=== PATIENT | female | born 1950 | race African-American/Black ===

== ENCOUNTER 2020-01-20 09:13 | Outpatient (REF) | payer MEDICARE, SELFPAY ==
[2020-01-20 10:24] LABS: MANUAL DIFF FLAG NO
[2020-01-20 10:41] LABS: Basophils Percent Auto 0.5 % (0-2); Eosinophils Absolute Auto 0.1 X10*3/uL (0.0-0.4); Hematocrit 40.4 % (37-47); Hemoglobin 12.8 g/dl (12.0-16.0); Imm Gran Abs Auto 0.01 X10*3/uL (0.00-0.03); Imm Gran Pct Auto 0.2 % (0.0-0.4); Lymphocytes Absolute Auto 1.5 X10*3/uL (1.2-4.9); Lymphocytes Percent Auto 37.3 % (20-40); Mean Corpuscular HGB Conc 31.7 g/dl (31.0-35.0); Mean Corpuscular Hemoglobin 27.2 pg (27.0-33.0); Mean Corpuscular Volume 85.8 fL (80-98); Monocytes Absolute Auto 0.4 X10*3/uL (0.1-1.2); Monocytes Percent Auto 10.7 % (2-11); Neutrophils Percent Auto 49.3 % (45-73); Platelet Count 272 X10*3/uL (160-400); Red Blood Count 4.71 X10*6/uL (4.20-5.50); Red Cell Distribution Width 12.7 % (11.0-16.0); White Blood Count 4.1 X10*3/uL (4.8-10.8)
[2020-01-20 11:10] LABS: Alanine Aminotransferase 21 U/L (0-31); Albumin Level 4.3 g/dL (3.5-5.0); Alkaline Phosphatase 72 U/L (39-117); Anion Gap 15 (12-20); Aspartate Amino Transferase 20 U/L (5-31); Bilirubin Total 0.3 mg/dL (0.0-1.0); Blood Urea Nitrogen 8 mg/dL (9-16); Calcium 9.2 mg/dL (8.4-10.2); Carbon Dioxide 25 mmol/L (22-29); Chloride 105 mmol/L (96-108); Cholesterol 246 mg/dL; Estimated Glomerular Filt Rate > 60; Glucose Fasting 121 mg/dL (60-99); HDL Cholesterol 66 mg/dL; LDL Cholesterol Calculated 160 mg/dl; Potassium 4.5 mmol/l (3.3-5.1); Sodium 140 mmol/L (135-145); Total Protein 7.3 g/dL (6.5-8.0); Triglycerides 101 mg/dL
[2020-01-20 11:14] LABS: Creatinine Urine 158.36 mg/dL; Microalbum/Creatinine Ratio Ur 38.5 ug/mg cr
[2020-01-20 11:34] LABS: Thyroid Stimulating Hormone 0.64 mIU/mL (0.32-4.0); Vitamin D 25-OH Total 60.4 ng/mL (>30)
[2020-01-20 12:09] LABS: Vitamin B12 1650 pg/mL (200-900)
[2020-01-20 17:55] LABS: Estimated Average Glucose 174 mg/dL; Hemoglobin A1c % 7.7 %
[2020-01-20 18:15] LABS: T4 Thyroxine 7.8 ug/dL (4.5-12.0)
== END 2020-01-20 09:14 | disposition home or self-care (01) ==
LOC: HO.LAB 09:13
PROVIDERS: Visit Provider Internal Medicine
DX: E11.65 Type 2 diabetes mellitus with hyperglycemia (principal); E78.00 Pure hypercholesterolemia, unspecified; I10 Essential (primary) hypertension; Z85.3 Personal history of malignant neoplasm of breast
CPT/HCPCS: 36415; 80053; 80061; 82043; 82306; 82607; 82746; 83036; 84436; 84443; 85025

== ENCOUNTER 2020-03-14 10:30 | Inpatient (IN) | payer MEDICARE, SELFPAY ==
[2020-03-14] VITALS (7 sets, daily range): BP systolic 123–149; BP diastolic 51–68; PULSE 86–98; RESP 18–31; TEMP 36.5–37.9; O2SAT 84–96; BMI 36.3
--- NOTE | 2020-03-14 11:09 | ECG_ITS ---
Test Reason : WEAKNESS Blood Pressure : / mmHG Vent. Rate : 097 BPM Atrial Rate : 097 BPM P-R Int : 142 ms QRS Dur : 084 ms QT Int : 338 ms P-R-T Axes : 052 018 024 degrees QTc Int : 429 ms Normal sinus rhythm Possible Left atrial enlargement Possible Inferior infarct , age undetermined Abnormal ECG No previous ECGs available Referred By: Jerrod Stephens Electronically Signed By:LITA MOLINA
--- NOTE | 2020-03-14 11:09 | XR_ITS ---
EXAMINATION: XR CHEST CLINICAL INFORMATION: Shortness of breath COMPARISON: Previous chest x-rays most recent March 2019 TECHNIQUE: Frontal view of the chest was obtained. FINDINGS: The cardiac silhouette does not appear enlarged. There may be pulmonary venous redistribution. Hilar and mediastinal contours are otherwise unremarkable. There are increased markings seen in the perihilar region and lower lungs. Differential would include pulmonary edema and pneumonia. There is no pleural effusion. There are surgical clips in the right axilla. Bony structures are unremarkable. XR/XR chest 1V IMPRESSION: Bilateral increased perihilar and lower lung markings. Differential would include pulmonary edema and pneumonia. Clinical correlation recommended.
[2020-03-14 12:06] LABS: Lactic Acid 1.5 mmol/L (0.5-2.0)
[2020-03-14 12:50] LABS: Influenza A PCR NEGATIVE (Negative); Influenza B PCR NEGATIVE (Negative); Resp Syncy Virus RNA Qual PCR NEGATIVE (Negative); SARS COV2 PCR INHOUSE POSITIVE (Negative)
[2020-03-14 13:01] LABS: Glucose Urine UA NEG (NEG); Leukocyte Esterase Urine NEG (NEG); Nitrite Urine NEG (NEG); Specific Gravity - Urine >= 1.030 (1.005-1.025); Urine Blood 1+ (NEG); Urine Ketones 40 MG/DL (NEG); Urine Protein 3+ MG/DL (NEG-TRACE)
[2020-03-14 13:02] LABS: Appearance Urine HAZY; Color Urine YELLOW
[2020-03-14] MEDS: Acetaminophen 325 MG TABLET 975 MG PO (13:07)
[2020-03-14] MEDS: 0.9 % Sodium Chloride 1,000 ML 999 ML IVCONT (13:08)
[2020-03-14 13:09] LABS: RBC Urine 0-2 /HPF (0); Squamous Epithelial Cell Urine 1+ /LPF; WBC Urine 0-2 /HPF (0-4)
[2020-03-14 13:10] LABS: Mucus Urine 2+ /LPF
--- NOTE | 2020-03-14 13:11 | PC.NURSE ---
ivf started, pt medicated per order, will continue to monitor.
--- NOTE | 2020-03-14 13:45 | PC.NURSE ---
phlebotomy was able to obtain labs
[2020-03-14 13:46] LABS: Hematocrit 25.2 % (37-47); Hemoglobin 8.1 g/dl (12.0-16.0); Imm Gran Abs Auto 0.03 X10*3/uL (0.00-0.03); Imm Gran Pct Auto 0.9 % (0.0-0.4); Lymphocytes Absolute Auto 0.4 X10*3/uL (1.2-4.9); Lymphocytes Percent Auto 13.3 % (20-40); MANUAL DIFF FLAG SCAN; Mean Corpuscular HGB Conc 32.1 g/dl (31.0-35.0); Mean Corpuscular Hemoglobin 27.6 pg (27.0-33.0); Mean Corpuscular Volume 85.7 fL (80-98); Mean Platelet Volume 9.5 fL (9.4-12.3); Monocytes Absolute Auto 0.3 X10*3/uL (0.1-1.2); Monocytes Percent Auto 9.1 % (2-11); Neutrophils Absolute Auto 2.5 X10*3/uL (2.0-8.3); Neutrophils Percent Auto 76.7 % (45-73); Platelet Count 182 X10*3/uL (160-400); Red Blood Count 2.94 X10*6/uL (4.20-5.50); Red Cell Distribution Width 13.2 % (11.0-16.0); SCAN SMEAR FLAG 1; White Blood Count 3.3 X10*3/uL (4.8-10.8)
[2020-03-14 13:57] LABS: D Dimer 601 NG/ML
--- NOTE | 2020-03-14 14:09 | CT_ITS ---
EXAMINATION: CT ANGIOGRAM OF THE CHEST WITH AND WITHOUT CONTRAST (CT PULMONARY ANGIOGRAM FOR PE) CLINICAL INFORMATION: Reason for Exam pt + covid c hypoxia ? pe COMPARISON: Previous chest x-ray from earlier the same day and thyroid ultrasound August 2015 TECHNIQUE: Prior to contrast administration, noncontrast localization images were obtained. Subsequently, multidetector volumetric imaging was performed from the thoracic inlet to below the diaphragms following the administration of 65 mL Omnipaque 350 intravenous contrast. No contrast reaction reported Sagittal, coronal, and MIP oblique sagittal reformatted images were obtained on the CT workstation, uploaded to PACS, and reviewed. This CT examination was performed using dose optimization techniques as appropriate, variously including the following: *Automated exposure control *Adjustment of mA and/or kV according to patient size (this includes techniques or standardized protocols for targeted exams where dose is matched to indication/reason for exam; i.e. extremities or head) *Use of iterative reconstruction technique Total exam dose-length product 397 mGy-cm FINDINGS: QUALITY OF STUDY/CONTRAST BOLUS: Satisfactory. PULMONARY ARTERIES: No central or segmental pulmonary emboli. THORACIC AORTA: No aneurysm or dissection. LUNG: There is bilateral peripheral increased interstitial markings and groundglass attenuation. Appearance is more suggestive of an atypical viral pneumonia or possibly changes from chronic interstitial lung disease. PLEURA: No pleural effusion or pneumothorax. MEDIASTINUM: The heart is slightly enlarged. There is no pericardial effusion. There is mild coronary artery calcification. There is diffuse shotty bilateral hilar and mediastinal lymphadenopathy. There is enlargement of the left lobe of the thyroid gland and displacement of the trachea to the right. There are scattered calcifications in the thyroid gland questionable for calcified nodules. No evidence of septal bowing or right heart strain. CHEST WALL/AXILLA: There are there are surgical clips in the right axilla. The right breast has been removed. No chest wall mass or enlarged axillary lymph nodes are seen. OSSEOUS STRUCTURES: There are degenerative changes of the spine. UPPER ABDOMEN: There are multiple liver cysts.. No reflux of contrast into the hepatic veins to suggest elevated right heart pressures. CT/CT angio chest PE protocol IMPRESSION: No evidence of pulmonary embolism. Peripheral mixed interstitial disease and areas of groundglass attenuation. Appearance is nonspecific but is compatible with an atypical viral pneumonia. Differential would include interstitial lung disease. CHF/pulmonary edema is considered less likely. Diffuse shotty mediastinal and hilar lymphadenopathy. Enlarged heart and mild coronary artery calcification. Enlarged partially calcified left lobe of the thyroid gland and is displacement of the trachea to the right. Follow-up thyroid ultrasound recommended. Multiple liver cysts. VTE: negative
[2020-03-14 14:14] LABS: B Type Natriuretic Peptide 15 pg/mL (<100)
[2020-03-14 14:19] LABS: Lactate Dehydrogenase 303 U/L (122-220)
[2020-03-14 14:23] LABS: INTERNATIONAL NORM RATIO 1.3 (0.9-1.1); Prothrombin Time 15.9 SEC (10.8-13.0)
[2020-03-14 14:26] LABS: Partial Thromboplastin Time 32.4 SEC (24.1-38.0); SLIDE REVIEW VERIFIED
--- NOTE | 2020-03-14 14:35 | P.HPHOSP_ITS ---
History of Present Illness Date of Service: 03/14/20 Chief Complaint: Shortness of breath 69 year femle with history DM, HTN, HLD, grade 3, ER/OK negative, HER-w/armani negative s/p lumpectomy, chemo and chest radiation. She has been followed by Dr. Jose Verdin has been stable. Her last routine oncology visit was 02/17/20 and at that time advised routine colonscopy for screening and she declined. She presents with one week of malaise, cough and fever of up to 101 yesterday and becoming progresively sicker. Work up in ED has revealed covid positive and has been hypoxic with O2 sat of 84 on room air. CXR shows bilateral infiltrate. Of note her Hemoglobin is 8.1 when compare to January 19 it was 12.8. She denies bleeding in stool. She takes aspirin daily. Given Azithro and Ceftriaxone in ED along with Dexamethasone. She normal stays home but has a [employer] who comes 3 times a week Review of Systems Review of Systems: Gen: + fever Resp: + sob, no cough CV: no chest, RICHARDS, no leg edema GI: No n/v, no abd pain Neuro: No confusion Yes all other systems are reviewed and are negative [facility] Medical History B12 deficiency Diabetic nephropathy History of breast cancer Hypercholesterolemia Hypertension Multinodular goiter Obesity (BMI 30-39.9) Type 2 diabetes mellitus with hyperglycemia Family History Father No problems noted. Mother Enlarged heart Paternal Aunt Diabetes Surgical History H/O total mastectomy of right breast History of bunionectomy Social History Household Members: None Housing: Apartment Do you presently have visiting nurse or other home services: No Alcohol intake: never Smoking Status: Never smoker Use of substances other than those prescribed or required for medical reasons: No Currently Displaying Signs/Symptoms of Drug Intoxication Withdrawal: No Have you been hit, kicked, punched, or otherwise hurt by someone within the past year? If so, by whom?: No Do you feel safe in your current relationship?: Yes Is there a partner from a previous relationship who is making you feel unsafe now?: No Are you made to feel afraid or neglected: No Advance Directives: No Advance Directives Information Provided: No Do you have thoughts of harming others: None Do you have a plan to hurt others: No Plan Recently lost weight without trying: No Meds Allergies Allergy/AdvReac Type Severity Reaction Status Date / Time glimepiride Allergy Unknown Unknown Verified 01/21/20 16:22 metformin Allergy Unknown diarrhea Verified 01/21/20 16:22 simvastatin Allergy Unknown Unknown Verified 01/21/20 16:22 Home Medications Medication Instructions Recorded Confirmed Type ascorbate calcium (vitamin C) 500 500 mg PO DAILY 01/21/20 03/14/20 History mg tablet aspirin 81 mg tablet,delayed 81 mg PO DAILY 01/21/20 03/14/20 History release atenolol 25 mg tablet 25 mg PO DAILY 01/21/20 03/14/20 History ezetimibe 10 mg PO DAILY 03/14/20 03/14/20 History sitagliptin [Januvia] 50 mg PO DAILY 03/14/20 03/14/20 History Physical Exam Vital Signs and Narrative: Vital Signs: Last Vital Signs Temp 99 F 03/14/20 14:01 Pulse 94 03/14/20 14:01 Resp 28 H 03/14/20 14:01 BP 128/65 03/14/20 14:01 Pulse Ox 94 03/14/20 14:01 Body Mass Index 36.3 Constitutional Awake and Alert, No apparent distress, tals in full sentences Neck Supple, No lymphadenopathy Cardiovascular RRR, No M/R/G, S1 S2, No S3 S4, No pedal edema Respiratory Lungs clear, No respiratory distress Gastrointestinal Non tender, Non-distended Skin No rash Neurological Alert & oriented x3 Psychological Appropriate affect Results Labs CBC and Chem 7: 03/14/20 13:36 03/14/20 13:36 Labs: Laboratory Results - last 24 hr 03/14/20 03/14/20 03/14/20 11:31 11:44 12:51 MCV MCH MCHC RDW Plt Count MPV Immature Gran % (Auto) Neut % (Auto) Lymph % (Auto) [place] % (Auto) Eos % (Auto) Baso % (Auto) Lymph # (Auto) [place] # (Auto) Eos # (Auto) Baso # (Auto) Abs Immat Gran (auto) Absolute Neuts (auto) Absolute Nucleated RBC Nucleated RBC % (auto) Smear Tech's Comments Hold Purple Top PT INR APTT D-Dimer Hold Blue Top Lactic Acid 1.5 Lactate Dehydrogenase Troponin I High Sens B-Natriuretic Peptide Urine Color YELLOW Urine Appearance HAZY Urine pH 6.0 Ur Specific [place] >= 1.030 H Urine Protein 3+ H Urine Glucose (UA) NEG Urine Ketones 40 Urine Blood 1+ H Urine Nitrite NEG Ur Leukocyte Esterase NEG Urine RBC 0-2 Urine WBC 0-2 Ur Squamous Epith Cells 1+ Urine Bacteria NONE Granular Casts 1-4 Urine Mucus 2+ Coronavirus (PCR) POSITIVE A Influenza Type A (PCR) NEGATIVE Influenza Type B (PCR) NEGATIVE RSV RNA Qual (PCR) NEGATIVE 03/14/20 03/14/20 03/14/20 13:36 13:36 13:36 MCV 85.7 MCH 27.6 MCHC 32.1 RDW 13.2 Plt Count 182 D MPV 9.5 Immature Gran % (Auto) 0.9 H Neut % (Auto) 76.7 H Lymph % (Auto) 13.3 L [place] % (Auto) 9.1 Eos % (Auto) 0.0 Baso % (Auto) 0.0 Lymph # (Auto) 0.4 L [place] # (Auto) 0.3 Eos # (Auto) 0.0 Baso # (Auto) 0.0 Abs Immat Gran (auto) 0.03 Absolute Neuts (auto) 2.5 Absolute Nucleated RBC 0.000 Nucleated RBC % (auto) 0.0 Smear Tech's Comments VERIFIED Hold Purple Top SEE NOTE PT INR APTT D-Dimer Hold Blue Top Lactic Acid Lactate Dehydrogenase Troponin I High Sens B-Natriuretic Peptide 15 Urine Color Urine Appearance Urine pH Ur Specific [place] Urine Protein Urine Glucose (UA) Urine Ketones Urine Blood Urine Nitrite Ur Leukocyte Esterase Urine RBC Urine WBC Ur Squamous Epith Cells Urine Bacteria Granular Casts Urine Mucus Coronavirus (PCR) Influenza Type A (PCR) Influenza Type B (PCR) RSV RNA Qual (PCR) 03/14/20 03/14/20 03/14/20 13:36 13:36 13:36 MCV MCH MCHC RDW Plt Count MPV Immature Gran % (Auto) Neut % (Auto) Lymph % (Auto) [place] % (Auto) Eos % (Auto) Baso % (Auto) Lymph # (Auto) [place] # (Auto) Eos # (Auto) Baso # (Auto) Abs Immat Gran (auto) Absolute Neuts (auto) Absolute Nucleated RBC Nucleated RBC % (auto) Smear Tech's Comments Hold Purple Top PT 15.9 H INR 1.3 H APTT 32.4 D-Dimer 601 Hold Blue Top SEE NOTE Lactic Acid Lactate Dehydrogenase Troponin I High Sens 14.0 B-Natriuretic Peptide Urine Color Urine Appearance Urine pH Ur Specific [place] Urine Protein Urine Glucose (UA) Urine Ketones Urine Blood Urine Nitrite Ur Leukocyte Esterase Urine RBC Urine WBC Ur Squamous Epith Cells Urine Bacteria Granular Casts Urine Mucus Coronavirus (PCR) Influenza Type A (PCR) Influenza Type B (PCR) RSV RNA Qual (PCR) LDH 303 [id number] 03/14/20 13:36 MCV MCH MCHC RDW Plt Count MPV Immature Gran % (Auto) Neut % (Auto) Lymph % (Auto) [place] % (Auto) Eos % (Auto) Baso % (Auto) Lymph # (Auto) [place] # (Auto) Eos # (Auto) Baso # (Auto) Abs Immat Gran (auto) Absolute Neuts (auto) Absolute Nucleated RBC Nucleated RBC % (auto) Smear Tech's Comments Hold Purple Top PT INR APTT D-Dimer Hold Blue Top Lactic Acid Lactate Dehydrogenase 303 H Troponin I High Sens B-Natriuretic Peptide Urine Color Urine Appearance Urine pH Ur Specific [place] Urine Protein Urine Glucose (UA) Urine Ketones Urine Blood Urine Nitrite Ur Leukocyte Esterase Urine RBC Urine WBC Ur Squamous Epith Cells Urine Bacteria Granular Casts Urine Mucus Coronavirus (PCR) Influenza Type A (PCR) Influenza Type B (PCR) RSV RNA Qual (PCR) Imaging Radiologist's Impressions: Impressions Chest X-Ray 03/14/20 11:09 IMPRESSION: Bilateral increased perihilar and lower lung markings. Differential would include pulmonary edema and pneumonia. Clinical correlation recommended. Assessment and Plan (1) Acute respiratory failure due to COVID-19: Status: Acute (2) Pneumonia due to COVID-19 virus: Status: Acute (3) Viral sepsis: Status: Acute (4) Acute blood loss anemia: Status: Acute (5) Hypercholesterolemia: Status: Acute (6) Obesity (BMI 30-39.9): Status: Acute (7) Multinodular goiter: Problem details: Thyroid nodule biopsies February 2017 Dr. Low Status: Acute (8) Hypertension: Qualifiers: Hypertension type: essential hypertension Qualified Code(s): I10 - Essential (primary) hypertension Status: Acute (9) Type 2 diabetes mellitus with hyperglycemia: Qualifiers: Diabetes mellitus fci insulin use: without oil heaterman use Qualified Code(s): E11.65 - Type 2 diabetes mellitus with hyperglycemia Status: Acute (10) B12 deficiency: Status: Acute 69/F with DM, HTN, HLD, obesity, history breast Cancer s/p mastectomy, chemo and XRT and now has acute respiratory failure due to covid-19 with hypoxia. Incidental anemia with source of bleed at this time. 1. Acute respriatory failure with hypoxia due to covid 19 PNA -Oxygen -Dexamethasone -Pulmonology consult -CT for furtrher eval 2. Viral covid sepsis, viral PNA -Empiric Azithro and Rocephin in case there could be underlying bacterial etiology, consider remdesevir if get worse 3. Anemia--likely GI source of blood loss. -Follow H/H -Type and Screen -Avoid heparin or Lovenox 4. HTN--Atenolol 25 home dose 5. HLD--she takes Zetia 6. Diabetes--on Januvia 50 at home continue and add SSI 7. B12 deficiency--oral replacement 8. Advise weight loss as may affect chronic health issues DVT prophylaxis--no heparin or coumadin due to anemia. Compression device
[2020-03-14 14:40] LABS: Procalcitonin 0.06 ng/mL
[2020-03-14 14:43] LABS: Ferritin 367 ng/mL (10-250)
[2020-03-14 14:44] LABS: Anion Gap 10 (12-20); Blood Urea Nitrogen 10 mg/dL (9-16); Calcium 4.9 mg/dL (8.4-10.2); Carbon Dioxide 18 mmol/L (22-29); Chloride 117 mmol/L (96-108); Creatinine Clr Calc Pharmacy 132.8; Estimated Glomerular Filt Rate > 60; Glucose Random 81 mg/dL (60-115); Potassium 2.4 mmol/l (3.3-5.1); Sodium 143 mmol/L (135-145)
--- NOTE | 2020-03-14 14:56 | ED.FEVER ---
HPI - Fever General Chief Complaint: General Medical Stated Complaint: FATIGUE,WEAKNESS,T 101,O2SAT 92%RA Time Seen by Provider: 03/14/20 11:30 Source: patient and EMS Mode of arrival: EMS Limitations: no limitations History of Present Illness HPI Narrative: 69yoF c PMHX DM, HTN, hypercholesteremia, anemia, multinodular goiter, B12 deficiency and obesity presenting to the ED with complaints of generalized weakness, fatigue, chills and fevers up to 101 with a intermittent cough for the past week. Denies recent travel or sick contacts. Denies any other symptoms complaints or concerns at this time. Related Data Home Medications Medication Instructions Recorded Confirmed ascorbate calcium (vitamin C) 500 500 mg PO DAILY 01/21/20 03/14/20 mg tablet aspirin 81 mg tablet,delayed 81 mg PO DAILY 01/21/20 03/14/20 release atenolol 25 mg tablet 25 mg PO DAILY 01/21/20 03/14/20 ezetimibe 10 mg PO DAILY 03/14/20 03/14/20 sitagliptin [Januvia] 50 mg PO DAILY 03/14/20 03/14/20 Allergies Allergy/AdvReac Type Severity Reaction Status Date / Time glimepiride Allergy Unknown Unknown Verified 01/21/20 16:22 metformin Allergy Unknown diarrhea Verified 01/21/20 16:22 simvastatin Allergy Unknown Unknown Verified 01/21/20 16:22 Review of Systems Review of Systems: Constitutional : + Fever, + Chills, + fatigue, + Malaise ENT/Mouth : No sore throat, No runny nose Eyes: No Discharge Cardiovascular : No Chest Pain, No SOB Respiratory : + Cough, No Sputum, No Wheezing, No Smoke Exposure, No Dyspnea Gastrointestinal : No Nausea, No Vomiting, No Diarrhea Genitourinary : No irregular bleeding, No Dysuria, No Urinary Frequency, No Hematuria, No Urinary Incontinence, No Urgency, No Flank Pain, Musculoskeletal : + Myalgia Skin : No rash Neuro : No Headache Yes all other systems are reviewed and are negative [facility] Past Medical History Attestation statement: The following information was validated with the patient. Medical History B12 deficiency Diabetic nephropathy History of breast cancer Hypercholesterolemia Hypertension Multinodular goiter Obesity (BMI 30-39.9) Type 2 diabetes mellitus with hyperglycemia Surgical History H/O total mastectomy of right breast History of bunionectomy Family History Family History Father No problems noted. Mother Enlarged heart Paternal Aunt Diabetes Social History Social History Alcohol intake: never Smoking Status: Never smoker Use of substances other than those prescribed or required for medical reasons: No Advance Directives: No Advance Directives Information Provided: No Physical Exam Vital Signs: Vital Signs: Last Vital Signs Temp 99.4 F 03/14/20 17:18 Pulse 90 03/14/20 17:18 Resp 18 03/14/20 17:18 BP 130/57 L 03/14/20 17:18 Pulse Ox 93 03/14/20 17:18 Body Mass Index 36.3 vital signs have been reviewed as normal and appeared to be correct. Blood pressure normal. Heart rate tachycardic. Respiration rate tachypneic. Temperature febrile. Oxygen saturation hypoxic. Appearance: Alert. Oriented X3. Mild respiratory distress. Head: Normal external exam. Normocephalic. Atraumatic. No Grimaldo signs noted. No raccoon eyes noted Eyes: PERRLA. EOMI. Conjunctiva and sclera normal. Eyelids normal. ENT: EAC normal. TM's Normal. Pharynx normal. Uvula midline. Moist mucous membranes. No trismus noted. No drooling noted. No muffled voice noted. Neck: Normal inspection. Neck supple. FROM. No adenopathy. Thyroid Normal. No meningeal signs. No neck mass noted. CVS: Normal heart rate and rhythm. Heart sound normal. No murmurs noted. Pulses normal throughout. Respiratory: Mild respiratory distress. Painless inspiration. Decreased Breath sounds normal. No wheezes/rales/rhonchi noted. Chest nontender. No accessory muscle usage noted or decreased air movement noted. Abdomen: Soft and nontender. Bowel sounds normal in all 4 quadrants. No distention noted. No organomegaly noted. No visible injury noted. Back: No CVA tenderness. Full range of motion noted. Skin: Skin warm and dry. Normal skin color. Normal skin turgor. No rashes/lesions/lacerations noted. Extremities: No lower extremity edema. No calf tenderness noted. Extremities exhibit normal range of motion. Extremities nontender. Neuro: Oriented X 3. No motor deficit. No sensory deficit. Reflexes normal. Course Course Course Narrative: 11:45am - 69yoF c PMHX DM, HTN, hypercholesteremia, anemia, multinodular goiter, B12 deficiency and obesity presenting to the ED with complaints of generalized weakness, fatigue, chills and fevers up to 101 with a intermittent cough for the past week. - Concern for COVID vs PNA vs Viral syndrtome - Plan: Labs, blood cultures, lactic acid, EKG. Provide IV fluids, 975 mg of Tylenol then re-evaluate. Reevaluation(s) Reevaluation #1: - WBC at 3.3. Patient noted to have anemia and this is new on 01/20/2020 she did not have anemia. D-dimer 601. Potassium 2.4. Creatinine 0.45. Calcium 4.9. Magnesium 1.4. Ferritin 367. LDH 303. All other labs WNL. Patient positive for COVID. Lactic acid 1.5. - CXR revealed bilateral increased lung markings therefore CT scan of chest for PE obtained to evaluate for possible PE versus COVID/pna versus pneumonia - Zosyn ordered at this time for pna although most likely only Viral COVID-19 PNA not bacterial PNA. Will replace the patient's potassium with 40 mEq of IV potassium. Will also give the patient 2 mg of magnesium. - will also do a stool occult. Time: 14:18 Reevaluation #2: - Focus exam at this time. - stool occult negative. - CT of chest negative for PE although revealed ground-glass opacities consistent with COVID pneumonia. Therefore patient will be admitted for COVID pneumonia with hypoxia and sepsis. Not severe sepsis/no organ failure noted.. Patient understands agrees the plan. Time: 16:00 MDM - Fever Medical Records Attestation: I reviewed the patient's medical records. Lab Data Attestation: I reviewed the patient's lab results. Result diagrams: 03/14/20 13:36 03/14/20 13:36 Labs: Lab Results 03/14/20 03/14/20 03/14/20 Range/Units 11:31 11:44 12:51 WBC (4.8-10.8) X10*3/uL RBC (4.20-5.50) X10*6/uL Hgb (12.0-16.0) g/dl Hct (37-47) % MCV (80-98) fL MCH (27.0-33.0) pg MCHC (31.0-35.0) g/dl RDW (11.0-16.0) % Plt Count (160-400) X10*3/uL MPV (9.4-12.3) fL Immature Gran % (Auto) (0.0-0.4) % Neut % (Auto) (45-73) % Lymph % (Auto) (20-40) % [place] % (Auto) (2-11) % Eos % (Auto) (0-4) % Baso % (Auto) (0-2) % Lymph # (Auto) (1.2-4.9) X10*3/uL [place] # (Auto) (0.1-1.2) X10*3/uL Eos # (Auto) (0.0-0.4) X10*3/uL Baso # (Auto) (0.0-0.2) X10*3/uL Abs Immat Gran (auto) (0.00-0.03) X10*3/uL Absolute Neuts (auto) (2.0-8.3) X10*3/uL Absolute Nucleated RBC (0.0-0.012) X10*3/uL Nucleated RBC % (auto) (0.0-0.2) /100WBC Smear Tech's Comments Hold Purple Top PT (10.8-13.0) SEC INR (0.9-1.1) APTT (24.1-38.0) SEC D-Dimer NG/ML Hold Blue Top Sodium (135-145) mmol/L Potassium (3.3-5.1) mmol/l Chloride (96-108) mmol/L Carbon Dioxide (22-29) mmol/L Anion Gap (12-20) BUN (9-16) mg/dL Creatinine (0.5-1.4) mg/dL Estim Creat Clear Calc Estimated GFR Random Glucose (60-115) mg/dL Lactic Acid 1.5 (0.5-2.0) mmol/L Calcium (8.4-10.2) mg/dL Magnesium (1.6-2.6) mg/dL Ferritin (10-250) ng/mL Lactate Dehydrogenase (122-220) U/L Troponin I High Sens (<3.5-17.0) ng/L B-Natriuretic Peptide (<100) pg/mL Procalcitonin ng/mL Urine Color YELLOW Urine Appearance HAZY Urine pH 6.0 (5.0-8.0) Ur Specific [place] >= 1.030 H (1.005-1.025) Urine Protein 3+ H (NEG-TRACE) MG/DL Urine Glucose (UA) NEG (NEG) MG/DL Urine Ketones 40 (NEG) MG/DL Urine Blood 1+ H (NEG) Urine Nitrite NEG (NEG) Ur Leukocyte Esterase NEG (NEG) Urine RBC 0-2 (0) /HPF Urine WBC 0-2 (0-4) /HPF Ur Squamous Epith Cells 1+ /LPF Urine Bacteria NONE /LPF Granular Casts 1-4 /LPF Urine Mucus 2+ /LPF Coronavirus (PCR) POSITIVE A (Negative) Influenza Type A (PCR) NEGATIVE (Negative) Influenza Type B (PCR) NEGATIVE (Negative) RSV RNA Qual (PCR) NEGATIVE (Negative) 03/14/20 03/14/20 03/14/20 Range/Units 13:36 13:36 13:36 WBC 3.3 L (4.8-10.8) X10*3/uL RBC 2.94 L D (4.20-5.50) X10*6/uL Hgb 8.1 L D (12.0-16.0) g/dl Hct 25.2 L D (37-47) % MCV 85.7 (80-98) fL MCH 27.6 (27.0-33.0) pg MCHC 32.1 (31.0-35.0) g/dl RDW 13.2 (11.0-16.0) % Plt Count 182 D (160-400) X10*3/uL MPV 9.5 (9.4-12.3) fL Immature Gran % (Auto) 0.9 H (0.0-0.4) % Neut % (Auto) 76.7 H (45-73) % Lymph % (Auto) 13.3 L (20-40) % [place] % (Auto) 9.1 (2-11) % Eos % (Auto) 0.0 (0-4) % Baso % (Auto) 0.0 (0-2) % Lymph # (Auto) 0.4 L (1.2-4.9) X10*3/uL [place] # (Auto) 0.3 (0.1-1.2) X10*3/uL Eos # (Auto) 0.0 (0.0-0.4) X10*3/uL Baso # (Auto) 0.0 (0.0-0.2) X10*3/uL Abs Immat Gran (auto) 0.03 (0.00-0.03) X10*3/uL Absolute Neuts (auto) 2.5 (2.0-8.3) X10*3/uL Absolute Nucleated RBC 0.000 (0.0-0.012) X10*3/uL Nucleated RBC % (auto) 0.0 (0.0-0.2) /100WBC Smear Tech's Comments VERIFIED Hold Purple Top SEE NOTE PT (10.8-13.0) SEC INR (0.9-1.1) APTT (24.1-38.0) SEC D-Dimer NG/ML Hold Blue Top Sodium (135-145) mmol/L Potassium (3.3-5.1) mmol/l Chloride (96-108) mmol/L Carbon Dioxide (22-29) mmol/L Anion Gap (12-20) BUN (9-16) mg/dL Creatinine (0.5-1.4) mg/dL Estim Creat Clear Calc Estimated GFR Random Glucose (60-115) mg/dL Lactic Acid (0.5-2.0) mmol/L Calcium (8.4-10.2) mg/dL Magnesium (1.6-2.6) mg/dL Ferritin (10-250) ng/mL Lactate Dehydrogenase (122-220) U/L Troponin I High Sens (<3.5-17.0) ng/L B-Natriuretic Peptide 15 (<100) pg/mL Procalcitonin ng/mL Urine Color Urine Appearance Urine pH (5.0-8.0) Ur Specific [place] (1.005-1.025) Urine Protein (NEG-TRACE) MG/DL Urine Glucose (UA) (NEG) MG/DL Urine Ketones (NEG) MG/DL Urine Blood (NEG) Urine Nitrite (NEG) Ur Leukocyte Esterase (NEG) Urine RBC (0) /HPF Urine WBC (0-4) /HPF Ur Squamous Epith Cells /LPF Urine Bacteria /LPF Granular Casts /LPF Urine Mucus /LPF Coronavirus (PCR) (Negative) Influenza Type A (PCR) (Negative) Influenza Type B (PCR) (Negative) RSV RNA Qual (PCR) (Negative) 03/14/20 03/14/20 03/14/20 Range/Units 13:36 13:36 13:36 WBC (4.8-10.8) X10*3/uL RBC (4.20-5.50) X10*6/uL Hgb (12.0-16.0) g/dl Hct (37-47) % MCV (80-98) fL MCH (27.0-33.0) pg MCHC (31.0-35.0) g/dl RDW (11.0-16.0) % Plt Count (160-400) X10*3/uL MPV (9.4-12.3) fL Immature Gran % (Auto) (0.0-0.4) % Neut % (Auto) (45-73) % Lymph % (Auto) (20-40) % [place] % (Auto) (2-11) % Eos % (Auto) (0-4) % Baso % (Auto) (0-2) % Lymph # (Auto) (1.2-4.9) X10*3/uL [place] # (Auto) (0.1-1.2) X10*3/uL Eos # (Auto) (0.0-0.4) X10*3/uL Baso # (Auto) (0.0-0.2) X10*3/uL Abs Immat Gran (auto) (0.00-0.03) X10*3/uL Absolute Neuts (auto) (2.0-8.3) X10*3/uL Absolute Nucleated RBC (0.0-0.012) X10*3/uL Nucleated RBC % (auto) (0.0-0.2) /100WBC Smear Tech's Comments Hold Purple Top PT (10.8-13.0) SEC INR (0.9-1.1) APTT (24.1-38.0) SEC D-Dimer NG/ML Hold Blue Top SEE NOTE Sodium 143 (135-145) mmol/L Potassium 2.4 L* D (3.3-5.1) mmol/l Chloride 117 H (96-108) mmol/L Carbon Dioxide 18 L (22-29) mmol/L Anion Gap 10 L (12-20) BUN 10 (9-16) mg/dL Creatinine 0.45 L (0.5-1.4) mg/dL Estim Creat Clear Calc 132.8 Estimated GFR > 60 Random Glucose 81 (60-115) mg/dL Lactic Acid (0.5-2.0) mmol/L Calcium 4.9 L* D (8.4-10.2) mg/dL Magnesium (1.6-2.6) mg/dL Ferritin (10-250) ng/mL Lactate Dehydrogenase (122-220) U/L Troponin I High Sens 14.0 (<3.5-17.0) ng/L B-Natriuretic Peptide (<100) pg/mL Procalcitonin ng/mL Urine Color Urine Appearance Urine pH (5.0-8.0) Ur Specific [place] (1.005-1.025) Urine Protein (NEG-TRACE) MG/DL Urine Glucose (UA) (NEG) MG/DL Urine Ketones (NEG) MG/DL Urine Blood (NEG) Urine Nitrite (NEG) Ur Leukocyte Esterase (NEG) Urine RBC (0) /HPF Urine WBC (0-4) /HPF Ur Squamous Epith Cells /LPF Urine Bacteria /LPF Granular Casts /LPF Urine Mucus /LPF Coronavirus (PCR) (Negative) Influenza Type A (PCR) (Negative) Influenza Type B (PCR) (Negative) RSV RNA Qual (PCR) (Negative) 03/14/20 03/14/20 03/14/20 Range/Units 13:36 13:36 13:36 WBC (4.8-10.8) X10*3/uL RBC (4.20-5.50) X10*6/uL Hgb (12.0-16.0) g/dl Hct (37-47) % MCV (80-98) fL MCH (27.0-33.0) pg MCHC (31.0-35.0) g/dl RDW (11.0-16.0) % Plt Count (160-400) X10*3/uL MPV (9.4-12.3) fL Immature Gran % (Auto) (0.0-0.4) % Neut % (Auto) (45-73) % Lymph % (Auto) (20-40) % [place] % (Auto) (2-11) % Eos % (Auto) (0-4) % Baso % (Auto) (0-2) % Lymph # (Auto) (1.2-4.9) X10*3/uL [place] # (Auto) (0.1-1.2) X10*3/uL Eos # (Auto) (0.0-0.4) X10*3/uL Baso # (Auto) (0.0-0.2) X10*3/uL Abs Immat Gran (auto) (0.00-0.03) X10*3/uL Absolute Neuts (auto) (2.0-8.3) X10*3/uL Absolute Nucleated RBC (0.0-0.012) X10*3/uL Nucleated RBC % (auto) (0.0-0.2) /100WBC Smear Tech's Comments Hold Purple Top PT 15.9 H (10.8-13.0) SEC INR 1.3 H (0.9-1.1) APTT 32.4 (24.1-38.0) SEC D-Dimer 601 NG/ML Hold Blue Top Sodium (135-145) mmol/L Potassium (3.3-5.1) mmol/l Chloride (96-108) mmol/L Carbon Dioxide (22-29) mmol/L Anion Gap (12-20) BUN (9-16) mg/dL Creatinine (0.5-1.4) mg/dL Estim Creat Clear Calc Estimated GFR Random Glucose (60-115) mg/dL Lactic Acid (0.5-2.0) mmol/L Calcium (8.4-10.2) mg/dL Magnesium 1.4 L* (1.6-2.6) mg/dL Ferritin 367 H (10-250) ng/mL Lactate Dehydrogenase 303 H (122-220) U/L Troponin I High Sens (<3.5-17.0) ng/L B-Natriuretic Peptide (<100) pg/mL Procalcitonin 0.06 ng/mL Urine Color Urine Appearance Urine pH (5.0-8.0) Ur Specific [place] (1.005-1.025) Urine Protein (NEG-TRACE) MG/DL Urine Glucose (UA) (NEG) MG/DL Urine Ketones (NEG) MG/DL Urine Blood (NEG) Urine Nitrite (NEG) Ur Leukocyte Esterase (NEG) Urine RBC (0) /HPF Urine WBC (0-4) /HPF Ur Squamous Epith Cells /LPF Urine Bacteria /LPF Granular Casts /LPF Urine Mucus /LPF Coronavirus (PCR) (Negative) Influenza Type A (PCR) (Negative) Influenza Type B (PCR) (Negative) RSV RNA Qual (PCR) (Negative) Imaging Data Chest x-ray: Attestation: I personally reviewed and interpreted this imaging study as follows: Radiologist's impression: IMPRESSION: Bilateral increased perihilar and lower lung markings. Differential would include pulmonary edema and pneumonia. Clinical correlation recommended. CT scan - chest: Attestation: I personally reviewed and interpreted this imaging study as follows: Radiologist's impression: IMPRESSION: No evidence of pulmonary embolism. Peripheral mixed interstitial disease and areas of groundglass attenuation. Appearance is nonspecific but is compatible with an atypical viral pneumonia. Differential would include interstitial lung disease. CHF/pulmonary edema is considered less likely. Diffuse shotty mediastinal and hilar lymphadenopathy. Enlarged heart and mild coronary artery calcification. Enlarged partially calcified left lobe of the thyroid gland and is displacement of the trachea to the right. Follow-up thyroid ultrasound recommended. Multiple liver cysts. VTE: negative ECG Data ECG #1: Attestation: I personally reviewed and interpreted this ECG as follows: ECG interpretation date: 03/14/20 ECG interpretation time: 10:41 Interpretation: Normal sinus rhythm with left atrial enlargement with normal QT/QTC interval. No acute ischemic changes noted. No prior EKG's to compare to At this time. Critical Care Time Critical Care Time Critical Care Time: Yes Total Critical Care Time: 60 Attestation: I personally attest to this time spent taking care of the patient Discharge Plan Discharge Clinical Impression: Sepsis, viral, COVID-19, Hypoxia, Anemia, Acute hypokalemia, Low blood magnesium Patient Disposition: Admitted As Inpatient
[2020-03-14 15:32] LABS: Magnesium 1.4 mg/dL (1.6-2.6)
[2020-03-14] MEDS: iohexoL 350 MG/ML 100 ML INFUS..BTL IV (15:35)
[2020-03-14] MEDS: cefTRIAXone sodium 2 GM in 0.9 % Sodium Chloride 50 ML IV (15:42)
[2020-03-14] MEDS: Pantoprazole Sodium 40 MG/10 ML VIAL IVPUSH (15:44)
[2020-03-14] MEDS: Potassium Chloride/H20 10 MEQ/100 ML PIGGYBACK 100 MEQ IV ×2 (16:39→22:35)
--- NOTE | 2020-03-14 16:43 | PC.NURSE ---
patient a&ox3, recal exam performed by provider, patient vss, color television console monitor nsr 80s, iv potassium started, patient not tolerating well-provider aware and asked for the first bag to be slowed to be given over 2 hrs vs 1 hr, rate change done per verbal request by provider, will continue to monitor.
[2020-03-14 16:59] LABS: OBS Int Ctl Valid YES; OBS1 NEG (NEG)
--- NOTE | 2020-03-14 17:00 | PC.NURSE ---
called floor to give report, rn will call back
[2020-03-14] MEDS: Potassium Chloride ER 20 MEQ TAB.ER.PRT 40 MEQ PO (17:14)
--- NOTE | 2020-03-14 17:19 | PC.NURSE ---
patient a&ox3, telemetry monitor nsr 80s-90s, vss, medicated patient with po potassium as ordered, will continue to monitor.
[2020-03-14] MEDS: Magnesium Sulfate/H2O 2 GM/50 ML PIGGYBACK IV (18:51)
--- NOTE | 2020-03-14 18:53 | PC.NURSE ---
patient medicated per order
[2020-03-14] MEDS: 0.9 % Sodium Chloride Flush 3 ML SYRINGE IVFLUSH (20:30)
[2020-03-14] MEDS: Azithromycin 500 MG in 0.9 % Sodium Chloride 250 ML 125 MG IV (20:30)
[2020-03-14 20:49] LABS: Glucose, Whole Blood 157 mg/dL (60-115)
[2020-03-15] VITALS (9 sets, daily range): BP systolic 141–162; BP diastolic 66–77; PULSE 88–94; RESP 18–20; TEMP 36.5–36.9; O2SAT 88–99; BMI 36.3
[2020-03-15] MEDS: 0.9 % Sodium Chloride Flush 3 ML SYRINGE IVFLUSH ×3 (00:32→16:39)
[2020-03-15] MEDS: Potassium Chloride/H20 10 MEQ/100 ML PIGGYBACK 100 MEQ IV ×2 (01:18→03:23)
--- NOTE | 2020-03-15 04:30 | MHC.PIE ---
P.O2 SATS 87-88% I.O2 SATS 87-88% ON 4L O2.O2 INCREASED TO 5L.SATS STILL 88%.UNABLE TO INCREASE.PT DENIES SOB.NO RESP DISTRESS NOTED. NOTIFIED. SUGGESTED NONREBREATHER.RESP THERAPY NOTIFIED AND ON FLOOR TO ASSESS PT.PLACED ON O2 AT 14 LITERS VIA OXIMISER.SATS IMPROVED TO 90-91%.PT STILL DENIES SOB. UPDATED. STATES OK WITH OXIMISER FOR O2. E.WILL CONT TO MONITOR.
[2020-03-15] MEDS: Pantoprazole Sodium 40 MG/10 ML VIAL IVPUSH ×2 (05:33→16:39)
[2020-03-15] MEDS: Ezetimibe 10 MG TABLET PO (08:47)
[2020-03-15] MEDS: atenoloL 25 MG TABLET PO (08:47)
[2020-03-15] MEDS: SITagliptin Phosphate 50 MG TABLET PO (08:47)
[2020-03-15] MEDS: Aspirin Enteric Coated 81 MG TABLET.DR PO (08:47)
[2020-03-15] MEDS: Ascorbic Acid 500 MG TABLET PO (08:47)
--- NOTE | 2020-03-15 09:07 | MHC.CDI.CONC ---
CDI Concurrent Query Service Date: 03/15/20 Documentation Clarification: Please clarify if you are treating a probable/suspected/likely or confirmed: Hypokalemia Please specify if known Provider Response: Other Other Diagnosis: Hypokalemia PLEASE DO NOT DELETE/MODIFY EXISTING CONTENT Additional information is needed in order to code to the highest accuracy and appropriate Severity of Illness (SOI). Please clarify the information noted below in your progress notes and discharge summary. Risk Factors/Clinical Indicators/Treatments LABS: potassium 2.4 IV Potassium will replace the patients potassium w 40 mEq of potassium. CDS: Birdie Tucker CCS, CDIS Contact Number: [phone] Please Review the information above and exercise your independent professional judgment in responding to the query. If you concur, pleas document in the PROGRESS NOTES and DISCHARGE SUMMARY. If you do not agree with the query, please document in the query above. THIS QUERY IS PART OF THE PERMANENT MEDICAL RECORD
--- NOTE | 2020-03-15 11:00 | MHC.CM.PN ---
03/15/2020 Female 69 DX Covid+. She lives alone w assist from [employer]. She requires assist ADLs. She uses an AD for distance. Provided HCP, completed with Patient. HCP on file, with copies to Pt. DP home resume [employer] services thru [facility] agency notified, referral made. Transportation will be provided by Patients Brother/HCP. CM will follow.
[2020-03-15 11:37] LABS: Hematocrit 41.8 % (37-47); Hemoglobin 13.5 g/dl (12.0-16.0); Mean Corpuscular HGB Conc 32.3 g/dl (31.0-35.0); Mean Corpuscular Hemoglobin 26.9 pg (27.0-33.0); Mean Corpuscular Volume 83.4 fL (80-98); Mean Platelet Volume 10.1 fL (9.4-12.3); Platelet Count 330 X10*3/uL (160-400); Red Blood Count 5.01 X10*6/uL (4.20-5.50); Red Cell Distribution Width 13.2 % (11.0-16.0); White Blood Count 7.4 X10*3/uL (4.8-10.8)
[2020-03-15 11:46] LABS: Glucose, Whole Blood 173 mg/dL (60-115)
--- NOTE | 2020-03-15 11:54 | HO.PM.IMPN ---
Subjective Subjective Date of Service: 03/15/20 Interval History: Seen in f/u for acute hypoxic respiratory failure due to covid pna. More hypoxic today but physically doesn't feel Review of Systems Gen: + fever Resp: + sob, no cough CV: no chest, RICHARDS, no leg edema GI: No n/v, no abd pain, no blood in stool Neuro: No confusion Physical Exam Vital Signs: Vital Signs: Last Vital Signs Temp 97.7 F 03/15/20 11:41 Pulse 88 03/15/20 11:41 Resp 18 03/15/20 11:41 BP 147/66 H 03/15/20 11:41 Pulse Ox 93 03/15/20 11:41 Body Mass Index 36.3 Constitutional Awake and Alert, No apparent distress Cardiovascular RRR, Respiratory normal effort Gastrointestinal Non tender, Non-distended Skin No rash Neurological Alert & oriented x3 Psychological Appropriate affect Objective Data Current Medications Generic Name Dose Route Start Last Admin Trade Name Freq PRN Reason Stop Dose Admin Acetaminophen 650 mg 03/14/20 15:13 Acetaminophen Supp 650 Mg Supp.Rect HI Q6H PRN Pain, Mild (Pain Scale 1-3) Ascorbic Acid 500 mg 03/15/20 09:00 03/15/20 08:47 Ascorbic Acid 500 Mg Tablet PO 500 mg DAILY DIA Administration Aspirin 81 mg 03/15/20 09:00 03/15/20 08:47 Aspirin Enteric Coated 81 Mg Tablet.Dr PO 81 mg DAILY DIA Administration Atenolol 25 mg 03/15/20 09:00 03/15/20 08:47 Atenolol 25 Mg Tablet PO 25 mg DAILY DIA Administration Protocol Ezetimibe 10 mg 03/15/20 09:00 03/15/20 08:47 Ezetimibe 10 Mg Tablet PO 10 mg DAILY [facility] Administration Insulin Human Lispro 0 unit 03/14/20 16:30 03/15/20 08:48 Insulin Lispro 100 Unit/Ml 3 Ml Vial SUBCUT Not Given QIDACHS [facility] Protocol Pantoprazole Sodium 40 mg 03/14/20 16:30 03/15/20 05:33 Pantoprazole Sodium 40 Mg/10 Ml Vial IVPUSH 40 mg BID@0630,1630 [facility] Administration Pharmacy Consult 1 each 03/14/20 13:57 Consult Rx Perform Med Rec MISCELLANE ONCE PRN Consult order Potassium Chloride 40 meq 03/14/20 15:10 12/29/20 16:38 Potassium Chloride Er 20 Meq Tab.Er.Prt PO Not Given TID DIA Sitagliptin Phosphate 50 mg 03/15/20 09:00 03/15/20 08:47 Sitagliptin Phosphate 50 Mg Tablet PO 50 mg DAILY DIA Administration Sodium Chloride 3 ml 03/14/20 16:00 03/15/20 08:47 0.9 % Sodium Chloride Flush 3 Ml Syringe IVFLUSH 3 ml QSHIFT DIA Administration Labs CBC & Chem 7: 03/15/20 11:06 03/15/20 11:06 Assessment and Plan (1) Acute respiratory failure due to COVID-19: Status: Acute (2) Pneumonia due to COVID-19 virus: Status: Acute (3) Viral sepsis: Status: Acute (4) Acute blood loss anemia: Status: Acute (5) Hypercholesterolemia: Status: Acute (6) Obesity (BMI 30-39.9): Status: Acute (7) Multinodular goiter: Problem details: Thyroid nodule biopsies February 2017 Dr. Low Status: Acute (8) Hypertension: Status: Acute (9) Type 2 diabetes mellitus with hyperglycemia: Status: Acute (10) B12 deficiency: Status: Acute Assessment and Plan: 69/F with DM, HTN, HLD, obesity, history breast Cancer s/p mastectomy, chemo and XRT and now has acute respiratory failure due to covid-19 with hypoxia. Incidental anemia with source of bleed at this time. # Acute respriatory failure with hypoxia due to covid 19 PNA -Oxygen -Dexamethasone -Pulmonology consult -CT for furtrher eval #Viral covid sepsis, viral PNA -Empiric Azithro and Rocephin in case there could be underlying bacterial etiology, consider remdesevir if get worse # Anemia--hemoglboin went from 8 to 13 without transfusion. The initial vaule likely wrong. So there is no anemia and no further w/u at this tiem #Hypokalemia--corrected with IV and oral K #HTN--Atenolol 25 home dose #HLD--she takes Zetia 6. Diabetes--on Januvia 50 at home continue and add SSI 7. B12 deficiency--oral replacement 8. Advise weight loss as may affect chronic health issues DVT prophylaxis-- will dd Lovenox givn no anemia.
[2020-03-15 11:56] LABS: Anion Gap 17 (12-20); Blood Urea Nitrogen 13 mg/dL (9-16); Calcium 8.2 mg/dL (8.4-10.2); Carbon Dioxide 21 mmol/L (22-29); Chloride 104 mmol/L (96-108); Creatinine Clr Calc Pharmacy 85.3; Estimated Glomerular Filt Rate > 60; Glucose Random 186 mg/dL (60-115); Potassium 4.9 mmol/l (3.3-5.1); Sodium 137 mmol/L (135-145)
[2020-03-15] MEDS: Insulin Lispro 100 UNIT/ML 3 ML VIAL SUBCUT ×3 (12:10→21:51)
[2020-03-15 12:43] LABS: Alanine Aminotransferase 73 U/L (0-31); Albumin Level 3.6 g/dL (3.5-5.0); Alkaline Phosphatase 66 U/L (39-117); Aspartate Amino Transferase 126 U/L (5-31); Bilirubin Direct 0.2 mg/dL (0.0-0.5); Bilirubin Total 0.4 mg/dL (0.0-1.0); Total Protein 7.1 g/dL (6.5-8.0)
[2020-03-15] MEDS: Remdesivir 200 MG in 0.9 % Sodium Chloride 210 ML 105 MG IV (14:41)
[2020-03-15 16:37] LABS: Glucose, Whole Blood 169 mg/dL (60-115)
[2020-03-15] MEDS: cefTRIAXone sodium 1 GM in 0.9 % Sodium Chloride 50 ML IV (16:39)
[2020-03-15] MEDS: Azithromycin 500 MG in 0.9 % Sodium Chloride 250 ML 125 MG IV (20:14)
[2020-03-15 21:40] LABS: Glucose, Whole Blood 181 mg/dL (60-115)
[2020-03-16] VITALS (9 sets, daily range): BP systolic 120–148; BP diastolic 66–79; PULSE 78–112; RESP 19–20; TEMP 36.1–37.1; O2SAT 91–97
[2020-03-16] MEDS: 0.9 % Sodium Chloride Flush 3 ML SYRINGE IVFLUSH ×4 (00:19→23:44)
[2020-03-16] MEDS: Pantoprazole Sodium 40 MG/10 ML VIAL IVPUSH ×2 (05:10→15:49)
[2020-03-16 07:55] LABS: Glucose, Whole Blood 150 mg/dL (60-115)
[2020-03-16] MEDS: dexAMETHasone sod phosphate 4 MG/ML VIAL 6 MG IVPUSH (09:41)
[2020-03-16] MEDS: Aspirin Enteric Coated 81 MG TABLET.DR PO (09:41)
[2020-03-16] MEDS: atenoloL 25 MG TABLET PO (09:41)
[2020-03-16] MEDS: SITagliptin Phosphate 50 MG TABLET PO (09:41)
[2020-03-16] MEDS: Ascorbic Acid 500 MG TABLET PO (09:41)
[2020-03-16] MEDS: Ezetimibe 10 MG TABLET PO (09:41)
--- NOTE | 2020-03-16 11:49 | P.PNIM_ITS ---
Subjective Subjective Date of Service: 03/16/20 Interval History: Seen in f/u for acute hypoxic respiratory failure due to covid pna. She was more hypoxic ovenight and was started on NRB, she feels a bit better this morning. O2 sat is 96 on 15 liters and is being transitioned to high flow O2 Review of Systems Gen: + fever Resp: + sob, no cough CV: no chest, RICHARDS, no leg edema GI: No n/v, no abd pain, no blood in stool Neuro: No confusion Physical Exam Vital Signs: Vital Signs: Last Vital Signs Temp 98.8 F 03/16/20 08:00 Pulse 112 H 03/16/20 08:00 Resp 20 03/16/20 08:00 BP 140/70 H 03/16/20 08:00 Pulse Ox 96 03/16/20 08:00 Body Mass Index 36.3 Const: Other: General: AO X 3, no acute distress Resp: normal respiratoy efortl CVS: S1,S2,RRR GI: +BS, NT, no distention Skin: No rash Neuro: motor grossly intact Psych: appropriate affect Objective Data Current Medications Generic Name Dose Route Start Last Admin Trade Name Freq PRN Reason Stop Dose Admin Acetaminophen 650 mg 03/14/20 15:13 Acetaminophen Supp 650 Mg Supp.Rect NE Q6H PRN Pain, Mild (Pain Scale 1-3) Ascorbic Acid 500 mg 03/15/20 09:00 03/16/20 09:41 Ascorbic Acid 500 Mg Tablet PO 500 mg DAILY DIA Administration Aspirin 81 mg 03/15/20 09:00 03/16/20 09:41 Aspirin Enteric Coated 81 Mg Tablet. PO 81 mg DAILY DIA Administration Atenolol 25 mg 03/15/20 09:00 03/16/20 09:41 Atenolol 25 Mg Tablet PO 25 mg DAILY DIA Administration Protocol Dexamethasone Sodium Phosphate 6 mg 03/16/20 09:00 03/16/20 09:41 Dexamethasone Sod Phosphate 4 Mg/Ml Vial IVPUSH 03/25/20 09:01 6 mg DAILY DIA Administration Ezetimibe 10 mg 03/15/20 09:00 03/16/20 09:41 Ezetimibe 10 Mg Tablet PO 10 mg DAILY DIA Administration Ceftriaxone Sodium 1 gm/ 50 mls @ 100 mls/hr 03/15/20 16:00 03/15/20 18:00 Sodium Chloride IV Infused Q24H [facility] Infusion Remdesivir 100 mg/ Sodium 230 mls @ 115 mls/hr 03/16/20 14:00 Chloride IV 03/19/20 15:59 Q24H [facility] Insulin Human Lispro 0 unit 03/14/20 16:30 03/16/20 09:26 Insulin Lispro 100 Unit/Ml 3 Ml Vial SUBCUT Not Given QIDACHS [facility] Protocol Pantoprazole Sodium 40 mg 03/14/20 16:30 03/16/20 05:10 Pantoprazole Sodium 40 Mg/10 Ml Vial IVPUSH 40 mg BID@0630,1630 [facility] Administration Pharmacy Consult 1 each 03/14/20 13:57 Consult Rx Perform Med Rec MISCELLANE ONCE PRN Consult order Potassium Chloride 40 meq 03/14/20 15:10 03/14/20 16:38 Potassium Chloride Er 20 Meq Tab.Er.Prt PO Not Given TID [facility] Sitagliptin Phosphate 50 mg 03/15/20 09:00 03/16/20 09:41 Sitagliptin Phosphate 50 Mg Tablet PO 50 mg DAILY [facility] Administration Sodium Chloride 3 ml 03/14/20 16:00 03/16/20 09:41 0.9 % Sodium Chloride Flush 3 Ml Syringe IVFLUSH 3 ml QSHIFT [facility] Administration Labs CBC & Chem 7: 03/15/20 11:06 03/15/20 11:06 Microbiology Microbiology Results: Microbiology 03/14/20 13:36 Blood - Venous Blood Culture - Preliminary No growth after 24 hours. 03/14/20 11:31 Blood - Venous Blood Culture - Preliminary No growth after 24 hours. Assessment and Plan (1) Acute respiratory failure due to COVID-19: Status: Acute (2) Pneumonia due to COVID-19 virus: Status: Acute (3) Viral sepsis: Status: Acute (4) Acute blood loss anemia: Status: Acute (5) Hypercholesterolemia: Status: Acute (6) Obesity (BMI 30-39.9): Status: Acute (7) Multinodular goiter: Problem details: Thyroid nodule biopsies February 2017 Dr. Low Status: Acute (8) Hypertension: Status: Acute (9) Type 2 diabetes mellitus with hyperglycemia: Status: Acute (10) B12 deficiency: Status: Acute Assessment and Plan: 69/F with DM, HTN, HLD, obesity, history breast Cancer s/p mastectomy, chemo and XRT and now has acute respiratory failure due to covid-19 with hypoxia. Incidental anemia with source of bleed at this time. # Acute respriatory failure with hypoxia due to covid 19 PNA. She is becoming more hypoxic a -Oxygen by nsal cannula -Dexamethasone IV -Pulmonology and ID consult -Remdesevir #Viral covid sepsis, viral PNA -Empiric Azithro and Rocephin in case there could be underlying bacterial etiology, consider remdesevir if get worse # Anemia--hemoglboin went from 8 to 13 without transfusion. The initial vaule likely wrong. So there is no anemia and no further w/u at this tiem #Hypokalemia--corrected #HTN--Atenolol 25 home dose #HLD--she takes Zetia 6. Diabetes--on Januvia 50 at home continue and add SSI 7. B12 deficiency--oral replacement 8. Advise weight loss as may affect chronic health issues DVT prophylaxis-- will dd Lovenox givn no anemia.
[2020-03-16 12:05] LABS: Glucose, Whole Blood 156 mg/dL (60-115)
--- NOTE | 2020-03-16 12:14 | CONS_ITS ---
DATE OF SERVICE: 03/16/2020 INDICATION: Shortness of breath. HISTORY OF PRESENT ILLNESS: Ms. Lowery is a 69-year-old woman with known history of hypertension, diabetes, hyperlipidemia, in addition to breast cancer, who apparently was in usual state of health until about a week ago when she started developing malaise and cough and fevers up to 101. The patient has been getting sicker in the last few days and she decided to come into the [facility] ED for further evaluation. Oxygen was found to be down to 84% on room air. She was placed on non-rebreather and subsequently admitted to the COVID unit after a positive COVID test. She was given antibiotics in addition to dexamethasone. When she made it to the COVID unit, she was started on remdesivir. The patient currently is feeling well. She continues on the oxygen supplementation, continues to have a cough, and has been getting cough medicine throughout. REVIEW OF SYSTEMS: Ten systems reviewed. Complains of the constitutional symptoms as stated above. Complains of the respiratory symptoms as stated above. Denies any cardiac symptoms. Denies any GI or symptoms. Denies any musculoskeletal symptoms. Denies any neuro symptoms. The rest of the 10-organ system is negative. PAST MEDICAL HISTORY: B12 deficiency, diabetes, history of breast cancer followed by Dr. Ho, hypercholesterolemia, hypertension, multinodular goiter, obesity, type 2 diabetes. FAMILY HISTORY: Positive for heart disease and diabetes. ALLERGIES: PLEASE REFER TO THE [facility] INCLUDING ZOCOR, METFORMIN, AND GLIMEPIRIDE, DIABETES MEDICATIONS. CURRENT MEDICATIONS: Please refer to the [facility] for the full list, which includes Tylenol, insulin, Protonix, atenolol, Januvia, ceftriaxone, dexamethasone 6 mg daily, remdesivir. PHYSICAL EXAMINATION: VITAL SIGNS: Stable. Saturating 96% on non-rebreather. The patient is comfortable. No evidence of any respiratory distress at this time. HEENT: Pupils equal and reactive to light. LUNGS: Diminished. EXTREMITIES: No clubbing or cyanosis. CARDIAC: Regular rhythm, regular rate. Tachycardic. LABORATORY DATA: White count is normal, hemoglobin is stable, platelet count is stable. Chemistries have been stable. Coagulation: D-dimer was elevated at 601. IMAGING STUDIES: The patient did undergo a CTA, which was negative for any evidence of pulmonary embolism, although peripheral mixed interstitial ground-glass attenuations consistent with the diagnosis of COVID. She has enlarged partially calcified thyroid gland and does have a history of the multinodular goiter, but that should also be followed up. ASSESSMENT: Ms. Lowery is a 69-year-old woman, with known history of breast cancer, now with COVID-19 infection with acute respiratory failure. 1. Acute hypoxic respiratory failure. 2. Pneumonitis, likely viral etiology with a positive COVID-19 infection, currently on dexamethasone and remdesivir. 3. Breast cancer. RECOMMENDATIONS: 1. Continue with non-rebreather. 2. Awake proning. 3. Consider decreasing down to Oxymizer pendant if she continues to do well. 4. Continue 5 days of remdesivir. 5. Continue with the current dose of dexamethasone and we will continue monitoring her progression. She was still on antibiotics. She could be changed over to doxycycline to treat strep and staph as far as postviral bacterial infections. Further recommendation will be based on forthcoming data. MD DANIEL Solis/MARIA E / [phone]
[2020-03-16 12:31] LABS: Hematocrit 39.7 % (37-47); Hemoglobin 12.8 g/dl (12.0-16.0); Mean Corpuscular HGB Conc 32.2 g/dl (31.0-35.0); Mean Corpuscular Hemoglobin 27.1 pg (27.0-33.0); Mean Corpuscular Volume 83.9 fL (80-98); Mean Platelet Volume 9.8 fL (9.4-12.3); Platelet Count 336 X10*3/uL (160-400); Red Blood Count 4.73 X10*6/uL (4.20-5.50); Red Cell Distribution Width 13.2 % (11.0-16.0); White Blood Count 9.8 X10*3/uL (4.8-10.8)
[2020-03-16 13:11] LABS: Anion Gap 18 (12-20); Blood Urea Nitrogen 13 mg/dL (9-16); Calcium 8.1 mg/dL (8.4-10.2); Carbon Dioxide 21 mmol/L (22-29); Chloride 104 mmol/L (96-108); Creatinine Clr Calc Pharmacy 85.3; Estimated Glomerular Filt Rate > 60; Glucose Random 158 mg/dL (60-115); Potassium 4.8 mmol/l (3.3-5.1); Sodium 138 mmol/L (135-145)
[2020-03-16] MEDS: Remdesivir 100 MG in 0.9 % Sodium Chloride 230 ML 115 MG IV (15:49)
[2020-03-16] MEDS: cefTRIAXone sodium 1 GM in 0.9 % Sodium Chloride 50 ML IV (15:49)
[2020-03-16] MEDS: Enoxaparin Sodium 40 MG/0.4 ML SYRINGE SUBCUT (15:49)
[2020-03-16 16:15] LABS: Glucose, Whole Blood 195 mg/dL (60-115)
[2020-03-16] MEDS: Insulin Lispro 100 UNIT/ML 3 ML VIAL SUBCUT ×2 (16:50→21:10)
[2020-03-16 19:58] LABS: Glucose, Whole Blood 264 mg/dL (60-115)
[2020-03-17] VITALS (12 sets, daily range): BP systolic 140–174; BP diastolic 65–83; PULSE 80–93; RESP 18–22; TEMP 36.4–37; O2SAT 89–95
--- NOTE | 2020-03-17 05:00 | MHC.PIE ---
P. WATER IN HI LIAN HOSE I. PT SATS NOTED TO BE 86-87% ON MONITOR.UPON CHECKING PATIENT,HI LIAN HOSE NOTED TO BE FILLED WITH WATER.WATER THEN BACKING UP TO PATIENT'S NOSE.RESPIRATORY CALLED AND IN ROOM TO REMOVE WATER FROM HOSE.PT INSTRUCTED TO BLOW NOSE AND SHE DID WITHOUT DIFFICULTY.WHEN HI LIAN REPLACED,O2 SATS STAYED 87=88%.RESPIRATORY ADDED 100% NON REBREATHER TO HI LIAN. PT NOT IN RESPIRATORY DISTRESS.NO CHANGE IN LUNG SOUNDS,REMAIN DIM. UPDATED.SUGGESTED PT MAY LIE PRONE.BUT SHE WAS NOT WILLING TO DO SO. STATES TO WATCH HER SHE IS NOT IN DISTRESS.NURSING SINGLE STROKE PREFORMER ALSO MADE AWARE OF INCIDENT. E.O2 SATS INCREASED TO 91-92%.PT RESTING QUIETLY.STATES SHE FEELS OK. REMAINS ON HI-LIAN AND NRB.CONTINUING TO MONITOR
[2020-03-17] MEDS: Pantoprazole Sodium 40 MG/10 ML VIAL IVPUSH (05:22)
[2020-03-17 07:48] LABS: Glucose, Whole Blood 167 mg/dL (60-115)
[2020-03-17] MEDS: Insulin Lispro 100 UNIT/ML 3 ML VIAL SUBCUT ×4 (08:12→20:48)
[2020-03-17] MEDS: 0.9 % Sodium Chloride Flush 3 ML SYRINGE IVFLUSH ×3 (08:12→20:50)
[2020-03-17] MEDS: Ezetimibe 10 MG TABLET PO (08:12)
[2020-03-17] MEDS: SITagliptin Phosphate 50 MG TABLET PO (08:12)
[2020-03-17] MEDS: Ascorbic Acid 500 MG TABLET PO (08:12)
[2020-03-17] MEDS: Aspirin Enteric Coated 81 MG TABLET.DR PO (08:12)
[2020-03-17] MEDS: dexAMETHasone sod phosphate 4 MG/ML VIAL 6 MG IVPUSH (08:13)
[2020-03-17] MEDS: atenoloL 25 MG TABLET PO (08:13)
--- NOTE | 2020-03-17 08:49 | HO.PM.IMPN ---
Subjective Subjective Date of Service: 03/17/20 Interval History: Seen in f/u for acute hypoxic respiratory failure due to covid pna. She was more hypoxic ovenight and is on NRB and high flow O2 sating just 90%. Review of Systems Gen: no fever Resp: + sob, no cough CV: no chest, RICHARDS, no leg edema GI: No n/v, no abd pain, no blood in stool Neuro: No confusion Physical Exam Vital Signs: Vital Signs: Last Vital Signs Temp 97.7 F 03/17/20 08:00 Pulse 93 03/17/20 08:00 Resp 20 03/17/20 08:08 BP 174/78 H 03/17/20 08:00 Pulse Ox 90 L 03/17/20 08:00 Body Mass Index 36.3 Const: Other: General: AO X 3, some resp distress Resp: normal respiratoy efortl CVS: S1,S2,RRR GI: +BS, NT, no distention Skin: No rash Neuro: motor grossly intact Psych: appropriate affect Objective Data Current Medications Generic Name Dose Route Start Last Admin Trade Name Freq PRN Reason Stop Dose Admin Acetaminophen 650 mg 03/14/20 15:13 Acetaminophen Supp 650 Mg Supp.Rect AR Q6H PRN Pain, Mild (Pain Scale 1-3) Ascorbic Acid 500 mg 03/15/20 09:00 03/17/20 08:12 Ascorbic Acid 500 Mg Tablet PO 500 mg DAILY DIA Administration Aspirin 81 mg 03/15/20 09:00 03/17/20 08:12 Aspirin Enteric Coated 81 Mg Tablet. PO 81 mg DAILY DIA Administration Atenolol 25 mg 03/15/20 09:00 03/17/20 08:13 Atenolol 25 Mg Tablet PO 25 mg DAILY DIA Administration Protocol Dexamethasone Sodium Phosphate 6 mg 03/16/20 09:00 03/17/20 08:13 Dexamethasone Sod Phosphate 4 Mg/Ml Vial IVPUSH 03/25/20 09:01 6 mg DAILY DIA Administration Ezetimibe 10 mg 03/15/20 09:00 03/17/20 08:12 Ezetimibe 10 Mg Tablet PO 10 mg DAILY DIA Administration Enoxaparin Sodium 40 mg 03/16/20 14:00 03/16/20 15:49 Enoxaparin Sodium 40 Mg/0.4 Ml Syringe SUBCUT 40 mg Q24H DIA Administration Ceftriaxone Sodium 1 gm/ 50 mls @ 100 mls/hr 03/15/20 16:00 03/16/20 16:32 Sodium Chloride IV Infused Q24H [facility] Infusion Remdesivir 100 mg/ Sodium 230 mls @ 115 mls/hr 03/16/20 14:00 03/16/20 18:35 Chloride IV 03/19/20 15:59 Infused Q24H [facility] Infusion Insulin Human Lispro 0 unit 03/14/20 16:30 03/17/20 08:12 Insulin Lispro 100 Unit/Ml 3 Ml Vial SUBCUT 2 unit QIDACHS [facility] Administration Protocol Pantoprazole Sodium 40 mg 03/14/20 16:30 03/17/20 05:22 Pantoprazole Sodium 40 Mg/10 Ml Vial IVPUSH 40 mg BID@0630,1630 [facility] Administration Pharmacy Consult 1 each 03/14/20 13:57 Consult Rx Perform Med Rec MISCELLANE ONCE PRN Consult order Potassium Chloride 40 meq 03/14/20 15:10 03/14/20 16:38 Potassium Chloride Er 20 Meq Tab.Er.Prt PO Not Given TID [facility] Sitagliptin Phosphate 50 mg 03/15/20 09:00 03/17/20 08:12 Sitagliptin Phosphate 50 Mg Tablet PO 50 mg DAILY [facility] Administration Sodium Chloride 3 ml 03/14/20 16:00 03/17/20 08:12 0.9 % Sodium Chloride Flush 3 Ml Syringe IVFLUSH 3 ml QSHIFT [facility] Administration Labs CBC & Chem 7: 03/16/20 12:03 03/16/20 12:03 Microbiology Microbiology Results: Microbiology 03/14/20 13:36 Blood - Venous Blood Culture - Preliminary No growth after 48 hours. 03/14/20 11:31 Blood - Venous Blood Culture - Preliminary No growth after 48 hours. Assessment and Plan (1) Acute respiratory failure due to COVID-19: Status: Acute (2) Pneumonia due to COVID-19 virus: Status: Acute (3) Viral sepsis: Status: Acute (4) Acute blood loss anemia: Status: Acute (5) Hypercholesterolemia: Status: Acute (6) Obesity (BMI 30-39.9): Status: Acute (7) Multinodular goiter: Problem details: Thyroid nodule biopsies February 2017 Dr. Low Status: Acute (8) Hypertension: Status: Acute (9) Type 2 diabetes mellitus with hyperglycemia: Status: Acute (10) B12 deficiency: Status: Acute Assessment and Plan: 69/F with DM, HTN, HLD, obesity, history breast Cancer s/p mastectomy, chemo and XRT and now has acute respiratory failure due to covid-19 with hypoxia. Incidental anemia with source of bleed at this time. # Acute respriatory failure with hypoxia due to covid 19 PNA. She is becoming more hypoxic a -Oxygen high flow and NRB and continue to closely monitor -Dexamethasone IV for 10 days -Pulmonology and ID following -Remdesevir D3 -check LFTS #Viral covid sepsis, viral PNA -Empiric Azithro and Rocephin in case there could be underlying bacterial etiology, consider remdesevir if get worse # ?Anemia--hemoglboin went from 8 to 13 without transfusion. The initial vaule likely wrong. So there is no anemia and no further w/u at this tiem #Hypokalemia--corrected #HTN--Atenolol 25 home dose #HLD--she takes Zetia 6. Diabetes--on Januvia 50 at home continue and add SSI 7. B12 deficiency--oral replacement 8. Advise weight loss as may affect chronic health issues DVT prophylaxis-- will dd Lovenox givn no anemia.
[2020-03-17 11:43] LABS: Alanine Aminotransferase 88 U/L (0-31); Albumin Level 3.4 g/dL (3.5-5.0); Alkaline Phosphatase 66 U/L (39-117); Aspartate Amino Transferase 73 U/L (5-31); Total Protein 6.9 g/dL (6.5-8.0)
[2020-03-17 12:00] LABS: Bilirubin Direct < 0.2 mg/dL (0.0-0.5); Bilirubin Total 0.3 mg/dL (0.0-1.0)
[2020-03-17 12:10] LABS: Glucose, Whole Blood 171 mg/dL (60-115)
[2020-03-17] MEDS: Enoxaparin Sodium 40 MG/0.4 ML SYRINGE SUBCUT (13:56)
[2020-03-17] MEDS: Remdesivir 100 MG in 0.9 % Sodium Chloride 230 ML 115 MG IV (13:58)
[2020-03-17 16:16] LABS: Glucose, Whole Blood 206 mg/dL (60-115)
[2020-03-17] MEDS: cefTRIAXone sodium 1 GM in 0.9 % Sodium Chloride 50 ML IV (16:46)
[2020-03-17 20:12] LABS: Glucose, Whole Blood 217 mg/dL (60-115)
[2020-03-18] VITALS (10 sets, daily range): BP systolic 144–160; BP diastolic 73–94; PULSE 79–97; RESP 18–22; TEMP 36.6–37; O2SAT 90–96
[2020-03-18] MEDS: Pantoprazole Sodium 40 MG/10 ML VIAL IVPUSH ×2 (05:03→15:55)
[2020-03-18 07:42] LABS: Glucose, Whole Blood 134 mg/dL (60-115)
[2020-03-18] MEDS: 0.9 % Sodium Chloride Flush 3 ML SYRINGE IVFLUSH ×3 (07:53→21:31)
[2020-03-18] MEDS: SITagliptin Phosphate 50 MG TABLET PO (08:01)
[2020-03-18] MEDS: Ezetimibe 10 MG TABLET PO (08:01)
[2020-03-18] MEDS: Ascorbic Acid 500 MG TABLET PO (08:01)
[2020-03-18] MEDS: Aspirin Enteric Coated 81 MG TABLET.DR PO (08:01)
[2020-03-18] MEDS: dexAMETHasone sod phosphate 4 MG/ML VIAL 6 MG IVPUSH (08:02)
[2020-03-18] MEDS: atenoloL 25 MG TABLET PO (08:02)
[2020-03-18 10:12] LABS: Hematocrit 44.4 % (37-47); Hemoglobin 14.3 g/dl (12.0-16.0); Mean Corpuscular HGB Conc 32.2 g/dl (31.0-35.0); Mean Corpuscular Hemoglobin 26.9 pg (27.0-33.0); Mean Corpuscular Volume 83.6 fL (80-98); Mean Platelet Volume 10.1 fL (9.4-12.3); PLT CLUMP 1; Red Blood Count 5.31 X10*6/uL (4.20-5.50); Red Cell Distribution Width 13.2 % (11.0-16.0)
[2020-03-18 10:13] LABS: Platelet Count 322 X10*3/uL (160-400)
[2020-03-18 10:43] LABS: Anion Gap 21 (12-20); Blood Urea Nitrogen 16 mg/dL (9-16); Calcium 8.4 mg/dL (8.4-10.2); Carbon Dioxide 20 mmol/L (22-29); Chloride 104 mmol/L (96-108); Creatinine Clr Calc Pharmacy 81.8; Estimated Glomerular Filt Rate > 60; Glucose Random 176 mg/dL (60-115); Potassium 5.2 mmol/l (3.3-5.1); Sodium 140 mmol/L (135-145)
[2020-03-18 11:19] LABS: Glucose, Whole Blood 211 mg/dL (60-115)
[2020-03-18] MEDS: Insulin Lispro 100 UNIT/ML 3 ML VIAL SUBCUT ×3 (11:30→21:30)
--- NOTE | 2020-03-18 12:51 | P.PNIM_ITS ---
Subjective Subjective Date of Service: 03/18/20 Interval History: Seen in f/u for acute hypoxic respiratory failure due to covid pna. She was more hypoxic ovenight and is on NRB and high flow O2 sating just 90%. Review of Systems Gen: no fever Resp: + sob, no cough CV: no chest, RICHARDS, no leg edema GI: No n/v, no abd pain, no blood in stool Neuro: No confusion Physical Exam Vital Signs: Vital Signs: Last Vital Signs Temp 98.5 F 03/18/20 11:24 Pulse 79 03/18/20 11:24 Resp 22 H 03/18/20 11:24 BP 160/75 H 03/18/20 08:00 Pulse Ox 95 03/18/20 11:24 Body Mass Index 36.3 Const: Other: General: AO X 3, NAD Resp: normal respiratoy efortl CVS: S1,S2,RRR GI: +BS, NT, no distention Skin: No rash Neuro: motor grossly intact Psych: appropriate affect Objective Data Current Medications Generic Name Dose Route Start Last Admin Trade Name Freq PRN Reason Stop Dose Admin Acetaminophen 650 mg 03/14/20 15:13 Acetaminophen Supp 650 Mg Supp.Rect MO Q6H PRN Pain, Mild (Pain Scale 1-3) Ascorbic Acid 500 mg 03/15/20 09:00 03/18/20 08:01 Ascorbic Acid 500 Mg Tablet PO 500 mg DAILY DIA Administration Aspirin 81 mg 03/15/20 09:00 03/18/20 08:01 Aspirin Enteric Coated 81 Mg Tablet. PO 81 mg DAILY DIA Administration Atenolol 25 mg 03/15/20 09:00 03/18/20 08:02 Atenolol 25 Mg Tablet PO 25 mg DAILY [facility]IA Administration Protocol Dexamethasone Sodium Phosphate 6 mg 03/16/20 09:00 03/18/20 08:02 Dexamethasone Sod Phosphate 4 Mg/Ml Vial IVPUSH 03/25/20 09:01 6 mg DAILY DIA Administration Ezetimibe 10 mg 03/15/20 09:00 03/18/20 08:01 Ezetimibe 10 Mg Tablet PO 10 mg DAILY DIA Administration Enoxaparin Sodium 40 mg 03/16/20 14:00 03/17/20 13:56 Enoxaparin Sodium 40 Mg/0.4 Ml Syringe SUBCUT 40 mg Q24H [facility] Administration Ceftriaxone Sodium 1 gm/ 50 mls @ 100 mls/hr 03/15/20 16:00 03/17/20 17:25 Sodium Chloride IV Infused Q24H [facility] Infusion Remdesivir 100 mg/ Sodium 230 mls @ 115 mls/hr 03/16/20 14:00 03/17/20 16:53 Chloride IV 03/19/20 15:59 Infused Q24H [facility] Infusion Insulin Human Lispro 0 unit 03/14/20 16:30 03/18/20 11:30 Insulin Lispro 100 Unit/Ml 3 Ml Vial SUBCUT 4 unit QIDACHS [facility] Administration Protocol Pantoprazole Sodium 40 mg 03/18/20 06:30 03/18/20 05:03 Pantoprazole Sodium 40 Mg/10 Ml Vial IVPUSH 40 mg BID@0630,1630 [facility] Administration Pharmacy Consult 1 each 03/14/20 13:57 Consult Rx Perform Med Rec MISCELLANE ONCE PRN Consult order Potassium Chloride 40 meq 03/14/20 15:10 03/14/20 16:38 Potassium Chloride Er 20 Meq Tab.Er.Prt PO Not Given TID [facility] Sitagliptin Phosphate 50 mg 03/15/20 09:00 03/18/20 08:01 Sitagliptin Phosphate 50 Mg Tablet PO 50 mg DAILY [facility] Administration Sodium Chloride 3 ml 03/14/20 16:00 03/18/20 07:53 0.9 % Sodium Chloride Flush 3 Ml Syringe IVFLUSH 3 ml QSHIFT [facility] Administration Labs CBC & Chem 7: 03/18/20 06:07 03/18/20 06:07 Microbiology Microbiology Results: Microbiology 03/14/20 13:36 Blood - Venous Blood Culture - Preliminary No growth after 48 hours. 03/14/20 11:31 Blood - Venous Blood Culture - Preliminary No growth after 48 hours. Assessment and Plan (1) Acute respiratory failure due to COVID-19: Status: Acute (2) Pneumonia due to COVID-19 virus: Status: Acute (3) Viral sepsis: Status: Acute (4) Acute blood loss anemia: Status: Acute (5) Hypercholesterolemia: Status: Acute (6) Obesity (BMI 30-39.9): Status: Acute (7) Multinodular goiter: Problem details: Thyroid nodule biopsies February 2017 Dr. Low Status: Acute (8) Hypertension: Status: Acute (9) Type 2 diabetes mellitus with hyperglycemia: Status: Acute (10) B12 deficiency: Status: Acute Assessment and Plan: 69/F with DM, HTN, HLD, obesity, history breast Cancer s/p mastectomy, chemo and XRT and now has acute respiratory failure due to covid-19 with hypoxia. Incidental anemia with source of bleed at this time. # Acute respriatory failure with hypoxia due to covid 19 PNA. Oxygenation is improved -Continue present level of oxygen and wean as tolerated -Dexamethasone for 10 days -Pulmonology and ID following -Remdesevir D4/5 -check LFTS tommorrow #Viral covid sepsis, viral PNA -Empiric Ceftriaxone D5, Doxy D1 # ?Anemia--hemoglboin went from 8 to 13 without transfusion. The initial vaule likely wrong. So there is no anemia and no further w/u at this tiem #Hypokalemia--and now slightly high K. DC K #HTN--Atenolol 25 home dose #HLD--she takes Zetia #Leukocytosis--? source. CXR 6. Diabetes--on Januvia 50 at home continue and add SSI 7. B12 deficiency--oral replacement 8. Advise weight loss as may affect chronic health issues DVT prophylaxis-- will dd Lovenox givn no anemia.
[2020-03-18] MEDS: Enoxaparin Sodium 40 MG/0.4 ML SYRINGE SUBCUT (14:15)
[2020-03-18] MEDS: Remdesivir 100 MG in 0.9 % Sodium Chloride 230 ML 115 MG IV (15:48)
[2020-03-18] MEDS: cefTRIAXone sodium 1 GM in 0.9 % Sodium Chloride 50 ML IV (15:55)
[2020-03-18 16:17] LABS: Glucose, Whole Blood 281 mg/dL (60-115)
[2020-03-18 20:32] LABS: Glucose, Whole Blood 259 mg/dL (60-115)
[2020-03-19] VITALS (7 sets, daily range): BP systolic 129–169; BP diastolic 63–84; PULSE 83–109; RESP 18–22; TEMP 36.5–37; O2SAT 92–100
--- NOTE | 2020-03-19 | XR_ITS ---
EXAMINATION: XR CHEST CLINICAL INFORMATION: COVID pneumonia. COMPARISON: Chest done on 03/14/2020. TECHNIQUE: Frontal view of the chest was obtained. FINDINGS: Persistent patchy bilateral lower lobar and perihilar interstitial airspace disease is present, consistent with clinically known COVID 19 pneumonia. No significant change since prior study. No new abnormalities. No evidence of any pleural effusion or pneumothorax. The heart size is within normal limit. XR/XR chest 1V IMPRESSION: Stable radiographic appearance of the chest, unchanged since 03/14/2020.
[2020-03-19] MEDS: Pantoprazole Sodium 40 MG/10 ML VIAL IVPUSH ×2 (06:43→16:34)
[2020-03-19 08:11] LABS: Glucose, Whole Blood 123 mg/dL (60-115)
[2020-03-19] MEDS: 0.9 % Sodium Chloride Flush 3 ML SYRINGE IVFLUSH ×3 (09:48→21:41)
[2020-03-19] MEDS: SITagliptin Phosphate 50 MG TABLET PO (09:48)
[2020-03-19] MEDS: Ascorbic Acid 500 MG TABLET PO (09:48)
[2020-03-19] MEDS: atenoloL 25 MG TABLET PO (09:48)
[2020-03-19] MEDS: Ezetimibe 10 MG TABLET PO (09:48)
[2020-03-19] MEDS: Aspirin Enteric Coated 81 MG TABLET.DR PO (09:49)
[2020-03-19] MEDS: dexAMETHasone sod phosphate 4 MG/ML VIAL 6 MG IVPUSH (09:50)
--- NOTE | 2020-03-19 10:41 | P.PNIM_ITS ---
Subjective Subjective Date of Service: 03/20/20 Interval History: Seen in f/u for acute hypoxic respiratory failure due to covid pna. She remains on NRB with sat just around 95%. She's alert and talk in full sentences and would like to go home as she tired of being here Review of Systems Gen: no fever Resp: + sob, no cough CV: no chest, RICHARDS, no leg edema GI: No n/v, no abd pain, no blood in stool Neuro: No confusion Physical Exam Vital Signs: Vital Signs: Last Vital Signs Temp 98.6 F 03/19/20 03:24 Pulse 93 03/19/20 03:24 Resp 20 03/19/20 03:24 BP 155/64 H 03/19/20 03:24 Pulse Ox 100 03/19/20 03:24 Body Mass Index 36.3 Const: Other: General: AO X 3, NAD Resp: normal respiratoy efortl CVS: S1,S2,RRR GI: +BS, NT, no distention Skin: No rash Neuro: motor grossly intact Psych: appropriate affect Objective Data Current Medications Generic Name Dose Route Start Last Admin Trade Name Freq PRN Reason Stop Dose Admin Acetaminophen 650 mg 03/14/20 15:13 Acetaminophen Supp 650 Mg Supp.Rect IN Q6H PRN Pain, Mild (Pain Scale 1-3) Ascorbic Acid 500 mg 03/15/20 09:00 03/19/20 09:48 Ascorbic Acid 500 Mg Tablet PO 500 mg DAILY DIA Administration Aspirin 81 mg 03/15/20 09:00 03/19/20 09:49 Aspirin Enteric Coated 81 Mg Tablet. PO 81 mg DAILY DIA Administration Atenolol 25 mg 03/15/20 09:00 03/19/20 09:48 Atenolol 25 Mg Tablet PO 25 mg DAILY DIA Administration Protocol Dexamethasone Sodium Phosphate 6 mg 03/16/20 09:00 03/19/20 09:50 Dexamethasone Sod Phosphate 4 Mg/Ml Vial IVPUSH 03/25/20 09:01 6 mg DAILY DIA Administration Doxycycline Hyclate 100 mg 03/18/20 14:00 03/19/20 02:51 Doxycycline Hyclate 100 Mg Tablet PO 100 mg Q12H DIA Administration Ezetimibe 10 mg 03/15/20 09:00 03/19/20 09:48 Ezetimibe 10 Mg Tablet PO 10 mg DAILY DIA Administration Enoxaparin Sodium 40 mg 03/16/20 14:00 03/18/20 14:15 Enoxaparin Sodium 40 Mg/0.4 Ml Syringe SUBCUT 40 mg Q24H DIA Administration Ceftriaxone Sodium 1 gm/ 50 mls @ 100 mls/hr 03/15/20 16:00 03/18/20 16:57 Sodium Chloride IV Infused Q24H DIA Infusion Remdesivir 100 mg/ Sodium 230 mls @ 115 mls/hr 03/16/20 14:00 03/18/20 19:14 Chloride IV 03/19/20 15:59 Infused Q24H DIA Infusion Insulin Human Lispro 0 unit 03/14/20 16:30 03/19/20 09:48 Insulin Lispro 100 Unit/Ml 3 Ml Vial SUBCUT Not Given QIDACHS [facility] Protocol Pantoprazole Sodium 40 mg 03/18/20 06:30 03/19/20 06:43 Pantoprazole Sodium 40 Mg/10 Ml Vial IVPUSH 40 mg BID@0630,1630 [facility] Administration Pharmacy Consult 1 each 03/14/20 13:57 Consult Rx Perform Med Rec MISCELLANE ONCE PRN Consult order Sitagliptin Phosphate 50 mg 03/15/20 09:00 03/19/20 09:48 Sitagliptin Phosphate 50 Mg Tablet PO 50 mg DAILY [facility] Administration Sodium Chloride 3 ml 03/14/20 16:00 03/19/20 09:48 0.9 % Sodium Chloride Flush 3 Ml Syringe IVFLUSH 3 ml QSHIFT [facility] Administration Labs CBC & Chem 7: 03/18/20 06:07 03/18/20 06:07 Microbiology Microbiology Results: Microbiology 03/14/20 13:36 Blood - Venous Blood Culture - Preliminary No growth after 48 hours. 03/14/20 11:31 Blood - Venous Blood Culture - Preliminary No growth after 48 hours. Assessment and Plan (1) Acute respiratory failure due to COVID-19: Status: Acute (2) Pneumonia due to COVID-19 virus: Status: Acute (3) Viral sepsis: Status: Acute (4) Acute blood loss anemia: Status: Acute (5) Hypercholesterolemia: Status: Acute (6) Obesity (BMI 30-39.9): Status: Acute (7) Multinodular goiter: Status: Acute (8) Hypertension: Status: Acute (9) Type 2 diabetes mellitus with hyperglycemia: Status: Acute (10) B12 deficiency: Status: Acute Assessment and Plan: 69/F with DM, HTN, HLD, obesity, history breast Cancer s/p mastectomy, chemo and XRT and now has acute respiratory failure due to covid-19 with hypoxia. Inc idental anemia with source of bleed at this time. # Acute respriatory failure with hypoxia due to covid 19 PNA. Persistent hypoxia on NRB at 95%, will titrate down to Oxymizer. -Has completed Remdesevir -To finish Dexamethasone -Continue present level of oxygen and wean as tolerated -Dexamethasone D ay -Pulmonology and ID following #Viral covid sepsis, viral PNA -Empiric Ceftriaxone D7/7, Doxy D3/7 # ?Anemia--hemoglboin went from 8 to 13 without transfusion. The initial vaule likely wrong. So there is no anemia and no further w/u at this tiem #Hypokalemia--and now slightly high K. Recheck Labs today #HTN--Atenolol 25 home dose #HLD--she takes Zetia #Leukocytosis--likely from steroid, recheck 6. Diabetes--on Januvia 50 at home continue and add SSI 7. B12 deficiency--oral replacement 8. Advise weight loss as may affect chronic health issues DVT prophylaxis-- will dd Lovenox givn no anemia. I discuss with brother VictorM over the phone and updated him.
[2020-03-19 12:22] LABS: Glucose, Whole Blood 165 mg/dL (60-115)
[2020-03-19] MEDS: Remdesivir 100 MG in 0.9 % Sodium Chloride 230 ML 115 MG IV (14:04)
[2020-03-19] MEDS: Enoxaparin Sodium 40 MG/0.4 ML SYRINGE SUBCUT (14:05)
[2020-03-19 16:18] LABS: Glucose, Whole Blood 248 mg/dL (60-115)
[2020-03-19] MEDS: Insulin Lispro 100 UNIT/ML 3 ML VIAL SUBCUT ×2 (16:34→21:41)
[2020-03-19] MEDS: cefTRIAXone sodium 1 GM in 0.9 % Sodium Chloride 50 ML IV (16:35)
[2020-03-19 20:50] LABS: Glucose, Whole Blood 210 mg/dL (60-115)
[2020-03-20] VITALS (8 sets, daily range): BP systolic 114–168; BP diastolic 65–85; PULSE 81–98; RESP 18–24; TEMP 36.4–37; O2SAT 90–94
[2020-03-20] MEDS: Pantoprazole Sodium 40 MG/10 ML VIAL IVPUSH ×2 (05:15→15:56)
--- NOTE | 2020-03-20 06:30 | PC.NURSE ---
Pt maintaining spO2 >92% on nonrebreather. Pt will desat with exertion to mid 80s, but recovers quickly. No complaints at this time, high fall risk measures in place.
[2020-03-20 08:01] LABS: Glucose, Whole Blood 125 mg/dL (60-115)
[2020-03-20] MEDS: dexAMETHasone sod phosphate 4 MG/ML VIAL 6 MG IVPUSH (08:33)
[2020-03-20] MEDS: SITagliptin Phosphate 50 MG TABLET PO (08:34)
[2020-03-20] MEDS: atenoloL 25 MG TABLET PO (08:34)
[2020-03-20] MEDS: Aspirin Enteric Coated 81 MG TABLET.DR PO (08:34)
[2020-03-20] MEDS: Ezetimibe 10 MG TABLET PO (08:35)
[2020-03-20] MEDS: Ascorbic Acid 500 MG TABLET PO (08:35)
[2020-03-20] MEDS: 0.9 % Sodium Chloride Flush 3 ML SYRINGE IVFLUSH ×3 (08:35→21:17)
--- NOTE | 2020-03-20 09:08 | MHC.CM.PN ---
DP resumption of home services already in place. [facility] provides [employer] thru [facility]. [facility] [facility]/HCP/[facility] will provide transportation. CM will follow.
[2020-03-20 11:39] LABS: Glucose, Whole Blood 162 mg/dL (60-115)
[2020-03-20] MEDS: Insulin Lispro 100 UNIT/ML 3 ML VIAL SUBCUT ×3 (12:26→21:17)
[2020-03-20] MEDS: Enoxaparin Sodium 40 MG/0.4 ML SYRINGE SUBCUT (13:16)
[2020-03-20] MEDS: cefTRIAXone sodium 1 GM in 0.9 % Sodium Chloride 50 ML IV (15:56)
[2020-03-20 16:51] LABS: Glucose, Whole Blood 288 mg/dL (60-115)
[2020-03-20 20:49] LABS: Glucose, Whole Blood 235 mg/dL (60-115)
[2020-03-21] VITALS (11 sets, daily range): BP systolic 125–153; BP diastolic 70–81; PULSE 84–110; RESP 18–20; TEMP 36.4–37.1; O2SAT 88–97
[2020-03-21] MEDS: Pantoprazole Sodium 40 MG/10 ML VIAL IVPUSH (03:54)
--- NOTE | 2020-03-21 06:01 | PC.NURSE ---
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 pt placed back on highflow and non rebreather 02 sats 99%, no change in lung sounds at this time. made aware. will continue to monitor
[2020-03-21 07:20] LABS: Glucose, Whole Blood 139 mg/dL (60-115)
[2020-03-21] MEDS: 0.9 % Sodium Chloride Flush 3 ML SYRINGE IVFLUSH ×2 (07:45→16:18)
[2020-03-21] MEDS: atenoloL 25 MG TABLET PO (08:21)
[2020-03-21] MEDS: SITagliptin Phosphate 50 MG TABLET PO (08:22)
[2020-03-21] MEDS: Aspirin Enteric Coated 81 MG TABLET.DR PO (08:22)
[2020-03-21] MEDS: Ezetimibe 10 MG TABLET PO (08:22)
[2020-03-21] MEDS: Ascorbic Acid 500 MG TABLET PO (08:22)
[2020-03-21] MEDS: dexAMETHasone sod phosphate 4 MG/ML VIAL 6 MG IVPUSH (08:22)
--- NOTE | 2020-03-21 09:18 | P.CDIC_ITS ---
CDI Concurrent Query Service Date: 03/21/20 Documentation Clarification: Please clarify if you are treating a proba ble/suspected/likely or confirmed: Consistency and clarity of documentation: Acute blood loss anemia (Txt, rule out, resolved) Please specify if known or other Provider Response: Other Other Diagnosis: There is no arrythmia as documentated . Reported anemia was lab error PLEASE DO NOT DELETE/MODIFY EXISTING CONTENT Additional information is needed in order to code to the highest accuracy and appropriate Severity of Illness (SOI). Please clarify the information noted below in your progress notes and discharge summary. Risk Factors/Clinical Indicators/Treatments H&P: 03/14 - Assessment/plan: Anemia - likely source of blood loss. PN: 03/19 - Assessment/plan: Acute blood loss anemia Progress note 03/19: ? anemia, hemoglobin went from 8 to 13 w/o transfusion, the initial value likely wrong so there is no anemia and no further workup at this time. CDS: Birdie Tucker CCS, CDIS Contact Number: [phone] Please Review the information above and exercise your independent professional judgment in responding to the query. If you concur, pleas document in the PROGRESS NOTES and DISCHARGE SUMMARY. If you do not agree with the query, please document in the query above. THIS QUERY IS PART OF THE PERMANENT MEDICAL RECORD
[2020-03-21 11:20] LABS: Glucose, Whole Blood 246 mg/dL (60-115)
[2020-03-21] MEDS: Insulin Lispro 100 UNIT/ML 3 ML VIAL SUBCUT ×3 (11:41→22:23)
--- NOTE | 2020-03-21 11:46 | HO.PM.IMPN ---
Subjective Subjective Date of Service: 03/21/20 Interval History: Seen in f/u for acute hypoxic respiratory failure due to covid pna. She is on high flow O2 and saturatingweel.. She is alert, speaks in full sentences and in good spirit Review of Systems Gen: no fever Resp: + sob, no cough CV: no chest, RICHARDS, no leg edema GI: No n/v, no abd pain, no blood in stool Neuro: No confusion Physical Exam Vital Signs: Vital Signs: Last Vital Signs Temp 97.7 F 03/21/20 07:18 Pulse 110 H 03/21/20 08:21 Resp 18 03/21/20 07:18 BP 144/70 H 03/21/20 08:21 Pulse Ox 97 03/21/20 07:31 Body Mass Index 36.3 Const: Other: General: AO X 3, NAD Resp: normal respiratoy efortl CVS: S1,S2,RRR GI: +BS, NT, no distention Skin: No rash Neuro: motor grossly intact Psych: appropriate affect Objective Data Current Medications Generic Name Dose Route Start Last Admin Trade Name Freq PRN Reason Stop Dose Admin Acetaminophen 650 mg 03/14/20 15:13 Acetaminophen Supp 650 Mg Supp.Rect [place] Q6H PRN Pain, Mild (Pain Scale 1-3) Ascorbic Acid 500 mg 03/15/20 09:00 03/21/20 08:22 Ascorbic Acid 500 Mg Tablet PO 500 mg DAILY DIA Administration Aspirin 81 mg 03/15/20 09:00 03/21/20 08:22 Aspirin Enteric Coated 81 Mg Tablet. PO 81 mg DAILY DIA Administration Atenolol 25 mg 03/15/20 09:00 03/21/20 08:21 Atenolol 25 Mg Tablet PO 25 mg DAILY DIA Administration Protocol Dexamethasone Sodium Phosphate 6 mg 03/16/20 09:00 03/21/20 08:22 Dexamethasone Sod Phosphate 4 Mg/Ml Vial IVPUSH 03/25/20 09:01 6 mg DAILY DIA Administration Doxycycline Hyclate 100 mg 03/18/20 14:00 03/21/20 03:54 Doxycycline Hyclate 100 Mg Tablet PO 100 mg Q12H DIA Administration Ezetimibe 10 mg 03/15/20 09:00 03/21/20 08:22 Ezetimibe 10 Mg Tablet PO 10 mg DAILY DIA Administration Enoxaparin Sodium 40 mg 03/16/20 14:00 03/20/20 13:16 Enoxaparin Sodium 40 Mg/0.4 Ml Syringe SUBCUT 40 mg Q24H DIA Administration Ceftriaxone Sodium 1 gm/ 50 mls @ 100 mls/hr 03/15/20 16:00 03/20/20 17:03 Sodium Chloride IV Infused Q24H DIA Infusion Insulin Human Lispro 0 unit 03/14/20 16:30 03/21/20 11:41 Insulin Lispro 100 Unit/Ml 3 Ml Vial SUBCUT 4 unit QIDACHS [facility] Administration Protocol Pharmacy Consult 1 each 03/14/20 13:57 Consult Rx Perform Med Rec MISCELLANE ONCE PRN Consult order Sitagliptin Phosphate 50 mg 03/15/20 09:00 03/21/20 08:22 Sitagliptin Phosphate 50 Mg Tablet PO 50 mg DAILY DIA Administration Sodium Chloride 3 ml 03/14/20 16:00 03/21/20 07:45 0.9 % Sodium Chloride Flush 3 Ml Syringe IVFLUSH 3 ml QSHIFT [facility]IA Administration Labs CBC & Chem 7: 03/18/20 06:07 03/18/20 06:07 Microbiology Microbiology Results: Microbiology 03/14/20 13:36 Blood - Venous Blood Culture - Final No growth after 5 days. 03/14/20 11:31 Blood - Venous Blood Culture - Final No growth after 5 days. Assessment and Plan (1) Acute respiratory failure due to COVID-19: Status: Acute (2) Pneumonia due to COVID-19 virus: Status: Acute (3) Viral sepsis: Status: Acute (4) Acute blood loss anemia: Status: Acute (5) Hypercholesterolemia: Status: Acute (6) Obesity (BMI 30-39.9): Status: Acute (7) Multinodular goiter: Status: Acute (8) Hypertension: Status: Acute (9) Type 2 diabetes mellitus with hyperglycemia: Status: Acute (10) B12 deficiency: Status: Acute Assessment and Plan: 69/F with DM, HTN, HLD, obesity, history breast Cancer s/p mastectomy, chemo and XRT and now has acute respiratory failure due to covid-19 with hypoxia. Incidental anemia with source of bleed at this time. # Acute respriatory failure with hypoxia due to covid 19 PNA. Persistent hypoxia on NRB at 95%, will titrate down to Oxymizer. -Has completed Remdesevir -To finish Dexamethasone -Continue present level of oxygen and wean as tolerated -Dexamethasone D ay -Pulmonology and ID following #Viral covid sepsis, viral PNA -Empiric Ceftriaxone D7/, Doxy D3/ # There is no anemia, there reported hemoglobin of 8 on admission, was lab error as was demonstrated on all subsequent CBCs #Hypokalemia--This resolvedd. Last potassium on 03/18 was 5.2. She refused blood drawa on 03/20, will attempt again today #HTN--Atenolol 25 home dose #HLD--she takes Zetia #Leukocytosis--likely from steroid, recheck 6. Diabetes--on Januvia 50 at home continue and add SSI 7. B12 deficiency--oral replacement 8. Advise weight loss as may affect chronic health issues DVT prophylaxis-- will dd Lovenox givn no anemia. I discuss with brother Victor M over the phone and updated him on 03/20, there is no interim change so i will update him again tomorrow
[2020-03-21] MEDS: Enoxaparin Sodium 40 MG/0.4 ML SYRINGE SUBCUT (14:09)
[2020-03-21] MEDS: cefTRIAXone sodium 1 GM in 0.9 % Sodium Chloride 50 ML IV (16:19)
[2020-03-21 16:43] LABS: Glucose, Whole Blood 261 mg/dL (60-115)
--- NOTE | 2020-03-21 17:57 | PC.NURSE ---
This RN attempted to return phone calls to the pt brother, Victor M, three times today with no response. Will continue to try to get in contact with him for an update.
--- NOTE | 2020-03-21 18:42 | PC.NURSE ---
At 1815 pt O2 sat dropped to 82% . This RN put a NRB mask on top of the 100% high-flow O2 in order to maintain O2 sats of 90-93% . Will continue to monitor.
[2020-03-21 20:42] LABS: Glucose, Whole Blood 252 mg/dL (60-115)
[2020-03-22] VITALS (14 sets, daily range): BP systolic 129–158; BP diastolic 66–88; PULSE 84–116; RESP 19–20; TEMP 36–37.2; O2SAT 3–97
[2020-03-22] MEDS: 0.9 % Sodium Chloride Flush 3 ML SYRINGE IVFLUSH ×4 (01:16→23:47)
[2020-03-22 07:28] LABS: Glucose, Whole Blood 105 mg/dL (60-115)
[2020-03-22] MEDS: Ezetimibe 10 MG TABLET PO (08:10)
[2020-03-22] MEDS: dexAMETHasone sod phosphate 4 MG/ML VIAL 6 MG IVPUSH (08:11)
[2020-03-22] MEDS: Ascorbic Acid 500 MG TABLET PO (08:11)
[2020-03-22] MEDS: SITagliptin Phosphate 50 MG TABLET PO (08:11)
[2020-03-22] MEDS: atenoloL 25 MG TABLET PO (08:11)
[2020-03-22] MEDS: Aspirin Enteric Coated 81 MG TABLET.DR PO (08:11)
--- NOTE | 2020-03-22 09:23 | MHC.CM.PN ---
Female 69 DX COVID+ DP home with resumption of home care services with [facility] as well as [facility]. Transportation will be provided by Pts Brother/HCP. CM will follow for change in DC needs.
--- NOTE | 2020-03-22 10:17 | P.PNIM_ITS ---
Subjective Subjective Date of Service: 03/22/20 Interval History: Seen in f/u for acute hypoxic respiratory failure due to covid pna. Clinically she says she feels better although she remain on high-flow O2 as well as non- rebreather. A non-rebreather was discontinued patient was saturating 94-97% with the high-flow only. She has no cough this no fever. Review of Systems Gen: no fever Resp: + sob, no cough CV: no chest, RICHARDS, no leg edema GI: No n/v, no abd pain, no blood in stool Neuro: No confusion Physical Exam Vital Signs: Vital Signs: Last Vital Signs Temp 98.9 F 03/22/20 07:25 Pulse 100 03/22/20 07:25 Resp 20 03/22/20 07:47 BP 146/67 H 03/22/20 07:25 Pulse Ox 94 03/22/20 07:25 Body Mass Index 36.3 Const: Other: General: AO X 3, NAD Resp: normal respiratoy efortl, clear doris CVS: S1,S2,RRR GI: +BS, NT, no distention Skin: No rash Neuro: motor grossly intact Psych: appropriate affect Objective Data Current Medications Generic Name Dose Route Start Last Admin Trade Name Freq PRN Reason Stop Dose Admin Acetaminophen 650 mg 03/14/20 15:13 Acetaminophen Supp 650 Mg Supp.Rect CA Q6H PRN Pain, Mild (Pain Scale 1-3) Ascorbic Acid 500 mg 03/15/20 09:00 03/22/20 08:11 Ascorbic Acid 500 Mg Tablet PO 500 mg DAILY DIA Administration Aspirin 81 mg 03/15/20 09:00 03/22/20 08:11 Aspirin Enteric Coated 81 Mg Tablet.Dr PO 81 mg DAILY DIA Administration Atenolol 25 mg 03/15/20 09:00 03/22/20 08:11 Atenolol 25 Mg Tablet PO 25 mg DAILY DIA Administration Protocol Dexamethasone Sodium Phosphate 6 mg 03/16/20 09:00 03/22/20 08:11 Dexamethasone Sod Phosphate 4 Mg/Ml Vial IVPUSH 03/25/20 09:01 6 mg DAILY DIA Administration Doxycycline Hyclate 100 mg 03/18/20 14:00 03/22/20 02:39 Doxycycline Hyclate 100 Mg Tablet PO 100 mg Q12H DIA Administration Ezetimibe 10 mg 03/15/20 09:00 03/22/20 08:10 Ezetimibe 10 Mg Tablet PO 10 mg DAILY DIA Administration Enoxaparin Sodium 40 mg 03/16/20 14:00 03/21/20 14:09 Enoxaparin Sodium 40 Mg/0.4 Ml Syringe SUBCUT 40 mg Q24H DIA Administration Ceftriaxone Sodium 1 gm/ 50 mls @ 100 mls/hr 03/15/20 16:00 03/21/20 17:49 Sodium Chloride IV Infused Q24H [facility] Infusion Insulin Human Lispro 0 unit 03/14/20 16:30 03/22/20 08:06 Insulin Lispro 100 Unit/Ml 3 Ml Vial SUBCUT Not Given QIDACHS [facility] Protocol Pharmacy Consult 1 each 03/14/20 13:57 Consult Rx Perform Med Rec MISCELLANE ONCE PRN Consult order Sitagliptin Phosphate 50 mg 03/15/20 09:00 03/22/20 08:11 Sitagliptin Phosphate 50 Mg Tablet PO 50 mg DAILY [facility] Administration Sodium Chloride 3 ml 03/14/20 16:00 03/22/20 08:11 0.9 % Sodium Chloride Flush 3 Ml Syringe IVFLUSH 3 ml QSHIFT DIA Administration Labs CBC & Chem 7: 03/18/20 06:07 03/18/20 06:07 Microbiology Microbiology Results: Microbiology 03/14/20 13:36 Blood - Venous Blood Culture - Final No growth after 5 days. 03/14/20 11:31 Blood - Venous Blood Culture - Final No growth after 5 days. Assessment and Plan (1) Acute respiratory failure due to COVID-19: Status: Acute (2) Pneumonia due to COVID-19 virus: Status: Acute (3) Viral sepsis: Status: Acute (4) Acute blood loss anemia: Status: Acute (5) Hypercholesterolemia: Status: Acute (6) Obesity (BMI 30-39.9): Status: Acute (7) Multinodular goiter: Status: Acute (8) Hypertension: Status: Acute (9) Type 2 diabetes mellitus with hyperglycemia: Status: Acute (10) B12 deficiency: Status: Acute Assessment and Plan: 69/F with DM, HTN, HLD, obesity, history breast Cancer s/p mastectomy, chemo and XRT and now has acute respiratory failure due to covid-19 with hypoxia. Incidental anemia with source of bleed at this time. # Acute respriatory failure with hypoxia due to covid 19 PNA. Persistent hypoxia on NRB at 95%, will titrate down to Oxymizer. -Has completed Remdesevir -Continue present level of oxygen and wean as tolerated -Dexamethasone D ay -Pulmonology and ID following #Viral covid sepsis, viral PNA -Empiric Ceftriaxone D7, Doxy D4 # There is no anemia, there reported hemoglobin of 8 on admission, was lab error as was demonstrated on all subsequent CBCs #Hypokalemia--This resolvedd. Last potassium on 03/18 was 5.2. Will get routine labs which she has been refusing #HTN--Atenolol 25 home dose #HLD--she takes Zetia #Leukocytosis--likely from steroid, recheck 6. Diabetes--on Januvia 50 at home continue and add SSI 7. B12 deficiency--oral replacement 8. Advise weight loss as may affect chronic health issues DVT prophylaxis-- Lovenox I discuss with brother Victor M over the phone and updated him Out of bed to chair, ambulate
[2020-03-22 11:24] LABS: Glucose, Whole Blood 171 mg/dL (60-115)
[2020-03-22] MEDS: Insulin Lispro 100 UNIT/ML 3 ML VIAL SUBCUT ×3 (11:55→21:11)
[2020-03-22] MEDS: Enoxaparin Sodium 40 MG/0.4 ML SYRINGE SUBCUT (14:00)
--- NOTE | 2020-03-22 14:04 | MHC.CLN ---
F/U PO INTAKE 50-75% DIET RX: 1800DM-APPROPRIATE WILL START GLUCERNA TO INCREASE KCALS R/T ACUTE ILLNESS FOLLOWING
[2020-03-22 15:52] LABS: Glucose, Whole Blood 265 mg/dL (60-115)
[2020-03-22] MEDS: cefTRIAXone sodium 1 GM in 0.9 % Sodium Chloride 50 ML IV (15:57)
--- NOTE | 2020-03-22 19:36 | PC.NURSE ---
Addendum entered by Kelly Marquez RN 03/22/20 21:50: recovers at rest to 89% Original Note: Pt has low saturations with repositioning and movement of 87-88%. She recovers with rest to *(%. Called respiratory to increase high flow oxygen. Will continue to observe.
[2020-03-22 19:43] LABS: Glucose, Whole Blood 294 mg/dL (60-115)
--- NOTE | 2020-03-22 21:51 | PC.NURSE ---
pt has improved, respiratory turned high flow to 40L 80%, pt oxygen saturation 90-92% while sleeping on right side. Will continue to monitor
[2020-03-23] VITALS (11 sets, daily range): BP systolic 133–159; BP diastolic 66–82; PULSE 85–106; RESP 18–22; TEMP 36.1–37.9; O2SAT 79–97
[2020-03-23 07:38] LABS: Glucose, Whole Blood 112 mg/dL (60-115)
[2020-03-23] MEDS: atenoloL 25 MG TABLET PO (09:00)
[2020-03-23] MEDS: dexAMETHasone sod phosphate 4 MG/ML VIAL 6 MG IVPUSH (09:00)
[2020-03-23] MEDS: SITagliptin Phosphate 50 MG TABLET PO (09:01)
[2020-03-23] MEDS: 0.9 % Sodium Chloride Flush 3 ML SYRINGE IVFLUSH (09:01)
[2020-03-23] MEDS: Ezetimibe 10 MG TABLET PO (09:01)
[2020-03-23] MEDS: Aspirin Enteric Coated 81 MG TABLET.DR PO (09:01)
[2020-03-23] MEDS: Ascorbic Acid 500 MG TABLET PO (09:01)
[2020-03-23 11:16] LABS: Glucose, Whole Blood 140 mg/dL (60-115)
--- NOTE | 2020-03-23 11:54 | P.PNIM_ITS ---
Subjective Subjective Date of Service: 03/23/20 Interval History: Seen in f/u for acute hypoxic respiratory failure due to covid pna. She was put back on both non-rebreather and high flow O2 as of last night--she is sating around 97 percent. Review of Systems Gen: no fever Resp: + sob, no cough CV: no chest, RICHARDS, no leg edema GI: No n/v, no abd pain, no blood in stool Neuro: No confusion Physical Exam Vital Signs: Vital Signs: Last Vital Signs Temp 97.8 F 03/23/20 11:37 Pulse 97 03/23/20 11:37 Resp 22 H 03/23/20 11:37 BP 141/76 H 03/23/20 11:37 Pulse Ox 96 03/23/20 11:37 Body Mass Index 36.3 Const: Other: General: AO X 3, NAD Resp: normal respiratoy efortl CVS: S1,S2,RRR GI: +BS, NT, no distention Skin: No rash Neuro: motor grossly intact Psych: appropriate affect Objective Data Current Medications Generic Name Dose Route Start Last Admin Trade Name Freq PRN Reason Stop Dose Admin Acetaminophen 650 mg 03/14/20 15:13 Acetaminophen Supp 650 Mg Supp.Rect [place] Q6H PRN Pain, Mild (Pain Scale 1-3) Ascorbic Acid 500 mg 03/15/20 09:00 03/23/20 09:01 Ascorbic Acid 500 Mg Tablet PO 500 mg DAILY DIA Administration Aspirin 81 mg 03/15/20 09:00 03/23/20 09:01 Aspirin Enteric Coated 81 Mg Tablet. PO 81 mg DAILY DIA Administration Atenolol 25 mg 03/15/20 09:00 03/23/20 09:00 Atenolol 25 Mg Tablet PO 25 mg DAILY [facility] Administration Protocol Dexamethasone Sodium Phosphate 6 mg 03/16/20 09:00 03/23/20 09:00 Dexamethasone Sod Phosphate 4 Mg/Ml Vial IVPUSH 03/25/20 09:01 6 mg DAILY DIA Administration Doxycycline Hyclate 100 mg 03/18/20 14:00 03/23/20 02:50 Doxycycline Hyclate 100 Mg Tablet PO 100 mg Q12H DIA Administration Ezetimibe 10 mg 03/15/20 09:00 03/23/20 09:01 Ezetimibe 10 Mg Tablet PO 10 mg DAILY DIA Administration Enoxaparin Sodium 40 mg 12/31/20 14:00 03/22/20 14:00 Enoxaparin Sodium 40 Mg/0.4 Ml Syringe SUBCUT 40 mg Q24H DIA Administration Insulin Human Lispro 0 unit 03/14/20 16:30 03/23/20 09:04 Insulin Lispro 100 Unit/Ml 3 Ml Vial SUBCUT Not Given QIDACHS [facility] Protocol Pharmacy Consult 1 each 03/14/20 13:57 Consult Rx Perform Med Rec MISCELLANE ONCE PRN Consult order Sitagliptin Phosphate 50 mg 03/15/20 09:00 03/23/20 09:01 Sitagliptin Phosphate 50 Mg Tablet PO 50 mg DAILY DIA Administration Sodium Chloride 3 ml 03/14/20 16:00 03/23/20 09:01 0.9 % Sodium Chloride Flush 3 Ml Syringe IVFLUSH 3 ml QSHIFT [facility] Administration Labs CBC & Chem 7: 03/18/20 06:07 03/18/20 06:07 Microbiology Microbiology Results: Microbiology 03/14/20 13:36 Blood - Venous Blood Culture - Final No growth after 5 days. 03/14/20 11:31 Blood - Venous Blood Culture - Final No growth after 5 days. Assessment and Plan (1) Acute respiratory failure due to COVID-19: Status: Acute (2) Pneumonia due to COVID-19 virus: Status: Acute (3) Viral sepsis: Status: Acute (4) Acute blood loss anemia: Status: Acute (5) Hypercholesterolemia: Status: Acute (6) Obesity (BMI 30-39.9): Status: Acute (7) Multinodular goiter: Status: Acute (8) Hypertension: Status: Acute (9) Type 2 diabetes mellitus with hyperglycemia: Status: Acute (10) B12 deficiency: Status: Acute Assessment and Plan: 69/F with DM, HTN, HLD, obesity, history breast Cancer s/p mastectomy, chemo and XRT and now has acute respiratory failure due to covid-19 with hypoxia. Incidental anemia with source of bleed at this time. # Acute respriatory failure with hypoxia due to covid 19 PNA. Persistent hypoxia on NRB at 95% and high flow, wean down as much as possible -Has completed Remdesevir -Continue present level of oxygen and wean as tolerated -Dexamethasone D ay 8 -Pulmonology and ID following #Viral covid sepsis, viral PNA -Empiric Ceftriaxone D7/7, Doxy D5/7 # There is no anemia, there reported hemoglobin of 8 on admission, was lab error as was demonstrated on all subsequent CBCs #Hypokalemia--This resolvedd. Last potassium on 03/18 was 5.2. Will get routine labs which she has been refusing #HTN--Atenolol 25 home dose #HLD--she takes Zetia #Leukocytosis--likely from steroid, recheck 6. Diabetes--on Januvia 50 at home continue and add SSI 7. B12 deficiency--oral replacement 8. Advise weight loss as may affect chronic health issues Get routine lab work with [facility], chemistry--she has been refusing blood draws but is agreable today DVT prophylaxis-- Lovenox I discuss with brother Victor M over the phone and updated him Out of bed to chair, ambulate, incentive spirometry
[2020-03-23] MEDS: Enoxaparin Sodium 40 MG/0.4 ML SYRINGE SUBCUT (12:27)
[2020-03-23 16:15] LABS: Glucose, Whole Blood 185 mg/dL (60-115)
[2020-03-23] MEDS: Insulin Lispro 100 UNIT/ML 3 ML VIAL SUBCUT ×2 (17:07→20:46)
--- NOTE | 2020-03-23 19:54 | PC.NURSE ---
Addendum entered by Sandra Pillai RN 03/23/20 23:58: Attempted to wean patient off NRB. However, o2 sat in the low 90s. Patient unable to tolerate weaning off NRB at this time. Patient still on Hi Flow 55lt/100% and NRB. O2 sat 92%. Original Note: Patient up to commode and back to bed from recliner on 55lt and 100% on hi flow. Once back to bed patient o2 79%. Placed patient on NRB in addition to hi flow. Patient sat up to 94%. Patient left on hi flow and NRB for about 15 minutes. Then attempted to wean patient and take off NRB. However patient o2 down to 84% within 2 minutes. NRB placed back on patient. O2 now 96$ on 100% and 55lt on hi flow as well as NRB. Will continue to monitor and wean as tolerated.
[2020-03-23 20:31] LABS: Glucose, Whole Blood 193 mg/dL (60-115)
[2020-03-24] VITALS (14 sets, daily range): BP systolic 132–147; BP diastolic 62–72; PULSE 90–118; RESP 18–20; TEMP 36.5–37.1; O2SAT 88–96
[2020-03-24 09:08] LABS: Glucose, Whole Blood 169 mg/dL (60-115)
[2020-03-24] MEDS: Ezetimibe 10 MG TABLET PO (09:44)
[2020-03-24] MEDS: Aspirin Enteric Coated 81 MG TABLET.DR PO (09:44)
[2020-03-24] MEDS: SITagliptin Phosphate 50 MG TABLET PO (09:44)
[2020-03-24] MEDS: Ascorbic Acid 500 MG TABLET PO (09:44)
[2020-03-24] MEDS: atenoloL 25 MG TABLET PO (09:44)
[2020-03-24] MEDS: Insulin Lispro 100 UNIT/ML 3 ML VIAL SUBCUT ×4 (09:44→19:59)
[2020-03-24] MEDS: 0.9 % Sodium Chloride Flush 3 ML SYRINGE IVFLUSH ×2 (09:45→13:33)
--- NOTE | 2020-03-24 12:02 | P.PNIM_ITS ---
Subjective Subjective Date of Service: 03/24/20 Interval History: Seen in f/u for acute hypoxic respiratory failure due to covid pna. Progress with oxygen weaning has been slow but seem better this morning, we have been able take her off NRB and further decrease high flow Review of Systems Gen: no fever Resp: + sob, no cough CV: no chest, RICHARDS, no leg edema GI: No n/v, no abd pain, no blood in stool Neuro: No confusion Physical Exam Vital Signs: Vital Signs: Last Vital Signs Temp 98.7 F 03/24/20 08:00 Pulse 90 03/24/20 08:00 Resp 20 03/24/20 11:37 BP 132/62 03/24/20 08:00 Pulse Ox 96 03/24/20 08:00 Body Mass Index 36.3 Const: Other: General: AO X 3, NAD Resp: normal respiratoy efortl CVS: S1,S2,RRR GI: +BS, NT, no distention Skin: No rash Neuro: motor grossly intact Psych: appropriate affect Cardio: Other: General: AO X 3, NAD Resp: normal respiratoy efortl, lungs dimished throughout CVS: S1,S2,RRR GI: +BS, NT, no distention Skin: No rash Neuro: motor grossly intact Psych: appropriate affect Objective Data Current Medications Generic Name Dose Route Start Last Admin Trade Name Rahulq PRN Reason Stop Dose Admin Acetaminophen 650 mg 03/14/20 15:13 Acetaminophen Supp 650 Mg Supp.Rect WI Q6H PRN Pain, Mild (Pain Scale 1-3) Ascorbic Acid 500 mg 03/15/20 09:00 03/24/20 09:44 Ascorbic Acid 500 Mg Tablet PO 500 mg DAILY DIA Administration Aspirin 81 mg 03/15/20 09:00 03/24/20 09:44 Aspirin Enteric Coated 81 Mg Tablet.Dr PO 81 mg DAILY DIA Administration Atenolol 25 mg 03/15/20 09:00 03/24/20 09:44 Atenolol 25 Mg Tablet PO 25 mg DAILY DIA Administration Protocol Dexamethasone Sodium Phosphate 6 mg 03/16/20 09:00 03/24/20 09:45 Dexamethasone Sod Phosphate 4 Mg/Ml Vial IVPUSH 03/25/20 09:01 Not Given DAILY DIA Doxycycline Hyclate 100 mg 03/18/20 14:00 03/24/20 05:26 Doxycycline Hyclate 100 Mg Tablet PO 100 mg Q12H DIA Administration Ezetimibe 10 mg 03/15/20 09:00 03/24/20 09:44 Ezetimibe 10 Mg Tablet PO 10 mg DAILY DIA Administration Enoxaparin Sodium 40 mg 03/16/20 14:00 03/23/20 12:27 Enoxaparin Sodium 40 Mg/0.4 Ml Syringe SUBCUT 40 mg Q24H DIA Administration Insulin Human Lispro 0 unit 03/14/20 16:30 03/24/20 09:44 Insulin Lispro 100 Unit/Ml 3 Ml Vial SUBCUT 2 unit QIDACHS [facility] Administration Protocol Pharmacy Consult 1 each 03/14/20 13:57 Consult Rx Perform Med Rec MISCELLANE ONCE PRN Consult order Sitagliptin Phosphate 50 mg 03/15/20 09:00 03/24/20 09:44 Sitagliptin Phosphate 50 Mg Tablet PO 50 mg DAILY DIA Administration Sodium Chloride 3 ml 03/14/20 16:00 03/24/20 09:45 0.9 % Sodium Chloride Flush 3 Ml Syringe IVFLUSH 3 ml QSHIFT DIA Administration Labs CBC & Chem 7: 03/18/20 06:07 03/18/20 06:07 Microbiology Microbiology Results: Microbiology 03/14/20 13:36 Blood - Venous Blood Culture - Final No growth after 5 days. 03/14/20 11:31 Blood - Venous Blood Culture - Final No growth after 5 days. Assessment and Plan (1) Acute respiratory failure due to COVID-19: Status: Acute (2) Pneumonia due to COVID-19 virus: Status: Acute (3) Viral sepsis: Status: Acute (4) Acute blood loss anemia: Status: Acute (5) Hypercholesterolemia: Status: Acute (6) Obesity (BMI 30-39.9): Status: Acute (7) Multinodular goiter: Status: Acute (8) Hypertension: Status: Acute (9) Type 2 diabetes mellitus with hyperglycemia: Status: Acute (10) B12 deficiency: Status: Acute Assessment and Plan: 69/F with DM, HTN, HLD, obesity, history breast Cancer s/p mastectomy, chemo and XRT and now has acute respiratory failure due to covid-19 with hypoxia. Incidental anemia with source of bleed at this time. # Acute respriatory failure with hypoxia due to covid 19 PNA. Some prgress today with NRB off and further decrease in high flow -Has completed Remdesevir -Continue present level of oxygen and wean as tolerated -Dexamethasone D ay -Pulmonology and ID following #Viral covid sepsis, viral PNA -Empiric Ceftriaxone D7/, Doxy D6/ # There is no anemia, there reported hemoglobin of 8 on admission, was lab error as was demonstrated on all subsequent CBCs #Hypokalemia--This resolvedd. Last potassium on 03/18 was 5.2. Will get routine labs which she has been refusing #HTN--Atenolol 25 home dose #HLD--she takes Zetia #Leukocytosis--likely from steroid, recheck 6. Diabetes--on Januvia 50 at home continue and add SSI 7. B12 deficiency--oral replacement 8. Advise weight loss as may affect chronic health issues Get routine lab work with cbc, chemistry--she has been refusing blood draws but is agreable today DVT prophylaxis-- Lovethaisx I discussed with brother Victor M over the phone [phone] and answer all his question, encourage to let patient know tht she's not quite ready to leave the hospital as she wish and should allow periodic lab draw to further gauge treatment progres. Out of bed to chair, ambulate, incentive spirometry
[2020-03-24 12:06] LABS: Glucose, Whole Blood 186 mg/dL (60-115)
[2020-03-24] MEDS: Enoxaparin Sodium 40 MG/0.4 ML SYRINGE SUBCUT (13:32)
[2020-03-24 16:20] LABS: Glucose, Whole Blood 198 mg/dL (60-115)
--- NOTE | 2020-03-24 17:23 | PC.NURSE ---
Patient OOB to recliner, one assist. Mild SOB with activity. Patient on 50L, 65% 02, high flow. 02 sat 89-92%. Lungs diminished throughout. RR 18. Educated on incentive spirometery. Resting comfortably in recliner. Denies any pain.
--- NOTE | 2020-03-24 17:26 | PC.NURSE ---
Patient restless, and mildly anxious. Attempted to wean patient to oximizer, found to be at 78%. Patient now on 55L, 95% 02. 02 sat 90-93%. Lungs diminished. RR 20. Denies any pain. Repositioned q2 Hrs. Attempted to feed patient for meals, patient tolerating spoonfuls of thin liquids, but having consistent difficulty with managing pureed. Small bites of pureed given to patient, pooling noted in patient's mouth, speech following.
[2020-03-24 19:47] LABS: Glucose, Whole Blood 183 mg/dL (60-115)
--- NOTE | 2020-03-24 22:00 | PC.NURSE ---
Pt desating to low 80s
[2020-03-25] VITALS (20 sets, daily range): BP systolic 133–160; BP diastolic 64–100; PULSE 62–109; RESP 18–21; TEMP 36.1–36.8; O2SAT 70–97
--- NOTE | 2020-03-25 01:47 | PC.NURSE ---
At 2200 pt desating to low 80s on 65% high flow. RT to bedside. Placed on 100% high flow at 55 L. Maintaining spO2 >90%.
[2020-03-25 08:05] LABS: Glucose, Whole Blood 121 mg/dL (60-115)
[2020-03-25] MEDS: 0.9 % Sodium Chloride Flush 3 ML SYRINGE IVFLUSH (10:04)
[2020-03-25] MEDS: Aspirin Enteric Coated 81 MG TABLET.DR PO (10:05)
[2020-03-25] MEDS: atenoloL 25 MG TABLET PO (10:05)
[2020-03-25] MEDS: Ascorbic Acid 500 MG TABLET PO (10:05)
[2020-03-25] MEDS: Ezetimibe 10 MG TABLET PO (10:05)
[2020-03-25] MEDS: SITagliptin Phosphate 50 MG TABLET PO (10:05)
--- NOTE | 2020-03-25 11:00 | HO.PM.IMPN ---
Subjective Subjective Date of Service: 03/25/20 Interval History: Seen in f/u for acute hypoxic respiratory failure due to covid pna. She is now off NRB and satting well. She is still insisting on leaving by Friday. Review of Systems Gen: no fever Resp: + sob, no cough CV: no chest, RICHARDS, no leg edema GI: No n/v, no abd pain, no blood in stool Neuro: No confusion Physical Exam Vital Signs: Vital Signs: Last Vital Signs Temp 97.9 F 03/25/20 07:13 Pulse 109 H 03/25/20 09:04 Resp 20 03/25/20 09:04 BP 160/100 H 03/25/20 07:13 Pulse Ox 97 03/25/20 09:04 Body Mass Index 36.3 Const: General: cooperative and healthy appearing Orientation/consciousness: patient oriented x3 Resp: Effort & Inspection: normal respiratory effort Auscultation: diminished lung sounds Cardio: Rhythm: regular rhythm Heart sounds: S1 normal heart sound present and S2 normal heart sound present GI: Other: Non-tender Palpation (GI): Soft to palpation Auscultation: normal bowel sounds Neuro: General: patient oriented x3 Psych: Affect: normal affect Objective Data Current Medications Generic Name Dose Route Start Last Admin Trade Name Freq PRN Reason Stop Dose Admin Acetaminophen 650 mg 03/14/20 15:13 Acetaminophen Supp 650 Mg Supp.Rect [place] Q6H PRN Pain, Mild (Pain Scale 1-3) Ascorbic Acid 500 mg 03/15/20 09:00 03/25/20 10:05 Ascorbic Acid 500 Mg Tablet PO 500 mg DAILY DIA Administration Aspirin 81 mg 03/15/20 09:00 03/25/20 10:05 Aspirin Enteric Coated 81 Mg Tablet.Dr PO 81 mg DAILY DIA Administration Atenolol 25 mg 03/15/20 09:00 03/25/20 10:05 Atenolol 25 Mg Tablet PO 25 mg DAILY DIA Administration Protocol Doxycycline Hyclate 100 mg 03/18/20 14:00 03/25/20 02:48 Doxycycline Hyclate 100 Mg Tablet PO 100 mg Q12H DIA Administration Ezetimibe 10 mg 03/15/20 09:00 03/25/20 10:05 Ezetimibe 10 Mg Tablet PO 10 mg DAILY DIA Administration Enoxaparin Sodium 40 mg 03/16/20 14:00 03/24/20 13:32 Enoxaparin Sodium 40 Mg/0.4 Ml Syringe SUBCUT 40 mg Q24H DIA Administration Insulin Human Lispro 0 unit 03/14/20 16:30 03/25/20 08:00 Insulin Lispro 100 Unit/Ml 3 Ml Vial SUBCUT Not Given QIDACHS [facility] Protocol Pharmacy Consult 1 each 03/14/20 13:57 Consult Rx Perform Med Rec MISCELLANE ONCE PRN Consult order Sitagliptin Phosphate 50 mg 03/15/20 09:00 03/25/20 10:05 Sitagliptin Phosphate 50 Mg Tablet PO 50 mg DAILY DIA Administration Sodium Chloride 3 ml 03/14/20 16:00 03/25/20 10:04 0.9 % Sodium Chloride Flush 3 Ml Syringe IVFLUSH 3 ml QSHIFT DIA Administration Labs CBC & Chem 7: 03/18/20 06:07 03/18/20 06:07 Microbiology Microbiology Results: Microbiology 03/14/20 13:36 Blood - Venous Blood Culture - Final No growth after 5 days. 03/14/20 11:31 Blood - Venous Blood Culture - Final No growth after 5 days. Assessment and Plan (1) Acute respiratory failure due to COVID-19: Status: Acute (2) Pneumonia due to COVID-19 virus: Status: Acute (3) Viral sepsis: Status: Acute (4) Acute blood loss anemia: Status: Acute (5) Hypercholesterolemia: Status: Acute (6) Obesity (BMI 30-39.9): Status: Acute (7) Multinodular goiter: Status: Acute (8) Hypertension: Status: Acute (9) Type 2 diabetes mellitus with hyperglycemia: Status: Acute (10) B12 deficiency: Status: Acute Assessment and Plan: 69/F with DM, HTN, HLD, obesity, history breast Cancer s/p mastectomy, chemo and XRT and now has acute respiratory failure due to covid-19 with hypoxia. Incidental anemia with source of bleed at this time. # Acute respriatory failure with hypoxia due to covid 19 PNA. Some prgress today with NRB off and further decrease in high flow -Has completed Remdesevir -Continue present level of oxygen and wean as tolerated -Dexamethasone D ay 9 -Pulmonology and ID following #Viral covid sepsis, viral PNA -Empiric Ceftriaxone D7/, Doxy D7/7 # There is no anemia, there reported hemoglobin of 8 on admission, was lab error as was demonstrated on all subsequent CBCs #Hypokalemia--This resolvedd. Last potassium on 03/18 was 5.2. Will get routine labs which she has been refusing #HTN--Atenolol 25 home dose #HLD--she takes Zetia #Leukocytosis--likely from steroid, recheck 6. Diabetes--on Januvia 50 at home continue and add SSI 7. B12 deficiency--oral replacement 8. Advise weight loss as may affect chronic health issues Get routine lab work with cbc, chemistry--she continues to decline blood draws DVT prophylaxis-- Nahomy I discussed with brother Victor M over the phone [phone] and answer all his question, encourage to let patient know tht she's not quite ready to leave the hospital as she wish and should allow periodic lab draw to further gauge treatment progres. Out of bed to chair, ambulate, incentive spirometry
[2020-03-25 12:07] LABS: Glucose, Whole Blood 159 mg/dL (60-115)
[2020-03-25] MEDS: Enoxaparin Sodium 40 MG/0.4 ML SYRINGE SUBCUT (12:55)
[2020-03-25] MEDS: Insulin Lispro 100 UNIT/ML 3 ML VIAL SUBCUT ×2 (12:55→21:45)
[2020-03-25 16:35] LABS: Glucose, Whole Blood 127 mg/dL (60-115)
[2020-03-25 21:05] LABS: Glucose, Whole Blood 162 mg/dL (60-115)
[2020-03-26] VITALS (11 sets, daily range): BP systolic 122–162; BP diastolic 64–87; PULSE 92–104; RESP 18–22; TEMP 36.4–37; O2SAT 90–98
[2020-03-26 07:53] LABS: Glucose, Whole Blood 122 mg/dL (60-115)
[2020-03-26] MEDS: SITagliptin Phosphate 50 MG TABLET PO (08:31)
[2020-03-26] MEDS: atenoloL 25 MG TABLET PO (08:31)
[2020-03-26] MEDS: Aspirin Enteric Coated 81 MG TABLET.DR PO (08:31)
[2020-03-26] MEDS: Ezetimibe 10 MG TABLET PO (08:31)
[2020-03-26] MEDS: Ascorbic Acid 500 MG TABLET PO (08:31)
[2020-03-26 11:52] LABS: Glucose, Whole Blood 118 mg/dL (60-115)
--- NOTE | 2020-03-26 12:13 | HO.PM.IMPN ---
Subjective Subjective Date of Service: 03/26/20 Interval History: Seen in f/u for acute hypoxic respiratory failure due to covid pna. She remains in respiratory failure and is still on high flow O2 and at time with NRB Physical Exam Vital Signs: Vital Signs: Last Vital Signs Temp 97.6 F 03/26/20 07:05 Pulse 103 H 03/26/20 07:05 Resp 20 03/26/20 11:27 BP 143/66 H 03/26/20 07:05 Pulse Ox 92 03/26/20 07:05 Body Mass Index 36.3 Const: General: cooperative; No acute distress Orientation/consciousness: patient oriented x3 Neck: Neck: Yes supple Resp: Effort & Inspection: normal respiratory effort and other Auscultation: clear to auscultation bilaterally Cardio: Jugular venous distension: no JVD Rhythm: regular rhythm Heart sounds: S1 normal heart sound present and S2 normal heart sound present GI: Palpation (GI): Soft to palpation and nontender Auscultation: normal bowel sounds Neuro: General: patient oriented x3 Motor exam (neuro): Normal motor muscle tone present throughout Psych: Affect: Labile affect present Judgement: Limited judgement present (Psych) Objective Data Current Medications Generic Name Dose Route Start Last Admin Trade Name Freq PRN Reason Stop Dose Admin Acetaminophen 650 mg 03/14/20 15:13 Acetaminophen Supp 650 Mg Supp.Rect IN Q6H PRN Pain, Mild (Pain Scale 1-3) Ascorbic Acid 500 mg 03/15/20 09:00 03/26/20 08:31 Ascorbic Acid 500 Mg Tablet PO 500 mg DAILY DIA Administration Aspirin 81 mg 03/15/20 09:00 03/26/20 08:31 Aspirin Enteric Coated 81 Mg Tablet.Dr PO 81 mg DAILY DIA Administration Atenolol 25 mg 03/15/20 09:00 03/26/20 08:31 Atenolol 25 Mg Tablet PO 25 mg DAILY DIA Administration Protocol Ezetimibe 10 mg 03/15/20 09:00 03/26/20 08:31 Ezetimibe 10 Mg Tablet PO 10 mg DAILY DIA Administration Enoxaparin Sodium 40 mg 03/16/20 14:00 03/25/20 12:55 Enoxaparin Sodium 40 Mg/0.4 Ml Syringe SUBCUT 40 mg Q24H DIA Administration Insulin Human Lispro 0 unit 03/14/20 16:30 03/26/20 08:29 Insulin Lispro 100 Unit/Ml 3 Ml Vial SUBCUT Not Given QIDACHS [facility] Protocol Pharmacy Consult 1 each 03/14/20 13:57 Consult Rx Perform Med Rec MISCELLANE ONCE PRN Consult order Sitagliptin Phosphate 50 mg 03/15/20 09:00 03/26/20 08:31 Sitagliptin Phosphate 50 Mg Tablet PO 50 mg DAILY DIA Administration Sodium Chloride 3 ml 03/14/20 16:00 03/26/20 08:35 0.9 % Sodium Chloride Flush 3 Ml Syringe IVFLUSH Not Given QSHIFT [facility] Labs CBC & Chem 7: 03/18/20 06:07 03/18/20 06:07 Microbiology Microbiology Results: Microbiology 03/14/20 13:36 Blood - Venous Blood Culture - Final No growth after 5 days. 03/14/20 11:31 Blood - Venous Blood Culture - Final No growth after 5 days. Assessment and Plan (1) Acute respiratory failure due to COVID-19: Status: Acute (2) Pneumonia due to COVID-19 virus: Status: Acute (3) Viral sepsis: Status: Acute (4) Acute blood loss anemia: Status: Acute (5) Hypercholesterolemia: Status: Acute (6) Obesity (BMI 30-39.9): Status: Acute (7) Multinodular goiter: Status: Acute (8) Hypertension: Status: Acute (9) Type 2 diabetes mellitus with hyperglycemia: Status: Acute (10) B12 deficiency: Status: Acute Assessment and Plan: 69/F with DM, HTN, HLD, obesity, history breast Cancer s/p mastectomy, chemo and XRT and now has acute respiratory failure due to covid-19 with hypoxia. Incidental anemia with source of bleed at this time. # Acute respriatory failure with hypoxia due to covid 19 PNA. Very slow to progress remains hypoxic -Has completed Remdesevir -Continue present level of oxygen and wean as tolerated -Dexamethasone D ay 910 of 10 -Pulmonology and ID following #Viral covid sepsis, viral PNA -Empiric Ceftriaxone D7/7, Doxy D7/7--D/C all Abx # There is no anemia, there reported hemoglobin of 8 on admission, was lab error as was demonstrated on all subsequent CBCs #Hypokalemia--This resolvedd. Last potassium on 03/18 was 5.2. Will get routine labs which she has been refusing #HTN--Atenolol 25 home dose #HLD--she takes Zetia #Leukocytosis--likely from steroid, recheck 6. Diabetes--on Januvia 50 at home continue and add SSI 7. B12 deficiency--oral replacement 8. Advise weight loss as may affect chronic health issues Get routine lab work with cbc, chemistry--she continues to decline blood draws but will make another attempt today DVT prophylaxis-- Lovenox I discussed with brother Victor M over the phone today 03/26 and answer all his question, encourage to let patient know tht she's not quite ready to leave the hospital as she wish and should allow periodic lab draw to further gauge treatment progres. Out of bed to chair, , incentive spirometry
[2020-03-26] MEDS: Enoxaparin Sodium 40 MG/0.4 ML SYRINGE SUBCUT (12:59)
[2020-03-26 16:44] LABS: Glucose, Whole Blood 156 mg/dL (60-115)
--- NOTE | 2020-03-26 17:00 | PC.NURSE ---
in room to respond to bed alarm activation. patient very aggitated. This RN attempted to introduce themselves to the patient, pt was very accusatory toward staff, this was my first encounter with this patient. Patient refused to talk with this RN and continually directed this RN to leave her room. Bed alarm active, call ladd inreach, bed locked on lowest setting.
--- NOTE | 2020-03-26 17:09 | PC.NURSE ---
This Rn informed by day shift Rn that patient is refusing lab draws x2 days, aware.
[2020-03-26] MEDS: Insulin Lispro 100 UNIT/ML 3 ML VIAL SUBCUT (17:10)
[2020-03-26 21:16] LABS: Glucose, Whole Blood 126 mg/dL (60-115)
[2020-03-27] VITALS (16 sets, daily range): BP systolic 138–141; BP diastolic 68–75; PULSE 77–117; RESP 17–22; TEMP 36.4–36.7; O2SAT 71–99
[2020-03-27 07:57] LABS: Glucose, Whole Blood 119 mg/dL (60-115)
[2020-03-27] MEDS: Ascorbic Acid 500 MG TABLET PO (10:01)
[2020-03-27] MEDS: atenoloL 25 MG TABLET PO (10:01)
[2020-03-27] MEDS: SITagliptin Phosphate 50 MG TABLET PO (10:02)
[2020-03-27] MEDS: Ezetimibe 10 MG TABLET PO (10:02)
[2020-03-27] MEDS: Aspirin Enteric Coated 81 MG TABLET.DR PO (10:02)
--- NOTE | 2020-03-27 11:22 | P.PNIM_ITS ---
Subjective Subjective Date of Service: 03/27/20 Interval History: Seen in f/u for acute hypoxic respiratory failure due to covid pna. She remains in respiratory failure and is still on high flow O2 but wants to be taken off as she wants to go home. Review of Systems Gen: no fever Resp: + sob, no cough CV: no chest, RICHARDS, no leg edema GI: No n/v, no abd pain, no blood in stool Neuro: No confusion Physical Exam Vital Signs: Vital Signs: Last Vital Signs Temp 97.5 F 03/27/20 08:00 Pulse 117 H 03/27/20 10:26 Resp 20 03/27/20 10:26 BP 141/70 H 03/27/20 08:00 Pulse Ox 71 L 03/27/20 11:08 Body Mass Index 36.3 Const: Orientation/consciousness: patient oriented x3 Neck: Neck: Yes supple Resp: Effort & Inspection: normal respiratory effort and other Auscultation: clear to auscultation bilaterally and diminished lung sounds Cardio: Jugular venous distension: no JVD Rhythm: regular rhythm Heart sounds: S1 normal heart sound present and S2 normal heart sound present GI: Other: Non-tender Palpation (GI): Soft to palpation and nontender Auscultation: normal bowel sounds Neuro: General: patient oriented x3 Motor exam (neuro): Normal motor muscle tone present throughout Psych: Affect: normal affect and Labile affect present Judgement: Limited judgement present (Psych) Objective Data Current Medications Generic Name Dose Route Start Last Admin Trade Name Freq PRN Reason Stop Dose Admin Acetaminophen 650 mg 03/14/20 15:13 Acetaminophen Supp 650 Mg Supp.Rect [place] Q6H PRN Pain, Mild (Pain Scale 1-3) Ascorbic Acid 500 mg 03/15/20 09:00 03/27/20 10:01 Ascorbic Acid 500 Mg Tablet PO 500 mg DAILY DIA Administration Aspirin 81 mg 03/15/20 09:00 03/27/20 10:02 Aspirin Enteric Coated 81 Mg Tablet. PO 81 mg DAILY DIA Administration Atenolol 25 mg 03/15/20 09:00 03/27/20 10:01 Atenolol 25 Mg Tablet PO 25 mg DAILY DIA Administration Protocol Ezetimibe 10 mg 03/15/20 09:00 03/27/20 10:02 Ezetimibe 10 Mg Tablet PO 10 mg DAILY DIA Administration Enoxaparin Sodium 40 mg 03/16/20 14:00 03/26/20 12:59 Enoxaparin Sodium 40 Mg/0.4 Ml Syringe SUBCUT 40 mg Q24H DIA Administration Insulin Human Lispro 0 unit 03/14/20 16:30 03/27/20 09:53 Insulin Lispro 100 Unit/Ml 3 Ml Vial SUBCUT Not Given QIDACHS [facility] Protocol Pharmacy Consult 1 each 03/14/20 13:57 Consult Rx Perform Med Rec MISCELLANE ONCE PRN Consult order Sitagliptin Phosphate 50 mg 03/15/20 09:00 03/27/20 10:02 Sitagliptin Phosphate 50 Mg Tablet PO 50 mg DAILY [facility] Administration Sodium Chloride 3 ml 03/14/20 16:00 03/27/20 10:02 0.9 % Sodium Chloride Flush 3 Ml Syringe IVFLUSH Not Given QSHIFT [facility] Labs CBC & Chem 7: 03/18/20 06:07 03/18/20 06:07 Microbiology Microbiology Results: Microbiology 03/14/20 13:36 Blood - Venous Blood Culture - Final No growth after 5 days. 03/14/20 11:31 Blood - Venous Blood Culture - Final No growth after 5 days. Assessment and Plan (1) Acute respiratory failure due to COVID-19: Status: Acute (2) Pneumonia due to COVID-19 virus: Status: Acute (3) Viral sepsis: Status: Acute (4) Acute blood loss anemia: Status: Acute (5) Hypercholesterolemia: Status: Acute (6) Obesity (BMI 30-39.9): Status: Acute (7) Multinodular goiter: Status: Acute (8) Hypertension: Status: Acute (9) Type 2 diabetes mellitus with hyperglycemia: Status: Acute (10) B12 deficiency: Status: Acute Assessment and Plan: 69/F with DM, HTN, HLD, obesity, history breast Cancer s/p mastectomy, chemo and XRT and now has acute respiratory failure due to covid-19 with hypoxia. Incidental anemia with source of bleed at this time. # Acute respriatory failure with hypoxia due to covid 19 PNA. Very slow to progress remains hypoxic, O2 reported to be 71 on room -Has completed Remdesevir -Continue present level of oxygen and wean as tolerated -Dexamethasone D ay 910 of 10 -Pulmonology and ID following, reconsult pulmonoary #Viral covid sepsis, viral PNA -Empiric Ceftriaxone D7/7, Doxy D7/7--D/C all Abx # There is no anemia, there reported hemoglobin of 8 on admission, was lab error as was demonstrated on all subsequent CBCs #Hypokalemia--This resolvedd. Last potassium on 03/18 was 5.2. Will get routine labs which she has been refusing #HTN--Atenolol 25 home dose #HLD--she takes Zetia #Leukocytosis--likely from steroid, recheck 6. Diabetes--on Januvia 50 at home continue and add SSI 7. B12 deficiency--oral replacement 8. Advise weight loss as may affect chronic health issues Ideally should have repeat routine labs but she has been consistently refusing DVT prophylaxis-- Lovenox I discussed with brother Victor M over the phone today 03/26 and answer all his question, encourage to let patient know tht she's not quite ready to leave the hospital as she wish and should allow periodic lab draw to further gauge treatment progress. Her judgment is questionable. I will discuss with brother. I don't thinks she's ready to leave under any circumstance Out of bed to chair, , incentive spirometry
--- NOTE | 2020-03-27 16:20 | MHC.CM.PN ---
PT IS DISCHARGING HOME TODAY AT 1800 HOURS WITH NEW OXYGEN AND RESUMPTION OF AVEANNA VNA. PTS SON WILL STAY WITH HER ONCE SHE RETURNS HOME. A FOLLOW UP PCP APPT WAS SCHEDULED FOR Friday03/30/21 AT 1045 HOURS VIA TELEPHONE. PT WILL BE TRANSPORTED HOME VIA [facility].
--- NOTE | 2020-03-27 17:08 | P.DS_ITS ---
DS: Providers Provider Date of Service: 04/17/20 Date of admission: 03/14/20 15:13 Primary care physician: James Anna MD Consults: 03/15/20 11:45 Consult to Pulmonology Routine Consulting Provider: Juan Castillo Reason for consultation: coivid with respiratory failure Has provider been notified: No 03/15/20 11:46 Consult to Infectious Diseases Routine Consulting Provider: Wendy Severino Reason for consultation: covid with severe hypoxia Has provider been notified: No 03/27/20 11:49 Consult for Sitter Routine Reason for consultation: Agitation DS: Diagnosis Discharge Diagnosis (1) Acute respiratory failure due to COVID-19: Status: Acute (2) Pneumonia due to COVID-19 virus: Status: Acute (3) Viral sepsis: Status: Acute (4) Acute blood loss anemia: Status: Acute (5) Hypercholesterolemia: Status: Acute (6) Obesity (BMI 30-39.9): Status: Acute (7) Multinodular goiter: Status: Acute (8) Hypertension: Status: Acute (9) Type 2 diabetes mellitus with hyperglycemia: Status: Acute (10) B12 deficiency: Status: Acute DS: Medications Discharge Medications Home Medications: Home Medications Medication Instructions Recorded Confirmed ascorbate calcium (vitamin C) 500 500 mg PO DAILY 01/21/20 03/14/20 mg tablet aspirin 81 mg tablet,delayed 81 mg PO DAILY 01/21/20 03/14/20 release atenolol 25 mg tablet 25 mg PO DAILY 01/21/20 03/14/20 ezetimibe 10 mg PO DAILY 03/14/20 03/14/20 sitagliptin [Januvia] 50 mg PO DAILY 03/14/20 03/14/20 DS: Summary Hospital Course Hospital Course: HPI: Chief Complaint: Shortness of breath 69 year femle with history DM, HTN, HLD, grade 3, ER/DC negative, HER-w/armani negative s/p lumpectomy, chemo and chest radiation. She has been followed by Dr. Jose Verdin has been stable. Her last routine oncology visit was 02/17/20 and at that time advised routine colonscopy for screening and she declined. She presents with one week of malaise, cough and fever of up to 101 yesterday and becoming progresively sicker. Work up in ED has revealed covid positive and has been hypoxic with O2 sat of 84 on room air. CXR shows bilateral infiltrate. Of note her Hemoglobin is 8.1 when compare to January 19 it was 12.8. She denies bleeding in stool. She takes aspirin daily. Given Azithro and Ceftriaxone in ED along with Dexamethasone. She normal stays home but has a [employer] who comes 3 times a week. Hospital course: 69/F with DM, HTN, HLD, obesity, history breast Cancer s/p mastectomy, chemo and XRT and now has acute respiratory failure due to covid-19 with hypoxia. Incidental anemia with source of bleed at this time. Problems: # Acute respriatory failure with hypoxia due to covid 19 PNA. She was treated withe Remdesevir with a 5 day protocol. Dexamethasone for 10. Was seen by ID and Pulmonary. She was very difficult to wean but in the end did well and has been able to transitioned to 4 liters by Nasal canula. She threatened leaving AMA but in the end it was favorable for her to go home with oxygen. His brother Victor M is agreable to stay with home for some time. She will have visiting nurse and recommend follow up with PCP as soon as possible. #Viral covid sepsis, viral PNA -Empiric Ceftriaxone D7/7, Doxy D7/7--D/C all Abx # There is no anemia, there reported hemoglobin of 8 on admission, was lab error as was demonstrated on all subsequent CBCs #Hypokalemia--This resolvedd. Last potassium on 03/18 was 5.2. Will get routine labs which she has been refusing #HTN--Atenolol 25 home dose #HLD--she takes Zetia #Leukocytosis--likely from steroid, she declined recheck 6. Diabetes--on Januvia 50 at home continue and add SSI 7. B12 deficiency--oral replacement I discussed with brother Victor M over the phone today 03/26 and answer all his question, encourage to let patient know tht she's not quite ready to leave the hospital as she wish and should allow periodic lab draw to further gauge treatment progress. Her judgment is questionable. I will discuss with brother. I don't thinks she's ready to leave under any circumstance Time Spent with Patient Time attestation: Total time spent providing and/or coordinating discharge services: Discharge coordination time: Greater than 30 minutes Physical Exam Vital Signs: Vital Signs: Last Vital Signs Temp 97.7 F 03/27/20 15:08 Pulse 99 03/27/20 15:08 Resp 22 H 03/27/20 15:08 BP 140/75 H 03/27/20 15:08 Pulse Ox 99 03/27/20 15:08 Body Mass Index 36.3 Const: Orientation/consciousness: patient oriented x3 Neck: Neck: Yes supple Resp: Effort & Inspection: normal respiratory effort and other Auscultation: clear to auscultation bilaterally and diminished lung sounds GI: Other: Non-tender Palpation (GI): Soft to palpation and nontender Auscultation: normal bowel sounds Neuro: General: patient oriented x3 Motor exam (neuro): Normal motor muscle tone present throughout Psych: Affect: normal affect and Labile affect present Judgement: Fair judgement present (Psych) DS: Data Data Completed and Pending Labs on day of discharge: Laboratory Tests 03/14/20 03/14/20 03/14/20 11:31 11:44 12:51 WBC RBC Hgb Hct MCV MCH MCHC RDW Plt Count MPV Immature Gran % (Auto) Neut % (Auto) Lymph % (Auto) [place] % (Auto) Eos % (Auto) Baso % (Auto) Lymph # (Auto) [place] # (Auto) Eos # (Auto) Baso # (Auto) Abs Immat Gran (auto) Absolute Neuts (auto) Absolute Nucleated RBC Nucleated RBC % (auto) Smear Tech's Comments Hold Purple Top PT INR APTT D-Dimer Hold Blue Top Sodium Potassium Chloride Carbon Dioxide Anion Gap BUN Creatinine Estim Creat Clear Calc Estimated GFR POC Glucose Random Glucose Lactic Acid 1.5 Calcium Magnesium Ferritin Total Bilirubin Direct Bilirubin AST ALT Alkaline Phosphatase Lactate Dehydrogenase Troponin I High Sens B-Natriuretic Peptide Total Protein Albumin Procalcitonin Urine Color YELLOW Urine Appearance HAZY Urine pH 6.0 Ur Specific [place] >= 1.030 H Urine Protein 3+ H Urine Glucose (UA) NEG Urine Ketones 40 Urine Blood 1+ H Urine Nitrite NEG Ur Leukocyte Esterase NEG Urine RBC 0-2 Urine WBC 0-2 Ur Squamous Epith Cells 1+ Urine Bacteria NONE Granular Casts 1-4 Urine Mucus 2+ Stool Occult Blood Coronavirus (PCR) POSITIVE A Influenza Type A (PCR) NEGATIVE Influenza Type B (PCR) NEGATIVE RSV RNA Qual (PCR) NEGATIVE 03/14/20 03/14/20 03/14/20 13:36 13:36 13:36 WBC 3.3 L RBC 2.94 L D Hgb 8.1 L D Hct 25.2 L D MCV 85.7 MCH 27.6 MCHC 32.1 RDW 13.2 Plt Count 182 D MPV 9.5 Immature Gran % (Auto) 0.9 H Neut % (Auto) 76.7 H Lymph % (Auto) 13.3 L [place] % (Auto) 9.1 Eos % (Auto) 0.0 Baso % (Auto) 0.0 Lymph # (Auto) 0.4 L [place] # (Auto) 0.3 Eos # (Auto) 0.0 Baso # (Auto) 0.0 Abs Immat Gran (auto) 0.03 Absolute Neuts (auto) 2.5 Absolute Nucleated RBC 0.000 Nucleated RBC % (auto) 0.0 Smear Tech's Comments VERIFIED Hold Purple Top SEE NOTE PT INR APTT D-Dimer Hold Blue Top Sodium Potassium Chloride Carbon Dioxide Anion Gap BUN Creatinine Estim Creat Clear Calc Estimated GFR POC Glucose Random Glucose Lactic Acid Calcium Magnesium Ferritin Total Bilirubin Direct Bilirubin AST ALT Alkaline Phosphatase Lactate Dehydrogenase Troponin I High Sens B-Natriuretic Peptide 15 Total Protein Albumin Procalcitonin Urine Color Urine Appearance Urine pH Ur Specific [place] Urine Protein Urine Glucose (UA) Urine Ketones Urine Blood Urine Nitrite Ur Leukocyte Esterase Urine RBC Urine WBC Ur Squamous Epith Cells Urine Bacteria Granular Casts Urine Mucus Stool Occult Blood Coronavirus (PCR) Influenza Type A (PCR) Influenza Type B (PCR) RSV RNA Qual (PCR) 03/14/20 03/14/20 03/14/20 13:36 13:36 13:36 WBC RBC Hgb Hct MCV MCH MCHC RDW Plt Count MPV Immature Gran % (Auto) Neut % (Auto) Lymph % (Auto) [place] % (Auto) Eos % (Auto) Baso % (Auto) Lymph # (Auto) [place] # (Auto) Eos # (Auto) Baso # (Auto) Abs Immat Gran (auto) Absolute Neuts (auto) Absolute Nucleated RBC Nucleated RBC % (auto) Smear Tech's Comments Hold Purple Top PT INR APTT D-Dimer Hold Blue Top SEE NOTE Sodium 143 Potassium 2.4 L* D Chloride 117 H Carbon Dioxide 18 L Anion Gap 10 L BUN 10 Creatinine 0.45 L Estim Creat Clear Calc 132.8 Estimated GFR > 60 POC Glucose Random Glucose 81 Lactic Acid Calcium 4.9 L* D Magnesium Ferritin Total Bilirubin Direct Bilirubin AST ALT Alkaline Phosphatase Lactate Dehydrogenase Troponin I High Sens 14.0 B-Natriuretic Peptide Total Protein Albumin Procalcitonin Urine Color Urine Appearance Urine pH Ur Specific [place] Urine Protein Urine Glucose (UA) Urine Ketones Urine Blood Urine Nitrite Ur Leukocyte Esterase Urine RBC Urine WBC Ur Squamous Epith Cells Urine Bacteria Granular Casts Urine Mucus Stool Occult Blood Coronavirus (PCR) Influenza Type A (PCR) Influenza Type B (PCR) RSV RNA Qual (PCR) 03/14/20 03/14/20 03/14/20 13:36 13:36 13:36 WBC RBC Hgb Hct MCV MCH MCHC RDW Plt Count MPV Immature Gran % (Auto) Neut % (Auto) Lymph % (Auto) [place] % (Auto) Eos % (Auto) Baso % (Auto) Lymph # (Auto) [place] # (Auto) Eos # (Auto) Baso # (Auto) Abs Immat Gran (auto) Absolute Neuts (auto) Absolute Nucleated RBC Nucleated RBC % (auto) Smear Tech's Comments Hold Purple Top PT 15.9 H INR 1.3 H APTT 32.4 D-Dimer 601 Hold Blue Top Sodium Potassium Chloride Carbon Dioxide Anion Gap BUN Creatinine Estim Creat Clear Calc Estimated GFR POC Glucose Random Glucose Lactic Acid Calcium Magnesium 1.4 L* Ferritin 367 H Total Bilirubin Direct Bilirubin AST ALT Alkaline Phosphatase Lactate Dehydrogenase 303 H Troponin I High Sens B-Natriuretic Peptide Total Protein Albumin Procalcitonin 0.06 Urine Color Urine Appearance Urine pH Ur Specific [place] Urine Protein Urine Glucose (UA) Urine Ketones Urine Blood Urine Nitrite Ur Leukocyte Esterase Urine RBC Urine WBC Ur Squamous Epith Cells Urine Bacteria Granular Casts Urine Mucus Stool Occult Blood Coronavirus (PCR) Influenza Type A (PCR) Influenza Type B (PCR) RSV RNA Qual (PCR) 03/14/20 03/14/20 03/15/20 16:46 20:27 11:06 WBC 7.4 RBC 5.01 D Hgb 13.5 D Hct 41.8 D MCV 83.4 MCH 26.9 L MCHC 32.3 RDW 13.2 Plt Count 330 D MPV 10.1 Immature Gran % (Auto) Neut % (Auto) Lymph % (Auto) [place] % (Auto) Eos % (Auto) Baso % (Auto) Lymph # (Auto) [place] # (Auto) Eos # (Auto) Baso # (Auto) Abs Immat Gran (auto) Absolute Neuts (auto) Absolute Nucleated RBC 0.000 Nucleated RBC % (auto) 0.0 Smear Tech's Comments Hold Purple Top PT INR APTT D-Dimer Hold Blue Top Sodium Potassium Chloride Carbon Dioxide Anion Gap BUN Creatinine Estim Creat Clear Calc Estimated GFR POC Glucose 157 H Random Glucose Lactic Acid Calcium Magnesium Ferritin Total Bilirubin Direct Bilirubin AST ALT Alkaline Phosphatase Lactate Dehydrogenase Troponin I High Sens B-Natriuretic Peptide Total Protein Albumin Procalcitonin Urine Color Urine Appearance Urine pH Ur Specific [place] Urine Protein Urine Glucose (UA) Urine Ketones Urine Blood Urine Nitrite Ur Leukocyte Esterase Urine RBC Urine WBC Ur Squamous Epith Cells Urine Bacteria Granular Casts Urine Mucus Stool Occult Blood NEG Coronavirus (PCR) Influenza Type A (PCR) Influenza Type B (PCR) RSV RNA Qual (PCR) 03/15/20 03/15/20 03/15/20 11:06 11:40 16:31 WBC RBC Hgb Hct MCV MCH MCHC RDW Plt Count MPV Immature Gran % (Auto) Neut % (Auto) Lymph % (Auto) [place] % (Auto) Eos % (Auto) Baso % (Auto) Lymph # (Auto) [place] # (Auto) Eos # (Auto) Baso # (Auto) Abs Immat Gran (auto) Absolute Neuts (auto) Absolute Nucleated RBC Nucleated RBC % (auto) Smear Tech's Comments Hold Purple Top PT INR APTT D-Dimer Hold Blue Top Sodium 137 Potassium 4.9 D Chloride 104 Carbon Dioxide 21 L Anion Gap 17 BUN 13 Creatinine 0.70 Estim Creat Clear Calc 85.3 Estimated GFR > 60 POC Glucose 173 H 169 H Random Glucose 186 H D Lactic Acid Calcium 8.2 L D Magnesium Ferritin Total Bilirubin 0.4 Direct Bilirubin 0.2 AST 126 H ALT 73 H Alkaline Phosphatase 66 Lactate Dehydrogenase Troponin I High Sens B-Natriuretic Peptide Total Protein 7.1 Albumin 3.6 Procalcitonin Urine Color Urine Appearance Urine pH Ur Specific [place] Urine Protein Urine Glucose (UA) Urine Ketones Urine Blood Urine Nitrite Ur Leukocyte Esterase Urine RBC Urine WBC Ur Squamous Epith Cells Urine Bacteria Granular Casts Urine Mucus Stool Occult Blood Coronavirus (PCR) Influenza Type A (PCR) Influenza Type B (PCR) RSV RNA Qual (PCR) 03/15/20 03/16/20 03/16/20 21:30 07:50 12:01 WBC RBC Hgb Hct MCV MCH MCHC RDW Plt Count MPV Immature Gran % (Auto) Neut % (Auto) Lymph % (Auto) [place] % (Auto) Eos % (Auto) Baso % (Auto) Lymph # (Auto) [place] # (Auto) Eos # (Auto) Baso # (Auto) Abs Immat Gran (auto) Absolute Neuts (auto) Absolute Nucleated RBC Nucleated RBC % (auto) Smear Tech's Comments Hold Purple Top PT INR APTT D-Dimer Hold Blue Top Sodium Potassium Chloride Carbon Dioxide Anion Gap BUN Creatinine Estim Creat Clear Calc Estimated GFR POC Glucose 181 H 150 H 156 H Random Glucose Lactic Acid Calcium Magnesium Ferritin Total Bilirubin Direct Bilirubin AST ALT Alkaline Phosphatase Lactate Dehydrogenase Troponin I High Sens B-Natriuretic Peptide Total Protein Albumin Procalcitonin Urine Color Urine Appearance Urine pH Ur Specific [place] Urine Protein Urine Glucose (UA) Urine Ketones Urine Blood Urine Nitrite Ur Leukocyte Esterase Urine RBC Urine WBC Ur Squamous Epith Cells Urine Bacteria Granular Casts Urine Mucus Stool Occult Blood Coronavirus (PCR) Influenza Type A (PCR) Influenza Type B (PCR) RSV RNA Qual (PCR) 03/16/20 03/16/20 03/16/20 12:03 12:03 16:06 WBC 9.8 RBC 4.73 Hgb 12.8 Hct 39.7 MCV 83.9 MCH 27.1 MCHC 32.2 RDW 13.2 Plt Count 336 MPV 9.8 Immature Gran % (Auto) Neut % (Auto) Lymph % (Auto) [place] % (Auto) Eos % (Auto) Baso % (Auto) Lymph # (Auto) [place] # (Auto) Eos # (Auto) Baso # (Auto) Abs Immat Gran (auto) Absolute Neuts (auto) Absolute Nucleated RBC 0.000 Nucleated RBC % (auto) 0.0 Smear Tech's Comments Hold Purple Top PT INR APTT D-Dimer Hold Blue Top Sodium 138 Potassium 4.8 Chloride 104 Carbon Dioxide 21 L Anion Gap 18 BUN 13 Creatinine 0.70 Estim Creat Clear Calc 85.3 Estimated GFR > 60 POC Glucose 195 H Random Glucose 158 H Lactic Acid Calcium 8.1 L Magnesium Ferritin Total Bilirubin Direct Bilirubin AST ALT Alkaline Phosphatase Lactate Dehydrogenase Troponin I High Sens B-Natriuretic Peptide Total Protein Albumin Procalcitonin Urine Color Urine Appearance Urine pH Ur Specific [place] Urine Protein Urine Glucose (UA) Urine Ketones Urine Blood Urine Nitrite Ur Leukocyte Esterase Urine RBC Urine WBC Ur Squamous Epith Cells Urine Bacteria Granular Casts Urine Mucus Stool Occult Blood Coronavirus (PCR) Influenza Type A (PCR) Influenza Type B (PCR) RSV RNA Qual (PCR) 03/16/20 03/17/20 03/17/20 19:52 07:29 09:44 WBC RBC Hgb Hct MCV MCH MCHC RDW Plt Count MPV Immature Gran % (Auto) Neut % (Auto) Lymph % (Auto) [place] % (Auto) Eos % (Auto) Baso % (Auto) Lymph # (Auto) [place] # (Auto) Eos # (Auto) Baso # (Auto) Abs Immat Gran (auto) Absolute Neuts (auto) Absolute Nucleated RBC Nucleated RBC % (auto) Smear Tech's Comments Hold Purple Top PT INR APTT D-Dimer Hold Blue Top Sodium Potassium Chloride Carbon Dioxide Anion Gap BUN Creatinine Estim Creat Clear Calc Estimated GFR POC Glucose 264 H 167 H Random Glucose Lactic Acid Calcium Magnesium Ferritin Total Bilirubin 0.3 Direct Bilirubin < 0.2 AST 73 H ALT 88 H Alkaline Phosphatase 66 Lactate Dehydrogenase Troponin I High Sens B-Natriuretic Peptide Total Protein 6.9 Albumin 3.4 L Procalcitonin Urine Color Urine Appearance Urine pH Ur Specific [place] Urine Protein Urine Glucose (UA) Urine Ketones Urine Blood Urine Nitrite Ur Leukocyte Esterase Urine RBC Urine WBC Ur Squamous Epith Cells Urine Bacteria Granular Casts Urine Mucus Stool Occult Blood Coronavirus (PCR) Influenza Type A (PCR) Influenza Type B (PCR) RSV RNA Qual (PCR) 03/17/20 03/17/20 03/17/20 11:39 15:27 19:24 WBC RBC Hgb Hct MCV MCH MCHC RDW Plt Count MPV Immature Gran % (Auto) Neut % (Auto) Lymph % (Auto) [place] % (Auto) Eos % (Auto) Baso % (Auto) Lymph # (Auto) [place] # (Auto) Eos # (Auto) Baso # (Auto) Abs Immat Gran (auto) Absolute Neuts (auto) Absolute Nucleated RBC Nucleated RBC % (auto) Smear Tech's Comments Hold Purple Top PT INR APTT D-Dimer Hold Blue Top Sodium Potassium Chloride Carbon Dioxide Anion Gap BUN Creatinine Estim Creat Clear Calc Estimated GFR POC Glucose 171 H 206 H 217 H Random Glucose Lactic Acid Calcium Magnesium Ferritin Total Bilirubin Direct Bilirubin AST ALT Alkaline Phosphatase Lactate Dehydrogenase Troponin I High Sens B-Natriuretic Peptide Total Protein Albumin Procalcitonin Urine Color Urine Appearance Urine pH Ur Specific [place] Urine Protein Urine Glucose (UA) Urine Ketones Urine Blood Urine Nitrite Ur Leukocyte Esterase Urine RBC Urine WBC Ur Squamous Epith Cells Urine Bacteria Granular Casts Urine Mucus Stool Occult Blood Coronavirus (PCR) Influenza Type A (PCR) Influenza Type B (PCR) RSV RNA Qual (PCR) 03/18/20 03/18/20 03/18/20 06:07 06:07 07:27 WBC 14.0 H RBC 5.31 Hgb 14.3 Hct 44.4 MCV 83.6 MCH 26.9 L MCHC 32.2 RDW 13.2 Plt Count 322 MPV 10.1 Immature Gran % (Auto) Neut % (Auto) Lymph % (Auto) [place] % (Auto) Eos % (Auto) Baso % (Auto) Lymph # (Auto) [place] # (Auto) Eos # (Auto) Baso # (Auto) Abs Immat Gran (auto) Absolute Neuts (auto) Absolute Nucleated RBC 0.000 Nucleated RBC % (auto) 0.0 Smear Tech's Comments Hold Purple Top PT INR APTT D-Dimer Hold Blue Top Sodium 140 Potassium 5.2 H Chloride 104 Carbon Dioxide 20 L Anion Gap 21 H BUN 16 Creatinine 0.73 Estim Creat Clear Calc 81.8 Estimated GFR > 60 POC Glucose 134 H Random Glucose 176 H Lactic Acid Calcium 8.4 Magnesium Ferritin Total Bilirubin Direct Bilirubin AST ALT Alkaline Phosphatase Lactate Dehydrogenase Troponin I High Sens B-Natriuretic Peptide Total Protein Albumin Procalcitonin Urine Color Urine Appearance Urine pH Ur Specific [place] Urine Protein Urine Glucose (UA) Urine Ketones Urine Blood Urine Nitrite Ur Leukocyte Esterase Urine RBC Urine WBC Ur Squamous Epith Cells Urine Bacteria Granular Casts Urine Mucus Stool Occult Blood Coronavirus (PCR) Influenza Type A (PCR) Influenza Type B (PCR) RSV RNA Qual (PCR) 03/18/20 03/18/20 03/18/20 11:07 15:44 19:28 WBC RBC Hgb Hct MCV MCH MCHC RDW Plt Count MPV Immature Gran % (Auto) Neut % (Auto) Lymph % (Auto) [place] % (Auto) Eos % (Auto) Baso % (Auto) Lymph # (Auto) [place] # (Auto) Eos # (Auto) Baso # (Auto) Abs Immat Gran (auto) Absolute Neuts (auto) Absolute Nucleated RBC Nucleated RBC % (auto) Smear Tech's Comments Hold Purple Top PT INR APTT D-Dimer Hold Blue Top Sodium Potassium Chloride Carbon Dioxide Anion Gap BUN Creatinine Estim Creat Clear Calc Estimated GFR POC Glucose 211 H 281 H 259 H Random Glucose Lactic Acid Calcium Magnesium Ferritin Total Bilirubin Direct Bilirubin AST ALT Alkaline Phosphatase Lactate Dehydrogenase Troponin I High Sens B-Natriuretic Peptide Total Protein Albumin Procalcitonin Urine Color Urine Appearance Urine pH Ur Specific [place] Urine Protein Urine Glucose (UA) Urine Ketones Urine Blood Urine Nitrite Ur Leukocyte Esterase Urine RBC Urine WBC Ur Squamous Epith Cells Urine Bacteria Granular Casts Urine Mucus Stool Occult Blood Coronavirus (PCR) Influenza Type A (PCR) Influenza Type B (PCR) RSV RNA Qual (PCR) 03/19/20 03/19/20 03/19/20 07:37 12:03 15:17 WBC RBC Hgb Hct MCV MCH MCHC RDW Plt Count MPV Immature Gran % (Auto) Neut % (Auto) Lymph % (Auto) [place] % (Auto) Eos % (Auto) Baso % (Auto) Lymph # (Auto) [place] # (Auto) Eos # (Auto) Baso # (Auto) Abs Immat Gran (auto) Absolute Neuts (auto) Absolute Nucleated RBC Nucleated RBC % (auto) Smear Tech's Comments Hold Purple Top PT INR APTT D-Dimer Hold Blue Top Sodium Potassium Chloride Carbon Dioxide Anion Gap BUN Creatinine Estim Creat Clear Calc Estimated GFR POC Glucose 123 H 165 H 248 H Random Glucose Lactic Acid Calcium Magnesium Ferritin Total Bilirubin Direct Bilirubin AST ALT Alkaline Phosphatase Lactate Dehydrogenase Troponin I High Sens B-Natriuretic Peptide Total Protein Albumin Procalcitonin Urine Color Urine Appearance Urine pH Ur Specific [place] Urine Protein Urine Glucose (UA) Urine Ketones Urine Blood Urine Nitrite Ur Leukocyte Esterase Urine RBC Urine WBC Ur Squamous Epith Cells Urine Bacteria Granular Casts Urine Mucus Stool Occult Blood Coronavirus (PCR) Influenza Type A (PCR) Influenza Type B (PCR) RSV RNA Qual (PCR) 03/19/20 03/20/20 03/20/20 20:45 07:45 11:05 WBC RBC Hgb Hct MCV MCH MCHC RDW Plt Count MPV Immature Gran % (Auto) Neut % (Auto) Lymph % (Auto) [place] % (Auto) Eos % (Auto) Baso % (Auto) Lymph # (Auto) [place] # (Auto) Eos # (Auto) Baso # (Auto) Abs Immat Gran (auto) Absolute Neuts (auto) Absolute Nucleated RBC Nucleated RBC % (auto) Smear Tech's Comments Hold Purple Top PT INR APTT D-Dimer Hold Blue Top Sodium Potassium Chloride Carbon Dioxide Anion Gap BUN Creatinine Estim Creat Clear Calc Estimated GFR POC Glucose 210 H 125 H 162 H Random Glucose Lactic Acid Calcium Magnesium Ferritin Total Bilirubin Direct Bilirubin AST ALT Alkaline Phosphatase Lactate Dehydrogenase Troponin I High Sens B-Natriuretic Peptide Total Protein Albumin Procalcitonin Urine Color Urine Appearance Urine pH Ur Specific [place] Urine Protein Urine Glucose (UA) Urine Ketones Urine Blood Urine Nitrite Ur Leukocyte Esterase Urine RBC Urine WBC Ur Squamous Epith Cells Urine Bacteria Granular Casts Urine Mucus Stool Occult Blood Coronavirus (PCR) Influenza Type A (PCR) Influenza Type B (PCR) RSV RNA Qual (PCR) 03/20/20 03/20/20 03/21/20 16:40 20:44 07:15 WBC RBC Hgb Hct MCV MCH MCHC RDW Plt Count MPV Immature Gran % (Auto) Neut % (Auto) Lymph % (Auto) [place] % (Auto) Eos % (Auto) Baso % (Auto) Lymph # (Auto) [place] # (Auto) Eos # (Auto) Baso # (Auto) Abs Immat Gran (auto) Absolute Neuts (auto) Absolute Nucleated RBC Nucleated RBC % (auto) Smear Tech's Comments Hold Purple Top PT INR APTT D-Dimer Hold Blue Top Sodium Potassium Chloride Carbon Dioxide Anion Gap BUN Creatinine Estim Creat Clear Calc Estimated GFR POC Glucose 288 H 235 H 139 H Random Glucose Lactic Acid Calcium Magnesium Ferritin Total Bilirubin Direct Bilirubin AST ALT Alkaline Phosphatase Lactate Dehydrogenase Troponin I High Sens B-Natriuretic Peptide Total Protein Albumin Procalcitonin Urine Color Urine Appearance Urine pH Ur Specific [place] Urine Protein Urine Glucose (UA) Urine Ketones Urine Blood Urine Nitrite Ur Leukocyte Esterase Urine RBC Urine WBC Ur Squamous Epith Cells Urine Bacteria Granular Casts Urine Mucus Stool Occult Blood Coronavirus (PCR) Influenza Type A (PCR) Influenza Type B (PCR) RSV RNA Qual (PCR) 03/21/20 03/21/20 03/21/20 11:16 16:30 19:58 WBC RBC Hgb Hct MCV MCH MCHC RDW Plt Count MPV Immature Gran % (Auto) Neut % (Auto) Lymph % (Auto) [place] % (Auto) Eos % (Auto) Baso % (Auto) Lymph # (Auto) [place] # (Auto) Eos # (Auto) Baso # (Auto) Abs Immat Gran (auto) Absolute Neuts (auto) Absolute Nucleated RBC Nucleated RBC % (auto) Smear Tech's Comments Hold Purple Top PT INR APTT D-Dimer Hold Blue Top Sodium Potassium Chloride Carbon Dioxide Anion Gap BUN Creatinine Estim Creat Clear Calc Estimated GFR POC Glucose 246 H 261 H 252 H Random Glucose Lactic Acid Calcium Magnesium Ferritin Total Bilirubin Direct Bilirubin AST ALT Alkaline Phosphatase Lactate Dehydrogenase Troponin I High Sens B-Natriuretic Peptide Total Protein Albumin Procalcitonin Urine Color Urine Appearance Urine pH Ur Specific [place] Urine Protein Urine Glucose (UA) Urine Ketones Urine Blood Urine Nitrite Ur Leukocyte Esterase Urine RBC Urine WBC Ur Squamous Epith Cells Urine Bacteria Granular Casts Urine Mucus Stool Occult Blood Coronavirus (PCR) Influenza Type A (PCR) Influenza Type B (PCR) RSV RNA Qual (PCR) 03/22/20 03/22/20 03/22/20 07:18 11:17 15:43 WBC RBC Hgb Hct MCV MCH MCHC RDW Plt Count MPV Immature Gran % (Auto) Neut % (Auto) Lymph % (Auto) [place] % (Auto) Eos % (Auto) Baso % (Auto) Lymph # (Auto) [place] # (Auto) Eos # (Auto) Baso # (Auto) Abs Immat Gran (auto) Absolute Neuts (auto) Absolute Nucleated RBC Nucleated RBC % (auto) Smear Tech's Comments Hold Purple Top PT INR APTT D-Dimer Hold Blue Top Sodium Potassium Chloride Carbon Dioxide Anion Gap BUN Creatinine Estim Creat Clear Calc Estimated GFR POC Glucose 105 171 H 265 H Random Glucose Lactic Acid Calcium Magnesium Ferritin Total Bilirubin Direct Bilirubin AST ALT Alkaline Phosphatase Lactate Dehydrogenase Troponin I High Sens B-Natriuretic Peptide Total Protein Albumin Procalcitonin Urine Color Urine Appearance Urine pH Ur Specific [place] Urine Protein Urine Glucose (UA) Urine Ketones Urine Blood Urine Nitrite Ur Leukocyte Esterase Urine RBC Urine WBC Ur Squamous Epith Cells Urine Bacteria Granular Casts Urine Mucus Stool Occult Blood Coronavirus (PCR) Influenza Type A (PCR) Influenza Type B (PCR) RSV RNA Qual (PCR) 03/22/20 03/23/20 03/23/20 19:31 07:22 10:57 WBC RBC Hgb Hct MCV MCH MCHC RDW Plt Count MPV Immature Gran % (Auto) Neut % (Auto) Lymph % (Auto) [place] % (Auto) Eos % (Auto) Baso % (Auto) Lymph # (Auto) [place] # (Auto) Eos # (Auto) Baso # (Auto) Abs Immat Gran (auto) Absolute Neuts (auto) Absolute Nucleated RBC Nucleated RBC % (auto) Smear Tech's Comments Hold Purple Top PT INR APTT D-Dimer Hold Blue Top Sodium Potassium Chloride Carbon Dioxide Anion Gap BUN Creatinine Estim Creat Clear Calc Estimated GFR POC Glucose 294 H 112 140 H Random Glucose Lactic Acid Calcium Magnesium Ferritin Total Bilirubin Direct Bilirubin AST ALT Alkaline Phosphatase Lactate Dehydrogenase Troponin I High Sens B-Natriuretic Peptide Total Protein Albumin Procalcitonin Urine Color Urine Appearance Urine pH Ur Specific [place] Urine Protein Urine Glucose (UA) Urine Ketones Urine Blood Urine Nitrite Ur Leukocyte Esterase Urine RBC Urine WBC Ur Squamous Epith Cells Urine Bacteria Granular Casts Urine Mucus Stool Occult Blood Coronavirus (PCR) Influenza Type A (PCR) Influenza Type B (PCR) RSV RNA Qual (PCR) 03/23/20 03/23/20 03/24/20 15:32 20:28 09:04 WBC RBC Hgb Hct MCV MCH MCHC RDW Plt Count MPV Immature Gran % (Auto) Neut % (Auto) Lymph % (Auto) [place] % (Auto) Eos % (Auto) Baso % (Auto) Lymph # (Auto) [place] # (Auto) Eos # (Auto) Baso # (Auto) Abs Immat Gran (auto) Absolute Neuts (auto) Absolute Nucleated RBC Nucleated RBC % (auto) Smear Tech's Comments Hold Purple Top PT INR APTT D-Dimer Hold Blue Top Sodium Potassium Chloride Carbon Dioxide Anion Gap BUN Creatinine Estim Creat Clear Calc Estimated GFR POC Glucose 185 H 193 H 169 H Random Glucose Lactic Acid Calcium Magnesium Ferritin Total Bilirubin Direct Bilirubin AST ALT Alkaline Phosphatase Lactate Dehydrogenase Troponin I High Sens B-Natriuretic Peptide Total Protein Albumin Procalcitonin Urine Color Urine Appearance Urine pH Ur Specific [place] Urine Protein Urine Glucose (UA) Urine Ketones Urine Blood Urine Nitrite Ur Leukocyte Esterase Urine RBC Urine WBC Ur Squamous Epith Cells Urine Bacteria Granular Casts Urine Mucus Stool Occult Blood Coronavirus (PCR) Influenza Type A (PCR) Influenza Type B (PCR) RSV RNA Qual (PCR) 03/24/20 03/24/20 03/24/20 12:03 15:32 19:08 WBC RBC Hgb Hct MCV MCH MCHC RDW Plt Count MPV Immature Gran % (Auto) Neut % (Auto) Lymph % (Auto) [place] % (Auto) Eos % (Auto) Baso % (Auto) Lymph # (Auto) [place] # (Auto) Eos # (Auto) Baso # (Auto) Abs Immat Gran (auto) Absolute Neuts (auto) Absolute Nucleated RBC Nucleated RBC % (auto) Smear Tech's Comments Hold Purple Top PT INR APTT D-Dimer Hold Blue Top Sodium Potassium Chloride Carbon Dioxide Anion Gap BUN Creatinine Estim Creat Clear Calc Estimated GFR POC Glucose 186 H 198 H 183 H Random Glucose Lactic Acid Calcium Magnesium Ferritin Total Bilirubin Direct Bilirubin AST ALT Alkaline Phosphatase Lactate Dehydrogenase Troponin I High Sens B-Natriuretic Peptide Total Protein Albumin Procalcitonin Urine Color Urine Appearance Urine pH Ur Specific [place] Urine Protein Urine Glucose (UA) Urine Ketones Urine Blood Urine Nitrite Ur Leukocyte Esterase Urine RBC Urine WBC Ur Squamous Epith Cells Urine Bacteria Granular Casts Urine Mucus Stool Occult Blood Coronavirus (PCR) Influenza Type A (PCR) Influenza Type B (PCR) RSV RNA Qual (PCR) 03/25/20 03/25/20 03/25/20 07:18 12:02 16:19 WBC RBC Hgb Hct MCV MCH MCHC RDW Plt Count MPV Immature Gran % (Auto) Neut % (Auto) Lymph % (Auto) [place] % (Auto) Eos % (Auto) Baso % (Auto) Lymph # (Auto) [place] # (Auto) Eos # (Auto) Baso # (Auto) Abs Immat Gran (auto) Absolute Neuts (auto) Absolute Nucleated RBC Nucleated RBC % (auto) Smear Tech's Comments Hold Purple Top PT INR APTT D-Dimer Hold Blue Top Sodium Potassium Chloride Carbon Dioxide Anion Gap BUN Creatinine Estim Creat Clear Calc Estimated GFR POC Glucose 121 H 159 H 127 H Random Glucose Lactic Acid Calcium Magnesium Ferritin Total Bilirubin Direct Bilirubin AST ALT Alkaline Phosphatase Lactate Dehydrogenase Troponin I High Sens B-Natriuretic Peptide Total Protein Albumin Procalcitonin Urine Color Urine Appearance Urine pH Ur Specific [place] Urine Protein Urine Glucose (UA) Urine Ketones Urine Blood Urine Nitrite Ur Leukocyte Esterase Urine RBC Urine WBC Ur Squamous Epith Cells Urine Bacteria Granular Casts Urine Mucus Stool Occult Blood Coronavirus (PCR) Influenza Type A (PCR) Influenza Type B (PCR) RSV RNA Qual (PCR) 03/25/20 03/26/20 03/26/20 20:49 07:33 11:36 WBC RBC Hgb Hct MCV MCH MCHC RDW Plt Count MPV Immature Gran % (Auto) Neut % (Auto) Lymph % (Auto) [place] % (Auto) Eos % (Auto) Baso % (Auto) Lymph # (Auto) [place] # (Auto) Eos # (Auto) Baso # (Auto) Abs Immat Gran (auto) Absolute Neuts (auto) Absolute Nucleated RBC Nucleated RBC % (auto) Smear Tech's Comments Hold Purple Top PT INR APTT D-Dimer Hold Blue Top Sodium Potassium Chloride Carbon Dioxide Anion Gap BUN Creatinine Estim Creat Clear Calc Estimated GFR POC Glucose 162 H 122 H 118 H Random Glucose Lactic Acid Calcium Magnesium Ferritin Total Bilirubin Direct Bilirubin AST ALT Alkaline Phosphatase Lactate Dehydrogenase Troponin I High Sens B-Natriuretic Peptide Total Protein Albumin Procalcitonin Urine Color Urine Appearance Urine pH Ur Specific [place] Urine Protein Urine Glucose (UA) Urine Ketones Urine Blood Urine Nitrite Ur Leukocyte Esterase Urine RBC Urine WBC Ur Squamous Epith Cells Urine Bacteria Granular Casts Urine Mucus Stool Occult Blood Coronavirus (PCR) Influenza Type A (PCR) Influenza Type B (PCR) RSV RNA Qual (PCR) 03/26/20 03/26/20 03/27/20 16:37 20:37 07:33 WBC RBC Hgb Hct MCV MCH MCHC RDW Plt Count MPV Immature Gran % (Auto) Neut % (Auto) Lymph % (Auto) [place] % (Auto) Eos % (Auto) Baso % (Auto) Lymph # (Auto) [place] # (Auto) Eos # (Auto) Baso # (Auto) Abs Immat Gran (auto) Absolute Neuts (auto) Absolute Nucleated RBC Nucleated RBC % (auto) Smear Tech's Comments Hold Purple Top PT INR APTT D-Dimer Hold Blue Top Sodium Potassium Chloride Carbon Dioxide Anion Gap BUN Creatinine Estim Creat Clear Calc Estimated GFR POC Glucose 156 H 126 H 119 H Random Glucose Lactic Acid Calcium Magnesium Ferritin Total Bilirubin Direct Bilirubin AST ALT Alkaline Phosphatase Lactate Dehydrogenase Troponin I High Sens B-Natriuretic Peptide Total Protein Albumin Procalcitonin Urine Color Urine Appearance Urine pH Ur Specific [place] Urine Protein Urine Glucose (UA) Urine Ketones Urine Blood Urine Nitrite Ur Leukocyte Esterase Urine RBC Urine WBC Ur Squamous Epith Cells Urine Bacteria Granular Casts Urine Mucus Stool Occult Blood Coronavirus (PCR) Influenza Type A (PCR) Influenza Type B (PCR) RSV RNA Qual (PCR) Discharge Plan Discharge Anticipated Discharge Date/Time: 03/27/20 15:54 Patient Disposition: Home Health Service Referrals: [facility] [Outside] James Anna MD [Primary Care Provider] - ( A FOLLOW UP TELE-HEALTH APPT IS SCHEDULED WITH DR ANNA FOR Friday03/30/20 AT 10:45 AM ) Discharge Medications: Continued ezetimibe 10 mg Tablet 10 mg PO DAILY RF: 0 Januvia 50 mg Tablet 50 mg PO DAILY RF: 0 atenolol 25 mg tablet 25 mg PO DAILY RF: 0 ascorbate calcium (vitamin C) 500 mg tablet 500 mg PO DAILY RF: 0 aspirin [Adult Aspirin Regimen] 81 mg tablet,delayed release (/EC) 81 mg PO DAILY RF: 0 Discharge Orders: Discharge Order (Routine); Ordered 03/27/20 Ordered By: Momo Christie Diet: advance to usual diet and diabetic diet Activity on Discharge: As tolerated Visit Report Forms: Patient Portal Discharge page Care Plan Goals: Full recovery from covid Health Concerns: Hypoxic respiratory failure Plan of Treatment: Home with oxygen follow up with PCP Patient Instructions: How To Wash Your Hands (GEN), COVID-19 (Coronavirus Disease 2019)(GEN) Discharge Date/Time: 03/27/20 18:30
== END 2020-03-27 18:30 | disposition home health service (06) | DRG 871 ==
LOC: HO.ED 11:13 → HO.IMC 16:36
PROVIDERS: Internal Medicine; Physician Assistant Medical; Admitting Provider Internal Medicine; Emergency Provider Emergency Medicine Emergency Medical Services; PCP Internal Medicine; Visit Provider Internal Medicine
DX: A41.89 Other specified sepsis (principal); U07.1 COVID-19; J96.01 Acute respiratory failure with hypoxia; E87.6 Hypokalemia; D72.829 Elevated white blood cell count, unspecified; I10 Essential (primary) hypertension; E53.8 Deficiency of other specified B group vitamins; E78.5 Hyperlipidemia, unspecified; E11.65 Type 2 diabetes mellitus with hyperglycemia; Z79.82 Long term (current) use of aspirin; Z79.899 Other long term (current) drug therapy
CPT/HCPCS: 0241U; 36415; 71045; 71275; 80048; 80076; 81001; 81003; 82272; 82728; 82947; 83605; 83615; 83735; 83880; 84145; 84484; 85025; 85027; 85379; 85610; 85730; 87040; 93005; 96361; 96365; 96366; 96367; 96375; 99285; 99291; J0456; J0696; J1100; J1650; J3475; J3490; Q9967

== ENCOUNTER 2020-03-28 11:12 | Emergency (ER) | payer MEDICARE, SELFPAY ==
[2020-03-28] VITALS (8 sets, daily range): BP systolic 122–157; BP diastolic 57–82; PULSE 100–118; RESP 16–26; TEMP 36.8–37; O2SAT 66–100; BMI 36.3
--- NOTE | 2020-03-28 11:33 | XR_ITS ---
EXAMINATION: XR CHEST CLINICAL INFORMATION: Weakness. Recent COVID pneumonia COMPARISON: Chest radiographs 03/19/2020, 03/14/2020, 03/19/2019 TECHNIQUE: Portable upright AP view of the chest was obtained. FINDINGS: There are scattered groundglass opacities left lung and right base and airspace consolidation left retrocardiac region with air bronchograms similar to prior exam 03/19/2020. There is no significant interval change. The heart is normal in size. The vascularity is normal. The hilar and mediastinal contours and bony structures are stable. XR/XR chest 1V IMPRESSION: Airspace opacities similar to recent exam 03/19/2020.
--- NOTE | 2020-03-28 11:33 | ED_ITS ---
HPI - General Adult General Chief complaint: General Medical Stated complaint: covid + Time Seen by Provider: 03/28/20 11:33 Source: EMS Mode of arrival: EMS Limitations: no limitations History of Present Illness HPI narrative: 69-year-old female with past medical history that is significant for diabetes, hypertension, hyperlipidemia as well as other history noted below whom was admitted to this facility 03/15/2020 and discharge yesterday 03/27/2020 for respiratory failure secondary to COVID-19 she was stabilized and sent home on home oxygen as she requested to be discharged yesterday she got home states she did okay felt lack of energy today felt like she had no energy so she called EMS. She denies any pain or discomfort. No chest pain. No shortness of breath. Onset (ago): day(s) Associated symptoms: denies other symptoms Treatments prior to arrival: none Related Data Home Medications Medication Instructions Recorded Confirmed ascorbate calcium (vitamin C) 500 500 mg PO DAILY 01/21/20 03/14/20 mg tablet aspirin 81 mg tablet,delayed 81 mg PO DAILY 01/21/20 03/14/20 release atenolol 25 mg tablet 25 mg PO DAILY 01/21/20 03/14/20 Januvia 50 mg PO DAILY 03/14/20 03/14/20 ezetimibe 10 mg PO DAILY 03/14/20 03/14/20 Allergies Allergy/AdvReac Type Severity Reaction Status Date / Time glimepiride Allergy Unknown Unknown Verified 01/21/20 16:22 metformin Allergy Unknown diarrhea Verified 01/21/20 16:22 simvastatin Allergy Unknown Unknown Verified 01/21/20 16:22 Review of Systems Review of Systems: Constitutional: No Weight loss, No Fever, No Chills, No Night Sweats, No Fatigue, No Malaise ENT/Mouth: No Hearing loss, No Ear Pain, No Nasal Congestion, No Sinus Pain, No Hoarseness, No sore throat, No Rhinorrhea, No Swallowing Difficulty Eyes: No Eye Pain, No Swelling, No Redness, No Foreign Body, No Discharge, No Vision Changes Cardiovascular: No Chest Pain, No SOB, No Dyspnea on Exertion, No Orthopnea, No Edema, No Palpitations Respiratory: No Cough, No Sputum, No Wheezing, No Smoke Exposure, No Dyspnea Gastrointestinal: No Nausea, No Vomiting, No Diarrhea, No Constipation, No abdominal Pain, No Hematochezia, No Melena Genitourinary: no irregular bleeding, No Dysuria, No Urinary Frequency, No Hematuria, No Urinary Incontinence, No Urgency, No Flank Pain Musculoskeletal: No joint pain, No Myalgias, No Joint Swelling Skin: No Skin Lesions, No rash Neuro: + Weakness, No Numbness, No Paresthesias, No Loss of Consciousness, No Dizziness, No Headache Psych: No Social Issues Heme/Lymph: No Bruising, No Bleeding,No Lymphadenopathy Endocrine: No Polyuria, No Polydipsia, No Temperature Intolerance Yes all other systems are reviewed and are negative [facility] Past Medical History Medical History B12 deficiency Diabetic nephropathy History of breast cancer Hypercholesterolemia Hypertension Multinodular goiter Obesity (BMI 30-39.9) Type 2 diabetes mellitus with hyperglycemia Surgical History H/O total mastectomy of right breast History of bunionectomy Family History Family History Father No problems noted. Mother Enlarged heart Paternal Aunt Diabetes Social History Social History Household Members: None Housing: Apartment Alcohol intake: never Smoking Status: Never smoker Advance Directives: No Advance Directives Information Provided: No service: No Current occupational status: retired Physical Exam Vital Signs: Vital Signs: Last Vital Signs Temp 98.5 F 03/28/20 12:00 Pulse 118 H 03/28/20 14:50 Resp 24 H 03/28/20 14:50 BP 149/57 H 03/28/20 14:50 Pulse Ox 91 L 03/28/20 15:01 Body Mass Index 36.3 Reviewed Const: General: cooperative and healthy appearing; No acute distress or intoxicated appearing Nutritional Appearance: average body habitus Orientation/consciousness: patient oriented x3 HENMT: Head: Yes normal to inspection Ears: hearing grossly normal bilaterally Eyes: General: appearance normal, both eyes and all related structures Visu al Barlow: normal visual barlow by confrontation Neck: Neck: Yes normal visual inspection, No positive Brudzinski's sign, No positive Kernig's sign and No tender Thyroid: Thyroid normal Chest: Chest palpation & inspection: normal inspection of the chest Resp: Effort & Inspection: normal respiratory effort Auscultation: clear to auscultation bilaterally Cardio: Jugular venous distension: no JVD Rhythm: regular rhythm Heart sounds: S1 normal heart sound present and S2 normal heart sound present GI: Inspection: Yes normal to inspection Percussion: Yes normal to percussion Auscultation: normal bowel sounds : General: Yes no CVA tenderness Back/Spine/Pelvis: Back: no CVA tenderness Skin: General skin exam: no rashes or lesions noted Neuro: General: patient oriented x3 Extrem: General: Yes normal to inspection Course Course Course Narrative: In review 69-year-old female with above history presenting with complaint of generalized weakness she was discharged from here yesterday status post COVID-19 associated respiratory failure stabilize sent home on oxygen states she felt like she had no energy and thus called the EMS. Upon arrival she states she has no pain or discomfort. States she called as she did not have any injury to anything and when to come back. Additionally she does report to me that she does not want to be admitted. Given her nonspecific complaints will repeat labs and chest x-ray. She is stable hemodynamically at this time. 94% on room air. Is noted in triage that she was documented as tachycardic however she is 88 and normal sinus rhythm at bedside monitor. Reevaluation(s) Reevaluation #1: Reluctant to workup here. Aware that she came bag given her symptoms would prefer to recheck labs and consult case management if needed for possible placement. Reevaluation #2: Slight delay and drawing labs due to the pandemic and significant acute in emergency room with multiple codes and critical patients. Tech at bedside to draw labs patient declined states she does not really want to be here. 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 States she would prefer to go home. Requesting to be discharged home she is stable at this time.. Medical Decision Making MDM Narrative Medical decision making narrative: 69/F with DM, HTN, HLD, obesity, history breast Cancer s/p mastectomy, chemo and XRT and now has acute respiratory failure due to covid-19 with hypoxia who was admitted here from March 15 and discharge yesterday from this facility returning with overall generalized weakness otherwise no complaint of chest pain or shortness of breath. She is on home O2 since being discharged. Given her history workup was initiated though she was reluctant and I did have a extensive conversation with regarding her expectations of care and plan of care she does not want to go to short-term rehab I did offer the [facility] as to ER for COVID to her she declined. She would like to go home. She does have oxygen at home. She understands that my recommendations are to check labs and investigate further given her recent admission here though she is declining with understanding that this is against my advice. She will be discharged home per her request. She understands that her symptoms can get worse and her medical state can deteriorate significantly given her frailty. Discharge Plan Discharge Clinical Impression: COVID-19 Patient Disposition: Home, Self-Care Additional Instructions: Please take medication prescribed Use oxygen as instructed Return if any concerns or worsening symptoms Follow up with her primary care doctor via phone in next 2-3 days Thank you Prescriptions: No [facility] ezetimibe 10 mg Tablet 10 mg PO DAILY RF: 0 Januvia 50 mg Tablet 50 mg PO DAILY RF: 0 atenolol 25 mg tablet 25 mg PO DAILY RF: 0 ascorbate calcium (vitamin C) 500 mg tablet 500 mg PO DAILY RF: 0 aspirin [Adult Aspirin Regimen] 81 mg tablet,delayed release (DR/EC) 81 mg PO DAILY RF: 0 Referrals: Po,James Bardales MD [Primary Care Provider] - 1 week
--- NOTE | 2020-03-28 11:33 | ECG_ITS ---
Test Reason : [id number] Blood Pressure : / mmHG Vent. Rate : 111 BPM Atrial Rate : 111 BPM P-R Int : 134 ms QRS Dur : 084 ms QT Int : 338 ms P-R-T Axes : 050 008 -05 degrees QTc Int : 459 ms Sinus tachycardia Possible Left atrial enlargement Left ventricular hypertrophy ST & T wave abnormality, consider inferior ischemia Abnormal ECG When compared with ECG of 14-MAR-2020 10:41, T wave inversion more evident in Inferior leads Referred By: Kurt Garcia Electronically Signed By:FARHANA MÉNDEZ MD
--- NOTE | 2020-03-28 14:51 | PC.NURSE ---
sob with minimal exertion just from wc to bed after using br. recovery takes some time
--- NOTE | 2020-03-28 16:34 | PC.NURSE ---
Pt refusing labs at this time. It was explained to her by CONTACT CENTER CONSULTANT that we need the results to identify treatment needs. The pt feels that she can safely return home and wishes to do so. She is requiring 4liters of 02 at this time. She has oxygen at home from prior admission.
--- NOTE | 2020-03-28 17:15 | CT_ITS ---
EXAMINATION: CT CHEST WITHOUT CONTRAST CLINICAL INFORMATION: Hypoxia post COVID. COMPARISON: Chest radiograph earlier today along with CT chest 03/14/2020. TECHNIQUE: Multidetector volumetric CT imaging of the chest was done. Axial MIP volume rendering provided. Sagittal and coronal reformatted images were obtained. This CT examination was performed using dose optimization techniques as appropriate, variously including the following: *Automated exposure control. *Adjustment of mA and/or kV according to patient size (this includes techniques or standardized protocols for targeted exams where dose is matched to indication/reason for exam; i.e. extremities or head). *Use of iterative reconstruction technique. DLP: 264 mGy-cm FINDINGS: LUNGS: Compared to the prior study, there has been some interval change. I believe there is a baseline of peripheral septal thickening and honeycomb-type changes which may represent baseline fibrosis/interstitial lung disease. There is a new area of ground-glass opacity seen just above the right hemidiaphragm in the right middle lobe (series 5 image 234). At the left apex, increased ground-glass changes seen as well compared to the prior study (series 5 image 89). MEDIASTINUM: Again seen is marked thyromegaly with a large goiter and left lobe extending down into the mediastinum to the level of the aortic arch with masses including calcification. The trachea is not compressed. Some small mediastinal nodes are unchanged. Heart size within normal limits. No aortic aneurysm. PLEURA: There is no pleural effusion. No pleural mass or thickening. AXILLA: Status post right mastectomy. No axillary lymphadenopathy. UPPER ABDOMEN: Multiple liver cysts are again seen. OSSEOUS STRUCTURES: Mild degenerative changes in the spine without acute fractures or bony destructive lesions. CT/CT chest wo con IMPRESSION: 1. Baseline changes of fibrosis/interstitial lung disease. 2. Two areas of worsening ground-glass change as described above. 3. Unchanged thyromegaly, especially in the left lobe.
--- NOTE | 2020-03-28 19:30 | PC.NURSE ---
TRACE HARJINDER ([facility]) BROTHER: GLORIA SEEKING UPDATE. [phone]
--- NOTE | 2020-03-28 22:04 | PC.NURSE ---
pt took herself off of oxygen to use bedside commode, rn placed pt back on as soon as this was noticed. pt back in bed and dyspneic, room air sat 66%. pt slowly recoved on 4 lpm to 90's.
[2020-03-28 22:26] LABS: Glucose Urine UA NEG (NEG); Leukocyte Esterase Urine NEG (NEG); Nitrite Urine NEG (NEG); PH 5.5 (5.0-8.0); Specific Gravity - Urine >= 1.030 (1.005-1.025); Urine Blood NEG (NEG); Urine Ketones 40 MG/DL (NEG); Urine Protein 1+ MG/DL (NEG-TRACE)
[2020-03-28 22:42] LABS: Appearance Urine CLEAR; Color Urine YELLOW
[2020-03-28 22:50] LABS: RBC Urine 0-2 /HPF (0)
[2020-03-28 22:51] LABS: Mucus Urine 1+ /LPF; Squamous Epithelial Cell Urine TRACE /LPF; WBC Urine 0-2 /HPF (0-4)
--- NOTE | 2020-03-28 23:39 | PC.NURSE ---
pt awake and alert, asked pt if we could draw her labs now that Juany LEVY is here. pt refused, after educating her on what and why we feel labs are important, pt replied i'll think about it. now put the back of this bed down, i want to go to sleep. pt drinking sips of whit sudheer.
[2020-03-29] VITALS (8 sets, daily range): BP systolic 110–137; BP diastolic 62–85; PULSE 82–101; RESP 16–22; TEMP 36.2–36.5; O2SAT 93–98
--- NOTE | 2020-03-29 05:31 | PC.NURSE ---
pt assisted to bedside commode, able to stand and pivot oh her own. pt must remain on 4lpm while at rest and with any activity. pt's spo2 dropped to 73% on 4 lpm following stand and pivot.
[2020-03-29 06:45] LABS: MANUAL DIFF FLAG NO
[2020-03-29 06:47] LABS: Basophils Percent Auto 0.1 % (0-2); Eosinophils Absolute Auto 0.1 X10*3/uL (0.0-0.4); Eosinophils Percent Auto 1.1 % (0-4); Hematocrit 38.7 % (37-47); Imm Gran Abs Auto 0.11 X10*3/uL (0.00-0.03); Imm Gran Pct Auto 1.1 % (0.0-0.4); Lymphocytes Absolute Auto 1.2 X10*3/uL (1.2-4.9); Mean Corpuscular Hemoglobin 26.7 pg (27.0-33.0); Mean Corpuscular Volume 86.2 fL (80-98); Mean Platelet Volume 10.1 fL (9.4-12.3); Monocytes Percent Auto 9.6 % (2-11); Neutrophils Absolute Auto 7.6 X10*3/uL (2.0-8.3); Neutrophils Percent Auto 76.1 % (45-73); Platelet Count 292 X10*3/uL (160-400); Red Blood Count 4.49 X10*6/uL (4.20-5.50); Red Cell Distribution Width 13.8 % (11.0-16.0)
[2020-03-29 06:56] LABS: INTERNATIONAL NORM RATIO 1.4 (0.9-1.1); Prothrombin Time 16.5 SEC (10.8-13.0)
[2020-03-29 07:03] LABS: COVID-19 Test Negative (Negative)
[2020-03-29 07:22] LABS: Alanine Aminotransferase 37 U/L (0-31); Albumin Level 3.2 g/dL (3.5-5.0); Alkaline Phosphatase 59 U/L (39-117); Anion Gap 16 (12-20); Aspartate Amino Transferase 19 U/L (5-31); Bilirubin Total 0.7 mg/dL (0.0-1.0); Blood Urea Nitrogen 10 mg/dL (9-16); Calcium 8.8 mg/dL (8.4-10.2); Carbon Dioxide 28 mmol/L (22-29); Chloride 101 mmol/L (96-108); Creatinine Clr Calc Pharmacy 96.3; Estimated Glomerular Filt Rate > 60; Glucose Random 154 mg/dL (60-115); Potassium 3.8 mmol/l (3.3-5.1); Sodium 141 mmol/L (135-145); Total Protein 6.4 g/dL (6.5-8.0)
[2020-03-29 07:23] LABS: Troponin-I High Sensitivity 13.6 ng/L (<3.5-17.0)
--- NOTE | 2020-03-29 08:47 | MHC.CM.ED ---
[place] [facility] [place] Patient is positive for Covid. Patient returned due to not being able to manage at home. Physical therapy eval completed. Shot term rehab is recommended. Referral has been broadcasted in [employer] to see what +Covid beds are available. Continue to monitor for d/c needs.
[2020-03-29] MEDS: Ezetimibe 10 MG TABLET PO (08:57)
[2020-03-29] MEDS: atenoloL 25 MG TABLET PO (08:57)
[2020-03-29] MEDS: SITagliptin Phosphate 50 MG TABLET PO (08:57)
[2020-03-29] MEDS: Aspirin Enteric Coated 81 MG TABLET.DR PO (08:57)
[2020-03-29] MEDS: Ascorbic Acid 500 MG TABLET PO (08:57)
--- NOTE | 2020-03-29 09:07 | MHC.CM.ED ---
Patient first tested positive for Covid on 03/14. Her repeat Covid is negative today. She is considered Covid recovered . List of facilities contracted with patient's insurance provided to patient. Patient will provide case management with 2 choices. Continue to monitor for d/c needs.
--- NOTE | 2020-03-29 10:17 | MHC.CM.ED ---
Patient choose [facility] as first choice. Referral made in [employer]. Continue to monitor for d/c needs
--- NOTE | 2020-03-29 14:04 | MHC.CM.ED ---
[facility] is able to offer a bed and is in the process of obtaining insurance auth. Continue to monitor for d/c needs.
--- NOTE | 2020-03-29 14:36 | MHC.CM.ED ---
Sabina Kim obtained insurance auth. Patient can leavve at 4pm. [facility] booked. Med nec with chart. Attempted to let patient know. Patient currently sleeping. Kurt RECEIVABLES SPECIALIST and Julio Cesar RN aware. Continue to monitor for d/c needs.
== END 2020-03-29 16:17 | disposition skilled nursing facility (03) ==
PROVIDERS: Nurse Practitioner Primary Care; Emergency Provider Emergency Medicine; PCP Internal Medicine
DX: U07.1 COVID-19 (principal); Z79.899 Other long term (current) drug therapy
CPT/HCPCS: 36415; 71045; 71250; 80053; 81001; 84484; 85025; 85610; 85730; 87635; 93005; 97162; 99284; 99285

== ENCOUNTER 2021-01-17 08:20 | Outpatient (REF) | payer MEDICARE, SELFPAY ==
[2021-01-17 08:33] LABS: MANUAL DIFF FLAG NO
[2021-01-17 08:59] LABS: Basophils Percent Auto 0.6 % (0-2); Eosinophils Absolute Auto 0.1 X10*3/uL (0.0-0.4); Eosinophils Percent Auto 1.5 % (0-4); Hematocrit 41.3 % (37.0-47.0); Hemoglobin 13.2 g/dl (12.0-16.0); Imm Gran Abs Auto 0.02 X10*3/uL (0.00-0.03); Imm Gran Pct Auto 0.4 % (0.0-0.4); Lymphocytes Absolute Auto 1.6 X10*3/uL (1.2-4.9); Lymphocytes Percent Auto 30.4 % (20-40); Mean Corpuscular Hemoglobin 27.2 pg (27.0-33.0); Mean Corpuscular Volume 85.2 fL (80.0-98.0); Mean Platelet Volume 10.3 fL (9.4-12.3); Monocytes Absolute Auto 0.5 X10*3/uL (0.1-1.2); Monocytes Percent Auto 10.1 % (2-11); Neutrophils Absolute Auto 3.07 x10*3/uL (2.0-8.3); Platelet Count 290 X10*3/uL (160-400); Red Blood Count 4.85 X10*6/uL (4.20-5.50); Red Cell Distribution Width 12.7 % (11.0-16.0); White Blood Count 5.4 X10*3/uL (4.8-10.8)
[2021-01-17 09:27] LABS: Alanine Aminotransferase 13 U/L (0-31); Albumin Level 4.6 g/dL (3.5-5.0); Alkaline Phosphatase 88 U/L (39-117); Anion Gap 17 (12-20); Aspartate Amino Transferase 14 U/L (5-31); Bilirubin Total 0.3 mg/dL (0.0-1.0); Blood Urea Nitrogen 10 mg/dL (9-16); Calcium 9.9 mg/dL (8.4-10.2); Carbon Dioxide 23 mmol/L (22-29); Chloride 103 mmol/L (96-108); Cholesterol 285 mg/dL; Estimated Glomerular Filt Rate > 60; Glucose Random 185 mg/dL (60-115); HDL Cholesterol 69 mg/dL; LDL Cholesterol Calculated 189 mg/dl; Potassium 4.3 mmol/L (3.3-5.1); Sodium 139 mmol/L (135-145); Total Protein 7.5 g/dL (6.5-8.0); Triglycerides 138 mg/dL
[2021-01-17 09:50] LABS: Free T4 (Free Thyroxine) 0.99 ng/dL (0.71-1.85); Thyroid Stimulating Hormone 1.01 uIU/mL (0.32-4.0); Vitamin D 25-OH Total 64.4 ng/mL (>30)
[2021-01-17 10:02] LABS: Folate 10.3 ng/mL (> or = 4.0); Vitamin B12 511 pg/mL (200-900)
[2021-01-17 10:53] LABS: Creatinine Urine 174.13 mg/dL
== END 2021-01-17 08:21 | disposition home or self-care (01) ==
LOC: HO.LAB 08:20
PROVIDERS: PCP Internal Medicine; Visit Provider Internal Medicine
DX: E11.65 Type 2 diabetes mellitus with hyperglycemia (principal); E04.2 Nontoxic multinodular goiter; E78.00 Pure hypercholesterolemia, unspecified
CPT/HCPCS: 36415; 80053; 80061; 82043; 82306; 82607; 82746; 84439; 84443; 85025

== ENCOUNTER 2021-06-25 07:51 | Outpatient (REF) | payer OTHER, SELFPAY ==
[2021-06-25 09:32] LABS: Alanine Aminotransferase 18 U/L (0-31); Albumin Level 4.5 g/dL (3.5-5.0); Alkaline Phosphatase 80 U/L (39-117); Anion Gap 15 (12-20); Aspartate Amino Transferase 13 U/L (5-31); Bilirubin Total 0.5 mg/dL (0.0-1.0); Blood Urea Nitrogen 9 mg/dL (9-16); Carbon Dioxide 25 mmol/L (22-29); Chloride 105 mmol/L (96-108); Cholesterol 193 mg/dL; Estimated Glomerular Filt Rate > 60; Glucose Random 182 mg/dL (60-115); HDL Cholesterol 52 mg/dL; LDL Cholesterol Calculated 124 mg/dl; Potassium 4.6 mmol/L (3.3-5.1); Sodium 140 mmol/L (135-145); Total Protein 7.2 g/dL (6.5-8.0); Triglycerides 87 mg/dL
== END 2021-06-25 07:52 | disposition home or self-care (01) ==
LOC: HO.LAB 07:51
PROVIDERS: PCP Internal Medicine; Visit Provider Internal Medicine
DX: E78.00 Pure hypercholesterolemia, unspecified (principal)
CPT/HCPCS: 36415; 80053; 80061

== ENCOUNTER 2021-09-25 09:14 | Outpatient (REF) | payer OTHER, SELFPAY ==
[2021-09-25 10:45] LABS: Creatinine Urine 127.72 mg/dL
== END 2021-09-25 09:15 | disposition home or self-care (01) ==
LOC: HO.LAB 09:14
PROVIDERS: PCP Internal Medicine; Visit Provider Internal Medicine
DX: Z13.89 Encounter for screening for other disorder (principal)

== ENCOUNTER 2022-01-28 08:14 | Outpatient (REF) | payer OTHER, SELFPAY ==
[2022-01-28 08:27] LABS: MANUAL DIFF FLAG NO
[2022-01-28 08:35] LABS: Basophils Percent Auto 0.8 % (0-2); Eosinophils Absolute Auto 0.1 X10*3/uL (0.0-0.4); Eosinophils Percent Auto 1.9 % (0-4); Hematocrit 43.4 % (37.0-47.0); Hemoglobin 13.9 g/dl (12.0-16.0); Imm Gran Abs Auto 0.02 X10*3/uL (0.00-0.03); Imm Gran Pct Auto 0.4 % (0.0-0.4); Lymphocytes Absolute Auto 1.6 X10*3/uL (1.2-4.9); Lymphocytes Percent Auto 32.5 % (20-40); Mean Corpuscular Hemoglobin 26.7 pg (27.0-33.0); Mean Corpuscular Volume 83.3 fL (80.0-98.0); Mean Platelet Volume 10.2 fL (9.4-12.3); Monocytes Absolute Auto 0.4 X10*3/uL (0.1-1.2); Monocytes Percent Auto 8.6 % (2-11); Neutrophils Absolute Auto 2.7 x10*3/uL (2.0-8.3); Neutrophils Percent Auto 55.8 % (45-73); Platelet Count 262 X10*3/uL (160-400); Red Blood Count 5.21 X10*6/uL (4.20-5.50); Red Cell Distribution Width 14.2 % (11.0-16.0); White Blood Count 4.8 X10*3/uL (4.8-10.8)
[2022-01-28 09:22] LABS: Alanine Aminotransferase 21 U/L (0-31); Alkaline Phosphatase 73 U/L (39-117); Anion Gap 20 (12-20); Aspartate Amino Transferase 18 U/L (5-31); Bilirubin Total 0.6 mg/dL (0.0-1.0); Blood Urea Nitrogen 10 mg/dL (9-16); Calcium 10.3 mg/dL (8.4-10.2); Carbon Dioxide 24 mmol/L (22-29); Chloride 104 mmol/L (96-108); Cholesterol 237 mg/dL; Estimated Glomerular Filt Rate > 60; Glucose Random 164 mg/dL (60-115); HDL Cholesterol 77 mg/dL; LDL Cholesterol Calculated 141 mg/dl; Potassium 4.4 mmol/L (3.3-5.1); Sodium 144 mmol/L (135-145); Total Protein 8.1 g/dL (6.5-8.0); Triglycerides 97 mg/dL
[2022-01-28 09:22] LABS: Creatinine Urine 102.31 mg/dL
[2022-01-28 09:32] LABS: Estimated Average Glucose 186 mg/dL; Hemoglobin A1c % 8.1 %
[2022-01-28 09:38] LABS: Folate 13.1 ng/mL (> or = 4.0); Vitamin B12 456 pg/mL (200-900)
[2022-01-28 09:53] LABS: Free T4 (Free Thyroxine) 1.06 ng/dL (0.71-1.85); Thyroid Stimulating Hormone 0.94 uIU/mL (0.32-4.0)
== END 2022-01-28 08:15 | disposition home or self-care (01) ==
LOC: HO.LAB 08:14
PROVIDERS: PCP Internal Medicine; Visit Provider Internal Medicine
DX: E78.00 Pure hypercholesterolemia, unspecified (principal); E11.65 Type 2 diabetes mellitus with hyperglycemia; I10 Essential (primary) hypertension; M85.80 Other specified disorders of bone density and structure, unspecified site
CPT/HCPCS: 36415; 80053; 80061; 82043; 82306; 82607; 82746; 83036; 84439; 84443; 85025

== ENCOUNTER 2022-03-05 11:40 | Outpatient (REF) | payer OTHER, SELFPAY ==
--- NOTE | ~2022-03-05 | XR_ITS ---
EXAMINATION: XR KNEE, RIGHT CLINICAL INFORMATION: Right knee pain. COMPARISON: 06/06/2016 TECHNIQUE: AP and lateral views of the right knee. FINDINGS: Mild medial compartment narrowing with small marginal osteophytes. Small marginal osteophytes in the patellofemoral compartment. There is a moderate joint effusion. Prominent enthesopathy of the patella. No acute abnormality. Degenerative findings have slightly progressed since previous. XR/XR knee RT 2V IMPRESSION: [id number] medial and patellofemoral compartment osteoarthritis with a joint effusion. No acute osseous abnormality. Prominent enthesopathy.
== END 2022-03-05 11:41 | disposition home or self-care (01) ==
LOC: HO.XRAY 11:40
PROVIDERS: PCP Internal Medicine; Visit Provider Nurse Practitioner Family
DX: M25.561 Pain in right knee (principal)
CPT/HCPCS: 73560

== ENCOUNTER 2022-03-21 08:24 | Outpatient (REF) | payer OTHER, SELFPAY ==
--- NOTE | ~2022-03-21 | US_ITS ---
EXAMINATION: US THYROID CLINICAL INFORMATION: Nontoxic multinodular goiter. COMPARISON: Thyroid ultrasound 09/14/2015. TECHNIQUE: Linear transducer grayscale and color Doppler examination with attention to the region of the thyroid. FINDINGS: SIZE: Measurements of the thyroid lobes and nodules are given in sagittal, anteroposterior and transverse dimensions respectively. Right Thyroid Lobe: 5.4 x 1.7 x 1.9 cm, volume 9.1 mL. Previously 5.0 x 1.4 x 1.7 cm, volume 6.2 mL. Parenchyma: The gland echotexture is heterogeneous. Thyroid vascularity is increased. Left Thyroid Lobe: 6.9 x 3.6 x 5.1 cm, volume 66.3 mL. Previously 6.1 x 3.0 x 2.7 cm, volume 25.8 mL. Parenchyma: The gland echotexture is heterogeneous. Thyroid vascularity is normal. Isthmus: 0.5 cm in maximum AP dimension. Previously 0.8 cm. Estimated total number of nodules greater than or equal to 1 cm: 4. Rehabilitation Assistant nodules are described as follows: 1. Location: Right midpole. Size: 1.1 x 0.8 x 0.7 cm, volume 0.3 mL. Previously: 0.5 x 0.6 x 0.5 cm, volume 0.08 mL. Nodule characteristics: Composition: Solid/almost completely solid (2). Echogenicity: Hyperechoic (1). Shape: Taller than wide (3). Margins: Smooth (0). Echogenic Foci: None (0). ACR TI-RADS total points: 6. ACR TI-RADS category: 4. Significant change in size (>/= 20% in 2 dimensions and minimal increase of 2 mm or 50% or greater increase in volume): Not available. Change in features: Mild increase in the size. No change in echotexture. Change in ACR TI-RADS risk category: Not available. 2. Location: Right midpole. Size: 0.8 x 0.7 x 0.9 cm, volume 0.2 mL. Previously: Unable to compare or not seen. Nodule characteristics: Composition: Solid (2). Echogenicity: Isoechoic (1). Shape: Not taller than wide (0). Margins: Ill-defined (0). Echogenic Foci: None (0). ACR TI-RADS total points: 3. ACR TI-RADS category: 3. 3. Location: Left upper/midpole. Size: 1.5 x 1.6 x 1.9 cm, volume 2.3 mL. Previously: Unable to compare or not seen. Nodule characteristics: Composition: Solid/almost completely solid (2). Echogenicity: Cannot be determined (1). Shape: Not taller than wide (0). Margins: Smooth (0). Echogenic Foci: None (0). ACR TI-RADS total points: 3. ACR TI-RADS category: 3. 4. Location: Left upper/midpole. Size: 3.1 x 2.8 x 2.7 cm, volume 12.2 mL. Previously: 1.6 x 1.5 x 1.6 cm, volume 2.0 mL. Nodule characteristics: Composition: Solid (2). Echogenicity: Cannot be determined (1). Shape: Taller than wide (3). Margins: Cannot be determined (0). Echogenic Foci: None (0). ACR TI-RADS total points: 6. ACR TI-RADS category: 4. Significant change in size (>/= 20% in 2 dimensions and minimal increase of 2 mm or 50% or greater increase in volume): Almost double the size. Change in features: None. Change in ACR TI-RADS risk category: Significant increase in total points and TI-RADS category. Recommend biopsy. 5. Location: Left lower pole. Size: 3.3 x 3.9 x 4.0 cm, volume 26.9 mL. Previously: 2.7 x 2.6 x 2.3 cm, volume 8.4 mL. Nodule characteristics: Composition: Solid (2). Echogenicity: Cannot be determined (1). Shape: Not taller than wide (0). Margins: Cannot be determined (0). Echogenic Foci: Macrocalcifications (1). ACR TI-RADS total points: 4. ACR TI-RADS category: 4. Significant change in size (>/= 20% in 2 dimensions and minimal increase of 2 mm or 50% or greater increase in volume): None. Change in features: None. Change in ACR TI-RADS risk category: None. NODES: No lymphadenopathy is seen in the tissue surrounding the thyroid gland. US/US thyroid IMPRESSION: 1. Enlarged thyroid gland with the left lobe significantly increased in size. 2. Increased nodule size left upper/midpole and lower pole with increase in total points and TI-RADS category. Recommend fine-needle aspiration. 3. TR1 (0 point) and TR 2 (2 points): 4. TR4 (4-6 points): FNA if more than or equal to 1.5 cm in maximum dimension, followup ultrasound in 1, 2, 3 and 5 years if 1 to 1.4 cm in maximum dimension. 5. TR5 (more than or equal to 7 points): FNA if more than or equal to 1 cm in maximum dimension, followup ultrasound every year for 5 years if 0.5 to 0.9 cm in maximum dimension.
== END 2022-03-21 08:25 | disposition home or self-care (01) ==
LOC: HO.US 08:24
PROVIDERS: PCP Internal Medicine; Visit Provider Internal Medicine
DX: E04.2 Nontoxic multinodular goiter (principal)
CPT/HCPCS: 76536

== ENCOUNTER → 2022-03-28 10:39 | Outpatient (BNVA) | payer OTHER, SELFPAY | PROVIDERS: PCP Internal Medicine; Visit Provider Orthopaedic Surgery | DX: M17.11 Unilateral primary osteoarthritis, right knee (principal); E11.65 Type 2 diabetes mellitus with hyperglycemia | CPT/HCPCS: 99202 ==

== ENCOUNTER → 2022-04-10 07:31 | Outpatient (BNVA) | payer OTHER, SELFPAY | PROVIDERS: PCP Internal Medicine; Visit Provider Internal Medicine | DX: E04.2 Nontoxic multinodular goiter (principal) | CPT/HCPCS: 99202 ==

== ENCOUNTER 2022-04-29 10:35 | Outpatient (REF) | payer OTHER, SELFPAY ==
--- NOTE | ~2022-04-29 | CT_ITS ---
EXAMINATION: CT SOFT TISSUE NECK WITHOUT CONTRAST CLINICAL INFORMATION: 71-year-old with nontoxic multinodular goiter. COMPARISON: 03/21/2022 thyroid ultrasound TECHNIQUE: CT imaging of the soft tissue neck was performed with 2D multiplanar reformatted reconstructions without IV contrast. The study is limited in this regard. This CT examination was performed using dose optimization techniques as appropriate, variously including the following: *Automated exposure control *Adjustment of mA and/or kV according to patient size (this includes techniques or standardized protocols for targeted exams where dose is matched to indication/reason for exam; i.e. extremities or head) *Use of iterative reconstruction technique DLP: 315 mGy-cm FINDINGS: Skull Base: Very limited assessment of the included intracranial soft tissue structures demonstrates dense atheromatous calcifications of both carotid siphons. No acute process identified. Visualized intraorbital soft tissues are within normal limits. Visualized calvarium is intact. The visualized mastoids and middle ear cavities are unopacified. Small retention cysts left maxillary sinus and posterior right ethmoid sinus. Bony skull base appears grossly intact. Suprahyoid Neck: Nasopharynx, retropharynx, washroom operator and parapharyngeal spaces appear symmetric and unremarkable. The oropharynx is not well distended. There is a 1 cm ovoid hypodense structure arising along the medial aspect of the right palatine tonsil which may reflect a mucosal retention cyst. Correlate with direct visualization. Oral cavity structures appear within normal limits with a normal appearance to the base of the tongue and floor of the mouth structures within the limitations of the study. Epiglottis and vallecula appear normal. A few very small, nonpathologic-appearing bilateral submandibular space and submental lymph nodes are noted with small nonenlarged bilateral IJ chain lymph nodes and a few very small periparotid lymph nodes bilaterally. The parotid glands and submandibular glands appear normal in morphology and attenuation. There are atheromatous calcifications corresponding to both carotids. Correlate for any bruits. Infrahyoid Neck: Limited assessment of the hypopharynx and larynx due to underdistention. No focal lesion identified within the limitations of the exam. Enlarged multinodular goiter noted with marked enlargement of the left thyroid lobe with multiple nodules, some of which are partially calcified. See previous ultrasound report. There is associated tracheal deviation to the right without significant tracheal stenosis. Scattered small, nonenlarged, nonpathologic-appearing level 3 lymph nodes are noted bilaterally, left more than right. Note is made of a single level 5A lymph node on the left, which measures 0.9 x 0.5 cm. Although not pathologically enlarged, no definite fatty hilum is seen and therefore it is difficult to exclude a possible pathologic lymph node at this location. Follow-up as per clinical indications and correlate with thyroid tissue sampling. Upper Chest: Clips are seen in the right axilla with evidence of previous right mastectomy and breast prosthesis. Suspect post RT changes in the right upper lobe. Correlate with the clinical history. Associated with this, there is 1.8 cm spiculated opacity containing an air bronchogram which may be fibrotic but neoplastic disease cannot be excluded and therefore CT of the chest with contrast is recommended at this point, as this appears more prominent than on a previous CT chest of 03/28/2020. Emphysematous changes are also noted bilaterally. There is a 0.7 cm greatest short axis right paratracheal/pretracheal lymph node unchanged in size. A few other smaller lymph nodes in the prevascular space of the anterior mediastinum are stable. Skeletal: Cervicothoracic kyphosis is noted with mild multilevel cervicothoracic DDD and spondylosis. Otherwise skeletal structures appear grossly intact with no focally aggressive osseous lesion. Other Comments: None. CT/CT soft tissue neck wo IV con IMPRESSION: 1. Enlarged multinodular goiter as described above with associated tracheal deviation to the right without significant tracheal stenosis. 2. A 0.9 x 0.5 cm lymph node is noted in the left level 5A region. Cannot exclude a pathologic lymph node at this location as detailed above. Otherwise multiple other nonenlarged, nonpathologic-appearing lymph nodes are seen bilaterally. Follow-up as per clinical indications. 3. Probable 1 cm mucosal retention cyst in the right palatine tonsil. Recommend correlation with direct visualization for this finding. 4. Probable post-treatment changes in the right upper lobe with a 1.8 cm spiculated opacity containing an air bronchogram which may be fibrotic but neoplastic disease cannot be excluded. This appears larger than previous CT of the chest of 03/28/2020. Recommend contrast-enhanced CT of the chest for further assessment at this point. 5. Emphysematous changes in both lungs. 6. Cervical degenerative changes and kyphosis as described above. 7. Atheromatous calcifications of both carotids. Correlate for any bruits. 8. Status post right mastectomy and right axillary node dissection with a right breast prosthesis.
== END 2022-04-29 10:36 | disposition home or self-care (01) ==
LOC: HO.CT 10:35
PROVIDERS: Visit Provider Internal Medicine
DX: E04.2 Nontoxic multinodular goiter (principal)
CPT/HCPCS: 70490

== ENCOUNTER 2022-05-17 08:26 | Outpatient (REF) | payer OTHER, SELFPAY ==
[2022-05-17 10:22] LABS: Blood Urea Nitrogen 14 mg/dL (9-16)
[2022-05-17 10:26] LABS: Estimated Average Glucose 177 mg/dL; Hemoglobin A1c % 7.8 %
[2022-05-17 10:35] LABS: Alanine Aminotransferase 17 U/L (0-31); Albumin Level 4.7 g/dL (3.5-5.0); Alkaline Phosphatase 77 U/L (39-117); Anion Gap 18 (12-20); Aspartate Amino Transferase 16 U/L (5-31); Bilirubin Total 0.6 mg/dL (0.0-1.0); Blood Urea Nitrogen 13 mg/dL (9-16); Calcium 9.7 mg/dL (8.4-10.2); Carbon Dioxide 24 mmol/L (22-29); Chloride 104 mmol/L (96-108); Cholesterol 212 mg/dL; Estimated Glomerular Filt Rate > 60; Glucose Random 132 mg/dL (60-115); HDL Cholesterol 60 mg/dL; LDL Cholesterol Calculated 133 mg/dl; Potassium 4.6 mmol/L (3.3-5.1); Sodium 141 mmol/L (135-145); Total Protein 7.8 g/dL (6.5-8.0); Triglycerides 95 mg/dL
== END 2022-05-17 08:27 | disposition home or self-care (01) ==
LOC: HO.LAB 08:26
PROVIDERS: PCP Internal Medicine; Visit Provider Internal Medicine
DX: R91.1 Solitary pulmonary nodule (principal); E78.00 Pure hypercholesterolemia, unspecified; E11.65 Type 2 diabetes mellitus with hyperglycemia
CPT/HCPCS: 36415; 80053; 80061; 83036; 84520

== ENCOUNTER → 2022-05-23 09:31 | Outpatient (BNVA) | payer OTHER, SELFPAY | PROVIDERS: PCP Internal Medicine; Visit Provider Hospitalist | DX: R91.1 Solitary pulmonary nodule (principal); E04.2 Nontoxic multinodular goiter; Z85.3 Personal history of malignant neoplasm of breast | CPT/HCPCS: 99202 ==

== ENCOUNTER 2022-06-04 13:45 | Outpatient (REF) | payer OTHER, SELFPAY ==
--- NOTE | ~2022-06-04 | PE_ITS ---
EXAMINATION: Fluorine-18 FDG PET/CT Scan CLINICAL INDICATION: Initial treatment management. Solitary pulmonary nodule at right lung apex. History of right-sided mastectomy and right axillary dissection. History of multinodular goiter. PROCEDURE: 65 minutes following the intravenous administration of 22.2 mCi of fluorine 18 FDG, images from the base of the skull to the mid thighs were obtained using a combined PET/CT scanner with CT scan based attenuation correction. No intravenous contrast was administered. Transverse, coronal, sagittal, and volume reconstruction projections were obtained. The patient's blood glucose as determined by a finger stick, was 101 mg/dl immediately prior to injection. The radiotracer was injected intravenously through left antecubital superficial vein, without any complications. Total CT exam dose-length product 779.66 mGy-cm * These CT images were obtained using dose optimization techniques as appropriate, variously including the following: Automated exposure control * Adjustment of mA and/or kV according to patient size (this includes techniques or standardized protocols for targeted exams where dose is matched to indication/reason for exam; i.e. extremities or head) * Use of iterative reconstruction technique COMPARISON: CT of the soft tissue neck done on 04/29/[address] of the chest done on 03/28/2020. FINDINGS: NECK AND VISUALIZED HEAD: No FDG avid focal disease. Abnormal enlarged left lobe of the thyroid gland associated with parenchymal calcifications are noted, similar to most recent prior CT of the soft tissue neck done on 04/29/2022. THORAX: The index spiculated solid 2.1 x 1.0 cm nodule seen at right lung apex shows mild FDG avidity with SUV max of 3.5 (267/213). The mass do not show any significant interval change in size since the most recent prior CT of the soft tissue neck done on 04/29/2022. The mass in fact likely represent a new pathologic process when compared to the available baseline study dated 03/28/2020 given its apical location. Subpleural reticulation associated with linear pleuroparenchymal opacity at anterior aspect of the remainder of the right upper lobe and the right middle lobe without any FDG avidity is most consistent with post treatment changes/post radiation therapy fibrosis. The remainder of the lung hermosillo bilaterally appear unremarkable. Specifically, previously documented bilateral diffuse reticulation as was seen on the study dated 03/28/2020 appear less pronounced. No evidence of FDG avid mediastinal, hilar, internal mammary or axillary lymphadenopathy or pleural or pericardial effusion. Multiple shotty non-FDG avid left axillary lymph nodes are present. ABDOMEN AND PELVIS: Multiple circumscribed hypodense lesions are seen scattered throughout both lobes of the liver without any FDG avidity, most consistent with multifocal hepatic cysts, appear similar to the visualized part of the liver as well as included within the CT of the chest done on 03/28/2020. There are no prior CT of the abdomen and pelvis available for comparison. No FDG avid liver, adrenal or splenic disease. Mild nodular thickening of both adrenal glands is noted. The gallbladder, pancreas appear unremarkable. Small sliding hiatal hernia is noted. Significant fecal residual is noted throughout the entire large bowel. There is a right adnexal partially calcific solid-appearing mass present, measures approximately 3.2 x 2.5 cm without any FDG avidity (180/267), for which a follow-up pelvic ultrasound may be considered for further clarification. MUSCULOSKELETAL: No FDG avid disease. No suspicious focal osseous lesion. VASCULAR: Diffuse atherosclerotic disease of the aorta and its branches including coronary artery calcifications. No evidence of aneurysm. SUV max OF MEDIASTINAL BLOOD POOL: 3.0 SUV max OF LIVER: 3.9 PET/PET CT fusion skull to thigh IMPRESSION: 1. Suspicious spiculated solid 2.1 x 1.0 cm right apical lung nodule is mildly FDG avid with SUV max of 3.5 (background mediastinal blood pool SUV of 3.0). The finding is suspicious for low-grade malignancy. Image guided biopsy and/or excisional biopsy as appropriate is recommended for definitive tissue diagnosis. No other additional suspicious lung nodule and/or mass on either side. 2. No FDG avid mediastinal and/or hilar lymphadenopathy or evidence of extrathoracic disease to suspect metastasis. 3. Posttreatment/postsurgical changes involving the right breast, right axilla and the anterior part of the right upper lobe and adjacent right middle lobe. 4. Incidental note is made of 3.2 x 2.5 cm solid right adnexal mass, without any FDG avidity up. A follow-up dedicated pelvic ultrasound is recommended for further full detail evaluation.
== END 2022-06-04 13:46 | disposition home or self-care (01) ==
LOC: HO.PET 13:45
PROVIDERS: PCP Internal Medicine; Visit Provider Hospitalist
DX: Z13.89 Encounter for screening for other disorder (principal)

== ENCOUNTER 2022-06-06 13:22 | Outpatient (REF) | payer OTHER, SELFPAY ==
--- NOTE | 2022-06-06 15:26 | PFT_ITS ---
INDICATION: Dyspnea and also pulmonary nodule. SPIROMETRY: FEV1 to FVC of 89% with an FEV1 of 1.68 L, which is 109% predicted and an FVC of 1.89 L, which is 95% predicted. There was a significant response to bronchodilators noted. Maximum voluntary ventilation 77% predicted. LUNG VOLUMES: Total lung capacity 73% predicted with an expiratory residual volume of 55% predicted. DIFFUSION CAPACITY: DLCO 57% of predicted. COMPARISON: None. INTERPRETATION: No obstructive ventilatory defects. The patient did have a significant response to bronchodilators noted. The patient does have a mild effusion, mild decrease in maximum voluntary ventilation secondary to likely deconditioning. Lung volumes, the patient does have a restrictive ventilatory defect, consistent with mild restrictive lung disease. She also has a decreased expiratory reserve volume secondary to an elevated BMI. The patient does have a moderate diffusion impairment that does correct to normal when correcting for the alveolar volume. Clinical correlation warranted. MD DANIEL Solis/MARIA E / [id number]
== END 2022-06-06 13:23 | disposition home or self-care (01) ==
LOC: HO.RESP 13:22
PROVIDERS: PCP Internal Medicine; Visit Provider Hospitalist
DX: R91.1 Solitary pulmonary nodule (principal)
CPT/HCPCS: 94060; 94727; 94729

== ENCOUNTER 2022-06-12 08:20 | Outpatient (REF) | payer OTHER, SELFPAY ==
--- NOTE | ~2022-06-12 | CT_ITS ---
EXAMINATION: CT CHEST WITH CONTRAST CLINICAL INFORMATION: Solitary pulmonary nodule. COMPARISON: PET/CT fusion 06/04/2022. CT soft tissue neck 04/29/2022. TECHNIQUE: Multidetector volumetric CT imaging of the chest was obtained after the administration of 65 mL of Omnipaque 350 intravenous contrast without immediate adverse reactions. Axial MIP volume rendering provided. Sagittal and coronal reformatted images were obtained. This CT examination was performed using dose optimization techniques as appropriate, variously including the following: *Automated exposure control *Adjustment of mA and/or kV according to patient size (this includes techniques or standardized protocols for targeted exams where dose is matched to indication/reason for exam; i.e. extremities or head) *Use of iterative reconstruction technique DLP: 156 mGy-cm FINDINGS: OPTOMETRIC COORDINATOR: Well-inflated lungs. LUNGS: There is 2.2 cm right apical lesion with air bronchogram on axial image 05/12. It is unchanged to previous exam. There is mild stranding seen extending to the right lung apex and anterior pleura, stable. No additional pulmonary nodules, mass or consolidation seen. There is minimal anterior subpleural thickening in right upper lobe. MEDIASTINUM: The left thyroid lobe is enlarged and hypertrophied with central calcification, likely goiter. There is moderate deviation of trachea secondary to enlarged thyroid lobe with mild narrowing. The isthmus is enlarged as well. The right thyroid lobe appears normal. There is substernal extension of enlarged left thyroid lobe. Heart size and the great vessels are normal caliber. No abnormal-size mediastinal or hilar lymph nodes seen. No pericardial effusion. No coronary artery calcifications. PLEURA: There is no pleural effusion. No pleural mass or thickening. AXILLA: There is a right axillary lymph node dissection and right mastectomy changes. No abnormal-size axillary lymph nodes seen. The chest wall is unremarkable. UPPER ABDOMEN: There are multiple hepatic cysts, largest in the left hepatic lobe measures 4.7 x 4.4 cm and 7 Hounsfield units. No intrahepatic ductal dilatation seen. The gallbladder, pancreas, spleen and adrenal glands are unremarkable. OSSEOUS STRUCTURES: No aggressive lytic or sclerotic process seen. CT/CT chest w IV con IMPRESSION: Stable size right apical lesion measuring 2.2 cm. On the previous PET study, it had mild FDG uptake with an SUV max of 3.5. Patient is status post right axillary lymph node dissection and right mastectomy. Multiple hepatic cysts. Fleischner guidelines were followed.
[2022-06-12] MEDS: iohexoL 350 MG/ML 100 ML INFUS..BTL IV (08:58)
== END 2022-06-12 08:21 | disposition home or self-care (01) ==
LOC: HO.CT 08:20
PROVIDERS: PCP Internal Medicine; Visit Provider Internal Medicine
DX: R91.1 Solitary pulmonary nodule (principal)
CPT/HCPCS: 71260; Q9967

== ENCOUNTER → 2022-06-21 10:35 | Outpatient (BNVA) | payer OTHER, SELFPAY | PROVIDERS: PCP Internal Medicine; Visit Provider Surgery | DX: R91.1 Solitary pulmonary nodule (principal); Z85.3 Personal history of malignant neoplasm of breast; Z90.11 Acquired absence of right breast and nipple; Z92.3 Personal history of irradiation; Z87.891 Personal history of nicotine dependence | CPT/HCPCS: 99202 ==

== ENCOUNTER → 2022-07-16 12:08 | Outpatient (BNVA) | payer OTHER, SELFPAY | PROVIDERS: PCP Internal Medicine; Visit Provider Internal Medicine | DX: Z01.810 Encounter for preprocedural cardiovascular examination (principal); R91.1 Solitary pulmonary nodule; E11.65 Type 2 diabetes mellitus with hyperglycemia; E78.00 Pure hypercholesterolemia, unspecified; I10 Essential (primary) hypertension | CPT/HCPCS: 93005; 99202 ==

== ENCOUNTER 2022-07-18 11:04 | Outpatient (REF) | payer OTHER, SELFPAY ==
--- NOTE | 2022-07-18 11:31 | PM.OP ---
Brief Operative Note Date of Service: 07/18/22 Pre-op diagnosis: Multinodular Thyroid Procedure: This is doctor Awa Caraballo. This is an ultrasound-guided fine-needle aspiration report. Indication: Multinodular Thyroid Porcedure: Procedure was explained to the patient. Alternatives, the risk and benefits were discussed. Written consent was obtained. A time-out was also obtained. After sterile preparation, 1 ml of 1% lidocaine solution was applied subcutaneously for anesthetic effect. Then Fine-needle aspiration of a left mid pole 3.1 cm thyroid nodule was performed using direct ultrasound guidance to confirm accurate needle placement. Four aspirations were made using 27 gauge needles. Samples were submitted for cytology. 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 The patient tolerated the procedure well. Aftercare instructions were provided. Impression: Uncomplicated fine needle aspiration biopsy of a left mid pole 3.1 cm thyroid nodule under ultrasound guidance. Surgeon: Awa Caraballo, DO Was an Relay Associate used for this Procedure?: No Estimated blood loss (mL): 0
[2022-07-18] MEDS: Lidocaine HCl 1 % MPF 5 ML VIAL SUBCUT (11:54)
== END 2022-07-18 11:05 | disposition home or self-care (01) ==
LOC: HO.US 11:04
PROVIDERS: PCP Internal Medicine; Visit Provider Internal Medicine
DX: E04.2 Nontoxic multinodular goiter (principal)
CPT/HCPCS: 10005; 88172; 88173; 88177

== ENCOUNTER 2022-07-19 10:42 | Outpatient (REF) | payer OTHER, SELFPAY ==
--- NOTE | ~2022-07-19 | US_ITS ---
EXAMINATION: US PELVIS CLINICAL INFORMATION: Follow-up right adnexal mass on PET/CT. COMPARISON: None available. TECHNIQUE: Ultrasound of the pelvis is performed using both transabdominal and transvaginal transducers along with Doppler. Transvaginal imaging is performed due to inadequate visualization transabdominally. FINDINGS: Uterus: The uterus is anteverted and measures 7.3 x 2.3 x 4.2 cm. Uterine volume 37.0 mL. Nabothian cysts in the cervix. The double wall endometrial thickness is 6 mm. The uterus is smooth in contour and has normal myometrial echogenicity. 2.5 x 2.9 x 3.1 cm intramural fibroid in the posterior body. 0.6 x 0.7 x 0.7 cm intramural fibroid in the anterior body. Adnexa: Neither ovary is seen. US/US pelvic and transvaginal IMPRESSION: Nonvisualization of the ovaries. MRI of the pelvis without and with contrast is recommended to evaluate the right adnexal lesion seen on PET/CT. Fibroid uterus.
== END 2022-07-19 10:43 | disposition home or self-care (01) ==
LOC: HO.US 10:42
PROVIDERS: Visit Provider Internal Medicine
DX: N94.89 Other specified conditions associated with female genital organs and menstrual cycle (principal)
CPT/HCPCS: 76830; 76856

== ENCOUNTER → 2022-07-30 08:36 | Outpatient (REF) | payer OTHER, SELFPAY ==
--- NOTE | ~2022-07-30 | NM_ITS ---
EXERCISE MYOCARDIAL PERFUSION STUDY INDICATION: Preoperative cardiovascular evaluation TECHNIQUE: The patient was brought in for an exercise perfusion study on 07/30/2022. Patient performed exercise as per [facility] protocol and was injected 30 mCi of sestamibi once target heart rate was achieved. Images were obtained using the SPECT gamma camera interlaced with the gating device. Images were obtained in supine position. Resting perfusion study was performed on 08/01/2022. Patient was administered 30 mCi of sestamibi intravenously at rest. Images were then obtained in supine position. Images were processed with the software and compared side to side in short axis, horizontal long axis and vertical long axis views. Total DLP 76mGy-cm. FINDINGS: Raw images were reviewed. The stress perfusion study showed no significant perfusion abnormality. Both uncorrected as well as CT attenuation corrected images were reviewed. The gated study shows normal LV systolic function with calculated LVEF of 69%. LV cavity is normal in size. The gated study shows normal wall thickening and contraction of segments. Resting study shows no significant perfusion abnormality. Gating at rest reveals normal wall motion with ejection fraction at 60%. The findings are consistent with no reversible or fixed perfusion abnormality. NM/NM cardiolite stress test IMPRESSION: 1. Myocardial perfusion imaging study shows normal myocardial perfusion. 2. Gated LVEF is 69% during stress and 60% during rest. 3. Transient ischemic dilatation not present. EKG component of the test reported separately.
--- NOTE | 2022-07-30 08:41 | CA_ITS ---
Acquisition Time: 2022-07-30 09:15:08 Total Exercise Time: 00:05:30 Test Indications: CAD, PREOP Medications: SEE H Protocol: GUERO Max HR: 130 BPM 87% of Pred: 149 BPM Max BP: 148/078 mmHG Max Work Load: 5.6 METS Exercise stress test with exercise 5 min 30 sec of Guero protocol ( stage 1 initially held then incline increased to 12%, speed increased to 1.9 MPH), with moderate shortness of breath, no chest discomfort, with isolated PVCs, with normotensive response to exercise, without EKG changes meeting criteria for ischemia. In recovery her breathing quickly improved. Nuclear images pending. Test reviewed with Dr Trujillo Referred By: Matias Juarez Overread By: ABDON MONTANEZ
== END ==
LOC: HO.CARD 08:36
PROVIDERS: PCP Internal Medicine; Visit Provider Internal Medicine
DX: Z01.810 Encounter for preprocedural cardiovascular examination (principal)
CPT/HCPCS: 78452; 93017; A9500

== ENCOUNTER → 2022-08-01 12:25 | Outpatient (BNVA) | payer OTHER, SELFPAY | PROVIDERS: PCP Internal Medicine; Visit Provider Internal Medicine | DX: E04.2 Nontoxic multinodular goiter (principal); E55.9 Vitamin D deficiency, unspecified | CPT/HCPCS: 99212 ==

== ENCOUNTER 2022-08-23 13:56 | Outpatient (REF) | payer OTHER, SELFPAY ==
--- NOTE | ~2022-08-23 | XR_ITS ---
EXAMINATION: XR CHEST CLINICAL INFORMATION: Malignant neoplasm of right upper lobe COMPARISON: Previous chest x-ray most recent March 2020, and chest CT May 2022 TECHNIQUE: 2 views of the chest were obtained. FINDINGS: The cardiac silhouette is upper normal in size. The thoracic aorta is calcified and tortuous. There is increased soft tissue seen in the left superior mediastinum and deviation of the trachea to the right. Compared with previous CT this is likely related to an enlarged thyroid gland. New postsurgical changes to the right upper lung and hilum. New elevation of the right hemidiaphragm and tenting. The lungs are clear. No pleural effusion or pneumothorax. Surgical clips in the right axilla. Degenerative changes of spine and scoliosis. XR/XR chest 2V IMPRESSION: New postsurgical changes to the right lung. Deviation of the trachea to the right from an enlarged thyroid gland.
== END 2022-08-23 13:57 | disposition home or self-care (01) ==
LOC: HO.XRAY 13:56
PROVIDERS: PCP Internal Medicine; Visit Provider Surgery
DX: C34.11 Malignant neoplasm of upper lobe, right bronchus or lung (principal)
CPT/HCPCS: 71046

== ENCOUNTER 2022-09-09 08:19 | Outpatient (REF) | payer OTHER, SELFPAY ==
[2022-09-09 10:05] LABS: Blood Urea Nitrogen 10 mg/dL (9-16); Estimated Glomerular Filt Rate > 60
== END 2022-09-09 08:20 | disposition home or self-care (01) ==
LOC: HO.LAB 08:19
PROVIDERS: PCP Internal Medicine; Visit Provider Internal Medicine
DX: N94.89 Other specified conditions associated with female genital organs and menstrual cycle (principal)
CPT/HCPCS: 36415; 82565; 84520

== ENCOUNTER 2022-11-15 07:59 | Outpatient (REF) | payer OTHER, SELFPAY ==
[2022-11-15 10:30] LABS: Albumin Level 4.4 g/dL (3.5-5.0); Estimated Glomerular Filt Rate > 60; Phosphorus 3.1 mg/dL (2.7-4.5)
[2022-11-15 10:40] LABS: Free T4 (Free Thyroxine) 0.91 ng/dL (0.71-1.85); Thyroid Stimulating Hormone 0.88 uIU/mL (0.32-4.0); Vitamin D 25-OH Total 43.1 ng/mL (>30)
[2022-11-15 10:46] LABS: Creatinine Urine 112.69 mg/dL
[2022-11-17 14:59] LABS: Calcium (PTHI) 9.8 mg/dL (8.6-10.4); PTHI 61 pg/mL (16-77)
== END 2022-11-15 08:00 | disposition home or self-care (01) ==
LOC: HO.LAB 07:59
PROVIDERS: Internal Medicine; PCP Internal Medicine; Visit Provider Internal Medicine
DX: E04.2 Nontoxic multinodular goiter (principal); E55.9 Vitamin D deficiency, unspecified; E11.65 Type 2 diabetes mellitus with hyperglycemia; R91.1 Solitary pulmonary nodule
CPT/HCPCS: 36415; 82040; 82306; 82565; 82570; 83970; 84100; 84439; 84443

== ENCOUNTER 2022-11-22 12:35 | Outpatient (AMB) | payer OTHER, SELFPAY ==
[2022-11-22 12:38] VITALS: BP 128/66; PULSE 111; O2SAT 99; BMI 33.3
--- NOTE | 2022-11-22 12:38 | MHC.PC.OV ---
Vital Signs 11/22/22 12:38 Height 5 ft 4 in Weight 194 lb BMI 33.3 BP 128/66 Blood Pressure Location Lt brachial Position Sitting Pulse 111 H Pulse Source Pulse Oximeter Temp Source Skin Pulse Oximetry (%) 99 Oxygen Delivery Method Room Air Intake Visit Reasons: HTN, Allergies glimepiride Allergy (Unknown, Verified 09/12/22 08:43) Unknown metformin Allergy (Unknown, Verified 09/12/22 08:43) diarrhea simvastatin Allergy (Unknown, Verified 09/12/22 08:43) Unknown Medication List - Last Reconciled 11/22/22 by James Lopez MD ascorbic acid (vitamin C) 1 g PO DAILY benzonatate 200 mg PO BID-TID PRN blood sugar diagnostic (FreeStyle Lite Strips) As directed check the BS QD cholecalciferol (vitamin D3) 25 mcg PO DAILY dapagliflozin propanediol 10 mg PO DAILY 90 days disposable gloves (Biobrane Gloves Medium) As directed fexofenadine (Kalli Allergy) 180 mg PO DAILY lancets (FreeStyle Lancets) As directed check BS QD lidocaine 5% 1 patch topical DAILY 30 days losartan 50 mg PO DAILY 90 days [MAstectomy BRA Breast RIGHT As directed] miscellaneous medical supply 2 pairs of post mastectomy compression sleeves as directed ; RIGHT; custom class one right upper extremity due to lymphedema, code to be used is I97.2; [prosthetic breast RIGHT As directed] rosuvastatin 10 mg PO DAILY 30 days sitagliptin phosphate 100 mg PO DAILY Tobacco use date assessed: 11/22/22 Fall risk assessment: No Falls in past year Last assessed Fall Risk: 11/22/22 Dental Screening Dental Screen Date: 11/22/22 Did you have a dental visit in the last 12 months?: Yes Did you have a dental problem in the last 6 months where you did not have access to dental care?: No Was dental information given to patient?: Patient has dentist HPI HTN, HPI Details 72-year-old obese female diabetes mellitus hypercholesterolemia hypertension history of breast cancer multinodular thyroid and history of the lung cancer coming in for follow-up. Last seen in August 2022. 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 July 2022 concern about visceral pleural invasion and requires active surveillance with every [address] scan for up to 3 years followed by annual CT [facility] Medical History (Updated 11/22/22 @ 13:07 by James Lopez MD) Cough Lung nodule Hypertensive retinopathy of both eyes History of COVID-19 Vitamin D deficiency History of breast cancer (~2009) Pulmonary nodule Multinodular thyroid Osteoarthritis of right knee Right knee pain B12 deficiency Acute blood loss anemia Hypercholesterolemia Obesity (BMI 30-39.9) Diabetic nephropathy Hypertension Type 2 diabetes mellitus with hyperglycemia Surgical History S/P thyroid biopsy History of total mastectomy of right breast (~2009) History of bunionectomy Family History Father No problems noted. Mother Enlarged heart Paternal Aunt Diabetes Social History Household Members: None Housing: Apartment Do you presently have visiting nurse or other home services: No Alcohol intake: current Alcohol intake frequency: 0-2 drinks per day Patient Tobacco Use Status: Former Tobacco user Tobacco use type: Cigarette Years Smoked: quit 1999 e-Cigarette/Vaping Use: Never Used Second Hand Smoke Exposure: No service: No Current occupational status: retired Cognitive needs: No Hearing needs: No Vision needs: Yes Questionnaire Thrive Questionnaire Date Thrive assessed: 08/09/22 NATALIA-7 AMB Questionnaire NATALIA-7 Date NATALIA - 7 assessed: 08/09/22 Source: Developed by Drs. Dexter Vásquez, Judi Bell, Omari Leach and colleagues, with an educational pricila from [employer]. Physical exam (Primary Care) Vital Signs: Last Vital Signs Pulse 111 H 11/22/22 12:38 BP 128/66 11/22/22 12:38 Pulse Ox 99 11/22/22 12:38 Oxygen Delivery Method Room Air 11/22/22 12:38 BMI result Body Mass Index 33.3 Tobacco/Smoking Status: Tobacco use Status Tobacco use date assessed 11/22/22 11/22/22 12:49 Patient Tobacco Use Status Former Tobacco user 11/22/22 12:39 Tobacco use type Cigarette 11/22/22 12:39 e-Cigarette/Vaping Use Never Used 11/22/22 12:39 Thrive Assessment: Date of Thrive Assessment Date Thrive assessed 08/09/22 11/22/22 12:39 Const General: alert; No acute distress Eyes Conjunctivae: conjunctivae normal Resp Auscultation: clear to auscultation bilaterally Cardio Rate: regular rate Rhythm: regular rhythm GI Inspection: Yes normal to inspection Extrem General: Yes normal to inspection and No edema Results AMB Hemoglobin A1c AMB Hemoglobin A1c 7.9 % Last Edit by JUANY Hoff on 11/22/22 12:50 Results Reviewed Results Reviewed: Laboratory Last Values Hgb A1c (Clinic) 7.9 % (4.0-6.0) H 11/22/22 12:49 Assessment and Plan Assessment & Plan (1) Cancer of upper lobe of right lung: Comment: July 2022 right upper wedge resection with completion lobectomy and lymph node showing adeno carcinoma Code(s): C34.11 - Malignant neoplasm of upper lobe, right bronchus or lung Plan: Patient has followed up with Hematology-Oncology and advised active surveillance CT scan of the chest every 6 months for 3 years and then annually (2) History of breast cancer: Onset Date: ~2009 Comment: (s/p right mastectomy, chemo & radiation Dr. Ho - 2009) Code(s): Z85.3 - Personal history of malignant neoplasm of breast Plan: Reminded about mammogram every year left and has a schedule (3) Type 2 diabetes mellitus with hyperglycemia: Comment: Dr. 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 Hemoglobin A1c goal of less than 7.0 patient is on Farxiga 5 mg once a day Januvia 100 mg once a day A1c still high adjustment of Farxiga (4) Hypertension: Code(s): I10 - Essential (primary) hypertension Qualifiers: Hypertension type: essential hypertension Qualified Code(s): I10 - Essential (primary) hypertension Plan: Continue with blood pressure medication. Decrease salt intake and exercise patient takes losartan 50 mg once a day (5) Hypercholesterolemia: Code(s): E78.00 - Pure hypercholesterolemia, unspecified Plan: Avoid fried foods, chicken skin, eggs, butter margarine, pastries and meat. Be it pork or beef they have a lot of cholesterol May 2022 last blood work on rosuvastatin 10 mg once a day advised retesting (6) Obesity (BMI 30-39.9): Code(s): E66.9 - Obesity, unspecified Plan: Diet and exercise Orders: Orders Lipid Panel 3 Months E78.00 - Pure hypercholesterolemia, unspecified AMB Hemoglobin A1c Today E11.65 - Type 2 diabetes mellitus with hyperglycemia Hemoglobin A1c 3 Months E78.00 - Pure hypercholesterolemia, unspecified Comprehensive Met. 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
== END 2022-11-22 13:14 | disposition home or self-care (01) ==
PROVIDERS: PCP Internal Medicine; Visit Provider Internal Medicine
DX: C34.11 Malignant neoplasm of upper lobe, right bronchus or lung (principal); Z85.3 Personal history of malignant neoplasm of breast; E11.65 Type 2 diabetes mellitus with hyperglycemia; I10 Essential (primary) hypertension; E78.00 Pure hypercholesterolemia, unspecified
CPT/HCPCS: 83036; 99214

== ENCOUNTER 2023-02-24 08:33 | Outpatient (REF) | payer OTHER, SELFPAY ==
--- NOTE | ~2023-02-24 | CT_ITS ---
EXAMINATION: CT CHEST WITHOUT CONTRAST CLINICAL INFORMATION: Restaging right upper lobe cancer. COMPARISON: CT chest dated 06/12/2022. TECHNIQUE: Multidetector volumetric CT imaging of the chest was done. Axial MIP volume rendering provided. Sagittal and coronal reformatted images were obtained. This CT examination was performed using dose optimization techniques as appropriate, variously including the following: *Automated exposure control *Adjustment of mA and/or kV according to patient size (this includes techniques or standardized protocols for targeted exams where dose is matched to indication/reason for exam; i.e. extremities or head) *Use of iterative reconstruction technique DLP: 147 mGy-cm FINDINGS: GRAPE CRUSHER: The lungs are grossly clear. LUNGS: The right upper lobe is surgically absent. No residual or recurrent mass is noted. There is right middle lobe pleural and parenchymal fibrosis and associated traction bronchiectasis, likely representing post-therapy change. There is no nodule, mass, infiltrate or groundglass opacity. No generalized increase is seen in peripheral interlobular septal markings. There is no bleb or bullous formation. There is no generalized small airway thickening. The central airways are patent. MEDIASTINUM: The left thyroid lobe contains a large, 4.9 x 4.4 cm nodule with coarse central calcifications (3:6). This was most recently imaged on the CT soft tissues neck dated 05/08/2022 and the thyroid ultrasound dated 03/21/2022 (please see reports). There are moderate atherosclerotic calcifications of the great vessel origins and thoracic aorta. No thoracic aortic aneurysm is seen. There is no sizable mediastinal or hilar lymphadenopathy. CORONARY ARTERY CALCIFICATION: Mild. PLEURA: There is no pleural effusion. No pleural mass or thickening. AXILLA: The right breast is surgically absent, and there has been a prior right axillary dissection. There are shotty, nonpathologically enlarged left axillary lymph nodes. No internal mammary lymphadenopathy is seen. UPPER ABDOMEN: Multiple low-attenuation hepatic cysts are seen, some too small to fully characterize with CT. The included portions of the adrenal glands are unremarkable. OSSEOUS STRUCTURES: Unremarkable. CT/CT chest wo IV con IMPRESSION: There has been a prior right upper lobectomy. There is post therapy change in the right middle lobe. No residual or recurrent neoplasm is seen. There is no new nodule, mass, infiltrate or groundglass opacity. No thoracic lymphadenopathy or pleural effusion is seen. There is no aggressive osseous lesion. Fleischner guidelines were followed.
== END 2023-02-24 08:34 | disposition home or self-care (01) ==
LOC: HO.CT 08:33
PROVIDERS: PCP Internal Medicine; Visit Provider Surgery
DX: C34.11 Malignant neoplasm of upper lobe, right bronchus or lung (principal)
CPT/HCPCS: 71250

== ENCOUNTER 2023-03-03 08:09 | Outpatient (REF) | payer OTHER, SELFPAY ==
[2023-03-03 09:43] LABS: Estimated Average Glucose 166 mg/dL; Hemoglobin A1c % 7.4 % (<6.0)
[2023-03-03 10:10] LABS: Alanine Aminotransferase 17 U/L (0-31); Albumin Level 4.6 g/dL (3.5-5.0); Alkaline Phosphatase 68 U/L (39-117); Anion Gap 14 (12-20); Aspartate Amino Transferase 15 U/L (5-31); Bilirubin Total 0.5 mg/dL (0.0-1.0); Blood Urea Nitrogen 9 mg/dL (9-16); Calcium 10.1 mg/dL (8.4-10.2); Carbon Dioxide 27 mmol/L (22-29); Chloride 107 mmol/L (96-108); Cholesterol 221 mg/dL (<200); Estimated Glomerular Filt Rate > 60; Glucose Random 131 mg/dL (60-115); HDL Cholesterol 72 mg/dL (>40); LDL Cholesterol Calculated 129 mg/dL (<100); Potassium 4.2 mmol/L (3.3-5.1); Sodium 144 mmol/L (135-145); Total Protein 7.9 g/dL (6.5-8.0); Triglycerides 104 mg/dL (<150)
== END 2023-03-03 08:10 | disposition home or self-care (01) ==
LOC: HO.LAB 08:09
PROVIDERS: PCP Internal Medicine; Visit Provider Internal Medicine
DX: E78.00 Pure hypercholesterolemia, unspecified (principal)
CPT/HCPCS: 36415; 80053; 80061; 83036

== ENCOUNTER 2023-03-07 08:41 | Outpatient (AMB) | payer OTHER, SELFPAY ==
[2023-03-07 08:44] VITALS: BP 134/80; PULSE 68; O2SAT 100; BMI 33.5
--- NOTE | 2023-03-07 08:44 | A.OFFPC_ITS ---
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 Required: No Allergies glimepiride Allergy (Unknown, Verified 03/07/23 09:21) Unknown metformin Allergy (Unknown, Verified 03/07/23 09:21) diarrhea simvastatin Allergy (Unknown, Verified 03/07/23 09:21) Unknown Tobacco use date assessed: 03/07/23 Fall risk assessment: No Falls in past year Last assessed Fall Risk: 03/07/23 HPI DM HPI Details 72-year-old obese female with history of uncontrolled diabetes mellitus hypertension hypercholesterolemia history of breast cancer (stage IV breast cancer treated with right mastectomy radiotherapy and chemotherapy 2009) and right upper lobe lung cancer(right upper lobectomy August 2022) coming in for follow-up. Last seen in November 2022. Patient has Cologuard is up-to-date bone density is up-to-date mammogram due this month. Review of the notes follows up with endocrinology for thyroidectomy evaluation patient has large retrosternal but asymptomatic left unilateral nontoxic goiter status post benign fine needle aspiration cytology 3 cm dominant nodule in the cervical part of the goiter- planned 2023. [facility] Medical History (Updated 11/22/22 @ 13:07 by James Lopez MD) Cough Lung nodule Hypertensive retinopathy of both eyes History of COVID-19 Vitamin D deficiency History of breast cancer (~2009) Pulmonary nodule Multinodular thyroid Osteoarthritis of right knee Right knee pain B12 deficiency Acute blood loss anemia Hypercholesterolemia Obesity (BMI 30-39.9) Diabetic nephropathy Hypertension Type 2 diabetes mellitus with hyperglycemia Surgical History S/P thyroid biopsy History of total mastectomy of right breast (~2009) History of bunionectomy Family History Father No problems noted. Mother Enlarged heart Paternal Aunt Diabetes Social History Household Members: None Housing: Apartment Do you presently have visiting nurse or other home services: No Alcohol intake: current Alcohol intake frequency: 0-2 drinks per day Comment: rings appropriately Patient Tobacco Use Status: Former Tobacco user Tobacco use type: Cigarette Years Smoked: quit 1999 e-Cigarette/Vaping Use: Never Used Second Hand Smoke Exposure: No service: No Current occupational status: retired Cognitive needs: No Hearing needs: No Vision needs: Yes Questionnaire Thrive Questionnaire Date Thrive assessed: 08/09/22 AUDIT C Alcohol Use Questionnaire (AUDIT-C) 1. How often do you have a drink containing alcohol?: 2-3 times a week 2. How many drinks containing alcohol do you have on a typical day when you are drinking?: 1 or 2 3. How often do you have six or more drinks on one occasion?: Never Total Score: 3 Score Reviewed/Action Taken: Yes NATALIA-7 AMB Questionnaire NATALIA-7 Date NATALIA - 7 assessed: 08/09/22 Source: Developed by Drs. Dexter Vásquez, Judi Bell, Omari Leach and colleagues, with an educational pricila from [employer]. Physical exam (Primary Care) Vital Signs: Last Vital Signs Pulse 68 03/07/23 08:44 BP 134/80 03/07/23 08:44 Pulse Ox 100 03/07/23 08:44 Oxygen Delivery Method Room Air 03/07/23 08:44 BMI result Body Mass Index 33.5 Tobacco/Smoking Status: Tobacco use Status Tobacco use date assessed 03/07/23 03/07/23 08:45 Patient Tobacco Use Status Former Tobacco user 03/07/23 08:45 Tobacco use type Cigarette 03/07/23 08:45 e-Cigarette/Vaping Use Never Used 03/07/23 08:45 Thrive Assessment: Date of Thrive Assessment Date Thrive assessed 08/09/22 03/07/23 08:45 Const General: alert; No acute distress Eyes Conjunctivae: conjunctivae normal Resp Auscultation: clear to auscultation bilaterally Cardio Rate: regular rate Rhythm: regular rhythm GI Inspection: Yes normal to inspection Extrem General: Yes normal to inspection and No edema Assessment and Plan Assessment & Plan (1) Type 2 diabetes mellitus with hyperglycemia: Comment: Dr. Leon Code(s): E11.65 - Type 2 diabetes mellitus with hyperglycemia Qualifiers: Diabetes mellitus long term care social worker insulin use: without long term care social worker use Qualified Code(s): E11.65 - Type 2 diabetes mellitus with hyperglycemia Plan: Decrease the amount of carbohydrate intake, pasta, bread, rice and potatoes are all sugar and that is aside from all the sweet stuff, remember that fruits are good but they are Sweet also. Hemoglobin A1c goal of less than 7.0 presently on AbrahamgaRayshawnuvia decline new med (2) Hypertension: Code(s): I10 - Essential (primary) hypertension Qualifiers: Hypertension type: essential hypertension Qualified Code(s): I10 - Essential (primary) hypertension Plan: Continue with blood pressure medication. Decrease salt intake and exercise on losartan 50 mg once a day Increasing losartan (3) Hypercholesterolemia: Code(s): E78.00 - Pure hypercholesterolemia, unspecified Plan: Avoid fried foods, chicken skin, eggs, butter margarine, pastries and meat. Be it pork or beef they have a lot of cholesterol LDL goal of less than 100 and triglyceride of less than 150 patient on rosuvastatin 10 mg once a day. decline new med but 02/2023 LDL is high (4) Obesity (BMI 30-39.9): Code(s): E66.9 - Obesity, unspecified Plan: Diet and exercise (5) History of breast cancer: Onset Date: ~2009 Comment: (s/p right mastectomy, chemo & radiation Dr. Ho - 2009) Code(s): Z85.3 - Personal history of malignant neoplasm of breast Plan: Patient is due for mammogram this month (6) Cancer of upper lobe of right lung: Comment: July 2022 right upper wedge resection with completion lobectomy and lymph node showing adeno carcinoma Code(s): C34.11 - Malignant neoplasm of upper lobe, right bronchus or lung Plan: Patient is being monitored (7) Multinodular thyroid: Comment: (with mass effect on the trachea - refered to Dr. Cuenca for a thyroidectomy) Code(s): E04.2 - Nontoxic multinodular goiter Plan: Patient has met with the surgeon for thyroidectomy Medications: Changed From losartan 50 mg PO DAILY 90 days 90 tabs 3RF I10 - Essential (primary) hypertension To losartan 100 mg PO DAILY 90 days 90 tabs 3RF I10 - Essential (primary) hypertension Coding Level of Care Code Est Pt Level 4 (42555) Diagnoses Type 2 diabetes mellitus with hyperglycemia, without long-term current use of insulin E11.65 Diabetes mellitus long term care social worker insulin use: without long-term use Essential hypertension I10 Hypertension type: essential hypertension Hypercholesterolemia E78.00 Obesity (BMI 30-39.9) E66.9 History of breast cancer Z85.3 Cancer of upper lobe of right lung C34.11 Multinodular thyroid E04.2
== END 2023-03-07 10:02 | disposition home or self-care (01) ==
PROVIDERS: PCP Internal Medicine; Visit Provider Internal Medicine
DX: E11.65 Type 2 diabetes mellitus with hyperglycemia (principal); C34.11 Malignant neoplasm of upper lobe, right bronchus or lung; I10 Essential (primary) hypertension; E78.00 Pure hypercholesterolemia, unspecified; E66.9 Obesity, unspecified; Z85.3 Personal history of malignant neoplasm of breast; E04.2 Nontoxic multinodular goiter
CPT/HCPCS: 99214

== ENCOUNTER 2023-05-15 08:15 | Outpatient (REF) | payer OTHER, SELFPAY ==
[2023-05-15 08:40] LABS: MANUAL DIFF FLAG NO
[2023-05-15 09:18] LABS: Basophils Percent Auto 0.6 % (0-2); Eosinophils Absolute Auto 0.1 X10*3/uL (0.0-0.4); Hematocrit 39.9 % (37.0-47.0); Hemoglobin 12.9 g/dl (12.0-16.0); Imm Gran Abs Auto 0.02 X10*3/uL (0.00-0.03); Imm Gran Pct Auto 0.4 % (0.0-0.4); Lymphocytes Absolute Auto 1.4 X10*3/uL (1.2-4.9); Mean Corpuscular HGB Conc 32.3 g/dl (31.0-35.0); Mean Corpuscular Hemoglobin 26.9 pg (27.0-33.0); Mean Corpuscular Volume 83.1 fL (80.0-98.0); Mean Platelet Volume 9.9 fL (9.4-12.3); Monocytes Absolute Auto 0.4 X10*3/uL (0.1-1.2); Monocytes Percent Auto 8.3 % (2-11); Neutrophils Absolute Auto 3.1 x10*3/uL (2.0-8.3); Neutrophils Percent Auto 61.7 % (45-73); Platelet Count 276 X10*3/uL (160-400); Red Cell Distribution Width 13.2 % (11.0-16.0)
[2023-05-15 09:22] LABS: Estimated Average Glucose 166 mg/dL; Hemoglobin A1c % 7.4 % (<6.0)
[2023-05-15 09:56] LABS: Alanine Aminotransferase 18 U/L (0-31); Albumin Level 4.5 g/dL (3.5-5.0); Alkaline Phosphatase 66 U/L (39-117); Anion Gap 15 (12-20); Aspartate Amino Transferase 15 U/L (5-31); Bilirubin Total 0.4 mg/dL (0.0-1.0); Blood Urea Nitrogen 11 mg/dL (9-16); Calcium 10.2 mg/dL (8.4-10.2); Carbon Dioxide 25 mmol/L (22-29); Chloride 105 mmol/L (96-108); Cholesterol 188 mg/dL (<200); Estimated Glomerular Filt Rate > 60; Glucose Random 131 mg/dL (60-115); HDL Cholesterol 63 mg/dL (>40); LDL Cholesterol Calculated 111 mg/dL (<100); Potassium 4.4 mmol/L (3.3-5.1); Sodium 141 mmol/L (135-145); Total Protein 7.7 g/dL (6.5-8.0); Triglycerides 70 mg/dL (<150)
[2023-05-15 10:12] LABS: Creatinine Urine 82.34 mg/dL; Microalbum/Creatinine Ratio Ur 146.9 ug/mg cr (<30)
[2023-05-15 10:13] LABS: Free T4 (Free Thyroxine) 0.86 ng/dL (0.71-1.85); Thyroid Stimulating Hormone 1.07 uIU/mL (0.32-4.0); Vitamin D 25-OH Total 42.6 ng/mL (>30)
[2023-05-15 10:18] LABS: Folate 11.3 ng/mL (> or = 4.0); Vitamin B12 371 pg/mL (200-900)
== END 2023-05-15 08:16 | disposition home or self-care (01) ==
LOC: HO.LAB 08:15
PROVIDERS: PCP Internal Medicine; Visit Provider Internal Medicine
DX: E11.65 Type 2 diabetes mellitus with hyperglycemia (principal); E78.00 Pure hypercholesterolemia, unspecified
CPT/HCPCS: 36415; 80053; 80061; 82043; 82306; 82570; 82607; 82746; 83036; 84439; 84443; 85025

== ENCOUNTER 2023-05-21 08:35 | Outpatient (AMB) | payer OTHER, SELFPAY ==
[2023-05-21 09:13] VITALS: BP 152/82; PULSE 78; O2SAT 97; BMI 33.1
--- NOTE | 2023-05-21 09:13 | A.OFFPC_ITS ---
Vital Signs 05/21/23 09:13 Height 5 ft 4 in Weight 193 lb BMI 33.1 BP 152/82 H Blood Pressure Location Lt brachial Position Sitting Pulse 78 Pulse Source Pulse Oximeter Pulse Oximetry (%) 97 Oxygen Delivery Method Room Air Intake Visit Reasons: Hypertension Allergies glimepiride Allergy (Unknown, Verified 05/21/23 09:13) Unknown metformin Allergy (Unknown, Verified 05/21/23 09:13) diarrhea simvastatin Allergy (Unknown, Verified 05/21/23 09:13) Unknown Tobacco use date assessed: 05/21/23 Fall risk assessment: No Falls in past year Last assessed Fall Risk: 05/21/23 Dental Screening Dental Screen Date: 05/21/23 Did you have a dental visit in the last 12 months?: Yes Did you have a dental problem in the last 6 months where you did not have access to dental care?: No Was dental information given to patient?: Patient has dentist HPI Hypertension HPI Details 72-year-old obese female with uncontroll ed diabetes mellitus hypertension hypercholesterolemia and multinodular thyroid. patient has a history of breast cancer and right lung cancer. Patient is here for follow-up patient's Cologuard is up-to-date February 2022 bone density declined patient also has met with the lung cancer retail beauty specialist Dr. Agustin enlarging nodule in the right upper lobe June 2022 history of right-sided breast cancer with mastectomy followed by chemoradiation July 2022 underwent the Katie right upper lobe wedge resection with completion right upper lobectomy mediastinal lymphadenectomy CT scan February 2023 no evidence of recurrence surveillance CT scan is every 6 months for the 1st 2 years followed by yearly by [address] scan is August 2022. BP at home . With he breast cancer history - having right arm swelling and was asking for the compression arm band which she has not able to acquire. Gave a call to Hematology Oncology and our nurse navigator. . BP at home is good and she insists she has been checking it 3 times a day. Discussed about the blood work . Form filled for handicap jennifer [facility] Medical History (Updated 05/21/23 @ 10:08 by James Lopez MD) Cough Lung nodule Hypertensive retinopathy of both eyes History of COVID-19 Vitamin D deficiency History of breast cancer (~2009) Pulmonary nodule Multinodular thyroid Osteoarthritis of right knee Right knee pain B12 deficiency Acute blood loss anemia Hypercholesterolemia Obesity (BMI 30-39.9) Diabetic nephropathy Hypertension Type 2 diabetes mellitus with hyperglycemia Surgical History S/P thyroid biopsy History of total mastectomy of right breast (~2009) History of bunionectomy Family History Father No problems noted. Mother Enlarged heart Paternal Aunt Diabetes Social History Household Members: None Housing: Apartment Do you presently have visiting nurse or other home services: No Alcohol intake: current Alcohol intake frequency: 0-2 drinks per day Comment: rings appropriately Patient Tobacco Use Status: Former Tobacco user Tobacco use type: Cigarette Years Smoked: quit 1999 e-Cigarette/Vaping Use: Never Used Second Hand Smoke Exposure: No service: No Current occupational status: retired Cognitive needs: No Hearing needs: No Vision needs: Yes Questionnaire PHQ-9 Over the last 2 weeks, how often have you been bothered by any of the following problems? 1. Little interest or pleasure in doing things: not at all 2. Feeling down, depressed, or hopeless: not at all 3. Trouble falling or staying asleep, or sleeping too much: not at all 4. Feeling tired or having little energy: not at all 5. Poor appetite or overeating: not at all 6. Feeling bad about yourself - or that you are a failure or have let yourself or your family down: not at all 7. Trouble concentrating on things, such as reading the newspaper or watching television: not at all 8. Moving or speaking so slowly that other people could have noticed. Or the opposite - being so fidgety or restless that you have been moving around a lot more than usual: not at all 9. Thoughts that you would be better off or of hurting yourself in some way: not at all Total score: 0 Depression Screening Interpretation: Negative Depression Screening Done: Yes 34778 - PHQ-9 Billing: Yes Source: Developed by Drs. Dexter Vásquez, Judi Bell, Omari Leach and colleagues, with an educational pricila from [employer]. Thrive Questionnaire Date Thrive assessed: 05/21/23 I am a: Patient What is your living situation today?: I have a steady place to live Within the past 12 months, did the food you bought not last and you didn't have the money to get more?: Never true Within the past 12 months, did you worry whether your food would run out before you got money to buy more?: Never true Do you have trouble paying for medicines?: No Do you have trouble getting transportation to medical appointments?: No Do you have trouble paying your heating and electricity bill?: No Do you have trouble taking care of your child, family member or friend?: No Do you have trouble with day-to-day activities such as bathing, preparing meals, shopping, managing finances, etc.?: No Are you currently unemployed and looking for a job?: No Are you interested in more education?: No Currently or been in a relationship where the following occur: no concerns reported THRIVE Score: 0 AUDIT C Alcohol Use Questionnaire (AUDIT-C) 1. How often do you have a drink containing alcohol?: 2-3 times a week 2. How many drinks containing alcohol do you have on a typical day when you are drinking?: 1 or 2 3. How often do you have six or more drinks on one occasion?: Never Total Score: 3 Score Reviewed/Action Taken: Yes NATALIA-7 AMB Questionnaire NATALIA-7 Date NATALIA - 7 assessed: 05/21/23 Feeling nervous, anxious, or on edge: 0 = Not at all Not being able to stop or control worryin = Not at all Worrying too much about different things: 0 = Not at all Trouble relaxin = Not at all Being so restless that it is hard to sit still: 0 = Not at all Becoming easily annoyed or irritable: 0 = Not at all Feeling afraid as if something awful might happen: 0 = Not at all Total NATALIA-7 score (0-4 normal; 5-9 mild; 10-14 moderate; 15-21 severe): 0 Source: Developed by Drs. Dexter Vásquez, Judi Bell, Omari Leach and colleagues, with an educational pricila from [employer]. Physical exam (Primary Care) Vital Signs: Oxygen Delivery Method Room Air 05/21/23 09:13 Tobacco/Smoking Status: Tobacco use Status Tobacco use date assessed 03/07/23 03/07/23 08:45 Patient Tobacco Use Status Former Tobacco user 03/07/23 08:45 Tobacco use type Cigarette 03/07/23 08:45 e-Cigarette/Vaping Use Never Used 03/07/23 08:45 Depression Screening Interpretation: Negative Thrive Assessment: Date of Thrive Assessment Date Thrive assessed 08/09/22 03/07/23 08:45 Currently or been in a relationship where the following occur: no concerns reported Const General: alert; No acute distress Eyes Conjunctivae: conjunctivae normal Resp Auscultation: clear to auscultation bilaterally Cardio Rate: regular rate Rhythm: regular rhythm GI Inspection: Yes normal to inspection Extrem General: Yes normal to inspection and No edema Assessment and Plan Assessment & Plan (1) Cancer of upper lobe of right lung: Comment: July 2022 right upper wedge resection with completion lobectomy and lymph node showing adeno carcinoma Code(s): C34.11 - Malignant neoplasm of upper lobe, right bronchus or lung Plan: Patient has met with lung cancer specialist and August [address] scan(every 6 months for the next 2 years starting from February 2023) (2) History of breast cancer: Onset Date: ~2009 Comment: (s/p right mastectomy, chemo & radiation Dr. Ho - 2009) mammogram February 2023 Code(s): Z85.3 - Personal history of malignant neoplasm of breast Plan: Up-to-date with mammogram February 2023 (3) Type 2 diabetes mellitus with hyperglycemia: Comment: Dr. Leon Code(s): E11.65 - Type 2 diabetes mellitus with hyperglycemia Qualifiers: Diabetes mellitus terminal gauger insulin use: without intermediate use Qualified Code(s): E11.65 - Type 2 diabetes mellitus with hyperglycemia Plan: Decrease the amount of carbohydrate intake, pasta, bread, rice and potatoes are all sugar and that is aside from all the sweet stuff, remember that fruits are good but they are Sweet also. Hemoglobin A1c goal of less than 7.0. Patient on Farxiga(has reactions to glimepiride metformin) and Januvia 100 mg once a day. Discussed with the patient that the hemoglobin A1c is elevated but declined any new medication and would like to eat better. (4) Hypertension: Code(s): I10 - Essential (primary) hypertension Qualifiers: Hypertension type: essential hypertension Qualified Code(s): I10 - Essential (primary) hypertension Plan: Continue with blood pressure medication. Decrease salt intake and exercise on losartan 100 mg once a day patient gets blood pressure check at home which is controlled (5) Hypercholesterolemia: Code(s): E78.00 - Pure hypercholesterolemia, unspecified Plan: Avoid fried foods, chicken skin, eggs, butter margarine, pastries and meat. Be it pork or beef they have a lot of cholesterol LDL goal of less than 100 and triglyceride of less than 150. Patient is on rosuvastatin 10 mg once a day. With the LDL still elevated advised increase in rosuvastatin to 20 mg once a day. Advised to retest blood work in 3 months (6) Obesity (BMI 30-39.9): Code(s): E66.9 - Obesity, unspecified Plan: Diet and exercise (7) Swelling of right upper extremity: Code(s): M79.89 - Other specified soft tissue disorders Orders: Orders Hemoglobin A1c 3 Months E11.65 - Type 2 diabetes mellitus with hyperglycemia Lipid Panel 3 Months E78.00 - Pure hypercholesterolemia, unspecified Comprehensive Met. Panel 3 Months E11.65 - Type 2 diabetes mellitus with hyperglycemia Medications: New [Lymphediva Arm Sleeve with Gauntlet] As directed 1 ea 0RF R arm M79.89 - Other specified soft tissue disorders, Z85.3 - Personal history of malignant neoplasm of breast Changed From rosuvastatin 10 mg PO DAILY 30 days 90 tabs 3RF E78.00 - Pure hype rcholesterolemia, unspecified To rosuvastatin 20 mg PO DAILY 30 days 30 tabs 3RF E78.00 - Pure hypercholesterolemia, unspecified Coding Level of Care Code Est Pt Level 4 (82457) Diagnoses Cancer of upper lobe of right lung C34.11 History of breast cancer Z85.3 Type 2 diabetes mellitus with hyperglycemia, without long-term current use of insulin E11.65 Diabetes mellitus intermediate insulin use: without intermediate use Essential hypertension I10 Hypertension type: essential hypertension Hypercholesterolemia E78.00 Obesity (BMI 30-39.9) E66.9 Swelling of right upper extremity M79.89
== END 2023-05-21 09:44 | disposition home or self-care (01) ==
PROVIDERS: PCP Internal Medicine; Visit Provider Internal Medicine
DX: E11.65 Type 2 diabetes mellitus with hyperglycemia (principal); C34.11 Malignant neoplasm of upper lobe, right bronchus or lung; E66.9 Obesity, unspecified; Z68.33 Body mass index [BMI] 33.0-33.9, adult; Z85.3 Personal history of malignant neoplasm of breast; I10 Essential (primary) hypertension; E78.00 Pure hypercholesterolemia, unspecified; M79.89 Other specified soft tissue disorders
CPT/HCPCS: 99214

== ENCOUNTER 2023-07-14 17:32 | Emergency (ER) | payer OTHER, SELFPAY ==
[2023-07-14 17:52] VITALS: BP 165/79; PULSE 74; RESP 16; TEMP 36.2; O2SAT 98; BMI 33.6
--- NOTE | 2023-07-14 17:58 | ED.GENADULT ---
HPI - General Adult General Chief complaint: General Medical Stated complaint: High Blood Pressure Related Data Home Medications ?Medication ?Instructions ?Recorded ?Confirmed cholecalciferol (vitamin D3) 25 25 mcg PO DAILY 07/16/22 08/27/23 mcg (1,000 unit) capsule Previous Rx's ?Medication ?Instructions ?Recorded ascorbic acid (vitamin C) 1,000 mg 1 g PO DAILY #90 tabs 05/25/20 tablet lidocaine 5 % topical patch 1 patch topical DAILY 30 days #30 01/25/21 ea disposable gloves (Biobrane Gloves #1,000 ea 05/24/21 Medium) MAstectomy BRA Breast RIGHT #2 ea 07/17/21 prosthetic breast RIGHT #1 ea 07/17/21 miscellaneous medical supply See Rx Instructions miscellaneous 09/11/21 .COMPLEX moderate compression: 20-30 mm HG, common startin #2 ea fexofenadine 180 mg tablet 180 mg PO DAILY #30 tabs 09/12/22 (Kalli Allergy) benzonatate 200 mg capsule 200 mg PO BID-TID PRN cough #20 09/16/22 caps blood sugar diagnostic (FreeStyle #100 ea 01/30/23 Lite Strips) lancets 28 gauge (FreeStyle #100 ea 01/30/23 Lancets) Lymphediva Arm Sleeve with Gauntlet #1 ea 05/21/23 dapagliflozin propanediol 10 mg 10 mg PO DAILY 90 days #90 tabs 08/27/23 tablet losartan 100 mg tablet 100 mg PO DAILY 90 days #90 tabs 08/27/23 rosuvastatin 20 mg tablet 20 mg PO DAILY 90 days #90 tabs 08/27/23 sitagliptin phosphate 100 mg tablet 100 mg PO DAILY #90 tabs 08/27/23 Allergies Allergy/AdvReac Type Severity Reaction Status Date / Time glimepiride Allergy Unknown Unknown Verified 08/27/23 08:36 metformin Allergy Unknown diarrhea Verified 08/27/23 08:36 simvastatin Allergy Unknown Unknown Verified 08/27/23 08:36 [facility] Past Medical History Medical History (Updated 09/18/23 @ 14:13 by ETHAN Crum) Cough Lung nodule Hypertensive retinopathy of both eyes History of COVID-19 Vitamin D deficiency History of breast cancer (~2009) Pulmonary nodule Multinodular thyroid Osteoarthritis of right knee Right knee pain B12 deficiency Acute blood loss anemia Hypercholesterolemia Obesity (BMI 30-39.9) Diabetic nephropathy Hypertension Type 2 diabetes mellitus with hyperglycemia Surgical History S/P thyroid biopsy History of total mastectomy of right breast (~2009) History of bunionectomy Family History Family History Father No problems noted. Mother Enlarged heart Paternal Aunt Diabetes Social History Social History Household Members: None Housing: Apartment Do you presently have visiting nurse or other home services: No Alcohol intake: current Alcohol intake frequency: 0-2 drinks per day Comment: rings appropriately Patient Tobacco Use Status: Former Tobacco user Tobacco use type: Cigarette Years Smoked: quit 1999 e-Cigarette/Vaping Use: Never Used Second Hand Smoke Exposure: No service: No Current occupational status: retired Cognitive needs: No Hearing needs: No Vision needs: Yes Physical Exam ED Vital Signs: BMI result Body Mass Index 33.6 Course Course Course Narrative: This is an RME: Additional HPI, ROS, PE not included below will be deferred to primary provider. 72 yo f presents with pmhx of HTN, DM, hypercholesterolemia presents with high blood pressure X 5 days. Unsure of last time home machine has been calibrated, or if cuff size is correct. Denies cp, sob, vision changes, fevers, chills. Medical Decision Making Lab Data 07/14/23 18:15 07/14/23 18:15 Labs: Lab Results 07/14/23 Range/Units 18:15 WBC 7.1 (4.8-10.8) X10*3/uL RBC 5.23 (4.20-5.50) X10*6/uL Hgb 14.0 (12.0-16.0) g/dl Hct 43.3 (37.0-47.0) % MCV 82.8 (80.0-98.0) fL MCH 26.8 L (27.0-33.0) pg MCHC 32.3 (31.0-35.0) g/dl RDW 14.0 (11.0-16.0) % Plt Count 275 (160-400) X10*3/uL MPV 10.6 (9.4-12.3) fL Immature Gran % (Auto) 0.6 H (0.0-0.4) % Neut % (Auto) 73.3 H (45-73) % Lymph % (Auto) 18.0 L (20-40) % Hickman % (Auto) 6.8 (2-11) % Eos % (Auto) 0.7 (0-4) % Baso % (Auto) 0.6 (0-2) % Lymph # (Auto) 1.3 (1.2-4.9) X10*3/uL Hickman # (Auto) 0.5 (0.1-1.2) X10*3/uL Eos # (Auto) 0.1 (0.0-0.4) X10*3/uL Baso # (Auto) 0.0 (0.0-0.2) X10*3/uL Abs Immat Gran (auto) 0.04 H (0.00-0.03) X10*3/uL Absolute Neuts (auto) 5.2 (2.0-8.3) x10*3/uL Absolute Nucleated RBC 0.000 (0.0-0.012) X10*3/uL Nucleated RBC % (auto) 0.0 (0.0-0.2) /100WBC Smear Tech's Comments VERIFIED Sodium 140 (135-145) mmol/L Potassium 4.1 (3.3-5.1) mmol/L Chloride 103 (96-108) mmol/L Carbon Dioxide 24 (22-29) mmol/L Anion Gap 17 (12-20) BUN 12 (9-16) mg/dL Creatinine 0.81 (0.5-1.4) mg/dL Estim Creat Clear Calc 67.7 Estimated GFR > 60 Random Glucose 155 H (60-115) mg/dL Calcium 10.5 H (8.4-10.2) mg/dL Magnesium 2.1 (1.6-2.6) mg/dL Total Bilirubin 0.5 (0.0-1.0) mg/dL AST 18 (5-31) U/L ALT 21 (0-31) U/L Alkaline Phosphatase 66 (39-117) U/L Troponin I High Sens < 2.7 (<3.5-17.0) ng/L Total Protein 8.4 H (6.5-8.0) g/dL Albumin 4.8 (3.5-5.0) g/dL Discharge Plan Discharge Clinical Impression: Eloped from emergency department Patient Disposition: Left W/O Completing Treatment Prescriptions: No Action ascorbic acid (vitamin C) 1,000 mg tablet 1 g PO DAILY Qty: 90 1RF (DME) disposable gloves [Biobrane Gloves Medium] [facility] See Rx Instructions .ROUTE .MEDSUPPLY Qty: 1000 0RF Rx Instructions: As directed (DME) MAstectomy BRA Breast RIGHT See Rx Instructions .Route .MEDSUPPLY Qty: 2 0RF Rx Instructions: As directed (DME) prosthetic breast RIGHT See Rx Instructions .Route .MEDSUPPLY Qty: 1 0RF Rx Instructions: As directed miscellaneous medical supply [facility] See Rx Instructions miscellaneous .COMPLEX Qty: 2 3RF Rx Instructions: 2 pairs of post mastectomy compression sleeves as directed ; RIGHT; custom class one right upper extremity due to lymphedema, code to be used is I97.2; benzonatate 200 mg capsule 200 mg PO BID-TID PRN (Reason: cough) Qty: 20 0RF (DME) FreeStyle Lite Strips Strip See Rx Instructions .ROUTE .MEDSUPPLY Qty: 100 4RF Rx Instructions: As directed check the BS QD (DME) lancets [FreeStyle Lancets] 28 gauge [facility] [place] See Rx Instructions .ROUTE .MEDSUPPLY Qty: 100 4RF Rx Instructions: As directed check BS QD lidocaine 5 % adhesive patch,medicated 1 patch topical DAILY 30 Days Qty: 30 5RF Rx Instructions: leave on most painful area for up to 12 hrs fexofenadine [Kalli Allergy] 180 mg tablet 180 mg PO DAILY Qty: 30 1RF (DME) Lymphediva Arm Sleeve with Gauntlet See Rx Instructions .Route .MEDSUPPLY Qty: 1 0RF Rx Instructions: As directed rosuvastatin 20 mg tablet 20 mg PO DAILY 90 Days Qty: 90 1RF losartan 100 mg tablet 100 mg PO DAILY 90 Days Qty: 90 3RF sitagliptin phosphate 100 mg tablet 100 mg PO DAILY Qty: 90 0RF dapagliflozin propanediol 10 mg tablet 10 mg PO DAILY 90 Days Qty: 90 3RF cholecalciferol (vitamin D3) 25 mcg (1,000 unit) capsule 25 mcg PO DAILY Discharge Date/Time: 07/14/23 22:11
--- NOTE | 2023-07-14 18:04 | ECG_ITS ---
Test Reason : hypertension Blood Pressure : / mmHG Vent. Rate : 099 BPM Atrial Rate : 099 BPM P-R Int : 166 ms QRS Dur : 072 ms QT Int : 326 ms P-R-T Axes : 054 015 027 degrees QTc Int : 418 ms Normal sinus rhythm Possible Left atrial enlargement Cannot rule out Anterior infarct , age undetermined Abnormal ECG When compared with ECG of 28-MAR-2020 12:29, Nonspecific T wave abnormality, improved in Inferior leads Referred By: Mynor Chow Electronically Signed By:LITA MOLINA
[2023-07-14 18:36] LABS: Alanine Aminotransferase 21 U/L (0-31); Albumin Level 4.8 g/dL (3.5-5.0); Alkaline Phosphatase 66 U/L (39-117); Anion Gap 17 (12-20); Aspartate Amino Transferase 18 U/L (5-31); Bilirubin Total 0.5 mg/dL (0.0-1.0); Blood Urea Nitrogen 12 mg/dL (9-16); Calcium 10.5 mg/dL (8.4-10.2); Carbon Dioxide 24 mmol/L (22-29); Chloride 103 mmol/L (96-108); Creatinine Clr Calc Pharmacy 67.7; Estimated Glomerular Filt Rate > 60; Glucose Random 155 mg/dL (60-115); Magnesium 2.1 mg/dL (1.6-2.6); Potassium 4.1 mmol/L (3.3-5.1); Sodium 140 mmol/L (135-145); Total Protein 8.4 g/dL (6.5-8.0)
[2023-07-14 18:39] LABS: Hematocrit 43.3 % (37.0-47.0); Lymphocytes Absolute Auto 1.3 X10*3/uL (1.2-4.9); MANUAL DIFF FLAG SCAN; Mean Corpuscular HGB Conc 32.3 g/dl (31.0-35.0); Mean Corpuscular Hemoglobin 26.8 pg (27.0-33.0); Mean Corpuscular Volume 82.8 fL (80.0-98.0); Monocytes Absolute Auto 0.5 X10*3/uL (0.1-1.2); Neutrophils Absolute Auto 5.2 x10*3/uL (2.0-8.3); PLT CLUMP 1; Red Blood Count 5.23 X10*6/uL (4.20-5.50); SCAN SMEAR FLAG 1
[2023-07-14 18:46] LABS: Troponin-I High Sensitivity < 2.7 ng/L (<3.5-17.0)
[2023-07-14 19:00] LABS: Basophils Percent Auto 0.6 % (0-2); Eosinophils Absolute Auto 0.1 X10*3/uL (0.0-0.4); Eosinophils Percent Auto 0.7 % (0-4); Imm Gran Abs Auto 0.04 X10*3/uL (0.00-0.03); Imm Gran Pct Auto 0.6 % (0.0-0.4); Mean Platelet Volume 10.6 fL (9.4-12.3); Monocytes Percent Auto 6.8 % (2-11); Neutrophils Percent Auto 73.3 % (45-73); Platelet Count 275 X10*3/uL (160-400); White Blood Count 7.1 X10*3/uL (4.8-10.8)
[2023-07-14 19:02] LABS: SLIDE REVIEW VERIFIED
== END 2023-07-14 22:11 | disposition left against medical advice (07) ==
LOC: HO.ED 22:11
PROVIDERS: Physician Assistant; Emergency Provider Emergency Medicine; PCP Internal Medicine
DX: R94.31 Abnormal electrocardiogram [ECG] [EKG] (principal); I10 Essential (primary) hypertension; Z79.899 Other long term (current) drug therapy
CPT/HCPCS: 36415; 80053; 83735; 84484; 85025; 93005; 99283

== ENCOUNTER → 2023-07-14 18:04 | Outpatient (BNV) | payer OTHER, SELFPAY | PROVIDERS: Emergency Provider Emergency Medicine; PCP Internal Medicine; Visit Provider Internal Medicine | DX: I10 Essential (primary) hypertension (principal); R94.31 Abnormal electrocardiogram [ECG] [EKG] | CPT/HCPCS: 93010 ==

== ENCOUNTER 2023-08-27 08:30 | Outpatient (AMB) | payer OTHER, SELFPAY ==
--- NOTE | 2023-08-27 08:34 | A.OFFPC_ITS ---
Vital Signs 08/27/23 08:36 Height 5 ft 4 in Weight 191 lb BMI 32.8 BP 138/76 Blood Pressure Location Lt brachial Position Sitting Pulse 88 Pulse Source Pulse Oximeter Pulse Oximetry (%) 98 Oxygen Delivery Method Room Air Intake Visit Reasons: 3mth f/u Allergies glimepiride Allergy (Unknown, Verified 08/27/23 08:36) Unknown metformin Allergy (Unknown, Verified 08/27/23 08:36) diarrhea simvastatin Allergy (Unknown, Verified 08/27/23 08:36) Unknown Medication List - Last Reconciled 08/27/23 by James Lopez MD ascorbic acid (vitamin C) 1 g PO DAILY benzonatate 200 mg PO BID-TID PRN blood sugar diagnostic (FreeStyle Lite Strips) As directed check the BS QD cholecalciferol (vitamin D3) 25 mcg PO DAILY dapagliflozin propanediol 10 mg PO DAILY 90 days disposable gloves (Biobrane Gloves Medium) As directed fexofenadine (Kalli Allergy) 180 mg PO DAILY lancets (FreeStyle Lancets) As directed check BS QD lidocaine 5% 1 patch topical DAILY 30 days losartan 100 mg PO DAILY 90 days [Lymphediva Arm Sleeve with Gauntlet As directed] [MAstectomy BRA Breast RIGHT As directed] miscellaneous medical supply 2 pairs of post mastectomy compression sleeves as directed ; RIGHT; custom class one right upper extremity due to lymphedema, code to be used is I97.2; [prosthetic breast RIGHT As directed] rosuvastatin 20 mg PO DAILY 30 days sitagliptin phosphate 100 mg PO DAILY Tobacco use date assessed: 05/21/23 Fall risk assessment: No Falls in past year Last assessed Fall Risk: 08/27/23 Dental Screening Dental Screen Date: 05/21/23 HPI 3mth f/u HPI Details 72-year-old obese female with lung cance r and a history of breast cancer, diabetes mellitus uncontrolled hypertension hypercholesterolemia coming in for follow-up. Last seen in 06/04/2023. Noted ER visit for elevated blood pressure patient has seen Nephrology in July 08 continuing on ARB an SGLT2 target of 130/80 or less. decline pneumonia shot [facility] Medical History (Updated 05/21/23 @ 10:08 by James Lopez MD) Cough Lung nodule Hypertensive retinopathy of both eyes History of COVID-19 Vitamin D deficiency History of breast cancer (~2009) Pulmonary nodule Multinodular thyroid Osteoarthritis of right knee Right knee pain B12 deficiency Acute blood loss anemia Hypercholesterolemia Obesity (BMI 30-39.9) Diabetic nephropathy Hypertension Type 2 diabetes mellitus with hyperglycemia Surgical History S/P thyroid biopsy History of total mastectomy of right breast (~2009) History of bunionectomy Family History Father No problems noted. Mother Enlarged heart Paternal Aunt Diabetes Social History Household Members: None Housing: Apartment Do you presently have visiting nurse or other home services: No Alcohol intake: current Alcohol intake frequency: 0-2 drinks per day Comment: rings appropriately Patient Tobacco Use Status: Former Tobacco user Tobacco use type: Cigarette Years Smoked: quit 1999 e-Cigarette/Vaping Use: Never Used Second Hand Smoke Exposure: No service: No Current occupational status: retired Cognitive needs: No Hearing needs: No Vision needs: Yes Questionnaire PHQ-9 Over the last 2 weeks, how often have you been bothered by any of the following problems? 1. Little interest or pleasure in doing things: not at all 2. Feeling down, depressed, or hopeless: not at all 3. Trouble falling or staying asleep, or sleeping too much: not at all 4. Feeling tired or having little energy: not at all 5. Poor appetite or overeating: not at all 6. Feeling bad about yourself - or that you are a failure or have let yourself or your family down: not at all 7. Trouble concentrating on things, such as reading the newspaper or watching television: not at all 8. Moving or speaking so slowly that other people could have noticed. Or the opposite - being so fidgety or restless that you have been moving around a lot more than usual: not at all 9. Thoughts that you would be better off or of hurting yourself in some way: not at all Total score: 0 Depression Screening Interpretation: Negative Depression Screening Done: Yes 67422 - PHQ-9 Billing: Yes Source: Developed by Drs. Dexter Vásquez, Judi BellOmari and colleagues, with an educational pricila from [employer]. Thrive Questionnaire Date Thrive assessed: 05/21/23 AUDIT C Alcohol Use Questionnaire (AUDIT-C) 1. How often do you have a drink containing alcohol?: 2-3 times a week 2. How many drinks containing alcohol do you have on a typical day when you are drinking?: 1 or 2 3. How often do you have six or more drinks on one occasion?: Never Total Score: 3 Score Reviewed/Action Taken: Yes NATALIA-7 AMB Questionnaire NATALIA-7 Date NATALIA - 7 assessed: 05/21/23 Source: Developed by Drs. Dexter Vásquez, Judi Bell, Omari Leach and colleagues, with an educational pricila from [employer]. Physical exam (Primary Care) Vital Signs: Last Vital Signs Pulse 88 08/27/23 08:36 BP 138/76 08/27/23 08:36 Pulse Ox 98 08/27/23 08:36 Oxygen Delivery Method Room Air 08/27/23 08:36 BMI result Body Mass Index 32.8 Tobacco/Smoking Status: Tobacco use Status Tobacco use date assessed 05/21/23 08/27/23 08:37 Patient Tobacco Use Status Former Tobacco user 08/27/23 08:37 Tobacco use type Cigarette 08/27/23 08:37 e-Cigarette/Vaping Use Never Used 08/27/23 08:37 PHQ-9: PHQ-9 Score PHQ-9: Total score 0 08/27/23 08:45 Depression Screening Interpretation: Negative Thrive Assessment: Date of Thrive Assessment Date Thrive assessed 05/21/23 08/27/23 08:37 Const General: alert; No acute distress Eyes Conjunctivae: conjunctivae normal Resp Auscultation: clear to auscultation bilaterally Cardio Rate: regular rate Rhythm: regular rhythm GI Inspection: Yes normal to inspection Extrem General: Yes normal to inspection and No edema Results AMB Hemoglobin A1c AMB Hemoglobin A1c 7.0 % Last Edit by Mary Jo Love CMA on 08/27/23 08 :53 Assessment and Plan Assessment & Plan (1) Type 2 diabetes mellitus with hyperglycemia: Comment: Dr. Leon Code(s): E11.65 - Type 2 diabetes mellitus with hyperglycemia Qualifiers: Diabetes mellitus halfway insulin use: without terminal make up operator use Qualified Code(s): E11.65 - Type 2 diabetes mellitus with hyperglycemia Plan: Decrease the amount of carbohydrate intake, pasta, bread, rice and potatoes are all sugar and that is aside from all the sweet stuff, remember that fruits are good but they are Sweet also. Hemoglobin A1c goal of less than 7.0 patient on Farxiga 10 mg once a day Januvia 100 mg once a day patient does not able to take metformin and glimepiride. (2) Hypertension: Code(s): I10 - Essential (primary) hypertension Qualifiers: Hypertension type: essential hypertension Qualified Code(s): I10 - Essential (primary) hypertension Plan: Continue with blood pressure medication. Decrease salt intake and exercise t akes losartan 100 mg once a day only (3) Hypercholesterolemia: Code(s): E78.00 - Pure hypercholesterolemia, unspecified Plan: Avoid fried foods, chicken skin, eggs, butter margarine, pastries and meat. Be it pork or beef they have a lot of cholesterol LDL goal of less than 100 and triglyceride of less than 150. Last LDL 04/2023 111 patient is on rosuvastatin 20 mg once a day awaiting blood work done in [place] (4) Obesity (BMI 30-39.9): Code(s): E66.9 - Obesity, unspecified Plan: Diet and exercise (5) History of breast cancer: Onset Date: ~2009 Comment: (s/p right mastectomy, chemo & radiation Dr. Ho - 2009) mammogram February 2023 Code(s): Z85.3 - Personal history of malignant neoplasm of breast Plan: Up-to-date with mammogram continue to follow-up (6) Cancer of upper lobe of right lung: Comment: July 2022 right upper wedge resection with completion lobectomy and lymph node showing adeno carcinoma Code(s): C34.11 - Malignant neoplasm of upper lobe, right bronchus or lung Plan: Continue to follow-up Orders: Orders AMB Hemoglobin A1c Today Z13.9 - Encounter for screening, unspecified Medications: Changed From rosuvastatin 20 mg PO DAILY 30 days 30 tabs 3RF E78.00 - Pure hypercholesterolemia, unspecified To rosuvastatin 20 mg PO DAILY 90 days 90 tabs 1RF E78.00 - Pure hypercholesterolemia, unspecified Refilled losartan 100 mg PO DAILY 90 days 90 tabs 3RF I10 - Essential (primary) hypertension sitagliptin phosphate 100 mg PO DAILY 90 tabs 0RF E11.65 - Type 2 diabetes mellitus with hyperglycemia dapagliflozin propanediol 10 mg PO DAILY 90 days 90 tabs 3RF E11.65 - Type 2 diabetes mellitus with hyperglycemia Coding Level of Care Code Est Pt Level 4 (01585) Complex EM visit Add On G2211 Diagnoses Type 2 diabetes mellitus with hyperglycemia, without long-term current use of insulin E11.65 Diabetes mellitus terminal make up operator insulin use: without terminal make up operator use Essential hypertension I10 Hypertension type: essential hypertension Hypercholesterolemia E78.00 Obesity (BMI 30-39.9) E66.9 History of breast cancer Z85.3 Cancer of upper lobe of right lung C34.11
[2023-08-27 08:36] VITALS: BP 138/76; PULSE 88; O2SAT 98; BMI 32.8
== END 2023-08-27 09:03 | disposition home or self-care (01) ==
PROVIDERS: PCP Internal Medicine; Visit Provider Internal Medicine
DX: I10 Essential (primary) hypertension (principal); E11.65 Type 2 diabetes mellitus with hyperglycemia; C34.11 Malignant neoplasm of upper lobe, right bronchus or lung; Z68.32 Body mass index [BMI] 32.0-32.9, adult; E66.9 Obesity, unspecified; E78.00 Pure hypercholesterolemia, unspecified; Z85.3 Personal history of malignant neoplasm of breast
CPT/HCPCS: 83036; 99214; G2211

== ENCOUNTER 2024-01-12 13:43 | Outpatient (AMB) | payer OTHER, SELFPAY ==
[2024-01-12 13:45] VITALS: BP 138/72; PULSE 94; O2SAT 100; BMI 34.0
--- NOTE | 2024-01-12 13:45 | MHC.PC.OV ---
Vital Signs 01/12/24 13:45 Height 5 ft 4 in Weight 198 lb BMI 34.0 BP 138/72 Blood Pressure Location Lt brachial Position Sitting Pulse 94 Pulse Source Pulse Oximeter Pulse Oximetry (%) 100 Oxygen Delivery Method Room Air Intake Visit Reasons: DM Follow Up Allergies glimepiride Allergy (Unknown, Verified 01/12/24 13:45) Unknown metformin Allergy (Unknown, Verified 01/12/24 13:45) diarrhea simvastatin Allergy (Unknown, Verified 01/12/24 13:45) Unknown Tobacco use date assessed: 05/21/23 Fall risk assessment: No Falls in past year Last assessed Fall Risk: 01/12/24 Dental Screening Dental Screen Date: 05/21/23 HPI DM Follow Up HPI Details 48-year-old morbidly obese male with uncontrolled diabetes mellitus hypertension hypercholesterolemia asthma GERD coming in for follow-up last seen having some balanitis and was given clotrimazole cream. Patient is here for follow-up. [facility], [facility] Medical History (Updated 09/19/23 @ 00:01 by Brandon Shepard) Cough Lung nodule Hypertensive retinopathy of both eyes History of COVID-19 Vitamin D deficiency History of breast cancer (~2009) Pulmonary nodule Multinodular thyroid Osteoarthritis of right knee Right knee pain B12 deficiency Acute blood loss anemia Hypercholesterolemia Obesity (BMI 30-39.9) Diabetic nephropathy Hypertension Type 2 diabetes mellitus with hyperglycemia Surgical History S/P thyroid biopsy History of total mastectomy of right breast (~2009) History of bunionectomy Family History Father No problems noted. Mother Enlarged heart Paternal Aunt Diabetes Social History Household Members: None Housing: Apartment Do you presently have visiting nurse or other home services: No Alcohol intake: current Alcohol intake frequency: 0-2 drinks per day Comment: rings appropriately Patient Tobacco Use Status: Former Tobacco user Tobacco use type: Cigarette Years Smoked: quit 1999 e-Cigarette/Vaping Use: Never Used Second Hand Smoke Exposure: No service: No Current occupational status: retired Cognitive needs: No Hearing needs: No Vision needs: Yes Questionnaire Thrive Questionnaire Date Thrive assessed: 05/21/23 AUDIT C Alcohol Use Questionnaire (AUDIT-C) 1. How often do you have a drink containing alcohol?: 2-3 times a week 2. How many drinks containing alcohol do you have on a typical day when you are drinking?: 1 or 2 3. How often do you have six or more drinks on one occasion?: Never Total Score: 3 Score Reviewed/Action Taken: Yes NATALIA-7 AMB Questionnaire NATALIA-7 Date NATALIA - 7 assessed: 05/21/23 Source: Developed by Drs. Dexter áVsquez, Judi Bell, Omari Leach and colleagues, with an educational pricila from [employer]. Physical exam (Primary Care) Vital Signs: Last Vital Signs Pulse 94 01/12/24 13:45 BP 138/72 01/12/24 13:45 Pulse Ox 100 01/12/24 13:45 Oxygen Delivery Method Room Air 01/12/24 13:45 BMI result Body Mass Index 34.0 Tobacco/Smoking Status: Tobacco use Status Tobacco use date assessed 05/21/23 01/12/24 13:46 Patient Tobacco Use Status Former Tobacco user 01/12/24 13:46 Tobacco use type Cigarette 01/12/24 13:46 e-Cigarette/Vaping Use Never Used 01/12/24 13:46 Thrive Assessment: Date of Thrive Assessment Date Thrive assessed 05/21/23 01/12/24 13:46 Const General: alert; No acute distress Eyes Conjunctivae: conjunctivae normal Resp Auscultation: clear to auscultation bilaterally Cardio Rate: regular rate Rhythm: regular rhythm GI Inspection: Yes normal to inspection Extrem General: Yes normal to inspection and No edema Results AMB Hemoglobin A1c AMB Hemoglobin A1c 7.7 % Last Edit by JUANY Hoff on 01/12/24 14:12 Results Reviewed Results Reviewed: Laboratory Last Values Hgb A1c (Clinic) 7.7 % (4.0-6.0) H 01/12/24 14:05 Coding Level of Care Code Est Pt Level 4 (27872) Diagnoses Cancer of upper lobe of right lung C34.11 History of breast cancer Z85.3 Type 2 diabetes mellitus with hyperglycemia, without long-term current use of insulin E11.65 Diabetes mellitus fpc insulin use: without fpc use Essential hypertension I10 Hypertension type: essential hypertension Hypercholesterolemia E78.00 Obesity (BMI 30-39.9) E66.9 Assessment & Plan Assessment & Plan (1) Cancer of upper lobe of right lung: Comment: July 2022 right upper wedge resection with completion lobectomy and lymph node showing adeno carcinoma Code(s): C34.11 - Malignant neoplasm of upper lobe, right bronchus or lung Category: Medical Plan: CT scan of the chest done right lobectomy negative recurrence (2) History of breast cancer: Onset Date: ~2009 Comment: (s/p right mastectomy, chemo & radiation Dr. Ho - 2009) mammogram February 2023 Code(s): Z85.3 - Personal history of malignant neoplasm of breast Category: Medical Plan: February 2023 mammogram (3) Type 2 diabetes mellitus with hyperglycemia: Comment: Dr. Leon Code(s): E11.65 - Type 2 diabetes mellitus with hyperglycemia Category: Medical Qualifiers: Diabetes mellitus salvage determiner insulin use: without fpc use Qualified Code(s): E11.65 - Type 2 diabetes mellitus with hyperglycemia Plan: Decrease the amount of carbohydrate intake, pasta, bread, rice and potatoes are all sugar and that is aside from all the sweet stuff, remember that fruits are good but they are Sweet also. Hemoglobin A1c goal of less than 7.0 on Farxiga 10 mg once a day Januvia 100 mg once a day (4) Hypertension: Code(s): I10 - Essential (primary) hypertension Category: Medical Qualifiers: Hypertension type: essential hypertension Qualified Code(s): I10 - Essential (primary) hypertension Plan: Continue with blood pressure medication. Decrease salt intake and exercise presently on losartan 100 mg once a day (5) Hypercholesterolemia: Code(s): E78.00 - Pure hypercholesterolemia, unspecified Category: Medical Plan: Avoid fried foods, chicken skin, eggs, butter margarine, pastries and meat. Be it pork or beef they have a lot of cholesterol LDL goal of less than 100 and triglyceride of less than 150 on rosuvastatin 20 mg once a day (6) Obesity (BMI 30-39.9): Code(s): E66.9 - Obesity, unspecified Category: Medical Plan: Diet and exercise Orders: Orders AMB Hemoglobin A1c Today E11.65 - Type 2 diabetes mellitus with hyperglycemia Referrals Podiatry Referral E11.65 - Type 2 diabetes mellitus with hyperglycemia
== END 2024-01-12 14:55 | disposition home or self-care (01) ==
LOC: HO.HMCH 13:43
PROVIDERS: PCP Internal Medicine; Visit Provider Internal Medicine
DX: E11.65 Type 2 diabetes mellitus with hyperglycemia (principal); C34.11 Malignant neoplasm of upper lobe, right bronchus or lung; E66.9 Obesity, unspecified; Z68.34 Body mass index [BMI] 34.0-34.9, adult; Z85.3 Personal history of malignant neoplasm of breast; I10 Essential (primary) hypertension; E78.00 Pure hypercholesterolemia, unspecified

== ENCOUNTER → 2024-01-12 13:43 | Outpatient (BNVA) | payer OTHER, SELFPAY | PROVIDERS: PCP Internal Medicine; Visit Provider Internal Medicine | DX: C34.11 Malignant neoplasm of upper lobe, right bronchus or lung (principal); I10 Essential (primary) hypertension; E11.65 Type 2 diabetes mellitus with hyperglycemia; E78.00 Pure hypercholesterolemia, unspecified; E66.9 Obesity, unspecified; Z85.3 Personal history of malignant neoplasm of breast | CPT/HCPCS: 83036; 99212 ==

== ENCOUNTER 2024-04-20 14:08 | Outpatient (AMB) | payer OTHER, SELFPAY ==
[2024-04-20 14:11] VITALS: BP 142/72; PULSE 110; O2SAT 95; BMI 34.5
--- NOTE | 2024-04-20 14:11 | MHC.PC.OV ---
Vital Signs 04/20/24 14:11 Height 5 ft 4 in Weight 201 lb BMI 34.5 BP 142/72 H Blood Pressure Location Lt brachial Position Sitting Pulse 110 H Pulse Source Pulse Oximeter Pulse Oximetry (%) 95 Oxygen Delivery Method Room Air Intake Visit Reasons: DM Allergies glimepiride Allergy (Unknown, Verified 04/20/24 14:11) Unknown metformin Allergy (Unknown, Verified 04/20/24 14:11) diarrhea simvastatin Allergy (Unknown, Verified 04/20/24 14:11) Unknown Tobacco use date assessed: 04/20/24 Fall risk assessment: No Falls in past year Last assessed Fall Risk: 04/20/24 Dental Screening Dental Screen Date: 04/20/24 Did you have a dental visit in the last 12 months?: Yes Did you have a dental problem in the last 6 months where you did not have access to dental care?: No Was dental information given to patient?: Patient has dentist HPI DM HPI Details The patient is a 73-year-old female presenting for follow-up of multiple chronic conditions and surveillance for previously treated lung cancer. She has a history of obesity, hypertension, hypercholesterolemia, and type 2 diabetes mellitus. She was diagnosed with breast cancer in 2009, which has been addressed, and is currently under surveillance for lung cancer following a right lobectomy. The patient was last seen in December, and a recent surveillance CT in March 2024 has shown stable 4 mm nodules in the right lower lobe and left upper lobe, with ongoing monitoring scheduled every six months. Regarding her diabetes management, the patient reported elevated Hemoglobin A1c levels for June 2023 (7.7) and December 2023 (8.3), and continues on Farxiga and Januvia. Despite these medications, her glucose levels remain high, with a notable increase in hemoglobin A1c to 8.1. Dietary factors, influenced by family gatherings during the holiday season, were mentioned as contributing to the difficulty in maintaining target glucose levels. Her LDL cholesterol was noted to be above goal with a level of 118 mg/dL, despite being on rosuvastatin 20 mg daily. The patient is on losartan 100 mg daily for controlling hypertension but experienced an acute episode of elevated blood pressure recently, possibly linked to a stressor from a bereavement. Her overall health maintenance includes periodic mammograms, bone density tests, and Cologuard screenings. She reported that she adheres to routine eye exams and looks forward to consulting a new optician. The patient continues to implement preventive measures against respiratory infections prevalent during the season by using face masks and practicing hand hygiene. [facility] Medical History (Updated 04/05/24 @ 18:11 by James Lopez MD) Cough Lung nodule Hypertensive retinopathy of both eyes History of COVID-19 Vitamin D deficiency History of breast cancer (~2009) Pulmonary nodule Multinodular thyroid Osteoarthritis of right knee Right knee pain B12 deficiency Acute blood loss anemia Hypercholesterolemia Obesity (BMI 30-39.9) Diabetic nephropathy Hypertension Type 2 diabetes mellitus with hyperglycemia Surgical History S/P thyroid biopsy History of total mastectomy of right breast (~2009) History of bunionectomy Family History Father No problems noted. Mother Enlarged heart Paternal Aunt Diabetes Social History Household Members: None Housing: Apartment Do you presently have visiting nurse or other home services: No Alcohol intake: current Alcohol intake frequency: 0-2 drinks per day Comment: rings appropriately Patient Tobacco Use Status: Former Tobacco user Tobacco use type: Cigarette Years Smoked: quit 1999 e-Cigarette/Vaping Use: Never Used Second Hand Smoke Exposure: No service: No Current occupational status: retired Cognitive needs: No Hearing needs: No Vision needs: Yes Questionnaire PHQ-9 Over the last 2 weeks, how often have you been bothered by any of the following problems? 1. Little interest or pleasure in doing things: not at all 2. Feeling down, depressed, or hopeless: not at all 3. Trouble falling or staying asleep, or sleeping too much: not at all 4. Feeling tired or having little energy: not at all 5. Poor appetite or overeating: not at all 6. Feeling bad about yourself - or that you are a failure or have let yourself or your family down: not at all 7. Trouble concentrating on things, such as reading the newspaper or watching television: not at all 8. Moving or speaking so slowly that other people could have noticed. Or the opposite - being so fidgety or restless that you have been moving around a lot more than usual: not at all 9. Thoughts that you would be better off or of hurting yourself in some way: not at all Total score: 0 Depression Screening Interpretation: Negative Depression Screening Done: Yes 71603 - PHQ-9 Billing: Yes Source: Developed by Drs. Dexter Vásquez, Judi Bell, Omari Leach and colleagues, with an educational pricila from [employer]. Thrive Questionnaire Date Thrive assessed: 04/20/24 I am a: Patient What is your living situation today?: I have a steady place to live Within the past 12 months, did the food you bought not last and you didn't have the money to get more?: Never true Within the past 12 months, did you worry whether your food would run out before you got money to buy more?: Never true Do you have trouble paying for medicines?: No Do you have trouble getting transportation to medical appointments?: No Do you have trouble paying your heating and electricity bill?: No Do you have trouble taking care of your child, family member or friend?: No Do you have trouble with day-to-day activities such as bathing, preparing meals, shopping, managing finances, etc.?: No Are you currently unemployed and looking for a job?: No Are you interested in more education?: No Currently or been in a relationship where the following occur: No concerns reported THRIVE Score: 0 AUDIT C Alcohol Use Questionnaire (AUDIT-C) 1. How often do you have a drink containing alcohol?: 2-3 times a week 2. How many drinks containing alcohol do you have on a typical day when you are drinking?: 1 or 2 3. How often do you have six or more drinks on one occasion?: Never Total Score: 3 Score Reviewed/Action Taken: Yes NATALIA-7 AMB Questionnaire NATALIA-7 Date NATALIA - 7 assessed: 04/20/24 Feeling nervous, anxious, or on edge: 0 = Not at all Not being able to stop or control worryin = Not at all Worrying too much about different things: 0 = Not at all Trouble relaxin = Not at all Being so restless that it is hard to sit still: 0 = Not at all Becoming easily annoyed or irritable: 0 = Not at all Feeling afraid as if something awful might happen: 0 = Not at all Total NATALIA-7 score (0-4 normal; 5-9 mild; 10-14 moderate; 15-21 severe): 0 Source: Developed by Drs. Dexter Vásquez, Judi Bell, Omari Leach and colleagues, with an educational pricila from [employer]. Physical exam (Primary Care) Vital Signs: Last Vital Signs Pulse 110 H 04/20/24 14:11 BP 142/72 H 04/20/24 14:11 Pulse Ox 95 04/20/24 14:11 Oxygen Delivery Method Room Air 04/20/24 14:11 BMI result Body Mass Index 34.5 Tobacco/Smoking Status: Tobacco use Status Tobacco use date assessed 04/20/24 04/20/24 14:14 Patient Tobacco Use Status Former Tobacco user 04/20/24 14:12 Tobacco use type Cigarette 04/20/24 14:12 e-Cigarette/Vaping Use Never Used 04/20/24 14:12 PHQ-9: PHQ-9 Score PHQ-9: Total score 0 04/20/24 14:54 Depression Screening Interpretation: Negative Thrive Assessment: Date of Thrive Assessment Date Thrive assessed 04/20/24 04/20/24 14:17 Currently or been in a relationship where the following occur: No concerns reported Const General: alert; No acute distress Eyes Conjunctivae: conjunctivae normal Resp Auscultation: clear to auscultation bilaterally Cardio Rate: regular rate Rhythm: regular rhythm GI Inspection: Yes normal to inspection Extrem General: Yes normal to inspection and No edema Results AMB Hemoglobin A1c AMB Hemoglobin A1c 8.2 % Last Edit by Mary Jo Love CMA on 04/20/24 15:01 Coding Level of Care Code Est Pt Level 4 (53816) Complex EM visit Add On G2211 Diagnoses Cancer of upper lobe of right lung C34.11 History of breast cancer Z85.3 Type 2 diabetes mellitus with hyperglycemia, without long-term current use of insulin E11.65 Diabetes mellitus [employer] insulin use: without mcfp use Hypercholesterolemia E78.00 Essential hypertension I10 Hypertension type: essential hypertension Obesity (BMI 30-39.9) E66.9 Additional Codes PHQ-9 - 31461 - PHQ-9 Billing: Yes ([id number]) Assessment & Plan Assessment & Plan (1) Cancer of upper lobe of right lung: Comment: July 2022 right upper wedge resection with completion lobectomy and lymph node showing adeno carcinoma Code(s): C34.11 - Malignant neoplasm of upper lobe, right bronchus or lung Category: Medical Plan: CT scan 03/2024 (2) History of breast cancer: Onset Date: ~2009 Comment: (s/p right mastectomy, chemo & radiation Dr. Ho - 2009) mammogram February 2023 Code(s): Z85.3 - Personal history of malignant neoplasm of breast Category: Medical Plan: reminded about mammo (3) Type 2 diabetes mellitus with hyperglycemia: Comment: Dr. Leon Code(s): E11.65 - Type 2 diabetes mellitus with hyperglycemia Category: Medical Qualifiers: Diabetes mellitus mcfp insulin use: without mcfp use Qualified Code(s): E11.65 - Type 2 diabetes mellitus with hyperglycemia Plan: decline additional med (4) Hypercholesterolemia: Code(s): E78.00 - Pure hypercholesterolemia, unspecified Category: Medical Plan: declined addiitonal med, await blood work results (5) Hypertension: Code(s): I10 - Essential (primary) hypertension Category: Medical Qualifiers: Hypertension type: essential hypertension Qualified Code(s): I10 - Essential (primary) hypertension Plan: declined additional med (6) Obesity (BMI 30-39.9): Code(s): E66.9 - Obesity, unspecified Category: Medical Plan 1. - Manage type 2 diabetes with current medications: - Continue management of hypertension with losartan 100 mg daily; monitor blood pressure regularly. - Address hypercholesterolemia with ongoing rosuvastatin 20 mg daily to aim for LDL goal under 100 mg/dL; consider further discussion on lifestyle modifications. - Reinforce adherence to appointments for regular mammograms, bone density testing, and eye exams. - Encourage continued use of preventive measures against respiratory infections. - Schedule follow-up appointment in three months to reassess blood glucose, cholesterol levels, and blood pressure control. Orders: Orders Complete Blood Count Auto Diff 3 Months E11.65 - Type 2 diabetes mellitus with hyperglycemia Free T4 (Free Thyroxine) 3 Months E11.65 - Type 2 diabetes mellitus with hyperglycemia Microalbumin, Random (w Creat) 3 Months E11.65 - Type 2 diabetes mellitus with hyperglycemia Thyroid Stimulating Hormone 3 Months E11.65 - Type 2 diabetes mellitus with hyperglycemia Vitamin B12 and Folate 3 Months E11.65 - Type 2 diabetes mellitus with hyperglycemia Hemoglobin A1c 3 Months E11.65 - Type 2 diabetes mellitus with hyperglycemia Vitamin D 25-OH Total 3 Months E11.65 - Type 2 diabetes mellitus with hyperglycemia Creatinine Urine 3 Months E11.65 - Type 2 diabetes mellitus with hyperglycemia AMB Hemoglobin A1c Today Z13.9 - Encounter for screening, unspecified Comprehensive Met. Panel 3 Months E11.65 - Type 2 diabetes mellitus with hyperglycemia Lipid Panel 3 Months E11.65 - Type 2 diabetes mellitus with hyperglycemia, E78.00 - Pure hypercholesterolemia, unspecified
--- OUTSIDE RECORDS SUMMARY | 2024-04-20 14:15 | XMS_ITS | Encounter Summary ---
Author Organization [facility] Address [address] [place] [address] Care Team Providers Care Vehicle Refinisher Name Role Phone James Lopez MD Primary Care Provider [phone] Reason for Referral * Imaging (Routine) - Pending Review Specialty Diagnoses / Procedures Referred By Contac t Referred To Contact Radiology Diagnoses History of lung cancer Multiple pulmonary nodules Procedures CT Chest wo Contrast Hiral Diop [place] [address] [facility], [address] [address] [facility] Referral ID Status Reason Start Date Expiration Date V isits Requested Visits Authorized [id number] Pending Review 04/03/2024 04/03/2025 1 1 Reason for Visit * Reason Comments Follow-up Chest ct 03/23/24 Encounter Details Date Type Department Care Team ([facility] Contact Info) Description 04/01/2024 2:30 PM EST Office Visit Thoracic Surgery - [place] [address] [facility] [address] [place] [id number] Hiral Diop [place] [address] [facility], [address] [address] History of lung cancer (Primary Dx); Multiple pulmonary nodules Social History Tobacco Use Types Packs/Day Years Used Date Smoking Tobacco: Former Cigarettes Q uit: 03/17/1999 Smokeless Tobacco: Never Tobacco Cessation:Counseling Given: Not Answered Alcohol Use Standard Drinks/Week Comments Yes 3 (1 standard drink = 0.6 oz pur e alcohol) Sex and Gender Information Value Date Recorded Sex Assigned at Female 03/23/2024 1:14 PM EST Gender Identity Female 03/23/2024 1:14 PM EST Sexual Orientation Straight 03/23/2024 1: 14 PM EST Job Start Date Occupation Industry Not on file Not on file Not on file documented as of this encounter Last Filed Vital Signs Vital Sign Reading Time Taken Comments Blood Pressure 150/72 04/01/2024 2:14 PM EST Pulse 91 04/01/2024 2:14 PM EST Temperature 36.7 ??C (98.1 ??F) 04/01/2024 2:14 PM ES T Respiratory Rate 16 04/01/2024 2:14 PM EST Oxygen Saturation 100% 04/01/2024 2:14 PM EST Inhaled Oxygen Concentration - - Weight 92.1 kg (203 lb) 04/01/2024 2:14 PM EST Height 162.6 cm (5' 4 ) 04/01/2024 2:14 PM EST Body Mass Index 34.84 04/01/2024 2:14 PM EST documented in this encounter Progress Notes * ETHAN Kumar - 04/01/2024 2:30 PM EST Images from the original note were not included. Thoracic Surgery Follow Up Visit Patient name: Juany Lowery : 1950 Date of Visit: April 01, 2024 Care Team PCP: James Lopez MD Reason for Visit Chief Complaint Patient presents with Follow-up Chest ct 03/23/24 History of Present Illness Ms. Lowery is a 73 y.o. female, former smoker, who had a right upper lobectomy in July 2022 for a stage I adenocarcinoma. The patient presents today for a follow- up visit after her most recent surveillance chest CT scan. Patient states that overall she has been doing well over the past 6 months. Denies any significant change in her medical status over that time. Denies any increasing shortness of breath, hemoptysis, unintentional weight loss, or new lumps or bumps concerning for lymphadenopathy. Of note, patient does have a thyroid nodule seen on imaging which she states she follows with endocrinology in regards to. Past Medical History: Diagnosis Date Acute blood loss anemia DX:Acute blood loss anemia B12 deficiency DX:B12 deficiency Diabetic nephropathy (CMS/HCC) DX:Diabetic nephropathy (HCC) History of breast cancer DX:History of breast cancer History of COPD DX:History of COPD HTN (hypertension) DX:HTN (hypertension) Liver cyst DX:Liver cyst Mixed hyperlipidemia DX:Mixed hyperlipidemia Multinodular goiter DX:Multinodular goiter Multinodular thyroid DX:Multinodular thyroid Obesity DX:Obesity Osteoarthritis of right knee DX:Osteoarthritis of right knee Pulmonary nodule DX:Pulmonary nodule Right knee pain DX:Right knee pain Type 2 diabetes mellitus with hyperglycemia (CMS/HCC) DX:Type 2 diabetes mellitus with hyperglycemia (HCC) Patient Active Problem List Diagnosis Hypertension Proteinuria Type 2 diabetes mellitus without complication (CMS/HCC) Vitamin B12 deficiency Anemia History of lung cancer Multiple pulmonary nodules Past Surgical History: Procedure Laterality Date BUNIONECTOMY PROCEDURE: BUNION SURGERY, SIMPLE REMOVAL OTHER SURGICAL HISTORY Right PROCEDURE: HISTORICAL COMPLETE UNILATERAL MASTECTOMY Allergies Allergen Reactions Diclofenac Other reaction(s): celia Glimepiride Unknown Simvastatin Unknown Metformin Diarrhea Current Outpatient Medications on File Prior to Visit Medication Sig Dispense Refill acetaminophen (TYLENOL) 325 mg tablet Take 3 tablets (975 mg total) by mouth. ascorbic acid (VITAMIN C) 1,000 mg tablet Take 1 tablet (1,000 mg total) by mouth 1 (one) time eachday. cholecalciferol (VITAMIN D-3) 25 mcg (1,000 unit) capsule Take by mouth. dapagliflozin propanediol (FARXIGA) 10 mg tablet Take 1 tablet (10 mg total) by mouth 1 (one) time each day. docusate sodium (COLACE) 100 mg capsule Take 1 capsule (100 mg total) by mouth. famotidine (PEPCID) 20 mg tablet Take 1 tablet (20 mg total) by mouth. lidocaine (LIDODERM) 5 % patch Place 1 patch on the skin. losartan (COZAAR) 50 mg tablet Take 2 tablets (100 mg total) by mouth 1 (one) time each day. OXYCODONE HCL ER PO Take 5 mg by mouth. rosuvastatin (CRESTOR) 10 mg tablet Take 1 tablet (10 mg total) by mouth. senna (SENOKOT) 8.6 mg tablet Take 2 tablets (17.2 mg total) by mouth. SITagliptin phosphate (Januvia) 100 mg tablet Take 1 tablet (100 mg total) by mouth 1 (one) time each day. No current facility-administered medications on file prior to visit. Social History Tobacco Use Smoking status: Former Current packs/day: 0.00 Types: Cigarettes Quit date: 03/17/1999 Years since quittin.0 Smokeless tobacco: Never Substance Use Topics Alcohol use: Yes Alcohol/week: 3.0 standard drinks of alcohol Drug use: Never Social History Social History Narrative Not on file Review of Systems Review of Systems Constitutional: Negative for decreased appetite, fever, night sweats and weight loss. HENT: Negative for congestion and hoarse voice. Cardiovascular: Negative for chest pain and palpitations. Respiratory: Negative for cough, hemoptysis, shortness of breath and sputum production. Hematologic/Lymphatic: Negative for adenopathy. Skin: Negative for rash. Gastrointestinal: Negative for abdominal pain and nausea. Genitourinary: Negative for dysuria. Neurological: Negative for light-headedness. Physical Exam Vitals: 04/01/24 1414 BP: (!) 150/72 BP Location: Left arm Patient Position: Sitting BP Cuff Size: Adult long Pulse: 91 Resp: 16 Temp: 36.7 ??C (98.1 ??F) TempSrc: Temporal SpO2: 100% Weight: 92.1 kg (203 lb) Height: 1.626 m (64 ) Physical Exam Vitals reviewed. Constitutional: General: She is not in acute distress. Appearance: She is well-developed. She is not ill-appearing. HENT: Head: Normocephalic and atraumatic. Mouth/Throat: Mouth: Mucous membranes are moist. Eyes: General: Lids are normal. No scleral icterus. Cardiovascular: Rate and Rhythm: Normal rate and regular rhythm. Heart sounds: No murmur heard. Pulmonary: Effort: Pulmonary effort is normal. No accessory muscle usage or respiratory distress. Breath sounds: No wheezing, rhonchi or rales. Comments: CTA B Chest: Comments: Multiple right sided chest incisions are well healed without nodularity. Lymphadenopathy: Cervical: No cervical adenopathy. Upper Body: Right upper body: No supraclavicular adenopathy. Left upper body: No supraclavicular adenopathy. Skin: General: Skin is warm and dry. Neurological: Mental Status: She is alert and oriented to person, place, and time. Psychiatric: Attention and Perception: Attention normal. Mood and Affect: Mood normal. Behavior: Behavior is cooperative. Radiology I personally viewed the patient's current and past imaging studies, in addition to reviewing the dictated report from the reading radiologist. CT Chest wo Contrast Narrative: History: Non-small cell lung carcinoma. Surveillance. Status post right upper lobectomy 08/06/22. Personal history of right breast carcinoma treated with mastectomy and radiation. Comparison: 09/08/23, 06/12/22 Technique: Helical volumetric imaging of the thorax was performed without IV contrast. DLP: 250.56 mGy/cm [place] Iterative reconstruction technique Findings: Right upper lobectomy sequelae are again noted. The trachea and remaining central bronchial tree are patent. There is coarse reticular opacity in the subpleural lung in the anterior right middle lobe, with traction bronchiectasis, stable dating back to the preop exam, most likely representing radiation treatment fibrosis in this setting. A 4 mm solid, noncalcified juxtapleural nodule in the left lung apex is unchanged (image 40 series 3). A new 4 mm juxtapleural nodule is seen in the posterior right lower lobe (image 148). No pleuralor pericardial effusions are seen. The heart remains normal in size. Three-vessel coronary artery calcification is again seen. No thoracic lymphadenopathy is identified. The left thyroid lobe remains enlarged, with coarse calcifications, suggesting multinodular goiter.The trachea is displaced to the right at the thoracic inlet, without significant narrowing of the tracheal diameter. This is unchanged. A small portion of the upper abdomen included on the lowest images through the thorax is remarkablefor scattered hepatic cysts, partially imaged, unchanged. The regional skeleton is intact. Impression: Impression: 1. New 4 mm juxtapleural right lower lobe nodule, for which a follow-up CT is recommended in 6 months. 2. No developing thoracic lymphadenopathy. 3. Stable right upper lobectomy sequelae. Echo360 ETHAN ([id number]) -------- FINAL REPORT -------- Dictated By: Elida Zhang Dictated Date: 03/30/2024 08:36 ET Assigned Physician: Elida Zhang Reviewed and Electronically Signed By: Elida Zhang Signed Date: 03/30/2024 08:52 ET Workstation ID: [id number] Transcribed By: Self Edit Transcribed Date: 03/30/2024 08:36 ET Assessment and Plan Problem List Items Addressed This Visit History of lung cancer - Primary Ms. Lowery is a 73-year-old female who had a right upper lobectomy in July 2022 for stage I pulmonaryadenocarcinoma. The patient's most recent surveillance chest CT scan performed in March 2024 shows a new 4 mm nodule in the right lower lobe. She has no other concerning pulmonary nodules or thoracic adenopathy. The patient also has a stable 4 mm nodule in the left upper lobe. We will continue with routine chest CT surveillance the next of which will be in 6 months, September 2024. The patient will have a follow-up visit after that scan. Relevant Orders CT Chest wo Contrast Multiple pulmonary nodules Relevant Orders CT Chest wo Contrast ETHAN Kumar [facility] Thoracic Surgery [address] [place] [address], [address] [place] [id number] * ETHAN Kumar - 04/01/2024 1:05 PM ESTAssociated Problem(s): History of lung cancer Ms. Lowery is a 73-year-old female who had a right upper lobectomy in July 2022 for stage I pulmonaryadenocarcinoma. The patient's most recent surveillance chest CT scan performed in March 2024 shows a new 4 mm nodule in the right lower lobe. She has no other concerning pulmonary nodules or thoracic adenopathy. The patient also has a stable 4 mm nodule in the left upper lobe. We will continue with routine chest CT surveillance the next of which will be in 6 , September 2024. The patient will have a follow-up visit after that scan. documented in this encounter Plan of Treatment Scheduled Orders Name Type Priority Associated Diagnoses Orde r Schedule CT Chest wo Contrast Imaging Routine History of lung cancer Multiple pulmonary nodules Expected: 09/29/2024, Expires: 04/01/2025 documented as of this encounter Visit Diagnoses Diagnosis History of lung cancer- Primary Personal history of malignant neoplasm of bronchus and lung Multiple pulmonary nodules Other diseases of lung, not elsewhere classified documented in this encounter Care Teams Vehicle Refinisher Relationship Specialty Start Date End Date James Lopez MD [address] [facility] [address] [facility] [place] [address] PCP - General 06/19/22 documented as of this encounter
--- OUTSIDE RECORDS SUMMARY | 2024-04-20 14:16 | XMS_ITS | Clinical Summary ---
Author Organization [facility] Address [address] [place] [address] Phone Care Team Providers Care Vp Data Name Role Phone James Anna MD Primary Care Provider [phone] Allergies Active Allergy Reactions Criticality Noted Date Comments Diclofenac 05/02/2021 Other reaction(s): celia Glimepiride Unknown 07/04/2022 Metformin Diarrhea Low 07/04/2022 Simvastatin Unknown 07/04/2022 Medications Medication Sig Dispensed Refills Start Date End Date Status OXYCODONE HCL ER PO Take 5 mg by mouth. 08/08/2022 Active acetaminophen (TYLENOL) 325 mg tablet Take 3 tablets (975 mg total) by mouth. 08/08/2022 Active ascorbic acid (VITAMIN C) 1,000 mg tablet Take 1 tablet (1,000 mg total) by mouth 1 (one) time each day. Active cholecalciferol (VITAMIN D-3) 25 mcg (1,000 unit) capsule Take by mouth. Active dapagliflozin propanediol (FARXIGA) 10 mg tablet Take 1 tablet (10 mg total) by mouth 1 (one) time each day. 07/05/2021 Active docusate sodium (COLACE) 100 mg capsule Take 1 capsule (100 mg total) by mouth. 08/08/2022 Active famotidine (PEPCID) 20 mg tablet Take 1 tablet (20 mg total) by mouth. 08/08/2022 Active lidocaine (LIDODERM) 5 % patch Place 1 patch on the skin. Active losartan (COZAAR) 50 mg tablet Take 2 tablets (100 mg total) by mouth 1 (one) time each day. Active rosuvastatin (CRESTOR) 10 mg tablet Take 1 tablet (10 mg total) by mouth. 02/15/2021 Active senna (SENOKOT) 8.6 mg tablet Take 2 tablets (17.2 mg total) by mouth. 08/08/2022 Active SITagliptin phosphate (Januvia) 100 mg tablet Take 1 tablet (100 mg total) by mouth 1 (one) time each day. Active Active Problems Problem Noted Date Diagnosed Date History of lung cancer 04/01/2024 Assessment & Plan (04/01/2024 1:05 PM EST): Ms. Lowery is a 73-year-old female who had a right upper lobectomy in July 2022 for stage I pulmonary adenocarcinoma. The patient's most recent surveillance chest CT [...] have a follow-up visit after that scan. Multiple pulmonary nodules 04/01/2024 Anemia 01/07/2024 Proteinuria 07/08/2021 Type 2 diabetes mellitus without complication Vitamin B12 deficiency 05/07/2021 Hypertension 05/02/2021 Encounters Date Type Department Care Team Description 04/01/2024 2:30 PM EST Office Visit Thoracic Surgery - [facility] [address] [place] [id number] Hiral Diop PA History of lung cancer (Primary Dx); Multiple pulmonary nodules 03/23/2024 1:16 PM EST - 03/23/2024 11:59 PM EST Hospital Encounter [facility] CT Scan [address] [place] [id number] H/O malignant neoplasm of lung Discharge Disposition: Home or Self Care from Last 3 Months Surgical History Surgery Date Site/Laterality Comments BUNIONECTOMY PROCEDURE: BUNION SURGERY, SIMPLE REMOVAL OTHER SURGICAL HISTORY Right PROCEDURE: HISTORICAL COMPLETE UNILATERAL MASTECTOMY Medical History Medical History Date Comments Acute blood loss anemia DX:Acute blood loss anemia B12 deficiency DX:B12 deficienc y Diabetic nephropathy (CMS/HCC) D X:Diabetic nephropathy (HCC) History of breast cancer DX:Hist ory of breast cancer Mixed hyperlipidemia DX:Mixed hy perlipidemia HTN (hypertension) DX:HTN (hyper tension) Multinodular goiter DX:Multinodu lar goiter Multinodular thyroid DX:Multinod ular thyroid Obesity DX:Obesity Osteoarthritis of right knee DX: Osteoarthritis of right knee Pulmonary nodule DX:Pulmonary no dule Right knee pain DX:Right knee pa in Type 2 diabetes mellitus wit h hyperglycemia (CMS/HCC) DX:Type 2 diabetes mellitus with hyperglycemia (HCC) History of COPD DX:History of CO PD Liver cyst DX:Liver cyst Family History Medical History Relation Name Comments No Known Problems Father Other: Other Mother Relation Name Status Comments Father Mother Social History Tobacco Use Types Packs/Day Years [...] file Not on file Not on file Obstetrics History Last Filed Vital Signs Vital Sign Reading [...] Mass Index 34.84 04/01/2024 2:14 PM EST Plan of Treatment Health Maintenance Due Date Last Done Comments Breast Cancer Screening 1950 COVID-19 Vaccine (#1) 11/17/1955 Pneumococcal Vaccine: 65+ Years (1 of 2 - PCV) 1956 Diabetes: Annual Foot Exam 1960 Diabetes: Annual Retina Eye Exam 1960 Zoster Vaccines (1 of 2) 1969 RSV Immunization Patients 60 + Years Old (1 - Risk 60-74 years 1-dose series) 2010 Cholesterol Screening (Lipid Panel) 02/16/2022 Depression Screening 02/16/2022 Falls Risk Assessment 02/16/2022 Hepatitis C Screening 02/16/2022 Medicare Annual Wellness Visit 02/16/2022 Osteoporosis Screening (Bone Density Screening) 02/16/2022 Social Influencers of Health Screening 02/16/2022 Influenza Vaccine (#1) 2023 12/12/2009 Diabetes: Annual Urine Albumin-Creatinine Ratio (uACR) 01/07/2024 Diabetes: Blood Sugar Contro l Test (HGBA1C) 01/07/2024 DTaP,Tdap,and Td Vaccines (2 - Td or Tdap) 04/28/2024 04/28/2014 Diabetes: Annual GFR (Glomerular Filtration Rate) 07/02/2024 07/03/2023, 07/03/2023 Hypertension/CHF/CAD Annual BMP Blood Test 07/02/2024 07/03/2023, 07/03/2023 Colorectal Cancer Screening: FIT-DNA (Cologuard) 02/18/2025 02/18/2022, 02/18/2022 HIB Vaccines Aged Out No longer eligi ble based on patient's age to complete this topic HPV Vaccines Aged Out No longer eligi ble based on patient's age to complete this topic Hepatitis A Vaccines Aged Out No long er eligible based on patient's age to complete this topic Hepatitis B Vaccines Aged Out No long er eligible based on patient's age to complete this topic IPV Vaccines Aged Out No longer eligi ble based on patient's age to complete this topic MMR Vaccines Aged Out No longer eligi ble based on patient's age to complete this topic Meningococcal ACWY Vaccine Aged Out N o longer eligible based on patient's age to complete this topic RSV Immunization Patients Under 20 months Aged Out No longer eligible b ased on patient's age to complete this topic Varicella Vaccines Aged Out No longer eligible based on patient's age to complete this topic Procedures Procedure Name Priority Date/Time Associated Diagnosis Comments CT CHEST WO CONTRAST Routine 03/23/2024 1:47 PM EST H/O malignant neoplasm of lung from Last 3 Months Results * CT Chest wo Contrast (03/23/2024 1:47 PM EST) Anatomical Region Laterality Modality Body Computed Tomogra phy 03/30/2024 8:36 AM EST Impressions 03/30/2024 8:52 AM EST Impression: 1. New 4 mm juxtapleural right lower lobe nodule, for which a follow-up CT is recommended in 6 months. 2. No developing thoracic lymphadenopathy. 3. Stable right upper lobectomy sequelae. [employer] [place] ([id number]) -------- FINAL REPORT -------- Dictated By: Elida Zhang Dictated Date: 03/30/2024 08:36 ET Assigned Physician: Elida Zhang Reviewed and Electronically Signed By: Elida Zhang Signed Date: 03/30/2024 08:52 ET Workstation ID: [id number] Transcribed By: Self Edit Transcribed Date: 03/30/2024 08:36 ET Narrative 03/30/2024 8:52 AM EST History: Non-small cell lung carcinoma. Surveillance. Status post right upper lobectomy 08/06/22. Personal history of right breast carcinoma treated with mastectomy and radiation. Comparison: 09/08/23, 06/12/22 Technique: Helical volumetric imaging of the thorax was performed without IV contrast. DLP: 250.56 mGy/cm [employer] [employer] Iterative reconstruction technique Findings: Right upper lobectomy [...] posterior right lower lobe (image 148). No pleural or pericardial effusions are seen. The heart remains normal in size. Three-vessel coronary artery calcification is again seen. No thoracic lymphadenopathy is identified. The left thyroid lobe remains enlarged, with coarse calcifications, suggesting multinodular goiter. The trachea is displaced to the right at the thoracic inlet, without significant narrowing of the tracheal diameter. This is unchanged. A small portion of the upper abdomen included on the lowest images through the thorax is remarkable for scattered hepatic cysts, partially imaged, unchanged. The regional skeleton is intact. Procedure Note Elida Zhang MD - 03/30/2024 History: Non-small cell lung carcinoma. Surveillance. Status post rightupper lobectomy 08/06/22. Personal history of right breast carcinomatreated with mastectomy and radiation. Comparison: 09/08/23, 06/12/22 Technique: Helical volumetric imaging of the thorax was performed withoutIV contrast. DLP: 250.56 mGy/cm [employer]pulse Iterative reconstruction technique Findings: Right upper lobectomy sequelae are again noted. The trachea and remainingcentral bronchial tree are patent. There is coarse reticular opacity inthe subpleural lung in the anterior right middle lobe, with tractionbronchiectasis, stable dating back to the preop exam, most likelyrepresenting radiation treatment fibrosis in this setting. A 4 mm solid, noncalcified juxtapleural nodule in the left lung apex isunchanged (image 40 series 3). A new 4 mm juxtapleural nodule is seen inthe posterior right lower lobe (image 148). No pleural or pericardialeffusions are seen. The heart remains normal in size. Three-vessel coronary arterycalcification is again seen. No thoracic lymphadenopathy is identified. The left thyroid lobe remains enlarged, with coarse calcifications,suggesting multinodular goiter. The trachea is displaced to the right atthe thoracic inlet, without significant narrowing of the trachealdiameter. This is unchanged. A small portion of the upper abdomen included on the lowest images throughthe thorax is remarkable for scattered hepatic cysts, partially imaged,unchanged. The regional skeleton is intact. IMPRESSION: Impression: 1. New 4 mm juxtapleural right lower lobe nodule, for which a follow-up CTis recommended in 6 months. 2. No developing thoracic lymphadenopathy. 3. Stable right upper lobectomy sequelae. Luisa LONG ([id number]) -------- FINAL REPORT -------- Dictated By: Elida Zhang Dictated Date: 03/30/2024 08:36 ET Assigned Physician: Elida Zhang Reviewed and Electronically Signed By: Elida Zhang Signed Date: 03/30/2024 08:52 ET Workstation ID: [id number] Transcribed By: Self Edit Transcribed Date: 03/30/2024 08:36 ET Jose Michele MD IMG CT PROCEDURES from Last 3 Months Care Teams Vp Data Relationship Specialty Start Date End Date James Anna MD [address] [place] [address] [address] [facility] [place] [address] PCP - General 06/19/22
--- OUTSIDE RECORDS SUMMARY | 2024-04-20 14:16 | XMS_ITS | Encounter Summary ---
Author Organization [facility] Address [address] [place] [address] Care Team Providers Care Mechanical Manufacturing Technician Name Role Phone James Lopez MD Primary Care Provider [phone] Reason for Referral * Imaging (Routine) - Closed Specialty Diagnoses / Procedures Referred By Makenzie de jesus Referred To Contact Radiology Diagnoses H/O malignant neoplasm of lung Procedures CT Chest wo Contrast Jose Michele MD [address] [address] [facility] [address] [place] [address] Referral ID Status Reason Start Date Expiration Date Visits Re quested Visits Authorized [id number] Closed 02/10/2024 02/09/2025 1 1 Reason for Visit * Auth/Cert (Routine) Specialty Diagnoses / Procedures Referred By Makenzie de jesus Referred To Contact Diagnoses Personal history of other malignant neoplasm of bronchus and lung Procedures [place] CT THORAX LOW DOSE FOR LUNG CANCER SCREENING W/O CONTRAST MATERIAL sp Ct Scan [address] [place] [address] Referral ID Status Reason Start Date Expiration Date Visits Re quested Visits Authorized [id number] 1 1 Encounter Details Date Type Department Care Team (Latest Contact Info) Description 03/23/2024 1:16 PM EST - 03/23/2024 11:59 PM EST Hospital Encounter [facility] CT Scan [address] [place] [address] H/O malignant neoplasm of lung Discharge Disposition: Home or Self Care Social History Tobacco Use Types Packs/Day Years Used Date Smoking Tobacco: Former Cigarettes Q uit: 03/17/1999 Smokeless Tobacco: Never Alcohol Use Standard Drinks/Week Comments Yes 3 [...] on file documented as of this encounter Medications at Time of Discharge Medication Sig Dispensed Refills Start Date End Date acetaminophen (TYLENOL) 325 mg tablet Take 3 tablets (975 mg total) by mouth. 08/08/2022 ascorbic acid (VITAMIN C) 1,000 mg tablet Take 1 tablet (1,000 mg total) by mouth 1 (one) time each day. cholecalciferol (VITAMIN D-3) 25 mcg (1,000 unit) capsule Take by mouth. dapagliflozin propanediol (FARXIGA) 10 mg tablet Take 1 tablet (10 mg total) by mouth 1 (one) time each day. 07/05/2021 docusate sodium (COLACE) 100 mg capsule Take 1 capsule (100 mg total) by mouth. 08/08/2022 famotidine (PEPCID) 20 mg tablet Take 1 tablet (20 mg total) by mouth. 08/08/2022 lidocaine (LIDODERM) 5 % patch Place 1 patch on the skin. losartan (COZAAR) 50 mg tablet Take 2 tablets (100 mg total) by mouth 1 (one) time each day. OXYCODONE HCL ER PO Take 5 mg by mouth. 08/08/2022 rosuvastatin (CRESTOR) 10 mg tablet Take 1 tablet (10 mg total) by mouth. 02/15/2021 senna (SENOKOT) 8.6 mg tablet Take 2 tablets (17.2 mg total) by mouth. 08/08/2022 SITagliptin phosphate (Januvia) 100 mg tablet Take 1 tablet (100 mg total) by mouth 1 (one) time each day. documented as of this encounter Discharge Disposition Disposition Code Departure Means Destination Home or Self Care documented in this encounter Plan of Treatment Not on file documented as of this encounter Procedures Procedure Name Priority Date/Time Associated Diagnosis Comments CT CHEST WO CONTRAST Routine 03/23/2024 1:47 PM EST H/O malignant neoplasm of lung documented in this encounter Results * CT Chest wo Contrast (03/23/2024 1:47 PM EST) Anatomical Region Laterality Modality Body Computed Tomogra phy 03/30/2024 8:36 AM EST Impressions 03/30/2024 8:52 AM EST Impression: 1. New 4 mm juxtapleural right lower lobe nodule, for which a follow-up CT is recommended in 6 months. 2. No developing thoracic lymphadenopathy. 3. Stable right upper lobectomy sequelae. [employer] ETHAN ([id number]) -------- FINAL REPORT -------- Dictated By: Elida Zhang Dictated Date: 03/30/2024 08:36 ET Assigned Physician: Elida Zhang Reviewed and Electronically Signed By: Elida Zhang Signed Date: 03/30/2024 08:52 ET Workstation ID: [id number] Transcribed By: Self Edit Transcribed Date: 03/30/2024 08:36 ET Narrative 03/30/2024 8:52 AM EST History: Non-small cell lung carcinoma. Surveillance. Status post right upper lobectomy 08/06/22. Personal history of right breast carcinoma treated with mastectomy and radiation. Comparison: 09/08/23, 06/12/22 Technique: Helical volumetric imaging of the thorax was performed without IV contrast. DLP: 250.56 mGy/cm [employer] Iterative reconstruction technique Findings: Right upper lobectomy [...] was performed withoutIV contrast. DLP: 250.56 mGy/cm [employer] Iterative reconstruction technique Findings: Right upper lobectomy [...] lymphadenopathy. 3. Stable right upper lobectomy sequelae. [facility] ([id number]) -------- FINAL REPORT -------- Dictated By: Elida Zhang Dictated Date: 03/30/2024 08:36 ET Assigned Physician: Elida Zhang Reviewed and Electronically Signed By: Elida Zhang Signed Date: 03/30/2024 08:52 ET Workstation ID: [id number] Transcribed By: Self Edit Transcribed Date: 03/30/2024 08:36 ET Jose Michele MD IMG CT PROCEDURES documented in this encounter Visit Diagnoses Diagnosis H/O malignant neoplasm of lung documented in this encounter Care Teams Mechanical Manufacturing Technician Relationship Specialty Start Date End Date James Lopez MD [address] [place] [address] [address] [facility] [place] [address] PCP - General 06/19/22 documented as of this encounter
== END 2024-04-20 15:06 | disposition home or self-care (01) ==
PROVIDERS: PCP Internal Medicine; Visit Provider Internal Medicine
DX: E11.65 Type 2 diabetes mellitus with hyperglycemia (principal); C34.11 Malignant neoplasm of upper lobe, right bronchus or lung; E66.9 Obesity, unspecified; Z68.34 Body mass index [BMI] 34.0-34.9, adult; Z85.3 Personal history of malignant neoplasm of breast; E78.00 Pure hypercholesterolemia, unspecified; I10 Essential (primary) hypertension

== ENCOUNTER → 2024-04-20 14:08 | Outpatient (BNVA) | payer OTHER, SELFPAY | PROVIDERS: PCP Internal Medicine; Visit Provider Internal Medicine | DX: C34.11 Malignant neoplasm of upper lobe, right bronchus or lung (principal); E11.65 Type 2 diabetes mellitus with hyperglycemia; E78.00 Pure hypercholesterolemia, unspecified; I10 Essential (primary) hypertension; E66.9 Obesity, unspecified | CPT/HCPCS: 83036; 96127; 99212 ==

== ENCOUNTER 2024-07-20 14:32 | Outpatient (AMB) | payer OTHER, SELFPAY ==
[2024-07-20 14:49] VITALS: BP 136/70; PULSE 83; O2SAT 96; BMI 34.2
--- NOTE | 2024-07-20 14:49 | MHC.PC.OV ---
Vital Signs 07/20/24 14:49 Height 5 ft 4 in Weight 199 lb BMI 34.2 BP 136/70 Blood Pressure Location Lt brachial Position Sitting Pulse 83 Pulse Source Pulse Oximeter Pulse Oximetry (%) 96 Oxygen Delivery Method Room Air Intake Visit Reasons: DM Allergies glimepiride Allergy (Unknown, Verified 07/20/24 14:49) Unknown metformin Allergy (Unknown, Verified 07/20/24 14:49) diarrhea simvastatin Allergy (Unknown, Verified 07/20/24 14:49) Unknown Medication List - Last Reconciled 07/20/24 by James Lopez MD ascorbic acid (vitamin C) 1 g PO DAILY blood sugar diagnostic (FreeStyle Lite Strips) As directed check the BS QD cholecalciferol (vitamin D3) 25 mcg PO DAILY dapagliflozin propanediol 10 mg PO DAILY 90 days disposable gloves (Biobrane Gloves Medium) As directed fexofenadine (Kalli Allergy) 180 mg PO DAILY lancets (FreeStyle Lancets) As directed check BS QD lidocaine 5% 1 patch topical DAILY 30 days losartan 100 mg PO DAILY 90 days [Lymphediva Arm Sleeve with Gauntlet As directed] [MAstectomy BRA Breast RIGHT As directed] miscellaneous medical supply 2 pairs of post mastectomy compression sleeves as directed ; RIGHT; custom class one right upper extremity due to lymphedema, code to be used is I97.2; [prosthetic breast RIGHT As directed] rosuvastatin 20 mg PO DAILY 90 days sitagliptin phosphate 100 mg PO DAILY Tobacco use date assessed: 04/20/24 Fall risk assessment: No Falls in past year Last assessed Fall Risk: 07/20/24 Dental Screening Dental Screen Date: 04/20/24 [facility] Medical History (Updated 04/05/24 @ 18:11 by James Lopez MD) Cough Lung nodule Hypertensive retinopathy of both eyes History of COVID-19 Vitamin D deficiency History of breast cancer (~2009) Pulmonary nodule Multinodular thyroid Osteoarthritis of right knee Right knee pain B12 deficiency Acute blood loss anemia Hypercholesterolemia Obesity (BMI 30-39.9) Diabetic nephropathy Hypertension Type 2 diabetes mellitus with hyperglycemia Surgical History S/P thyroid biopsy History of total mastectomy of right breast (~2009) History of bunionectomy Family History Father No problems noted. Mother Enlarged heart Paternal Aunt Diabetes Social History Household Members: None Housing: Apartment Do you presently have visiting nurse or other home services: No Alcohol intake: current Alcohol intake frequency: 0-2 drinks per day Comment: rings appropriately Patient Tobacco Use Status: Former Tobacco user Tobacco use type: Cigarette Years Smoked: quit 1999 e-Cigarette/Vaping Use: Never Used Second Hand Smoke Exposure: No service: No Current occupational status: retired Cognitive needs: No Hearing needs: No Vision needs: Yes Questionnaire PHQ-9 Over the last 2 weeks, how often have you been bothered by any of the following problems? 1. Little interest or pleasure in doing things: not at all 2. Feeling down, depressed, or hopeless: not at all 3. Trouble falling or staying asleep, or sleeping too much: not at all 4. Feeling tired or having little energy: not at all 5. Poor appetite or overeating: not at all 6. Feeling bad about yourself - or that you are a failure or have let yourself or your family down: not at all 7. Trouble concentrating on things, such as reading the newspaper or watching television: not at all 8. Moving or speaking so slowly that other people could have noticed. Or the opposite - being so fidgety or restless that you have been moving around a lot more than usual: not at all 9. Thoughts that you would be better off or of hurting yourself in some way: not at all Total score: 0 Depression Screening Interpretation: Negative Depression Screening Done: Yes 76491 - PHQ-9 Billing: Yes Source: Developed by Drs. Dexter Vásquez, Judi Bell, Omari Leach and colleagues, with an educational pricila from [employer]. Thrive Questionnaire Date Thrive assessed: 04/20/24 NATALIA-7 AMB Questionnaire NATALIA-7 Date NATALIA - 7 assessed: 04/20/24 Source: Developed by Drs. Dexter Vásquez, Omari Randolph and colleagues, with an educational pricila from [employer]. Physical exam (Primary Care) Vital Signs: Last Vital Signs Pulse 83 07/20/24 14:49 BP 136/70 07/20/24 14:49 Pulse Ox 96 07/20/24 14:49 Oxygen Delivery Method Room Air 07/20/24 14:49 BMI result Body Mass Index 34.2 Tobacco/Smoking Status: Tobacco use Status Tobacco use date assessed 04/20/24 07/20/24 14:50 Patient Tobacco Use Status Former Tobacco user 07/20/24 14:50 Tobacco use type Cigarette 07/20/24 14:50 e-Cigarette/Vaping Use Never Used 07/20/24 14:50 PHQ-9: PHQ-9 Score PHQ-9: Total score 0 07/20/24 15:10 Depression Screening Interpretation: Negative Thrive Assessment: Date of Thrive Assessment Date Thrive assessed 04/20/24 07/20/24 14:50 Const General: alert; No acute distress Eyes Conjunctivae: conjunctivae normal Resp Auscultation: clear to auscultation bilaterally Cardio Rate: regular rate Rhythm: regular rhythm GI Inspection: Yes normal to inspection Extrem General: Yes normal to inspection and No edema Results AMB Hemoglobin A1c AMB Hemoglobin A1c 7.0 % Last Edit by Mary Jo Love CMA on 07/20/24 15:06 Results Reviewed Results Reviewed: Laboratory Last Values Hgb A1c (Clinic) 7.0 % (4.0-6.0) H 07/20/24 14:50 Coding Level of Care Code Est Pt Level 4 (60562) Complex EM visit Add On G2211 Diagnoses Type 2 diabetes mellitus with hyperglycemia, without long-term current use of insulin E11.65 Diabetes mellitus care home insulin use: without long term care administrator use Essential hypertension I10 Hypertension type: essential hypertension Hypercholesterolemia E78.00 Obesity (BMI 30-39.9) E66.9 Cancer of upper lobe of right lung C34.11 Additional Codes PHQ-9 - 29077 - PHQ-9 Billing: Yes ([id number]) Assessment & Plan Assessment & Plan (1) Type 2 diabetes mellitus with hyperglycemia: Comment: Dr. Leon Code(s): E11.65 - Type 2 diabetes mellitus with hyperglycemia Category: Medical Qualifiers: Diabetes mellitus long term care administrator insulin use: without long term care administrator use Qualified Code(s): E11.65 - Type 2 diabetes mellitus with hyperglycemia Plan: Decrease the amount of carbohydrate intake, pasta, bread, rice and potatoes are all sugar and that is aside from all the sweet stuff, remember that fruits are good but they are Sweet also. Hemoglobin A1c goal of less than 7.0. Patient on Farxiga and Januvia. (2) Hypertension: Code(s): I10 - Essential (primary) hypertension Category: Medical Qualifiers: Hypertension type: essential hypertension Qualified Code(s): I10 - Essential (primary) hypertension Plan: Continue with blood pressure medication. Decrease salt intake and exercise patient on losartan 100 mg once a day (3) Hypercholesterolemia: Code(s): E78.00 - Pure hypercholesterolemia, unspecified Category: Medical Plan: Avoid fried foods, chicken skin, eggs, butter margarine, pastries and meat. Be it pork or beef they have a lot of cholesterol LDL goal of less than 100 and triglyceride of less than 150. Patient on rosuvastatin 20 mg once a day (4) Obesity (BMI 30-39.9): Code(s): E66.9 - Obesity, unspecified Category: Medical Plan: Diet and exercise (5) Cancer of upper lobe of right lung: Comment: July 2022 right upper wedge resection with completion lobectomy and lymph node showing adeno carcinoma Code(s): C34.11 - Malignant neoplasm of upper lobe, right bronchus or lung Category: Medical Plan: Continue to follow-up with oncology Plan History of Present Illness The patient is a 73-year-old female presenting with chronic conditions, including type 2 diabetes mellitus, hypertension, hypercholesterolemia, and a history of both breast and lung cancers. Recently, her management has focused on these areas, with improvements noted in her diabetes control, as evidenced by a decrease in hemoglobin A1c from 8.3% in March 2024 to 7.0% at this visit. Her glucose is managed with Farxiga and Januvia. Hypercholesterolemia management efforts continue with rosuvastatin, although her LDL remains at 116 mg/dL, above the target of 100 mg/dL. Hypertension is controlled with losartan. Her recent CT scan was scheduled for a six-month follow-up after being conducted in March for lung cancer follow-up. She also experiences chronic back pain and is considering medications, including Tramadol, for pain relief after declining stronger narcotics. Health Maintenance - Mammogram completed in February 2024. - Bone density test performed in February 2023. - Cologuard test conducted in February 2022. - CT scan of the lung in March 2024, with a scheduled follow-up in mid. - Discussion of pneumococcal vaccination, with a booster due three months post follow-up. - Shingles vaccination discussed; contraindication noted due to past chemotherapy. - Lifestyle modifications for diet and exercise for weight and cholesterol management initiated. Social History - Substance use: No explicit mention. - Family status: No explicit mention. - Exercise and activity level: Encouragement of routine exercise discussed. - Nutritional intake: Consider dietary measures for cholesterol control. Review of Systems - Cardiovascular: Denies new symptoms. - Respiratory: Reports history of lung cancer in right upper lobe. - Endocrine: Reports diabetes mellitus with recent improvement in glucose control. - Neurological: Reports chronic back pain. - Musculoskeletal: Reports chronic back pain, considering Tramadol for management. Physical Exam Results - CT of the lung: Conducted in March 2024. - Lab results March 2024: Blood sugar 146 mg/dL, hemoglobin A1c 8.3%, creatinine 0.72 mg/dL, LDL 116 mg/dL, normal electrolytes and liver function tests. Plan 1. Shingles vaccine contraindication is noted due to past chemotherapy. Additional lab tests for cholesterol levels are scheduled for three months ahead to guide further decision-making.: Patient was informed and verbally consented to the use of an ambient scribe for clinic note documentation during this visit. Discussion Notes During this visit, the patient and I reviewed her overall management plan, highlighting ongoing treatment successes, such as improvement in glycemic control. I detailed the rationale for her diabetes and hypercholesterolemia management and discussed the significance of adhering to medication and lifestyle modifications. I addressed the potential use of Tramadol for her back pain, emphasizing the intention to offer relief without introducing stronger narcotics. Future plans for lung cancer surveillance include a follow-up CT scan. We also discussed the importance of maintaining up-to-date vaccinations, particularly the pneumococcal booster, and the constraints around receiving the shingles vaccine due to past chemotherapy. A new blood work request has been made for three months hence to reassess cholesterol levels and guide future dosing adjustments. The patient concurs with these plans. Patient Instructions - Continue taking Farxiga and Januvia as prescribed for blood sugar control. - Take losartan daily for blood pressure management. - Exercise regularly and maintain a cholesterol-conscious diet. - Use Tramadol for back pain relief if needed. - Schedule follow-up CT scan for lung cancer in August 2024. - Get a blood test in three months to monitor cholesterol. - Plan for a pneumococcal vaccine booster in three months. - Return in three months for follow-up visit. - Contact the clinic if new concerns or worsening symptoms arise. - Confirm future immunization plan considering past chemotherapy. Orders: Orders AMB Hemoglobin A1c Today Z13.9 - Encounter for screening, unspecified
--- OUTSIDE RECORDS SUMMARY | 2024-07-20 15:52 | XMS_ITS ---
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 Name Role Phone James Lopez Primary Care Provider Demar Beach Unavailable [phone] Allergies Allergen (clinical drug ingredient) Drug/Non Drug Allergy documented on EMR Reaction Allergy Type Onset Date Status metformin Metformin diarrhea Drug Allergy Active REASON FOR VISIT At Risk Footcare, Painful Nail(s) aggravated by shoes and causing difficulty standing/walking., ToeIrritation Medications Medication SIG (Take, Route, Frequency, Duration) Notes Start Date End Date Status Rosuvastatin Calcium 20 MG 1 tablet Orally Once a day Active Losartan Potassium 100 MG 1 tablet Orally Once a day Active Januvia 100 MG 1 tablet Orally Once a day Active Vitamin C 1000 MG 1 tablet Orally Once a day Active Farxiga 10 MG 1 tablet Orally Once a day Active Extra Depth Orthopedic Shoes, (1) Pair With (3) Pair Custom Heat Molded Multidensity Innersoles Dx: NIDDM/PVD(E11.51), Hammertoe Foot Deformity(M20.41,M20.42), Preulcerative Skin Lesion(s)(L85.1) Wear Daily for 365 days 04/27/2024 Active Vitamin D3 1000 UNIT 1 capsule Orally On ce a day Active Social History Tobacco Use: Social History Observation Description Date Details (start date - stop date) Never Smoker NA - NA Tobacco use other than smoking: Question Answer Notes Are you an other tobacco user? No Tobacco Control (Standard) Question Answer Notes Tobacco use: Nonsmoker Additional Findings: Tobacco non-user Current no nsmoker Problems Problem Type SNOMED Code ICD Code Onset Dates Problem Status W/U Status Risk Notes Problem Type 2 diabetes mellitus with peripheral angiopathy (071241008) Type 2 diabetes mellitus with diabetic peripheral angiopathy without gangrene (E11.51) Active confirmed Q7(A), Q8(2B), Q9(1B,2C) Problem Acquired hammer toe of right foot (8399851237919 105) Other hammer toe(s) (acquired), right foot (M20.41) Active confirmed Problem Acquired hammer toe of left foot (6598450067580 103) Other hammer toe(s) (acquired), left foot (M20.42) Active confirmed Vital Signs Height 5ft 3inch in 04/27/2024 Weight 208 lbs 04/27/2024 BMI 36.84 kg/m2 04/27/2024 Blood pressure systolic 120 mm Hg 04/27/19 25 Blood pressure diastolic 80 mm Hg 025 Procedures Procedure Date Ordered Date Performed Result Body Sit e 75769-BPFOPQL NAIL, 1-5 04/27/2024 N/A 61923-PFYX SKIN LESIONS, OVER 4 04/27/2024 N/A [id number] DYSTROPHIC NAILS ANY # 04/27/2024 N/A Encounters Encounter Location Date Provider Diagnosis [facility] [address] [address] 04/27/2024 Demarshirlene EricksonAyla Type 2 diabetes mellitus with diabetic peripheral angiopathy without gangrene E11.51 ; Tinea unguium B35.1 ; Pain in right toe(s) M79.674 ; Pain in left toe(s) M79.675 ; Other hammer toe(s) (acquired), left foot M20.42 and Other hammer toe(s) (acquired), right foot M20.41 Assessments Encounter Date Diagnosis (ICD Code) Assessment Notes Treatment Notes Treatment Clinical Notes Section Notes 04/27/2024 Type 2 diabetes mellitus with diabetic peripheral angiopathy without gangrene (ICD-10 - E11.51) Q7(A), Q8(2B), Q9(1B,2C) 04/27/2024 Tinea unguium (ICD-10 - B35.1) 04/27/2024 Pain in right toe(s) (ICD-10 - M79.674) 04/27/2024 Pain in left toe(s) (ICD-10 - M79.675) 04/27/2024 Other hammer toe(s) (acquired), left foot (ICD-10 - M20.42) 04/27/2024 Other hammer toe(s) (acquired), right foot (ICD-10 - M20.41) Patient Educated with: DIABETIC FOOT CARE INSTRUCTIONS.p df (DIABETIC FOOT CARE INSTRUCTIONS.p df) Plan Of Treatment Medication Medication Name Sig Start Date Stop Date Notes Extra Depth Orthopedic Shoes , (1) Pair With (3) Pair Custom Heat Molded Multidensity Innersoles Dx: NIDDM/PVD(E11.51), Hammertoe Foot Deformity(M20.41,M20.42), Preulcerative Skin Lesion(s)(L85.1) Wear Daily for 365 days 04/27/2024 Treatment Notes Assessment Notes Other hammer toe(s) (acquired), right fo ot Patient Educated with: DIABETIC FOOT CARE INSTRUCTIONS.pdf (DIABETIC FOOT CARE INSTRUCTIONS.pdf) Pending Test Test Name Order Date [id number] NAIL, 1-5 04/27/2024 58071-KCJQ SKIN LESIONS, OVER 4 04/27/19 25 [id number] DYSTROPHIC NAILS ANY # Next Appt Details Follow Up: 3 Months, Reason: Provider Name:Demar Aguila , 08/06/2024 01:15:00 PM, [address] [place] [address], [phone], Procedure Notes * Category Sub-Category Detail Notes Keratoma Treatment Parring or Cutting o f Benign Hyperkeratotic Lesion(s) (-57) More than 4 Lesions - Due to the at risk nature of the patients medical condition as documented in the exam findings, performance of this keratoderma treatment is medically necessary as its management by an unskilled/untrained nonprofessional would put this patients foot and overall health at risk. Therefore, the benign hyperkeratotic lesions, ( 6 ) in total, locations as stated and described in the exam ( SUB MTH (s), 1, B/L, SUB MTH (s), 5, B/L, Plantar Heel(s), B/L ), were pared, and/or cut utilizing a sterile 15 blade, tissue nippers, and/or power dremel instrumentation by the physician of record - 46352, Q8 Debride Nails 1-5 Procedure: Due to the cli nical pathology outlined in the exam findings, performance of this nail treatment is medically necessary as its management by an unskilled/untrained nonprofessional would put this patients foot and overall health at risk. Therefore, debridement to affected nail(s), as described in exam ( TA, T5, T9 ), was performed exclusively by the physician of record to reduce/remove overall nail length, girth, thickness, subungual debris, and necrotic tissue, by manual and/or electrical means through the use of a nail nipper and/or dremel stylegrinder, to a more viable healthy nail plate or bed tissue 5 nails or fewer in number. Silver nitrate was used for any petechial bleeding as necessary. Definitive antifungal treatment options, both pharmaceutical and surgical, have been reviewed and discussed with the patient. The patient solely prefers the use of intermittent/as needed professional debridement services for their nail condition and understands that additional periodic treatments may be required as necessary to maintain effective symptomatic relief - 29171 Nail Reduction Nail Reduction (-27) Trimming o f all dystrophic nails - Due to the at risk nature of the patients medical condition as documented in the exam findings, performance of this nail treatment is medically necessary as its management by an unskilled/untrained nonprofessional would put this patients foot and overall health at risk. Therefore, the dystrophic nails, in locations as stated and described in the exam ( T1, T2, T3, T4, T6, T7, T8 ), were debrided by the phisician of record to reduce/remove overall nail length and girth, by manual and electrical means with use of a nail nipper and/or dremel, to more viable healthy nail plate or bed tissue - G0127, Q8 Progress Notes * Brandi LOWERYArchanaOB:1950 (73 yo F)Acc No.[id number]:04/27/2024 Progress Notes Patient:?Juany LOWERY Provider:?Demar Aguila DPM :1950???Age:73 Y???Sex:Female D ate:04/27/2024 Address:[address] [place] [address] [address], [facility] Pcp:James Lopez Subjective: * Chief Complaints: * ???At Risk FootcarePainful N ail(s) aggravated by shoes and causing difficulty standing/walking.Toe Irritation * HPI: ???At Risk footcare:?Pt States Last PCP Visit:?Date?04/20/2024 ???Toe pain:?Location:?B/L feet.?Duration:?several years.?Course:?worse.?Aggravated by:?shoes, any pressure.?Treatments:?change in shoes.? * ROS:?General/Constitutional:?Nausea?denies.?Vomiting?denies.?Hunger Thirst?admits.?Loss appetite?denies.?Chills?denies.?Fatigue?denies.?Fever?denies.?Night Sweats?denies.?Unexplained weight loss?denies.?Unexplained weight gain?denies.?HEENTM:?Dentures?admits.?Dizziness?denies.?Glasses/contacts?denies.?Retinopathy?den ies.?Blurred/double vision?denies.?TMJ?denies.?Discharge/drainage?denies.?Implants?denies.?Sore throat?denies.?Dental implants?denies.?Hard of hearing ?denies.?Difficulty chewing/swallowing/speaking?denies.?Nose bleeds?denies.?Sore mouth?denies.?Respiratory:?On O xygen?denies.?Pneumonia/pleurisy?denies.?Bronchitis?denies.?Emphysema?denies.?Co ughing?admits.?Cough blood?denies.?Shortness of breath?denies.?Wheezing?denies.?Cardiovascular:?Pacemaker?denies.?MVP?denies.?WPW?denies.?CHF?denies.?Heart attack?denies.?Septal defect?denies.?Rapid beat?denies.?Chest pain ?denies.?Atrial Fib.?denies.?Murmur/Palpitations?denies.?Gastrointestinal:?Hemorrhoids?denies.?Stomach/Abdominal pain?denies.?Dark blood stool?denies.?Irritable bowel ?denies.?Constipation?denies.?Diarrhea?denies.?Hematology:?Swelling?denies.?Clots?denies.?Varicose Veins?denies.?Bruising?denies.?Bleeding problem?denies.?Genitourinary:?Blood urine?denies.?Frequent/Painfu/urination/bladder control?admits.?Kidney stones?denies.?Infection (UTI)?denies.?Nephropathy?denies.?sex trans dis (STD)?denies.?Prostate?denies.?Musculoskeletal:?Hammertoes?admits.?Bunions?denies.?Back Pain?admits.?Muscle Cramps/ Resting?denies.?Muscle cramps / walking?denies.?Generalized aches and pains?denies.?Weakness?denies.?Integ.:?[place]?denies.?Scars?denies.?Corns/calluses?admits.?Ingrown nails?admits.?Painful nails?admits.?Open Sores?denies.?Rashes?denies.?Neurologic:?Difficulty sleeping?denies.?Brain disorder?denies.?Numbness?denies.?Balance trouble?denies.?Confusion?denies.?Fainting/blackouts?denies.?Tingling?admits, bilateral lower extremities, in the toes, that is moderate, which is intermittent.?Tremors?denies.? * Medical History:? * Surgical History:?bunionecto my 1970mastectomy 11/24lung cancer 2022 * Hospitalization/Major Diagno stic Procedure:?Denies Past Hospitalization * Family History:?Mother: dece ased, Heart attack, diagnosed with Unspecified heart disease.?Father: .? * Social History:?Tobacco Use:?Tobacco use other than smoking?Are you an other tobacco user??No ?Tobacco Control (Standard)?Tobacco use:?Nonsmoker ?Additional Findings: Tobacco non-user?Current nonsmoker ???Drugs/Alcohol:?Drugs?Have you used drugs other than those for medical reasons in the past 12 months??No ???Miscellaneous:?Caffeine: yes, 2 times a week. ?Children: yes, 1. ?Exercise: yes, water therapy. ?Marital status: Single, single. ?Occupation: Retired. * Medications:?TakingVitamin D 3 1000 UNIT Capsule 1 capsule Orally Once a day Vitamin C 1000 MG Tablet 1 tablet Orally Once a day Farxiga 10 MG Tablet 1 tablet Orally Once a day Rosuvastatin Calcium 20 MG Tablet 1 tablet Orally Once a day Losartan Potassium 100 MG Tablet 1 tablet Orally Once a day Januvia 100 MG Tablet 1 tablet Orally Once a day Medication List reviewed and reconciled with the patientTaking Vitamin D3 1000 UNIT Capsule 1 capsule Orally Once a day Taking Vitamin C 1000 MG Tablet 1 tablet Orally Once a day Taking Farxiga 10 MG Tablet 1 tablet Orally Once a day Taking Rosuvastatin Calcium 20 MG Tablet 1 tablet Orally Once a day Taking Losartan Potassium 100 MG Tablet 1 tablet Orally Once a day Taking Januvia 100 MG Tablet 1 tablet Orally Once a day Medication List reviewed and reconciled with the patient * Allergies:?Metformin: sarah garcía[Allergies Verified] Objective: * Vitals:?Ht:5ft 3inch, Wt:208 , BMI:36.84, Shoe size:6, BP:120/80mm Hg, BS:143, Ht-cm: 160.02 cm, Wt-k.35 kg. * ???Past Orders: ???Lab:HEMOGLOBIN A1C (GLYCO HEMOGLOBIN) (Order Date - 03/17/2024) (Collection Date & Time - 04/27/2024 02:31 PM) ? Value Reference Range ?HEMOGLOBIN A1C % (HH) 7.2 * Examination: ???Ophthalmology Referral: ?DIABETES EYE EXAM?Procedure Performed:?Yes ?Date of Exam Performed?12/17/2023 ?Diabetic Retinopathy Screening:?Yes ?Retinal Screening Performed:?Yes ?Findings of Diabetic Eye Exam:?no retinopathy?Vascular: ?DP PULSES (B):? 0-1/4, B/L.?PT PULSES (B):? 0/4, B/L.?CAPILLARY FILL TIME:? delayed, all digits, B/L.?TROPHIC CONDITION-TEXTURE/ELASTICITY/TURGOR/HAIR GROWTH (B):? decreased, fragile, thin, shiny skin, with sparse to absent hair growth, B/L.?TEMPERTURE GRADIENT (C):? decreased, cool to cool, proximal to distal, B/L.?PIGMENTATION:?mottled, B/L.?EDEMA (C):?absent, B/L.?CLAUDICATION (C):?denies, B/L.?REST PAIN:?denies, B/L.?PARESTHESIA (C):?absent, B/L.?BURNING (C):?absent, B/L.?Nails: ?NAILS are:?Elongated, overgrown, dystrophic, lytic, greater than 3mm thick, discolored and friable with crumbly malodorous subungual debris, with pain on palpation ( TA, T5, T9 ), all other nails not described with characteristics as possessing mycosis are elongated, overgrown, and dystrophic (?T1, T2, T3, T4, T6, T7, T8?).?Dermatologic: ?SKIN FINDINGS:?Skin exam reveals Keratotic lesion(s) located at, SUB MTH (s), 1, B/L, SUB MTH (s), 5, B/L, Plantar Heel(s), B/L.?Neurological: ?SENSORY:?Neurological exam reveals intact sensorium, pain sensation normal, vibration sensation intact, pinprick sensation is normal in the lower extremities, 5.07 monofilament test performed at plantar aspects of 5 varied sites per foot shows sensation, normal, B/L, Pt denies, anesthesia, burning, paresthesia, tingling, B/L.?Orthopedic: ?MUSCLE STRENGTH:?5/5 all groups in a symmetrical fashion, B/L.?DIGITAL DEFORMITIES:?Digital contracture, PIPJ, 2-5 B/L, incompl-reducible to push-up test, no over, nor underlapping,?there is?evidence of shoe producing skin irritation.?FOOTWEAR:?worn, non-supportive, shoe gear properties exacerbate patient's foot/toe deformity.?General Examination: ?GENERAL APPEARANCE:?Reveals a pleasant, alert, well nourished, well- developed, well hydrated individual, who demonstrates proper attention to hygiene/body habitus, and is in no acute distress, Pt serves as own historian for office visit today.?ORIENTED:?person, place, and time.?FOOT EXAM:?Lower Extremity Neurological Exam performed:?Yes Date ?Visual exam of foot performed:?Yes ?Date?04/27/2024 ?Footwear Evaluation?Footwear Evaluation performed:?Yes??? Assessment: * Assessment: 1.?Type 2 diabetes mellitus with diabetic peripheral angiopathy without gangrene - E11.51???Notes :Q7(A), Q8(2B), Q9(1B,2C)???2.?Tinea unguium - B35.1???3.?Pain in right toe(s) - M79.674???4.?Pain in left toe(s) - M79.675???5.?Other hammer toe(s) (acquired), left foot - M20.42???Specify :Chronic problem, Worse (4),Rx Management (4)???6.?Other hammer toe(s) (acquired), right foot - M20.41 (Primary)???Specify :Chronic problem, Worse (4),Rx Management (4)??? Plan: * Treatment: 2.?Type 2 diabetes mellitus with diabetic peripheral angiopathy without gangrene?Procedure: 51840-JXVH SKIN LESIONS, OVER 4 ?Procedure: K8269-[id number] DYSTROPHIC NAILS ANY # 3.?Tinea unguium?Procedure: 52452-NIEURIH NAIL, 1-5 * Procedures:?Debride Nails 1-5:?Procedure:?Due to the clinical pathology outlined in the exam findings, performance of this nail treatment is medically necessary as its management by an unskilled/untrained nonprofessional would put this patients foot and overall health at risk. Therefore, debridement to affected nail(s), as described in exam ( TA, T5, T9 ), was performed exclusively by the physician of record to reduce/remove overall nail length, girth, thickness, subungual debris, and necrotic tissue, by manual and/or electrical means through the use of a nail nipper and/or dremel stylegrinder, to a more viable healthy nail plate or bed tissue 5 nails or fewer in number. Silver nitrate was used for any petechial bleeding as necessary. Definitive antifungal treatment options, both pharmaceutical and surgical, have been reviewed and discussed with the patient. The patient solely prefers the use of intermittent/as needed professional debridement services for their nail condition and understands that additional periodic treatments may be required as necessary to maintain effective symptomatic relief - 11759.?Keratoma Treatment:?Parring or Cutting of Benign Hyperkeratotic Lesion(s)?(-57) More than 4 Lesions - Due to the at risk nature of the patients medical condition as documented in the exam findings, performance of this keratoderma treatment is medically necessary as its management by an unskilled/untrained nonprofessional would put this patients foot and overall health at risk. Therefore, the benign hyperkeratotic lesions, ( 6 ) in total, locations as stated and described in the exam (?SUB MTH (s),?1,?B/L,?SUB MTH (s),?5,?B/L,?Plantar Heel(s),?B/L?), were pared, and/or cut utilizing a sterile 15 blade, tissue nippers, and/or power dremel instrumentation by the physician of record - 85145, Q8.?Nail Reduction:?Nail Reduction?(-27) Trimming of all dystrophic nails - Due to the at risk nature of the patients medical condition as documented in the exam findings, performance of this nail treatment is medically necessary as its management by an unskilled/untrained nonprofessional would put this patients foot and overall health at risk. Therefore, the dystrophic nails, in locations as stated and described in the exam ( ?T1, T2, T3, T4, T6, T7, T8 ), were debrided by the phisician of record to reduce/remove overall nail length and girth, by manual and electrical means with use of a nail nipper and/or dremel, to more viable healthy nail plate or bed tissue - G0127, Q8.? * Procedure Codes:?G0127 PAUL ING DYSTROPHIC NAILS ANY #, Modifiers: XS , [id number] DEBRIDE NAIL, 1-5, Modifiers: XS 13649 TRIM SKIN LESIONS, OVER 4, Modifiers: XS , Q8 * Preventive Medicine:? ??Counseling:?Discussion:?-04: Office or other outpatient visit for the evaluation and management of a new patient, which required a medically appropriate history and/or examination and MODERATE level of DECISION MAKING for: 1 OR MORE CHRONIC PROBLEM(S) THATS WORSENING, 2 STABLE CHRONIC PROBLEMS, A NEWLY DIAGNOSED PROBLEM WITH UNCERTAIN PROGNOSIS, AN ACUTE COMPLICATED INJURY WITH MULTIPLE TREATMENT OPTIONS, OR AN ACUTE PROBLEM WITH ACCOMPANYING SYSTEMIC SYMPTOMS, THAT POSE(S) A MODERATE RISK OF MORBIDITY. THIS CONDITION MAY ALSO INCLUDE RX DRUG MANAGEMENT, OR A DECISON FOR MINOR SURGERY. The visit on the day of the encounter encompassed interpreting the data and educating the patient as to the nature of their condition, treatment options available according to their individual PMH, meds, allergies, and overall health/living conditions, as well as any potential risks or complications that may occur from a failure to adhere to, and participate in, the recommended course of therapy. The discussion included a complete verbal, and/or written explanation of the examination results, any x-rays taken, the proposed diagnosis, and outline of the treatment plan. A schedule for future care needs was also explained. The patient verbalized an understanding of the instructions at this time and agreed to be an active participant in their treatment. If the patient should think of any questions or concerns after the visit, I have encouraged the patient to call the office.?Digital Surgery:?Digital surgery was discussed with the patient, We elected to try conservative treatment at the present time, due to the patients medical history and increased asssociated post-operative risks.?Digital Treatment:?HT- I explained to the patient the possible etiologies of Hammertoes, including genetics/foot type/shoegear/activity level/exercise routine and the risks/benefits of all the different treatment options for their pain including: No treatment at all, Rest, Ice, New/supportive/wider/deeper Shoegear, Digital Padding/Strapping/Taping/Bracing/Gel protective sleeves, Foot/Ankle AFO Bracing, Stretching exercises, Deep Tissue Massage, Arch support/shoe inserts with splay metatarsal padding, and Custom orthoses. I insisted that any digital devices be removed daily and not worn overnight for safety. The patient is to carefully examine the toes daily for any skin irritation while using any splinting or padding device. The advantages and disadvantages of each option were discussed and the patients questions re: shoegear, padding, custom vs prefabricated inserts, activity level, and consistency in home treatment regimens for optimal success were answered to their verbally confirmed satisfaction.?Shoe Gear Counseling:?SHOE Rx - The patient was counseled in great detail on their muscoloskeletal foot and toe deformities which coincided with the dermatological presentations visualized on exam. We discussed how their deformities put the integrity of their feet at risk for potential pedal complications which makes the accomidative diabetic shoes and cutomizable inserts medically necessary. We discussed the different shoe and insert treatment types and options, as well as the important advantages for adhering to regularly wearing these accomidative devices daily. The patient was made aware of the fact that a failure to abide by these recommedations may be deleterious to their foot health as they are able to prevent many pedal complications such as skin irritation, skin ulceration, infection, and even loss of toe/foot/leg/or life. Time was also spent with the patient dispensing and discussing proper diabetic footcare techniques including daily skin moisturization, daily foot inspection for any interruption in skin integrity including open lesions, or sign of infection such as redness/malodor/drainage/swelling. Also discussed and recommended were procedures regarding daily shoe inspection for the presence of internal foreign bodies as well as any visualized irregular shoe or insert wear. Patient questions re: shoes, inserts, and self foot inspections were answered to their satisfaction as the patient verbally confirmed a full understanding of the above information. A Rx for Extra Depth Orthopedic Shoes with 3 pair of custom heat-molded inserts was dispensed.? ??Screening/Special Tests:?Fall Risk?Screening:?No falls in the past year ?FALLS: Screening for Future Fall Risk?Have you had any falls with injury in the past year??No * Follow Up:?3 Months * Images: * Sign off status: Completed true * Provider:?Demar Aguila DPM Date:?2024 Generated for Shoshana vides/Miguel/Duglas on:?07/20/2024 03:52 PM EDT History and Physical Notes * HPI (History of Present Illness) Category Sub-Category Detail Notes Category Not es Toe pain Location: B/L feet Duration: several years Course: worse Aggravated by: shoes, any pressure Treatments: change in shoes At Risk footcare Pt States Last PCP Visit: Date: 5 Examination Category Sub-Category Detail Notes Category Not es Neurological SENSORY: Neurological exa m reveals intact sensorium, pain sensation normal, vibration sensation intact, pinprick sensation is normal in the lower extremities, 5.07 monofilament test performed at plantar aspects of 5 varied sites per foot shows sensation, normal, B/L, Pt denies, anesthesia, burning, paresthesia, tingling, B/L Dermatologic SKIN FINDINGS: Skin exam reveal s Keratotic lesion(s) located at, SUB MTH (s), 1, B/L, SUB MTH (s), 5, B/L, Plantar Heel(s), B/L Orthopedic FOOTWEAR EVALUATION: worn, non-s upportive, shoe gear properties exacerbate patient's foot/toe deformity DIGITAL DEFORMITIES: Digital contracture , PIPJ, 2-5 B/L, incompl-reducible to push-up test, no over, nor underlapping, there is evidence of shoe producing skin irritation MUSCLE STRENGTH: 5/5 all groups in a symmetrical fashion, B/L General Examination GENERAL APPEARANCE: Reveals a pleasant, alert, well nourished, well-developed, well hydrated individual, who demonstrates proper attention to hygiene/body habitus, and is in no acute distress, Pt serves as own historian for office visit today FOOT EXAM: Lower Extremity Neurological Exa m performed:: Yes Date Visual exam of foot performed:: Yes Date: 04/27/2024 ORIENTED: person, place, and t john Footwear Evaluation Footwear Evaluation performe d:: Yes Ophthalmology Referral DIABETES EYE EXAM Procedure Perform ed:: Yes ?Date of Exam Performed: 12/17/2023 Diabetic Retinopathy Screening:: Yes Retinal Screening Performed:: Yes Findings of Diabetic Eye Exam:: no retin opathy Vascular DP PULSES (B): 0-1/4, B/L PT PULSES (B): 0/4, B/L CAPILLARY FILL TIME: delayed, all digits , B/L TEMPERTURE GRADIENT (C): decreased, cool to cool, proximal to distal, B/L TROPHIC CONDITION-TEXTURE/ELASTICITY/TURGOR/HAIR GROWTH (B): decreased, fragile, thin, shiny skin, wi th sparse to absent hair growth, B/L EDEMA (C): absent, B/L CLAUDICATION (C): denies, B/L REST PAIN: denies, B/L PIGMENTATION: mottled, B/L PARESTHESIA (C): absent, B/L BURNING (C): absent, B/L Nails NAILS are: Elongated, overg rown, dystrophic, lytic, greater than 3mm thick, discolored and friable with crumbly malodorous subungual debris, with pain on palpation ( TA, T5, T9 ), all other nails not described with characteristics as possessing mycosis are elongated, overgrown, and dystrophic ( T1, T2, T3, T4, T6, T7, T8 )
--- OUTSIDE RECORDS SUMMARY | 2024-07-20 15:52 | XMS_ITS | Patient Health Record ---
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 Name Role Phone James Lopez Primary Care Provider Demar Beach Unavailable [phone] Allergies Allergen (clinical drug ingredient) Drug/Non Drug Allergy documented on EMR Reaction Allergy Type Onset Date Status metformin Metformin diarrhea Drug Allergy Active Results Component Value Reference Range Notes HEMOGLOBIN A1C (GLYCOHEMOGLO BIN) Reviewed date:04/27/2024 02:31:58 PM Interpretation: Performing Lab: Notes/Report: HEMOGLOBIN A1C % (HH) 7.2 Reason For Referral No Information Medications Medication SIG (Take, Route, Frequency, Duration) [...] capsule Orally On ce a day Active Vitamin C 1000 MG 1 tablet Orally Once a day Active Farxiga 10 MG 1 tablet Orally Once a day Active Social History Tobacco Use: [...] Problem Status W/U Status Risk Notes Problem Acquired hammer toe of right foot (5679220973536 105) Other hammer toe(s) (acquired), right foot (M20.41) Active confirmed Problem Acquired hammer toe of left foot (1913577550737 103) Other hammer toe(s) (acquired), left foot (M20.42) Active confirmed Problem Type 2 diabetes mellitus with peripheral angiopathy (077725271) Type 2 diabetes mellitus with diabetic peripheral angiopathy without gangrene (E11.51) Active confirmed Q7(A), Q8(2B), Q9(1B,2C) Vital Signs Blood pressure diastolic 80 mm Hg 04/27/2024 Height 5ft 3inch in 04/27/2024 Blood pressure systolic 120 mm Hg 04/27/2024 Weight 208 lbs 04/27/2024 BMI 36.84 kg/m2 04/27/2024 Procedures Procedure Date Ordered Date Performed Result Body Sit e [id number] NAIL, 1-5 04/27/2024 N/A 06244-OVAP SKIN LESIONS, OVER 4 04/27/2024 N/A [id number] DYSTROPHIC NAILS ANY # 04/27/2024 N/A Encounters Encounter Location Date Provider Diagnosis [facility] [address] [address] 04/27/2024 Demar Aguila Type 2 diabetes mellitus with diabetic peripheral [...] FOOT CARE INSTRUCTIONS.p df) Plan Of Treatment Pending Test Test Name Order Date [id number] NAIL, 1-5 04/27/2024 [id number] SKIN LESIONS, OVER 4 04/27/19 25 [id number] DYSTROPHIC NAILS ANY # Next Appt Details Provider Name:Demar Harp Ayla , 08/06/2024 01:15:00 PM, [address] [place] [address], [place], [address], Insurance Providers Payer Name Payer Address Payer Phone Subscriber Number Group Number Insured Name Patient Relationship to Insured Coverage Start Date Coverage End Date [facility] [employer] Claims [address] [place] [id number] Juany Lowery Self - patient is the insured Medical (General) History Medical History History ICD Code Arthritis Back,Hip,and Knee pain CAD (Cholesterol) Cancer covid-19 Diabetic type 2 High Blood Pressure Sciatica thyroid Measles Chicken pox Surgical History Surgery Date(Month/Year) bunionectomy 1970 mastectomy 11/24 lung cancer 2022
--- OUTSIDE RECORDS SUMMARY | 2024-07-20 15:52 | XMS_ITS | Clinical Summary ---
Author Organization [facility] Address [address] [place] [address] Phone Care Team Providers Care Mental Health Nurse Name Role Phone James Lopze MD Primary Care Provider [phone] Allergies Active Allergy Reactions Criticality Noted Date Comments Diclofenac 05/02/2021 Other reaction(s): celia Glimepiride Unknown 07/04/2022 Metformin Diarrhea Low 07/04/2022 Simvastatin Unknown 07/04/2022 Medications OXYCODONE HCL ER PO Take 5 mg [...] 01/07/2024 Proteinuria 07/08/2021 Type 2 diabetes mellitus wit hout complication ([facility] V24, [facility] V28) 05/07/2021 Vitamin B12 deficiency 05/07/2021 Hypertension 05/02/2021 Surgical History Surgery Date Site/Laterality Comments BUNIONECTOMY PROCEDURE: BUNION SURGERY, SIMPLE REMOVAL OTHER SURGICAL HISTORY Right PROCEDURE: HISTORICAL COMPLETE UNILATERAL MASTECTOMY Medical History Medical History Date Comments Acute blood loss anemia DX:Acute blood loss anemia B12 deficiency DX:B12 deficienc y Diabetic nephropathy (CMS/HC C V24, CMS/HCC V28) DX:Diabetic nephropathy (HCC ) History of breast cancer DX:Hist ory of breast cancer Mixed hyperlipidemia DX:Mixed hy perlipidemia HTN (hypertension) DX:HTN (hyper tension) Multinodular goiter DX:Multinodu lar goiter Multinodular thyroid DX:Multinod ular thyroid Obesity DX:Obesity Osteoarthritis of right knee DX: Osteoarthritis of right knee Pulmonary nodule DX:Pulmonary no dule Right knee pain DX:Right knee pa in Type 2 diabetes mellitus wit h hyperglycemia (CMS/HCC V24, CMS/[facility] V28) DX:Type 2 tk betes mellitus with hyperglycemia (HCC) History of COPD [...] drink = 0.6 oz pur e alcohol) Comments Unknown Sex and Gender Information Value Date Recorded Sex Assigned at Female 03/23/2024 1:14 PM EST Legal Sex Female 7:31 PM EST Gender Identity Female 03/23/2024 1:14 PM EST Sexual Orientation Straight 03/23/2024 1: 14 PM EST Obstetrics History Last Filed Vital Signs Vital [...] Cancer Screening 1950 COVID-19 Vaccine (#1) 11/17/1955 Diabetes: Annual Foot Exam 1960 Diabetes: Annual Retina Eye Exam 1960 Pneumococcal Vaccine: 50+ Years (1 of 2 - PCV) 1969 Zoster Vaccines (1 of 2) 1969 RSV Immunization Adult Patients (1 - Risk 60-74 years 1-dose series) 2010 Cholesterol Screening (Lipid Panel) 02/16/2022 Depression Screening 02/16/2022 Falls Risk Assessment 02/16/2022 Hepatitis C Screening 02/16/2022 Medicare Annual Wellness Visit 02/16/2022 Osteoporosis Screening (Bone Density Screening) 02/16/2022 Social Influencers of Health Screening 02/16/2022 Diabetes: Annual Urine Albumin-Creatinine Ratio (uACR) 01/07/2024 Diabetes: Blood Sugar Contro l Test (HGBA1C) 01/07/2024 DTaP,Tdap,and Td Vaccines (2 - Td or Tdap) 04/28/2024 04/28/2014 Diabetes: Annual GFR (Glomerular Filtration Rate) 07/02/2024 07/03/2023, 07/03/2023 Hypertension/CHF/CAD Annual BMP Blood Test 07/02/2024 07/03/2023, 07/03/2023 Influenza Vaccine (Season Ended) 2024 12/12/2009 Colorectal Cancer Screening: FIT-DNA (Cologuard) 02/18/2025 02/18/2022, [...] patient's age to complete this topic Meningococcal B Vaccine Aged Out No l onger eligible based on patient's age to complete this topic RSV Immunization Patients Under 20 months Aged Out No longer eligible b ased on patient's age to complete this topic Varicella Vaccines Aged Out No longer eligible based on patient's age to complete this topic Insurance Member Subscriber Plan / Payer (Ef fective 2016-Present) Name:Juany Lowery Relation to Subscriber:Self Name:Juany Lowery Payer ID:[id number] Group ID:[id number] Type:Not on file Address: [address] [place] [address] Care Teams Mental Health Nurse Relationship Specialty Start Date End Date James Lopez MD [address] [place] [address] [address] [facility] [place] [address] PCP - General 06/19/22
--- OUTSIDE RECORDS SUMMARY | 2024-07-20 15:52 | XMS_ITS | Clinical Summary ---
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 Name Role Phone James Lopez MD Primary Care Provider [phone] Allergies Active Allergy Reactions Criticality Noted Date Comments Diclofenac 05/02/2021 Other reaction(s): celia Metformin Diarrhea 07/09/2023 Medications ascorbic acid (VITAMIN C) 1000 MG tablet Take 1,000 mg by mouth 1 (one) time each day Active SITagliptin (JANUVIA) 50 MG tablet Take 100 mg by mouth 1 (one) time each day Active rosuvastatin (CRESTOR) 10 MG tablet Take 10 mg by mouth 02/15/2021 Active Cholecalciferol (Vitamin D3) 25 MCG (1000 UT) capsule Take by mouth Active Dapagliflozin Propanediol 10 MG tablet Take 10 mg by mouth 1 (one) time each day 07/05/2021 Active losartan (COZAAR) 100 MG tablet Take 100 mg by mouth 1 (one) time each day Active Active Problems Problem Noted Date Diagnosed Date Proteinuria, not otherwise specified 07/08/2021 Type 2 diabetes mellitus without complication Personal history of breast cancer 05/07/2021 Vitamin B12 deficiency 05/07/2021 Hypertension 05/02/2021 Resolved Problems Problem Noted Date Diagnosed Date Resolved Date Diabetes mellitus with renal manifestations, type II or unspecified type, not stated as uncontrolled 05/07/2021 07/08/2021 Encounters Date Type Department Care Team Description 07/15/2024 Orders Only [facility] [address] [address] Tom Blunt MD from Last 3 Months Family History Medical History Relation Comments Heart disease Mother enlarged heart Relation Status Comments Father Mother Social History Tobacco Use Types Packs/Day Years Used Date Smoking Tobacco: Former Smokeless Tobacco: Former Alcohol Use Standard Drinks/Week Comments Yes 0 (1 standard drink = 0.6 oz pur e alcohol) Comments Unknown Sex and Gender Information Value Date Recorded Sex Assigned at Not on file Legal Sex Female 10:49 AM EST Gender Identity Not on file Sexual Orientation Not on file Last Filed Vital Signs Vital Sign Reading Time Taken Comments Blood Pressure 142/78 07/09/2023 11:37 AM EDT Pulse 84 07/09/2023 11:37 AM EDT Temperature - - Respiratory Rate - - Oxygen Saturation 99% 07/09/2023 11:37 AM EDT Inhaled Oxygen Concentration - - Weight 89.2 kg (196 lb 9.6 oz) 07/09/2023 11:37 AM EDT Height 162.6 cm (5' 4 ) 07/09/2023 11:37 AM EDT Body Mass Index 33.75 07/09/2023 11:37 AM EDT Plan of Treatment Upcoming Encounters Date Type Department Care Team (Late st Contact Info) Description 07/22/2024 11:40 AM EDT Office Visit [facility] [address] [phone] Tom Blunt MD [address] [phone] Health Maintenance Due Date Last Done Comments Breast Cancer Screening 1950 Pneumococcal Vaccine: 50+ Ye ars (1 of 2 - PCV) 1969 Colorectal Cancer Screening: Annual FOBT 11/17/1999 Colorectal Cancer Screening: Colonoscopy 11/17/1999 Colorectal Cancer Screening: Sigmoidoscopy 11/17/1999 Diabetes: Hemoglobin A1C 05/07/2021 Diabetes: Ophthalmology Exam 05/07/2021 Diabetes: Pedal Pulse Checked 05/07/2021 Diabetes: Sensory Foot Exam 05/07/2021 Diabetes: Visual Foot Exam 05/07/2021 Influenza Vaccine (Season Ended) 2024 Hepatitis B Vaccine Aged Out No longe r eligible based on patient's age to complete this topic Procedures Procedure Name Priority Date/Time Associated Diagnosis Comments PTH, INTACT Routine 07/15/2024 1:18 PM EDT MAGNESIUM Routine 07/15/2024 1:18 PM EDT PHOSPHATE ( PHOSPHORUS) Routine 07/15/2024 1:18 PM EDT URIC ACID Routine 07/15/2024 1:18 PM EDT VITAMIN D 25 HYDROXY Routine 07/15/2024 1:18 PM EDT PROTEIN / CREATININE RATIO, URINE Routine 07/15/2024 1:18 PM EDT URINALYSIS WITH MICROSCOPIC Routine 07/15/2024 1:18 PM EDT COMPREHENSIVE METABOLIC PANEL Routine 07/15/2024 1:18 PM EDT CBC AND DIFFERENTIAL Routine 07/15/2024 1:18 PM EDT MICROSCOPIC EXAMINATION - DO NOT USE Routine 07/15/2024 1:18 PM EDT from Last 3 Months Results * (ABNORMAL) Microscopic Examination (07/15/2024 1:18 PM EDT) WBC, Urine 6-10(A) 0 - 5 /hpf [facility] RBC, Urine None seen 0 - 2 /hpf [facility] Squamous Epithelial, Urine 0-10 0 - 10 /hpf [facility] Casts None seen None seen /lpf [facility] Bacteria, Urine Few None seen/Few [facility] 07/15/2024 1:18 PM EDT 07/15/2024 Tom Blunt MD LAB MICROBIOLOGY - GENERAL OR DERABLES Final Result Performing Organization Address City/[facility]/ZIP Co de Phone Number untapt [facility] [address] [place] [address] * (ABNORMAL) Protein, Total, Random Urine w/Creatinine (Protein/Creat Ratio) (07/15/2024 1:18 PM EDT) Creatinine, Ur 80.0 Not Estab. mg/dL [facility] Protein, Ur 36.7 Not Estab. mg/dL [facility] Urine Protein/Creati nine Ratio 459(H) 0 - 200 mg/g creat [facility] 07/15/2024 1:18 PM EDT 07/15/2024 Tom Blunt MD LAB URINE ORDERABLES Final Re sult Performing Organization Address City/[facility] Co de Phone Number untapt [employer] [address] [place] [address] * Vitamin D 25 Hydroxy (07/15/2024 1:18 PM EDT) Vitamin D, 25-OH, Total 33.0 30.0 - 100.0 ng/mL [facility] Comment: Vitamin D deficiency has been defined by the [place] of Medicine and an Endocrine Society practice guideline as a level of serum 25-OH vitamin D less than 20 ng/mL (1,2). The Endocrine Society went on to further define vitamin D insufficiency as a level between 21 and 29 ng/mL (2). 1. IOM ([place] of [employer]). 2010. Dietary reference ?? intakes for calcium and D. [place]: The ?? National iConText Press. 2. Eagle MF, Neal NC, Zhou ROBBINS, et al. ?? Evaluation, treatment, and prevention of vitamin D ?? deficiency: an Endocrine Society clinical practice ?? guideline. JCEM. 2010; 96(9):1911-30. 07/15/2024 1:18 PM EDT 07/15/2024 Tom Blunt MD LAB BLOOD ORDERABLES Final Re sult [facility] [address] [place] [address] * (ABNORMAL) Urinalysis with microscopic (07/15/2024 1:18 PM EDT) Specific [place], Urine >=1.030(A) 1.005 - 1.030 [facility] pH Urine 5.5 5.0 - 7.5 [facility] Color, Urine Yellow Yellow [facility] Appearance Urine Clear Clear [facility] [place] WBC Esterase Urine Negative Negative [facility] Protein, Ur 1+(A) Negative/Tra ce [facility] Glucose, Ur 3+(A) Negative [facility] [phone] Ketones, Urine Negative Negative [facility] [place] Blood Urine Negative Negative [facility] Bilirubin Urine Negative Negative [facility] [place] Urobilinogen Urine 0.2 0.2 - 1.0 mg/dL [facility] [phone] Nitrite, Urine Negative Negative [facility] Microscopic Examination See below: [facility] [phone] Comment:Microscopic was steve cated and was performed. 07/15/2024 1:18 PM EDT 07/15/2024 Tom Blunt MD LAB URINE ORDERABLES Final Re sult [facility] [address] [place] [address] * CBC and Differential (07/15/2024 1:18 PM EDT) WBC 6.6 3.4 - 10.8 x10E3/uL [facility] RBC 4.82 3.77 - 5.28 x10E6/uL [facility] Hemoglobin 13.2 11.1 - 15.9 g/dL [facility] Hematocrit 40.2 34.0 - 46.6 % [facility] MCV 83 79 - 97 fL [facility] MCH 27.4 26.6 - 33.0 pg [facility] MCHC 32.8 31.5 - 35.7 g/dL [facility] RDW 13.3 11.7 - 15.4 % [facility] Platelets 264 150 - 450 x10E3/uL [facility] Neutrophils Relative 62 Not Estab. % [facility] Lymphocytes Relative 26 Not Estab. % [facility] Monocytes 10 Not Estab. % [facility] Eosinophils Relative 1 Not Estab. % [facility] Basophils Relative 1 Not Estab. % [facility] Neutrophils Absolute 4.1 1.4 - 7.0 x10E3/uL [facility] Lymphocytes Absolute 1.7 0.7 - 3.1 x10E3/uL [facility] Monocytes Absolute 0.7 0.1 - 0.9 x10E3/uL [facility] Eosinophils Absolute 0.1 0.0 - 0.4 x10E3/uL [facility] Basophils Absolute 0.0 0.0 - 0.2 x10E3/uL [facility] Immature Granulocytes 0 Not Estab. % [facility] Immature Grans (Absolute) 0.0 0.0 - 0.1 x10E3/uL [facility] 07/15/2024 1:18 PM EDT 07/15/2024 us Tom Blunt MD LAB BLOOD ORDERABLES Final Re sult Performing Organization Address [facility] de Phone Number [facility] [address] [place] [address] * (ABNORMAL) Uric Acid (07/15/2024 1:18 PM EDT) Uric Acid 2.7(L) 3.1 - 7.9 mg/dL [facility] Comment:Therapeutic target f or gout patients: <6.0 07/15/2024 1:18 PM EDT 07/15/2024 us Tom Blunt MD LAB BLOOD ORDERABLES Final Re sult Performing Organization Address [facility] de Phone Number [facility] [address] [place] [address] * Phosphorus (07/15/2024 1:18 PM EDT) Phosphorus 3.6 3.0 - 4.3 mg/dL [facility] 07/15/2024 1:18 PM EDT 07/15/2024 us Tom Blunt MD LAB BLOOD ORDERABLES Final Re sult Performing Organization Address [facility]/ZIP Co de Phone Number [facility]tapt [facility] [address] [place] [address] * PTH, Intact (07/15/2024 1:18 PM EDT) Pathologist [facility] PTH 40 15 - 65 pg/mL [facility] 07/15/2024 1:18 PM EDT 07/15/2024 us Tom Blunt MD LAB BLOOD ORDERABLES Final Re sult Performing Organization Address City/[facility]/ZIP Co de Phone Number untapt [facility] [address] [place] [address] * Magnesium (07/15/2024 1:18 PM EDT) Pathologist [facility] Magnesium 2.2 1.6 - 2.3 mg/dL [facility] 07/15/2024 1:18 PM EDT 07/15/2024 us Tom Blunt MD LAB BLOOD ORDERABLES Final Re sult Performing Organization Address City/[facility]/ZIP Co de Phone Number [facility] [address] [place] [address] * (ABNORMAL) Comprehensive Metabolic Panel (07/15/2024 1:18 PM EDT) Glucose 126(H) 70 - 99 mg/dL [facility] BUN 12 8 - 27 mg/dL [facility] Creatinine 0.86 0.57 - 1.00 mg/dL [facility] eGFR CKD-EPI CR 2020 71 >59 mL/min/1.7 3 [facility] BUN/Creatinine Ratio 14 12 - 28 [facility] Sodium 141 134 - 144 mmol/L [facility] Potassium 4.4 3.5 - 5.2 mmol/L [facility] Chloride 103 96 - 106 mmol/L [facility] Bicarbonate (CO2) 20 20 - 29 mmol/L [facility] Calcium 10.3 8.7 - 10.3 mg/dL [facility] Comment:Verified by repeat analysis Total Protein 7.2 6.0 - 8.5 g/dL [facility] Albumin 4.8 3.8 - 4.8 g/dL [facility] Globulin 2.4 1.5 - 4.5 g/dL [facility] Total Bilirubin 0.3 0.0 - 1.2 mg/dL [facility] Alkaline Phosphatase 79 44 - 121 IU/L [facility] AST (SGOT) 22 0 - 40 IU/L [facility] ALT (SGPT) 27 0 - 32 IU/L [facility] 07/15/2024 1:18 PM EDT 07/15/2024 us Tom Blunt MD LAB BLOOD ORDERABLES Final Re sult [facility] [address] [place] [address] from Last 3 Months Insurance [facility] ([id number]) [facility] ([id number]) 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
--- OUTSIDE RECORDS SUMMARY | 2024-07-20 15:52 | XMS_ITS | Encounter Summary ---
Author Organization [facility] Address [address] [address] Phone Care Team Providers Care [employer] Name Role Phone James Lopez MD Primary Care Provider [phone] Encounter Details Date Type Department Care Team ([facility] Contact Info) Description 07/15/2024 Orders Only [facility] [address] [address] [place] [address] [place] [phone] Social History Tobacco Use Types Packs/Day Years Used Date Smoking Tobacco: Former Smokeless Tobacco: Former Alcohol Use Standard Drinks/Week Comments Yes 0 (1 standard drink = 0.6 oz pur e alcohol) Comments Unknown Sex and Gender Information Value Date Recorded Sex Assigned at Not on file Legal Sex Female 10:49 AM EST Gender Identity Not on file Sexual Orientation Not on file documented as of this encounter Plan of Treatment Upcoming Encounters Date Type Department Care Team (Late Contact Info) Description 07/22/2024 11:40 AM EDT Office Visit [facility] [address] [address] Tom Blunt MD [facility] [address] [address] documented as of this encounter Procedures Procedure Name Priority Date/Time Associated Diagnosis Comments MICROSCOPIC EXAMINATION - DO NOT USE Routine 07/15/2024 1:18 PM EDT PROTEIN / CREATININE RATIO, URINE Routine 07/15/2024 1:18 PM EDT VITAMIN D 25 HYDROXY Routine 07/15/2024 1:18 PM EDT URINALYSIS WITH MICROSCOPIC Routine 07/15/2024 1:18 PM EDT CBC AND DIFFERENTIAL Routine 07/15/2024 1:18 PM EDT URIC ACID Routine 07/15/2024 1:18 PM EDT PHOSPHATE ( PHOSPHORUS) Routine 07/15/2024 1:18 PM EDT PTH, INTACT Routine 07/15/2024 1:18 PM EDT MAGNESIUM Routine 07/15/2024 1:18 PM EDT COMPREHENSIVE METABOLIC PANEL Routine 07/15/2024 1:18 PM EDT documented in this encounter Results * (ABNORMAL) Microscopic Examination (07/15/2024 1:18 PM EDT) WBC, Urine 6-10(A) 0 - 5 /hpf [facility] RBC, Urine None seen 0 - 2 /hpf [facility] Squamous Epithelial, Urine 0-10 0 - 10 /hpf [facility] Casts None seen None seen /lpf [facility] Bacteria, Urine Few None seen/Few [facility] 07/15/2024 1:18 PM EDT 07/15/2024 us Tom Blunt MD LAB MICROBIOLOGY - GENERAL OR DERABLES Final Result [facility] [address] [place] [address] * PTH, Intact (07/15/2024 1:18 PM EDT) PTH 40 15 - 65 pg/mL [facility] 07/15/2024 1:18 PM EDT 07/15/2024 Tom Blunt MD LAB BLOOD ORDERABLES Final Re sult Performing Organization Address [facility] Co de Phone Number [facility] [address] [place] [address] * Magnesium (07/15/2024 1:18 PM EDT) Magnesium 2.2 1.6 - 2.3 mg/dL [facility] 07/15/2024 1:18 PM EDT 07/15/2024 us Tom Blunt MD LAB BLOOD ORDERABLES Final Re sult Performing Organization Address [facility]/ZIP Co de Phone Number [place] [facility] [address] [place] [address] * Phosphorus (07/15/2024 1:18 PM EDT) Phosphorus 3.6 3.0 - 4.3 mg/dL [facility] 07/15/2024 1:18 PM EDT 07/15/2024 us Tom Blunt MD LAB BLOOD ORDERABLES Final Re sult Performing Organization Address City/[facility]/ZIP Co de Phone Number [facility] [address] [place] [address] * (ABNORMAL) Uric Acid (07/15/2024 1:18 PM EDT) Uric Acid 2.7(L) 3.1 - 7.9 mg/dL [facility] Comment:Therapeutic target f or gout patients: <6.0 07/15/2024 1:18 PM EDT 07/15/2024 Tom Blunt MD LAB BLOOD ORDERABLES Final Re sult Performing Organization Address [facility] Co de Phone Number [facility] [address] [place] [address] * Vitamin D 25 Hydroxy (07/15/2024 1:18 PM EDT) Vitamin D, 25-OH, Total 33.0 30.0 - 100.0 ng/mL [facility] Comment: Vitamin D deficiency has been defined by the Oxford of Medicine and an Endocrine Society practice guideline as a level of serum 25-OH vitamin D less than 20 ng/mL (1,2). The Endocrine Society went on to further define vitamin D insufficiency as a level between 21 and 29 ng/mL (2). 1. IOM (Oxford of Medicine). 2010. Dietary reference ?? intakes for calcium and D. [place]: The ?? National Academies Press. 2. Eagle MF, Neal [place], Zhou ROBBINS, et al. ?? Evaluation, treatment, and prevention of vitamin D ?? deficiency: an Endocrine Society clinical practice ?? guideline. JCEM. 2010; 96(7):1911-30. 07/15/2024 1:18 PM EDT 07/15/2024 Tom Blunt MD LAB BLOOD ORDERABLES Final Re sult Performing Organization Address City/[facility]/ZIP Co de Phone Number [facility] [address] [place] [address] * (ABNORMAL) Protein, Total, Random Urine w/Creatinine (Protein/Creat Ratio) (07/15/2024 1:18 PM EDT) Creatinine, Ur 80.0 Not Estab. mg/dL [facility] Protein, Ur 36.7 Not Estab. mg/dL [facility] Urine Protein/Creati nine Ratio 459(H) 0 - 200 mg/g creat [facility] 07/15/2024 1:18 PM EDT 07/15/2024 us Tom Blunt MD LAB URINE ORDERABLES Final Re sult [facility] [address] [place] [address] * (ABNORMAL) Urinalysis with microscopic (07/15/2024 1:18 PM EDT) Specific [place], Urine >=1.030(A) 1.005 - 1.030 [facility] pH Urine 5.5 5.0 - 7.5 [facility] Color, Urine Yellow Yellow [facility] Appearance Urine Clear Clear [facility] WBC Esterase Urine Negative Negative [facility] Protein, Ur 1+(A) Negative/Tra ce [facility] Glucose, Ur 3+(A) Negative [facility] Ketones, Urine Negative Negative [facility] Blood Urine Negative Negative [facility] Bilirubin Urine Negative Negative [facility] Urobilinogen Urine 0.2 0.2 - 1.0 mg/dL [facility] [phone] Nitrite, Urine Negative Negative [facility] Microscopic Examination See below: [facility] Comment:Microscopic was steve cated and was performed. 07/15/2024 1:1 8 PM EDT 07/15/2024 us Tom Blunt MD LAB URINE ORDERABLES Final Re sult [facility] [address] [place] [address] * (ABNORMAL) Comprehensive Metabolic Panel (07/15/2024 1:18 PM EDT) Glucose 126(H) 70 - 99 mg/dL [facility] BUN 12 8 - 27 mg/dL [facility] Creatinine 0.86 0.57 - 1.00 mg/dL [facility] eGFR CKD-EPI CR 2020 71 >59 mL/min/1.7 3 [facility] BUN/Creatinine Ratio 14 12 - 28 [facility] Sodium 141 134 - 144 mmol/L [facility] Potassium 4.4 3.5 - 5.2 mmol/L [facility] Chloride 103 96 - 106 mmol/L [facility] Bicarbonate (CO2) 20 20 - 29 mmol/L [facility] Calcium 10.3 8.7 - 10.3 mg/dL [facility] Comment:Verified by repeat analysis Total Protein 7.2 6.0 - 8.5 g/dL [facility] Albumin 4.8 3.8 - 4.8 g/dL [facility] Globulin 2.4 1.5 - 4.5 g/dL [facility] Total Bilirubin 0.3 0.0 - 1.2 mg/dL [facility] Alkaline Phosphatase 79 44 - 121 IU/L [facility] AST (SGOT) 22 0 - 40 IU/L [facility] ALT (SGPT) 27 0 - 32 IU/L [facility] 07/15/2024 1:18 PM EDT 07/15/2024 us Tom Blunt MD LAB BLOOD ORDERABLES Final Re sult [facility] [address] [place] [address] * CBC and Differential (07/15/2024 1:18 PM EDT) WBC 6.6 3.4 - 10.8 x10E3/uL [facility] RBC 4.82 3.77 - 5.28 x10E6/uL [facility] Hemoglobin 13.2 11.1 - 15.9 g/dL [facility] Hematocrit 40.2 34.0 - 46.6 % [facility] MCV 83 79 - 97 fL [facility] MCH 27.4 26.6 - 33.0 pg [facility] MCHC 32.8 31.5 - 35.7 g/dL [facility] RDW 13.3 11.7 - 15.4 % [facility] Platelets 264 150 - 450 x10E3/uL [facility] Neutrophils Relative 62 Not Estab. % [facility] Lymphocytes Relative 26 Not Estab. % [facility] Monocytes 10 Not Estab. % [facility] Eosinophils Relative 1 Not Estab. % [facility] Basophils Relative 1 Not Estab. % [facility] Neutrophils Absolute 4.1 1.4 - 7.0 x10E3/uL [facility] Lymphocytes Absolute 1.7 0.7 - 3.1 x10E3/uL [facility] Monocytes Absolute 0.7 0.1 - 0.9 x10E3/uL [facility] Eosinophils Absolute 0.1 0.0 - 0.4 x10E3/uL [facility] Basophils Absolute 0.0 0.0 - 0.2 x10E3/uL [facility] Immature Granulocytes 0 Not Estab. % [facility] Immature Grans (Absolute) 0.0 0.0 - 0.1 x10E3/uL [facility] 07/15/2024 1:18 PM EDT 07/15/2024 us Tom Blunt MD LAB BLOOD ORDERABLES Final Re sult [facility] [address] [place] [phone] documented in this encounter Visit Diagnoses Not on filedocumented in this encounter Care Teams [employer] Relationship Specialty Start Date End Date James Lopez MD [facility] [address] [place], [place] PCP - General Internal Medicine 03/27/21 documented as of this encounter
== END 2024-07-20 15:23 | disposition home or self-care (01) ==
LOC: HO.HMCH 14:39
PROVIDERS: PCP Internal Medicine; Visit Provider Internal Medicine
DX: E11.65 Type 2 diabetes mellitus with hyperglycemia (principal); C34.11 Malignant neoplasm of upper lobe, right bronchus or lung; E66.9 Obesity, unspecified; Z68.34 Body mass index [BMI] 34.0-34.9, adult; I10 Essential (primary) hypertension; E78.00 Pure hypercholesterolemia, unspecified

== ENCOUNTER → 2024-07-20 14:32 | Outpatient (BNVA) | payer OTHER, SELFPAY | PROVIDERS: PCP Internal Medicine; Visit Provider Internal Medicine | DX: E11.65 Type 2 diabetes mellitus with hyperglycemia (principal); I10 Essential (primary) hypertension; E78.00 Pure hypercholesterolemia, unspecified; E66.9 Obesity, unspecified; Z68.34 Body mass index [BMI] 34.0-34.9, adult; C34.11 Malignant neoplasm of upper lobe, right bronchus or lung; Z79.899 Other long term (current) drug therapy | CPT/HCPCS: 83036; 96127; 99212 ==

== ENCOUNTER 2024-11-11 12:50 | Outpatient (AMB) | payer OTHER, SELFPAY ==
[2024-11-11 12:58] VITALS: BP 130/70; PULSE 94; O2SAT 97; BMI 34.0
--- NOTE | 2024-11-11 12:58 | A.OFFPC_ITS ---
Vital Signs 11/11/24 12:58 Height 5 ft 4 in Weight 198 lb BMI 34.0 BP 130/70 Blood Pressure Location Lt brachial Position Sitting Pulse 94 Pulse Source Pulse Oximeter Pulse Oximetry (%) 97 Oxygen Delivery Method Room Air Intake Visit Reasons: DM Allergies glimepiride Allergy (Unknown, Verified 11/11/24 12:59) Unknown metformin Allergy (Unknown, Verified 11/11/24 12:59) diarrhea simvastatin Allergy (Unknown, Verified 11/11/24 12:59) Unknown Tobacco use date assessed: 11/11/24 Fall risk assessment: 1 Fall in past year Last assessed Fall Risk: 11/11/24 Dental Screening Dental Screen Date: 04/20/24 HPI DM HPI Details Patient decline thyroid surgery [facility] Medical History (Updated 11/11/24 @ 13:17 by James Lopez MD) Cough Lung nodule Hypertensive retinopathy of both eyes History of COVID-19 Vitamin D deficiency History of breast cancer (~2009) Pulmonary nodule Multinodular thyroid Osteoarthritis of right knee Right knee pain B12 deficiency Acute blood loss anemia Hypercholesterolemia Obesity (BMI 30-39.9) Diabetic nephropathy Hypertension Type 2 diabetes mellitus with hyperglycemia Surgical History S/P thyroid biopsy History of total mastectomy of right breast (~2009) History of bunionectomy Family History Father No problems noted. Mother Enlarged heart Paternal Aunt Diabetes Social History Household Members: None Housing: Apartment Do you presently have visiting nurse or other home services: No Alcohol intake: current Alcohol intake frequency: 0-2 drinks per day Comment: rings appropriately Patient Tobacco Use Status: Former Tobacco user Tobacco use type: Cigarette Years Smoked: quit 1999 e-Cigarette/Vaping Use: Never Used Second Hand Smoke Exposure: No service: No Current occupational status: retired Cognitive needs: No Hearing needs: No Vision needs: Yes Questionnaire PHQ-9 Over the last 2 weeks, how often have you been bothered by any of the following problems? 1. Little interest or pleasure in doing things: not at all 2. Feeling down, depressed, or hopeless: not at all 3. Trouble falling or staying asleep, or sleeping too much: not at all 4. Feeling tired or having little energy: not at all 5. Poor appetite or overeating: not at all 6. Feeling bad about yourself - or that you are a failure or have let yourself or your family down: not at all 7. Trouble concentrating on things, such as reading the newspaper or watching television: not at all 8. Moving or speaking so slowly that other people could have noticed. Or the opposite - being so fidgety or restless that you have been moving around a lot more than usual: not at all 9. Thoughts that you would be better off or of hurting yourself in some way: not at all Total score: 0 Depression Screening Interpretation: Negative Depression Screening Done: Yes Source: Developed by Drs. Dexter Vásquez, Judi Bell, Omari Leach and colleagues, with an educational pricila from [employer]. Thrive Questionnaire Date Thrive assessed: 11/11/24 I am a: Patient What is your living situation today?: I have a steady place to live Within the past 12 months, did the food you bought not last and you didn't have the money to get more?: Sometimes True Within the past 12 months, did you worry whether your food would run out before you got money to buy more?: Sometimes True Do you have trouble paying for medicines?: No Do you have trouble getting transportation to medical appointments?: No Do you have trouble paying your heating and electricity bill?: No Do you have trouble taking care of your child, family member or friend?: No Do you have trouble with day-to-day activities such as bathing, preparing meals, shopping, managing finances, etc.?: No Are you currently unemployed and looking for a job?: No Are you interested in more education?: No Please select the resources that you would like help with: None Currently or been in a relationship where the following occur: No concerns reported THRIVE Score: 2 AUDIT C Alcohol Use Questionnaire (AUDIT-C) 1. How often do you have a drink containing alcohol?: 4 or more times a week 2. How many drinks containing alcohol do you have on a typical day when you are drinking?: 5 or 6 3. How often do you have six or more drinks on one occasion?: Daily or almost daily Total Score: 10 NATALIA-7 AMB Questionnaire NATALIA-7 Date NATALIA - 7 assessed: 11/11/24 Feeling nervous, anxious, or on edge: 0 = Not at all Not being able to stop or control worryin = Not at all Worrying too much about different things: 0 = Not at all Trouble relaxin = Not at all Being so restless that it is hard to sit still: 0 = Not at all Becoming easily annoyed or irritable: 0 = Not at all Feeling afraid as if something awful might happen: 0 = Not at all Total NATALIA-7 score (0-4 normal; 5-9 mild; 10-14 moderate; 15-21 severe): 0 Source: Developed by Drs. Dexter Vásquez, Judi Bell, Omari Leach and colleagues, with an educational pricila from [employer]. Physical exam (Primary Care) Vital Signs: Last Vital Signs Pulse 94 11/11/24 12:58 BP 130/70 11/11/24 12:58 Pulse Ox 97 11/11/24 12:58 Oxygen Delivery Method Room Air 11/11/24 12:58 BMI result Body Mass Index 34.0 Tobacco/Smoking Status: Tobacco use Status Tobacco use date assessed 11/11/24 11/11/24 13:05 Patient Tobacco Use Status Former Tobacco user 11/11/24 13:05 Tobacco use type Cigarette 11/11/24 13:05 e-Cigarette/Vaping Use Never Used 11/11/24 13:05 PHQ-9: PHQ-9 Score PHQ-9: Total score 0 11/11/24 13:10 Depression Screening Interpretation: Negative Thrive Assessment: Date of Thrive Assessment Date Thrive assessed 11/11/24 11/11/24 13:05 Currently or been in a relationship where the following occur: No concerns reported Const General: alert; No acute distress Eyes Conjunctivae: conjunctivae normal Resp Auscultation: clear to auscultation bilaterally Cardio Rate: regular rate Rhythm: regular rhythm GI Inspection: Yes normal to inspection Extrem General: Yes normal to inspection and No edema Results AMB Hemoglobin A1c AMB Hemoglobin A1c 7.8 % Last Edit by Mary Jo Love CMA on 11/11/24 13 :10 Results Reviewed Results Reviewed: Laboratory Last Values Hgb A1c (Clinic) 7.8 % (4.0-6.0) H 11/11/24 12:58 Coding Level of Care Code Est Pt Level 4 (65658) Complex EM visit Add On G2211 Diagnoses Type 2 diabetes mellitus with hyperglycemia, without long-term current use of insulin E11.65 Diabetes mellitus terminal superintendent insulin use: without terminal superintendent use Multinodular thyroid E04.2 Essential hypertension I10 Hypertension type: essential hypertension Hypercholesterolemia E78.00 Obesity (BMI 30-39.9) E66.9 Cancer of upper lobe of right lung C34.11 History of breast cancer Z85.3 Assessment & Plan Assessment & Plan (1) Type 2 diabetes mellitus with hyperglycemia: Comment: Dr. Leon Code(s): E11.65 - Type 2 diabetes mellitus with hyperglycemia Category: Medical Qualifiers: Diabetes mellitus terminal superintendent insulin use: without correction use Qualified Code(s): E11.65 - Type 2 diabetes mellitus with hyperglycemia Plan: Decrease the amount of carbohydrate intake, pasta, bread, rice and potatoes are all sugar and that is aside from all the sweet stuff, remember that fruits are good but they are Sweet also. Hemoglobin A1c goal of less than 7.0. Patient is on Farxiga 10 mg once a day Januvia at 100 mg once a day patient can not med take metformin and glimepiride (2) Multinodular thyroid: Comment: (with mass effect on the trachea - refered to Dr. Cuenca for a thyroidectomy) Code(s): E04.2 - Nontoxic multinodular goiter Category: Medical Plan: Continuing to monitor (3) Hypertension: Code(s): I10 - Essential (primary) hypertension Category: Medical Qualifiers: Hypertension type: essential hypertension Qualified Code(s): I10 - Essential (primary) hypertension Plan: Continue with blood pressure medication. Decrease salt intake and exercise patient on losartan at 100 mg once a day (4) Hypercholesterolemia: Code(s): E78.00 - Pure hypercholesterolemia, unspecified Category: Medical Plan: Avoid fried foods, chicken skin, eggs, butter margarine, pastries and meat. Be it pork or beef they have a lot of cholesterol patient needs blood work LDL goal of less than 100 and triglyceride of less than 150 (5) Obesity (BMI 30-39.9): Code(s): E66.9 - Obesity, unspecified Category: Medical Plan: Diet and exercise (6) Cancer of upper lobe of right lung: Comment: July 2022 right upper wedge resection with completion lobectomy and lymph node showing adeno carcinoma CT scan September 2024 Code(s): C34.11 - Malignant neoplasm of upper lobe, right bronchus or lung Category: Medical Plan: Patient has followed thoracic surgeon and repeat CT scan in 2025 (7) History of breast cancer: Onset Date: ~2009 Comment: (s/p right mastectomy, chemo & radiation Dr. Ho - 2009) mammogram February 2023 Code(s): Z85.3 - Personal history of malignant neoplasm of breast Category: Medical Plan: Up-to-date with mammogram Plan History of Present Illness The patient is a 73-year-old female presenting with management of chronic conditions and follow-up for cancer surveillance. The patient has a history of diabetes mellitus, with a current hemoglobin A1c of 7.8%. She is currently on Farxiga 10 mg and Januvia 100 mg daily, but cannot take metformin and glimepiride. The goal is to achieve a hemoglobin A1c of less than 7.0%. The patient has hypertension and is managed with losartan 100 mg daily. She also has hypercholesterolemia, with the last LDL measurement at 111 mg/dL in April 2023. The patient is advised to maintain an LDL level of less than 100 mg/dL and triglycerides of less than 150 mg/dL through diet and exercise. The patient has a history of breast cancer, for which she underwent a right mastectomy in 2009. She also has a history of right lung cancer, with a lobectomy performed in July 2022. A follow-up CT scan in September 2024 showed no evid ence of local or regional malignancy. The patient has osteopenia, with the last bone density test conducted in November 2022. She has cataracts and dry eye syndrome, and follows up with ophthalmology regularly. Health Maintenance - Cologuard testing due by end of year - Mammogram up to date - Regular follow-up with ophthalmology for cataracts and dry eye syndrome - Regular follow-up with nephrology, last seen July 22 Social History - Reports drinking six to eight glasses of water daily - Family history of diabetes, leading to dietary changes such as stopping rice consumption Review of Systems - Ophthalmologic: Denies retinopathy, reports cataracts and dry eye syndrome Physical Exam Results - Labs: Hemoglobin A1c 7.8% - Labs: LDL 111 mg/dL (April 2023) - Imaging: CT scan September 2024, no evidence of local or regional malignancy Plan Patient was informed and verbally consented to the use of an ambient scribe for clinic note documentation during this visit. 1. Diabetes Mellitus The patient is currently on Farxiga 10 mg and Januvia 100 mg daily, with a goal to achieve a hemoglobin A1c of less than 7.0%. She cannot take metformin and glimepiride. 2. Hypertension The patient is managed with losartan 100 mg daily. 3. Hypercholesterolemia The patient is advised to maintain an LDL level of less than 100 mg/dL and triglycerides of less than 150 mg/dL through diet and exercise. 4. Breast Cancer Status Post Right Mastectomy The patient underwent a right mastectomy in 2009 and continues regular surveillance. 5. Right Lung Cancer Status Post Lobectomy The patient had a lobectomy in July 2022, with a follow-up CT scan in September 2024 showing no evidence of local or regional malignancy. 6. Osteopenia The patient had a bone density test in November 2022 and continues to monitor bone health. 7. Cataracts The patient follows up with ophthalmology for cataracts and dry eye syndrome. Discussion Notes During the visit, we discussed the management of diabetes mellitus with a focus on achieving a hemoglobin A1c of less than 7.0% using Farxiga and Januvia. We also reviewed the patient's hypertension management with losartan and the need for maintaining cholesterol levels through diet and exercise. Cancer surveillance was addressed, with a follow-up CT scan showing no malignancy post- lobectomy. Patient Instructions - Continue taking Farxiga and Januvia as prescribed. - Maintain a healthy diet and exercise regularly to manage cholesterol levels. - Follow up with ophthalmology for cataracts and dry eye syndrome. - Schedule the next CT scan for September 2025. - Ensure regular follow-ups with nephrology and other specialists as needed. Orders: Orders AMB Hemoglobin A1c Today Z13.9 - Encounter for screening, unspecified
--- OUTSIDE RECORDS SUMMARY | 2024-11-11 13:25 | XMS_ITS | Clinical Summary ---
Author Organization [facility] Address [address] [place] [address] Phone Care Team Providers Care Assignment Desk Editor Name Role Phone James Lopez MD Primary Care Provider [phone] Allergies Active Allergy Reactions Criticality Noted Date [...] Active Problems Problem Noted Date Diagnosed Date Chronic kidney disease, stage 2 (mild) Multiple nodules of lung 04/01/2024 Proteinuria, not otherwise specified 07/08/2021 Diabetes mellitus, not otherwise specified 05/07 Personal history of breast cancer 05/07/2021 Vitamin B12 deficiency 05/07/2021 Hypertension 05/02/2021 Resolved Problems Problem Noted Date Diagnosed Date Resolved Date Diabetes mellitus with renal manifestations, type II or unspecified type, not stated as uncontrolled 05/07/2021 07/08/2021 Family History Medical History Relation Comments Heart [...] Sign Reading Time Taken Comments Blood Pressure 140/66 07/22/2024 11:50 AM EDT Pulse 85 07/22/2024 11:50 AM EDT Temperature - - Respiratory Rate - - Oxygen Saturation 98% 07/22/2024 11:50 AM EDT Inhaled Oxygen Concentration - - Weight 90.3 kg (199 lb) 07/22/2024 11:50 AM EDT Height 162.6 cm (5' 4 ) 07/09/2023 11:37 AM EDT Body Mass Index 34.16 07/09/2023 11:37 AM EDT Plan of Treatment Health Maintenance Due Date [...] Diabetes: Visual Foot Exam 05/07/2021 Influenza Vaccine (#1) 2024 Hepatitis B Vaccine Aged Out No longe r eligible based on patient's age to complete this topic [place] [address] ([id number]) [facility] ([id number]) Care Teams Assignment Desk Editor Relationship Specialty Start Date End Date James Lopez MD [facility] [address] [place], [place] PCP - General Internal Medicine 03/27/21
--- OUTSIDE RECORDS SUMMARY | 2024-11-11 13:25 | XMS_ITS | Patient Health Record ---
[facility] Address [address] [facility] [place] [address] Care Team Providers Care Vba Programmer Name Role Phone James Lopez Primary Care Provider Demar Beach Unavailable [phone] Allergies Allergen (clinical drug ingredient) Drug/Non Drug [...] Duration) Notes Start Date End Date Status Vitamin D3 1000 UNIT 1 capsule Orally On ce a day Active Vitamin C 1000 MG 1 tablet Orally Once a day Active Farxiga 10 MG 1 tablet Orally Once a day Active Rosuvastatin Calcium 20 MG 1 tablet Orally Once a day Active Losartan Potassium 100 MG 1 tablet Orally Once a day Active Januvia 100 MG 1 tablet Orally Once a day Active Extra Depth Orthopedic Shoes, (1) Pair With (3) Pair Custom Heat Molded Multidensity Innersoles Dx: NIDDM/PVD(E11.51), Hammertoe Foot Deformity(M20.41,M20.42), Preulcerative Skin Lesion(s)(L85.1) Wear Daily; Duration: 365 days 04/27/2024 Active Social History Tobacco Use: Social History [...] Problem Acquired hammer toe of right foot (0756175877295 105) Other hammer toe(s) (acquired), right foot (M20.41) Active confirmed Problem Acquired hammer toe of left foot (4402722996448 103) Other hammer toe(s) (acquired), left foot (M20.42) Active confirmed Problem Type 2 diabetes mellitus with peripheral angiopathy (788244281) Type 2 diabetes mellitus with diabetic peripheral angiopathy without gangrene (E11.51) Active confirmed Q7(A), Q8(2B), Q9(1B,2C) Vital Signs Blood pressure diastolic 65 mm Hg 08/06/2024 Height 5ft 3inch in 08/06/2024 Blood pressure systolic 128 mm Hg 08/06/2024 Weight 208 lbs 08/06/2024 BMI 36.84 kg/m2 08/06/2024 Procedures Procedure Date Ordered Date Performed Result Body Sit e 67754-BXBAYOW NAIL, 1-5 04/27/2024 N/A 16221-AJGJ SKIN LESIONS, OVER 4 04/27/2024 N/A C3590-ZHFVIXXL DYSTROPHIC NAILS ANY # 04/27/2024 N/A 38454-HNVQWPL NAIL, 1-5 08/06/2024 N/A 02870-VNAI SKIN LESIONS, OVER 4 08/06/2024 N/A F2150-XQAUPSIR DYSTROPHIC NAILS ANY # 08/06/2024 N/A Encounters Encounter [facility] Date [facility] [address] [facility]/27/2024 Demar Aguila Type 2 diabetes mellitus with diabetic peripheral angiopathy without gangrene E11.51 ; Tinea unguium B35.1 ; Pain in right toe(s) M79.674 ; Pain in left toe(s) M79.675 ; Other hammer toe(s) (acquired), left foot M20.42 and Other hammer toe(s) (acquired), right foot M20.41 [facility] [address] 08/06/2024 Demar Aguila Type 2 diabetes mellitus with diabetic peripheral angiopathy without gangrene E11.51 ; Tinea unguium B35.1 ; Pain in right toe(s) M79.674 and Pain in left toe(s) M79.675 Assessments Encounter Date Diagnosis (ICD Code) Assessment Notes Treatment Notes Treatment Clinical Notes Section Notes 04/27/2024 Type 2 diabetes mellitus with diabetic peripheral angiopathy without gangrene (ICD-10 - E11.51) Q7(A), Q8(2B), Q9(1B,2C) 08/06/2024 Tinea unguium (ICD-10 - B35.1) 08/06/2024 Type 2 diabetes mellitus with diabetic peripheral angiopathy without gangrene (ICD-10 - E11.51) Q7(A), Q8(2B), Q9(1B,2C) 08/06/2024 Pain in right toe(s) (ICD-10 - M79.674) 04/27/2024 Tinea unguium (ICD-10 - B35.1) 04/27/2024 Pain in right toe(s) (ICD-10 - M79.674) 08/06/2024 Pain in left toe(s) (ICD-10 - M79.675) 04/27/2024 Pain in left toe(s) (ICD-10 - M79.675) 04/27/2024 Other hammer toe(s) (acquired), left foot (ICD-10 - M20.42) 04/27/2024 Other hammer toe(s) (acquired), right foot (ICD-10 - M20.41) Patient Educated with: DIABETIC FOOT CARE INSTRUCTIONS.p df (DIABETIC FOOT CARE INSTRUCTIONS.p df) Plan Of Treatment Pending Test Test Name Order Date 54332-IRDRYCC NAIL, 1-04/27/2024 76400-DZIPNKS NAIL, 1-08/06/2024 73227-SUXD SKIN LESIONS, OVER 4 08/07/19 25 03097-YITT SKIN LESIONS, OVER 4 04/27/19 25 J0217-JTAYFFKD DYSTROPHIC NAILS ANY # P3339-EMLEJYFY DYSTROPHIC NAILS ANY # Next Appt Details Provider Name:Demar Aguila 11/12/2024 12:45:00 PM, [address] [place], [address], Insurance Providers Payer Name Payer Address Payer Phone Subscriber Number Group Number Insured Name Patient Relationship to Insured Coverage Start Date Coverage End Date [facility] [employer] Claims [address] [facility] [place] [address] [phone] [id number] Juany Lowery Self - patient is the insured Medical (General) History Medical History History ICD Code Arthritis Back,Hip,and Knee pain CAD (Cholesterol) Cancer covid-19 Diabetic type 2 High Blood Pressure Sciatica thyroid Measles Chicken pox Surgical History Surgery Date(Month/Year) bunionectomy 1970 mastectomy 11/24 lung cancer 2022
--- OUTSIDE RECORDS SUMMARY | 2024-11-11 13:25 | XMS_ITS | Clinical Summary ---
Author Organization [facility] Address [address] [place] [address] Phone Care Team Providers Care Take Up Supervisor Name Role Phone James Lopez MD Primary Care Provider [phone] Allergies Active Allergy Reactions Criticality Noted Date [...] of lung cancer 04/01/2024 Assessment & Plan (10/07/2024 10:52 AM EDT): Ms. Lowery is a 73-year-old female who had a right upper lobectomy in July 2022 for stage I pulmonary adenocarcinoma. The patient's most recent surveillance chest CT scan done September 29, 2024 shows no new, or worsening, pulmonary nodule or thoracic adenopathy to suggest recurrence or new disease. She has a stable nodule in the left apex. She also has a stable, partially calcified, nodule of the left lobe of the thyroid of which she states she follows with endocrinology for. We will continue with routine chest CT surveillance the next of which will be in 1 year, September 2025. The patient have a follow-up visit in the office after that scan as part of her surveillance protocol. Assessment & Plan (04/01/2024 1:05 PM EST): [...] Type 2 diabetes mellitus wit hout complication (CMS/HCC V24, CMS/HCC V28) 05/07/2021 Vitamin B12 deficiency 05/07/2021 Hypertension 05/02/2021 Encounters Date Type Department Care Team Description 10/07/2024 11:15 AM EDT Office Visit [facility] [place] [address] [facility] [address] [place] [address] Hiral Diop PA History of lung cancer (Primary Dx) 09/29/2024 1:27 PM EDT - 09/29/2024 11:59 PM EDT Hospital Encounter [facility] Scan [address] [place] [address] History of lung cancer; Multiple pulmonary nodules Discharge Disposition: Home or Self Care from [...] diabetes mellitus wit h hyperglycemia (CMS/HCC V24, CMS/HCC V28) DX:Type 2 tk betes mellitus with [...] Sign Reading Time Taken Comments Blood Pressure 184/73 10/07/2024 11:43 AM EDT Pulse 87 10/07/2024 11:43 AM EDT Temperature 36.4 C (97.5 F) 10/07/2024 11:43 AM EDT Respiratory Rate 16 04/01/2024 2:14 PM EST Oxygen Saturation 100% 10/07/2024 11: 43 AM EDT Inhaled Oxygen Concentration - - Weight 90.6 kg (199 lb 11.2 oz) 025 11:43 AM EDT Height 162.6 cm (5' 4 ) 10/07/2024 11:4 3 AM EDT Body Mass Index 34.28 10/07/2024 11:43 AM EDT Plan of Treatment Health Maintenance [...] series) 2010 Cholesterol Screening (Lipid Panel) 02/16/2022 Falls Risk Assessment 02/16/2022 Hepatitis C Screening 02/16/2022 Medicare Annual Wellness Visit 02/16/2022 Osteoporosis Screening (Bone Density Screening) 02/16/2022 Social Influencers of Health Screening 02/16/2022 Diabetes: Annual Urine Albumin-Creatinine Ratio (uACR) 01/07/2024 Diabetes: Blood Sugar Control Test (HGBA1C) 01/07/2024 Depression Screening 03/17/2024 DTaP,Tdap,and Td Vaccines (2 - Td or Tdap) 04/28/2024 04/28/2014 Influenza Vaccine (#1) 2024 12/12/2009 Colorectal Cancer Screening: FIT-DNA (Cologuard) 02/18/2025 02/18/2022, 02/18/2022 Diabetes: Annual GFR (Glomerular Filtration Rate) 07/15/2025 07/15/2024, 07/15/2024, 07/03/2023, Additional history exists Hypertension/CHF/CAD Annual BMP Blood Test 07/15/2025 07/15/2024, 07/15/2024, 07/03/2023, Additional history exists HIB Vaccines Aged Out No longer eligi [...] 20 months Aged Out No longer eligible based on patient's age to complete this topic Varicella Vaccines Aged Out No longer eligible based on patient's age to complete this topic Procedures Procedure Name Priority Date/Time Associated Diagnosis Comments CT CHEST WO CONTRAST Routine 09/29/2024 1:46 PM EDT History of lung cancer Multiple pulmonary nodules from Last 3 Months Results * CT Chest wo Contrast (09/29/2024 1:46 PM EDT) Anatomical Region Laterality Modality Body Computed Tomogra phy 10/01/2024 5:13 PM EDT Impressions 10/01/2024 5:29 PM EDT No evidence of local or regional malignancy post right upper lobectomy. No suspicious interval change. Left lobe thyroid mass again demonstrated. No suspicious change in a pleural associated left apical nodule. -------- FINAL REPORT -------- Dictated By: Kavon Pavon Dictated Date: 10/01/2024 17:13 ET Assigned Physician: Kavon Pavon Reviewed and Electronically Signed By: Kavon Pavon Signed Date: 10/01/2024 17:29 ET Workstation ID: [id number] Transcribed By: Self Edit Transcribed Date: 10/01/2024 17:13 ET Narrative 10/01/2024 5:29 PM EDT EXAMINATION: CT CHEST WITHOUT CONTRAST CLINICAL INFORMATION: History of lung cancer. Post right lower lobectomy. Surveillance Per EMR-RIGHT UPPER lobectomy in July 2022 for a stage I adenocarcinoma. COMPARISON: Portions of previous 03/23/24 TECHNIQUE: Multidetector CT. Examination of the chest. Examination of the chest without IV contrast. Reformatting in the coronal and sagittal planes. DLP: 639 mGy-cm Dose optimization was performed including the use of low-dose iterative reconstruction technique with automatic exposure control based on patient size. Type of contrast: None Volume of IV contrast: None Volume of contrast discarded: 0 mL FINDINGS: LUNG: There is no abnormality of the trachea. There is no evidence of local recurrence at the right upper lobectomy stump. Unchanged peripheral micronodule in the lateral left apex (4/35) since at least 09/08/23. Juxtapleural peripheral reticular opacities with volume loss in the anterior right lung medially this could reflect postradiation change. MEDIASTINUM: The trachea is displaced secondary to a partially calcified mostly solid nodule in the left lobe of the thyroid 09/29/24-5.1 cm (3/13) 03/23/24-4.9 cm (4/17) 09/08/23-5.0 cm (3) No enlarged mediastinal lymph nodes. No suspicious abnormality esophagus. CARDIAC: The heart is not enlarged. No pericardial fluid or thickening CORONARY CALCIFICATION: There are mild coronary calcifications. VASCULAR: There is no thoracic aortic aneurysm. The main pulmonary artery is normal caliber PLEURA: There is no pleural fluid or pneumothorax AXILLA/CHEST WALL: There are surgical clips in the right axilla. Evidence of right mastectomy with a right breast prosthesis. VISUALIZED UPPER ABDOMEN: There are multiple circumscribed low attenuating liver lesions most consistent with cysts. These appear similar to previous studies. No change in the adrenal glands. MUSCULOSKELETAL: No suspicious focal bony lesion. Procedure Note Kavon Pavon MD - 10/01/2024 EXAMINATION: CT CHEST WITHOUT CONTRAST CLINICAL INFORMATION: History of lung cancer. Post right lower lobectomy. Surveillance Per EMR-RIGHT UPPER lobectomy in July 2022 for a stage I adenocarcinoma. COMPARISON: Portions of previous 03/23/24 TECHNIQUE: Multidetector CT. Examination of the chest. Examination of the chest without IV contrast. Reformatting in the coronal and sagittal planes. DLP: 639 mGy-cm Dose optimization was performed including the use of low-dose iterativereconstruction technique with automatic exposure control based on patientsize. Type of contrast: None Volume of IV contrast: None Volume of contrast discarded: 0 mL FINDINGS: LUNG: There is no abnormality of the trachea. There is no evidence oflocal recurrence at the right upper lobectomy stump. Unchanged peripheral micronodule in the lateral left apex (4/35) since atleast 09/08/23. Juxtapleural peripheral reticular opacities with volume loss in theanterior right lung medially this could reflect postradiation change. MEDIASTINUM: The trachea is displaced secondary to a partially calcifiedmostly solid nodule in the left lobe of the thyroid 09/29/24-5.1 cm (3/) 03/23/24-4.9 cm (4) 09/08/23-5.0 cm (06/06) No enlarged mediastinal lymph nodes. No suspicious abnormalityesophagus. CARDIAC: The heart is not enlarged. No pericardial fluid or thickening CORONARY CALCIFICATION: There are mild coronary calcifications. VASCULAR: There is no thoracic aortic aneurysm. The main pulmonary arteryis normal caliber PLEURA: There is no pleural fluid or pneumothorax AXILLA/CHEST WALL: There are surgical clips in the right axilla. Evidenceof right mastectomy with a right breast prosthesis. VISUALIZED UPPER ABDOMEN: There are multiple circumscribed lowattenuating liver lesions most consistent with cysts. These appear similarto previous studies. No change in the adrenal glands. MUSCULOSKELETAL: No suspicious focal bony lesion. IMPRESSION: No evidence of local or regional malignancy post right upper lobectomy. No suspicious interval change. Left lobe thyroid mass again demonstrated. No suspicious change in a pleural associated left apical nodule. -------- FINAL REPORT -------- Dictated By: Kavon Pavon Dictated Date: 10/01/2024 17:13 ET Assigned Physician: Kavon Pavon Reviewed and Electronically Signed By: Kavon Pavon Signed Date: 10/01/2024 17:29 ET Workstation ID: [id number] Transcribed By: Self Edit Transcribed Date: 10/01/2024 17:[address] IMG CT PROCEDURES Final Resul t from Last 3 Months Insurance [employer] MEDICARE Member Subscriber Plan / Payer (Ef fective 2016-Present) Name:Juany Lowery Relation to Subscriber:Self Name:Juany Lowery Payer ID:[id number] Group ID:[id number] Type:Not on file Address: [place] [address] [address] [phone] Care Teams Take Up Supervisor Relationship Specialty Start Date End Date James Lopez MD [address] [place] [address] [address] [facility] [place] [address] PCP - General 06/19/22
== END 2024-11-11 13:30 | disposition home or self-care (01) ==
LOC: HO.HMCH 12:51
PROVIDERS: PCP Internal Medicine; Visit Provider Internal Medicine
DX: E11.65 Type 2 diabetes mellitus with hyperglycemia (principal); C34.11 Malignant neoplasm of upper lobe, right bronchus or lung; E66.9 Obesity, unspecified; Z68.34 Body mass index [BMI] 34.0-34.9, adult; E04.2 Nontoxic multinodular goiter; I10 Essential (primary) hypertension; E78.00 Pure hypercholesterolemia, unspecified; Z85.3 Personal history of malignant neoplasm of breast

== ENCOUNTER → 2024-11-11 12:50 | Outpatient (BNVA) | payer OTHER, SELFPAY | PROVIDERS: PCP Internal Medicine; Visit Provider Internal Medicine | DX: E11.65 Type 2 diabetes mellitus with hyperglycemia (principal); E04.2 Nontoxic multinodular goiter; I10 Essential (primary) hypertension; E78.00 Pure hypercholesterolemia, unspecified; E66.9 Obesity, unspecified; Z85.3 Personal history of malignant neoplasm of breast; Z85.118 Personal history of other malignant neoplasm of bronchus and lung; Z90.2 Acquired absence of lung [part of]; Z68.34 Body mass index [BMI] 34.0-34.9, adult; Z79.899 Other long term (current) drug therapy | CPT/HCPCS: 83036; 96127; 99212 ==